=== PATIENT | male | born 1950 | race Caucasian/White ===

== ENCOUNTER → 2017-06-13 | Outpatient (CLI) | payer MEDICARE, BC, OTHER ==
[~2017-06-13] VITALS: Ht 182.9 cm; Wt 95.3 kg
[~2017-06-13] MED LIST: ASPI81TA85 PO; ATOR80TA59 PO; CALC0.004 TOP; CLOP75TA2 PO; FENO145T PO; FLOM5CAP PO; LIDOCAINE 2% INJ 100 MG/5 ML SDV (FOR ANES.) As Ordered ONE; LISI-538 PO; LOVE1INJ SC; MULTCAP PO; NITR0.4S14 SL; NS 1,000 ML IV ONE; OCUVTAB PO; OMEP40CA2 PO; PROPOFOL 200 MG/20 ML VIAL As Ordered ONE; RAMI10CA PO; TRAZ10TA PO
--- NOTE | 2017-06-13 11:23 | ROOR ---
Patient Name: Paramjit Dominguez Procedure Date: 06/13/2017 11:04 AM Date of : 1950 Age: 66 Room: [facility] Gender: Male Note Status: Finalized Procedure: Upper Endoscopy + Biopsies Indications: Heartburn, Follow-up of Olguin's esophagus Providers: Jose J Ramirez MD Referring MD: RALPH SANTIAGO DO Requestmaryann Provider: Medicines: Monitored Anesthesia Care Complications: No immediate complications. Procedure: Pre-Anesthesia Assessment: - The heart rate, respiratory rate, oxygen saturations, blood pressure, adequacy of pulmonary ventilation, and response to care were monitored throughout the procedure. The Endoscope was introduced through the mouth, and advanced to the second part of duodenum. The upper GI endoscopy was accomplished without difficulty. The patient tolerated the procedure well. Findings: The Z-line was irregular and was found 40 cm from the incisors. Multiple biopsies were obtained with cold forceps for evaluation to rule out Olguin's Esophagus randomly at the gastroesophageal junction. A medium-sized hiatal hernia was present. No other significant abnormalities were identified in a careful examination of the stomach. The exam of the duodenum was otherwise normal. Impression: - Z-line irregular, 40 cm from the incisors. - Medium-sized hiatal hernia. - Multiple biopsies were obtained at the gastroesophageal junction. - The examination was otherwise normal. Recommendation: - Patient has a contact number available for emergencies. The signs and symptoms of potential delayed complications were discussed with the patient. Return to normal activities tomorrow. Written discharge instructions were provided to the patient. - High fiber diet. - Discharge patient to home. - Continue present medications. - Await pathology results. - Telephone GI clinic for pathology results in 1 week. - Return to referring physician. - The findings and recommendations were discussed with the patient's family. Jose J Ramirez MD Jose J Ramirez MD 06/13/2017 11:23:13 AM This report has been signed electronically. Number of Addenda: 0 Note Initiated On: 06/13/2017 11:04 AM Estimated Blood Loss: Estimated blood loss: none.
--- NOTE | 2017-06-13 11:54 | ROOR ---
Patient Name: Paramjit Dominguez Procedure Date: 06/13/2017 11:05 AM Date of : 1950 Age: 66 Room: [facility] Gender: Male Note Status: Finalized Procedure: Total Colonoscopy + Hot Snare Polypectomy + Carbon Spot Marking. Indications: High risk colon cancer surveillance: Personal history of colonic polyps, Last colonoscopy: 2011 Providers: Jose J Ramirez MD Referring MD: RALPH SANTIAGO DO Requesting Provider: Medicines: Monitored Anesthesia Care Complications: No immediate complications. Procedure: Pre-Anesthesia Assessment: - The heart rate, respiratory rate, oxygen saturations, blood pressure, adequacy of pulmonary ventilation, and response to care were monitored throughout the procedure. The Colonoscope was introduced through the anus and advanced to the cecum, identified by appendiceal orifice and ileocecal valve. The colonoscopy was performed without difficulty. The patient tolerated the procedure well. The quality of the bowel preparation was excellent. Findings: The perianal and digital rectal examinations were normal. Non-bleeding internal hemorrhoids were found during retroflexion. The hemorrhoids were small and Grade I (internal hemorrhoids that do not prolapse). A large polyp was found at 20 cm proximal to the anus. The polyp was sessile. The polyp was removed with a hot snare. Polyp resection was incomplete. The resected tissue was retrieved. Area was successfully injected with Spot (carbon black) for tattooing. The exam was otherwise without abnormality on direct and retroflexion views. Impression: - Non-bleeding internal hemorrhoids. - One large polyp at 20 cm proximal to the anus, removed with a hot snare. Incomplete resection. Resected tissue retrieved. Injected. - The examination was otherwise normal on direct and retroflexion views. - The exam was otherwise normal to the cecum. Recommendation: - Patient has a contact number available for emergencies. The signs and symptoms of potential delayed complications were discussed with the patient. Return to normal activities tomorrow. Written discharge instructions were provided to the patient. - Resume previous diet. - Discharge patient to home. - Continue present medications. - Await pathology results. - Telephone GI clinic for pathology results in 1 week. - Refer to a surgeon. - The findings and recommendations were discussed with the patient's family. Jose J Ramirez MD Jose J Ramirez MD 06/13/2017 11:54:10 AM This report has been signed electronically. Number of Addenda: 0 Note Initiated On: 06/13/2017 11:05 AM Estimated Blood Loss: Estimated blood loss: none.
[2017-06-13 12:25] VITALS: BP 175/73
== END | disposition home or self-care (01) ==
LOC: M OPP 09:42
PROVIDERS: ATTEND Internal Medicine Gastroenterology
DX: Z12.11 Encounter for screening for malignant neoplasm of colon (principal); D12.5 Benign neoplasm of sigmoid colon; K64.0 First degree hemorrhoids; Z86.010 Personal history of colon polyps; R12 Heartburn; K22.8 Other specified diseases of esophagus; K44.9 Diaphragmatic hernia without obstruction or gangrene; K22.70 Barrett's esophagus without dysplasia; K21.9 Gastro-esophageal reflux disease without esophagitis; R13.10 Dysphagia, unspecified; I25.10 Atherosclerotic heart disease of native coronary artery without angina pectoris; I10 Essential (primary) hypertension; E78.5 Hyperlipidemia, unspecified; Z95.5 Presence of coronary angioplasty implant and graft; M10.9 Gout, unspecified; I86.8 Varicose veins of other specified sites; H54.41 Blindness, right eye, normal vision left eye; Z87.891 Personal history of nicotine dependence; L40.9 Psoriasis, unspecified; Z79.82 Long term (current) use of aspirin; Z79.899 Other long term (current) drug therapy

== ENCOUNTER 2017-07-12 11:24 | Inpatient (IN) | payer MEDICARE, BC, OTHER ==
--- NOTE | 2017-07-11 19:33 | HPE ---
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 HISTORY OF PRESENT ILLNESS: The patient is a 66-year-old man who has a history of gastroesophageal reflux disease and Olguin's esophagus. He had undergone a previous Halo procedure to eradicate his Olguin's esophagus. He had also undergone a colonoscopy in 2011 which revealed a polyp. He was referred back to Dr. Ramirez for repeat EGD and Halo procedure as well as a repeat colonoscopy. He underwent his procedures on 06/13/2017. At the EGD he was noted to have an irregular Z-line 40 cm from the incisors with a medium sized hiatal hernia. Multiple biopsies were obtained to evaluate for possible Olguin's changes. His examination was otherwise without significant abnormality. His colonoscopy identified a polypoid lesion at approximately 20 cm proximal to the anus. This was described as a large polyp that was sessile. This was partially resected with a hot snare and the area was marked with carbon spot marker. His pathology report revealed that the esophageal biopsies showed intestinal metaplasia consistent with Olguin's esophagus. His colon polyp revealed multiple fragments of tubulovillous adenoma with two foci of high-grade dysplasia. The colorectal polyp was not felt to be endoscopically resectable and he was referred for surgery. He was seen on 06/15/2017, and scheduled for a laparoscopic rectosigmoid resection. He is being admitted on the morning of 07/12/2017, to proceed with this surgery. ALLERGIES: The patient has no reported drug allergies. He does have some environmental allergies. MEDICATIONS: Include: - a multivitamin tablet daily - Protonix 40 mg by mouth - aspirin 81 mg by mouth daily - ramipril 5 mg by mouth daily at bedtime - Tricor 145 mg by mouth once daily - atorvastatin 80 mg by mouth daily MEDICAL HISTORY: Significant for hypertension and hypercholesterolemia. He has a history of some psoriasis. He has had esophageal reflux with Olguin's esophagus changes. He has a history of coronary artery disease and underwent coronary artery stenting in March 2016 with two stents placed. He has remained asymptomatic from the point of view of his cardiac disease since then. SURGICAL HISTORY: He has undergone right cataract extraction. He has had varicose veins addressed in his left lower extremity in 2009. He underwent a Halo treatment for Olguin's esophagus in July 2015. His coronary stents were done in March 2016. FAMILY HISTORY: There are apparently no strongly heritable medical conditions within the family. SOCIAL HISTORY: The patient is . 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 He is a former smoker who quit years ago. He denies excessive alcohol use. REVIEW OF SYSTEMS: Reveals no history of chest pain or palpitations. He has no shortness of breath , cough or wheezing. He denies any history of DVT or pulmonary embolus. He denies any history of dysuria or hematuria. He has had no melena, hematochezia, diarrhea, constipation, hepatitis, pancreatitis or jaundice. He denies any significant bone or joint issues. He denies stroke or TIA. PHYSICAL EXAMINATION: Reveals a pleasant man in no obvious discomfort. He is alert, oriented and cooperative. Sclerae are anicteric. Mucous membranes are moist. Neck is supple without mass. He has no cervical bruit. Heart exam shows a regular rate and rhythm. The lungs are clear to auscultation bilaterally. The abdomen is flat, soft and nontender with no appreciable mass. There is no lower extremity edema. He has palpable radial and pedal pulses bilaterally. IMPRESSION: 1. Tubulovillous adenoma with high-grade dysplasia at 20 cm proximal to the anal verge. 2. Coronary artery disease status post stenting in March 2016. 3. Hypertension. 4. Hypercholesterolemia. 5. Psoriasis. 6. History of gastroesophageal reflux with Olguin's esophagus. PLAN: The patient is being admitted on the morning of 07/12/2017, to undergo a laparoscopic rectosigmoid resection. He was instructed to perform a mechanical and antibiotic bowel preparation on 07/11/2017. This was to be done with SUPREP , neomycin, and Flagyl. He will receive a dose of Entereg and a dose of Invanz preoperatively. The plan is to proceed with a laparoscopic approach to his bowel resection. The patient was counseled for the surgery. He was counseled regarding the risks which include but are not limited to bleeding, infection, scarring, adverse drug reaction, need for further surgery, injury of internal organ, an anastomotic leak, and hernia. He did have an opportunity to ask questions and these were answered to the best of my ability. He was referred to his primary physician Dr. Cecil Alvarado for preoperative medical evaluation and this was performed on 07/01/2017. Dr. Alvarado felt that his risk from the surgery was low and he was felt to be appropriately optimized for surgery. [facility]PSON HOSPITALViridiana
[~2017-07-12] VITALS: Ht 182.9 cm; Wt 102.7 kg
[2017-07-12] MEDS: LR 1,000 ML IV SCH
[~2017-07-12 11:24] MED LIST changes: -FLOM5CAP PO; -LIDOCAINE 2% INJ 100 MG/5 ML SDV (FOR ANES.) As Ordered ONE; -LOVE1INJ SC; -NS 1,000 ML IV ONE; -PROPOFOL 200 MG/20 ML VIAL As Ordered ONE; -TRAZ10TA PO
[2017-07-12] MEDS ORDERED: LR 1,000 ML IV ONE (12:00)
[2017-07-12] MEDS ORDERED: ALVIMOPAN 12 MG CAPSULE (ENTEREG) PO ONE (12:00)
[2017-07-12] MEDS ORDERED: LR 1,000 ML IV SCH ×2 (12:00→22:15)
[2017-07-12] MEDS ORDERED: ERTAPENEM SODIUM 1 GM in NS MINI-BAG PLUS 50 ML IV ONE (12:00)
[2017-07-12] MEDS ORDERED: LIDOCAINE 2% INJ 100 MG/5 ML SDV (FOR ANES.) As Ordered ONE (13:10)
[2017-07-12] MEDS ORDERED: MIDAZOLAM INJ 2 MG/2 ML VIAL (J2250) As Ordered ONE (13:10)
[2017-07-12] MEDS ORDERED: ROCURONIUM BROMIDE 50 MG/5 ML VIAL/SYRINGE As Ordered ONE ×3 (13:10→19:24)
[2017-07-12] MEDS ORDERED: fentaNYL 250 MCG/5 ML INJECTION (J3010) As Ordered ONE (13:10)
[2017-07-12] MEDS ORDERED: PROPOFOL 200 MG/20 ML VIAL As Ordered ONE ×2 (13:10→13:29)
[2017-07-12] MEDS ORDERED: ASPIRIN 81 MG CHEW TABLET As Ordered ONE (13:42)
[2017-07-12] MEDS ORDERED: ASPIRIN 81 MG CHEW TABLET PO ONE (14:00)
[2017-07-12] MEDS ORDERED: BUPIVACAINE HCL 0.25% 30 ML VIAL As Ordered ONE (14:09)
[2017-07-12] MEDS ORDERED: HYDROmorphone HCL 2 MG/ML 1ML VIAL (J1170) As Ordered ONE (16:15)
[2017-07-12] MEDS ORDERED: ONDANSETRON 4MG/2ML VIAL (J2405) As Ordered ONE (20:16)
[2017-07-12] MEDS ORDERED: NEOSTIGMINE 1MG/ML 5 ML SYRINGE (J2710) As Ordered ONE (20:17)
[2017-07-12] MEDS ORDERED: GLYCOPYRROLATE INJ 0.2 MG/ML 2 ML VIAL As Ordered ONE (20:17)
[2017-07-12] MEDS ORDERED: KETOROLAC 60 MG/2 ML VIAL (J1885) As Ordered ONE (21:36)
[2017-07-12] MEDS ORDERED: fentaNYL 100 MCG/2 ML INJECTION (J3010) As Ordered ONE (21:46)
[2017-07-12] MEDS ORDERED: ONDANSETRON 4MG/2ML VIAL (J2405) IV PRN ×2 (22:00→22:15)
[2017-07-12] MEDS: ACETAMINOPHEN TAB 650MG DOSE (2X325MG) PO SCH (22:00)
[2017-07-12] MEDS ORDERED: METOCLOPRAMIDE INJ 10MG/2ML VIAL (J2765) IV PRN (22:00)
[2017-07-12] MEDS ORDERED: PERCOCET 5MG/325MG TAB PO PRN (22:15)
[2017-07-12] MEDS ORDERED: fentaNYL 100 MCG/2 ML INJECTION (J3010) IV PRN (22:15)
[2017-07-12] MEDS ORDERED: HYDROmorphone HCL 1 MG/ML SYRINGE (J1170) IV PRN (22:15)
[2017-07-12 22:50] VITALS: BP 114/67
[2017-07-12 23:20] VITALS: BP 139/63
[2017-07-13] VITALS (16 sets, daily range): BP systolic 115–159; BP diastolic 55–88
[2017-07-13] MEDS: KETOROLAC 30 MG/ML VIAL (J1885) IV SCH ×4 (04:05→20:44)
[2017-07-13] MEDS: ACETAMINOPHEN TAB 650MG DOSE (2X325MG) PO SCH ×4 (04:06→20:44)
[2017-07-13 05:30] LABS: BASO % 0.1 % (0.0-1.0); EOS % 0.1 % (0.0-3.0); LARGE UNSTAINED CELL # 0.1 K/mm3 (0.0-0.4); LARGE UNSTAINED CELL % 0.7 % (0.0-4.0); LYMPH # 0.5 K/mm3 (1.5-4.5); LYMPH % 6.9 % (24.0-44.0); MEAN CORPUSCULAR HEMOGLOBIN 34.7 pg (27.0-33.0); MEAN CORPUSCULAR HGB CONC 33.9 g/dl (32.0-36.5); MEAN CORPUSCULAR VOLUME 102.5 fl (80.0-96.0); MONO # 0.3 K/mm3 (0.0-0.8); MONO % 4.3 % (0.0-5.0); NEUTROPHILS # 6.5 K/mm3 (1.8-7.7); NEUTROPHILS % 87.9 % (36.0-66.0); PLATELET COUNT, AUTOMATED 167 k/mm3 (150-450); RED CELL DISTRIBUTION WIDTH 13.8 % (11.5-14.5); WHITE BLOOD COUNT 7.4 K/mm3 (4.0-10.0)
[2017-07-13 05:41] LABS: CALCIUM LEVEL 7.8 MG/DL (8.8-10.2); CREATININE FOR GFR 1.29 MG/DL (0.70-1.30); POTASSIUM SERUM 4.6 MEQ/L (3.5-5.1)
[2017-07-13] MEDS: LR 1,000 ML IV SCH ×2 (06:56→13:22)
[2017-07-13] MEDS: ALVIMOPAN 12 MG CAPSULE (ENTEREG) PO SCH ×2 (08:27→20:44)
[2017-07-13] MEDS ORDERED: PANTOPRAZOLE 40MG INJ (PROTONIX) (C9113) IV SCH (09:00)
[2017-07-13] MEDS ORDERED: ENOXAPARIN 40 MG/0.4 ML SYRINGE (J1650) SC SCH (09:00)
[2017-07-13 15:51] LABS: MEAN CORPUSCULAR HEMOGLOBIN 34.4 pg (27.0-33.0); MEAN CORPUSCULAR VOLUME 104.3 fl (80.0-96.0); RED CELL DISTRIBUTION WIDTH 14.3 % (11.5-14.5); WHITE BLOOD COUNT 8.4 K/mm3 (4.0-10.0)
[2017-07-14] VITALS (7 sets, daily range): BP systolic 128–154; BP diastolic 64–99
[2017-07-14] MEDS: MORPHINE 2 MG/ML 1ML SYRINGE IV PRN (03:33)
[2017-07-14] MEDS: ACETAMINOPHEN TAB 650MG DOSE (2X325MG) PO SCH ×4 (03:35→21:55)
[2017-07-14] MEDS: KETOROLAC 30 MG/ML VIAL (J1885) IV SCH (04:05)
[2017-07-14 05:32] LABS: MEAN CORPUSCULAR HEMOGLOBIN 33.5 pg (27.0-33.0); MEAN CORPUSCULAR HGB CONC 34.7 g/dl (32.0-36.5); RED CELL DISTRIBUTION WIDTH 15.7 % (11.5-14.5); WHITE BLOOD COUNT 10.1 K/mm3 (4.0-10.0)
[2017-07-14 05:39] LABS: MEAN CORPUSCULAR VOLUME 96.6 fl (80.0-96.0)
[2017-07-14 05:50] LABS: CALCIUM LEVEL 8.5 MG/DL (8.8-10.2); CREATININE FOR GFR 2.63 MG/DL (0.70-1.30); GLOMERULAR FILTRATION RATE 25.9 (>49); POTASSIUM SERUM 4.1 MEQ/L (3.5-5.1)
[2017-07-14] MEDS: NORCO, ANEXSIA 5/325MG TABLET (HYDROcodone/ACETAMINOPHEN) PO PRN ×2 (06:13→11:18)
[2017-07-14] MEDS: LR 1,000 ML IV SCH ×8 (08:00→23:44)
[2017-07-14] MEDS: PANTOPRAZOLE 40MG TAB (PROTONIX) PO SCH (10:13)
[2017-07-14] MEDS: ASPIRIN 81 MG ENTERIC TAB PO SCH (10:13)
[2017-07-14] MEDS: ALVIMOPAN 12 MG CAPSULE (ENTEREG) PO SCH ×2 (10:13→21:55)
[2017-07-14 16:46] LABS: MEAN CORPUSCULAR HEMOGLOBIN 33.8 pg (27.0-33.0); MEAN CORPUSCULAR HGB CONC 34.9 g/dl (32.0-36.5); MEAN CORPUSCULAR VOLUME 96.8 fl (80.0-96.0); RED CELL DISTRIBUTION WIDTH 15.7 % (11.5-14.5)
[2017-07-14 17:02] LABS: CALCIUM LEVEL 8.6 MG/DL (8.8-10.2); CREATININE FOR GFR 2.45 MG/DL (0.70-1.30); GLOMERULAR FILTRATION RATE 28.1 (>49); POTASSIUM SERUM 4.6 MEQ/L (3.5-5.1)
[2017-07-14] MEDS ORDERED: LR 1,000 ML IV ONE (17:15)
[2017-07-14] MEDS: RAMIPRIL 5 MG CAP PO SCH (21:55)
[2017-07-15] MEDS: ACETAMINOPHEN TAB 650MG DOSE (2X325MG) PO SCH ×4 (04:00→20:07)
[2017-07-15 04:58] VITALS: BP 133/70
[2017-07-15 05:43] LABS: BASO % 0.1 % (0.0-1.0); EOS # 0.1 K/mm3 (0.0-0.50); LARGE UNSTAINED CELL # 0.1 K/mm3 (0.0-0.4); LARGE UNSTAINED CELL % 0.8 % (0.0-4.0); LYMPH # 0.6 K/mm3 (1.5-4.5); LYMPH % 6.7 % (24.0-44.0); MEAN CORPUSCULAR HEMOGLOBIN 33.7 pg (27.0-33.0); MEAN CORPUSCULAR HGB CONC 34.6 g/dl (32.0-36.5); MEAN CORPUSCULAR VOLUME 97.2 fl (80.0-96.0); MONO # 0.4 K/mm3 (0.0-0.8); MONO % 4.2 % (0.0-5.0); NEUTROPHILS # 7.3 K/mm3 (1.8-7.7); NEUTROPHILS % 87.2 % (36.0-66.0); PLATELET COUNT, AUTOMATED 160 k/mm3 (150-450); RED CELL DISTRIBUTION WIDTH 15.4 % (11.5-14.5); WHITE BLOOD COUNT 8.3 K/mm3 (4.0-10.0)
[2017-07-15 06:11] LABS: ALBUMIN 2.7 GM/DL (3.2-5.2); ALBUMIN/GLOBULIN RATIO 0.84 (1.00-1.93); BILIRUBIN,TOTAL 0.8 MG/DL (0.2-1.0); CALCIUM LEVEL 8.3 MG/DL (8.8-10.2); CREATININE FOR GFR 1.76 MG/DL (0.70-1.30); GLOMERULAR FILTRATION RATE 41.2 (>49); POTASSIUM SERUM 4.5 MEQ/L (3.5-5.1); TOTAL PROTEIN 5.9 GM/DL (6.4-8.2)
[2017-07-15] MEDS: LR 1,000 ML IV SCH ×2 (06:35→16:10)
[2017-07-15 07:20] VITALS: BP 148/84
[2017-07-15] MEDS ORDERED: PIPERACILLIN/TAZOBACTAM SOD 3.375 GM in D5W MINI-BAG PLUS 50 ML IV SCH (10:00)
[2017-07-15] MEDS: MORPHINE 2 MG/ML 1ML SYRINGE IV PRN ×6 (10:07→22:24)
--- NOTE | 2017-07-15 10:56 | REP ---
CT ABDOMEN AND PELVIS WITHOUT IV OR ORAL CONTRAST: HISTORY: Evaluate for an anastomotic leak 3 days postop rectal resection. Tubular villous adenoma of the rectosigmoid colon. CT FINDINGS: Preliminary frontal and lateral digital parts counterperson views show an ileus pattern in the bowel gas with diffuse gas and fluid distension of small and large bowel loops as well as the stomach. There is a [id number] amount of free intraperitoneal air visible on the cross-table lateral projection and there is subcutaneous emphysema along both flanks. Axial CT images show plate-like atelectasis in the lower lobes of the lungs bilaterally and a small sliver of pleural fluid on each side. A nasogastric tube is seen terminating high in the gastric fundus. The stomach is mildly dilated with air and a small quantity of fluid. The small intestine is dilated and filled with fluid and some air from the descending duodenum distally. There is air and fluid and mild gaseous distension throughout the right and left colon to the level of the sigmoid colon. CT images confirm the presence of a large amount of free intraperitoneal air. Abdominal wall subcutaneous emphysema is present as well. A Vargas catheter is noted in place. A low anterior anastomosis is seen. There is a collection of presacral fluid consistent with ascites measuring 6.7 x 2.7 cm. This is superior and posterior to the anastomoses. There is some mild pericolic gutter fluid on the left. No other significant abdominal fluid collection seen. IMPRESSION: Ileus pattern in the bowel gas with moderate fluid and gas distension of the stomach, entire small bowel, and colon proximal to the sigmoid segment. The low anterior resection is seen. There is a small quantity of fluid, 6.7 cm, in the presacral space posteriorly adjacent to this. A small quantity of left pericolic gutter fluid is seen. No other significant fluid collection is seen. A moderate amount of free peritoneal air is seen and there is moderate subcutaneous emphysema in the abdominal wall bilaterally. The NG tube terminates high in the gastric fundus. Signed by Sánchez Torres MD 07/15/2017 11:51 A
[2017-07-15 12:00] VITALS: BP 138/64
[2017-07-15] MEDS: ALVIMOPAN 12 MG CAPSULE (ENTEREG) PO SCH ×2 (12:18→19:47)
[2017-07-15] MEDS: PANTOPRAZOLE 40MG TAB (PROTONIX) PO SCH (12:18)
[2017-07-15] MEDS: ASPIRIN 81 MG ENTERIC TAB PO SCH (12:20)
[2017-07-15 16:00] VITALS: BP 132/60
[2017-07-15] MEDS: RAMIPRIL 5 MG CAP PO SCH (19:47)
[2017-07-15] MEDS: NORCO, ANEXSIA 5/325MG TABLET (HYDROcodone/ACETAMINOPHEN) PO PRN (19:50)
[2017-07-15 20:00] VITALS: BP 157/84
[2017-07-15 23:59] VITALS: BP 138/74
[2017-07-16] MEDS: MORPHINE 2 MG/ML 1ML SYRINGE IV PRN ×5 (01:59→15:25)
[2017-07-16] MEDS: LR 1,000 ML IV SCH ×3 (03:19→16:40)
[2017-07-16] MEDS: ACETAMINOPHEN TAB 650MG DOSE (2X325MG) PO SCH ×4 (03:20→21:02)
[2017-07-16 04:00] VITALS: BP 129/80
[2017-07-16 05:54] LABS: CALCIUM LEVEL 8.6 MG/DL (8.8-10.2); CREATININE FOR GFR 1.33 MG/DL (0.70-1.30); GLOMERULAR FILTRATION RATE 56.9 (>49); POTASSIUM SERUM 4.3 MEQ/L (3.5-5.1)
[2017-07-16 06:20] LABS: ADD MANUAL DIFFER YES; MEAN CORPUSCULAR HEMOGLOBIN 33.3 pg (27.0-33.0); MEAN CORPUSCULAR HGB CONC 33.9 g/dl (32.0-36.5); MEAN CORPUSCULAR VOLUME 98.4 fl (80.0-96.0); PLATELET COUNT, AUTOMATED 194 k/mm3 (150-450); RED CELL DISTRIBUTION WIDTH 15.2 % (11.5-14.5); WHITE BLOOD COUNT 4.6 K/mm3 (4.0-10.0)
[2017-07-16 06:53] LABS: BANDS 11 % (< 11)
[2017-07-16 06:55] LABS: DOHLE BODIES 1+
[2017-07-16 06:56] LABS: ANISOCYTOSIS 1+; NUCLEATED RED BLOOD CELL 1 % (0-0)
[2017-07-16 07:20] VITALS: BP 131/76
[2017-07-16] MEDS: ASPIRIN 81 MG ENTERIC TAB PO SCH (09:27)
[2017-07-16] MEDS: PANTOPRAZOLE 40MG TAB (PROTONIX) PO SCH (09:28)
[2017-07-16] MEDS: ALVIMOPAN 12 MG CAPSULE (ENTEREG) PO SCH ×2 (09:28→21:02)
[2017-07-16 12:00] VITALS: BP 128/70
[2017-07-16 16:00] VITALS: BP 130/76
[2017-07-16 17:09] LABS: ADD MANUAL DIFFER YES; MEAN CORPUSCULAR HEMOGLOBIN 33.6 pg (27.0-33.0); MEAN CORPUSCULAR VOLUME 98.9 fl (80.0-96.0); PLATELET COUNT, AUTOMATED 258 k/mm3 (150-450); RED CELL DISTRIBUTION WIDTH 14.6 % (11.5-14.5)
[2017-07-16 17:32] LABS: BANDS 6 % (< 11)
[2017-07-16 17:33] LABS: ANISOCYTOSIS 1+; TOXIC GRANULATION 1+
[2017-07-16 17:35] LABS: TOXIC VACUOLATION 1+
[2017-07-16 17:48] LABS: MAGNESIUM LEVEL 2.1 MG/DL (1.8-2.4)
[2017-07-16 20:15] VITALS: BP 151/70
[2017-07-16] MEDS: RAMIPRIL 5 MG CAP PO SCH (21:03)
[2017-07-16] MEDS: PIPERACILLIN/TAZOBACTAM SOD 3.375 GM in D5W MINI-BAG PLUS 50 ML IV SCH (22:42)
[2017-07-17 02:20] VITALS: BP 143/71
[2017-07-17] MEDS: ACETAMINOPHEN TAB 650MG DOSE (2X325MG) PO SCH ×4 (03:47→21:21)
[2017-07-17] MEDS: PIPERACILLIN/TAZOBACTAM SOD 3.375 GM in D5W MINI-BAG PLUS 50 ML IV SCH ×4 (05:16→22:58)
[2017-07-17 05:33] VITALS: BP 136/75
[2017-07-17 06:32] LABS: ADD MANUAL DIFFER YES; MEAN CORPUSCULAR HEMOGLOBIN 33.6 pg (27.0-33.0); MEAN CORPUSCULAR HGB CONC 33.8 g/dl (32.0-36.5); MEAN CORPUSCULAR VOLUME 99.5 fl (80.0-96.0); PLATELET COUNT, AUTOMATED 234 k/mm3 (150-450); RED CELL DISTRIBUTION WIDTH 14.9 % (11.5-14.5); WHITE BLOOD COUNT 5.5 K/mm3 (4.0-10.0)
[2017-07-17 06:50] LABS: ALBUMIN 2.1 GM/DL (3.2-5.2); ALBUMIN/GLOBULIN RATIO 0.51 (1.00-1.93); ALKALINE PHOSPHATASE 51 U/L (45-117); ALT/SGPT 14 U/L (12-78); ANION GAP 10 MEQ/L (8-16); AST/SGOT 22 U/L (15-37); BLOOD UREA NITROGEN 25 MG/DL (7-18); CALCIUM LEVEL 8.6 MG/DL (8.8-10.2); CARBON DIOXIDE LEVEL 27 MEQ/L (21-32); CHLORIDE LEVEL 106 MEQ/L (98-107); CREATININE FOR GFR 1.18 MG/DL (0.70-1.30); GLOMERULAR FILTRATION RATE > 60.0 (>49); GLUCOSE, FASTING 110 MG/DL (80-110); POTASSIUM SERUM 3.8 MEQ/L (3.5-5.1); SODIUM LEVEL 143 MEQ/L (136-145); TOTAL PROTEIN 6.2 GM/DL (6.4-8.2)
[2017-07-17 07:17] LABS: ANISOCYTOSIS 1+; BANDS 3 % (< 11)
[2017-07-17 07:20] LABS: TOXIC GRANULATION 1+
--- NOTE | 2017-07-17 08:33 | REP ---
ABDOMEN, FLAT AND UPRIGHT; PA CHEST, FOUR VIEWS: HISTORY: Ileus status post postop. Air is present in small and large intestine. There are multiple dilated loops of intestine. Multiple air fluid levels are present. Pneumoperitoneum is present. An NG tube is present in the stomach. Linear density is present in the left lower lobe consistent with atelectasis. IMPRESSION: Findings consistent with postoperative ileus. Repeat examination is recommended for further evaluation. Signed by Cecil Rojo MD 07/17/2017 08:39 A
[2017-07-17] MEDS: ALVIMOPAN 12 MG CAPSULE (ENTEREG) PO SCH ×2 (09:36→21:21)
[2017-07-17] MEDS: LR 1,000 ML IV SCH ×2 (09:37→13:33)
[2017-07-17] MEDS: PANTOPRAZOLE 40MG TAB (PROTONIX) PO SCH (09:37)
[2017-07-17] MEDS: ASPIRIN 81 MG ENTERIC TAB PO SCH (09:37)
[2017-07-17] MEDS: NORCO, ANEXSIA 5/325MG TABLET (HYDROcodone/ACETAMINOPHEN) PO PRN ×2 (09:38→21:22)
[2017-07-17 10:00] VITALS: BP 135/80
[2017-07-17] MEDS: MORPHINE 2 MG/ML 1ML SYRINGE IV PRN (12:57)
[2017-07-17 14:00] VITALS: BP 145/90
[2017-07-17 18:00] VITALS: BP 148/82
[2017-07-17] MEDS: RAMIPRIL 5 MG CAP PO SCH (21:22)
[2017-07-17 22:00] VITALS: BP 155/72
[2017-07-18 02:00] VITALS: BP 150/80
[2017-07-18] MEDS: LR 1,000 ML IV SCH ×2 (02:34→16:43)
[2017-07-18] MEDS: PIPERACILLIN/TAZOBACTAM SOD 3.375 GM in D5W MINI-BAG PLUS 50 ML IV SCH ×4 (04:40→23:03)
[2017-07-18] MEDS: ACETAMINOPHEN TAB 650MG DOSE (2X325MG) PO SCH ×4 (04:40→23:02)
[2017-07-18 06:11] LABS: ADD MANUAL DIFFER YES; MEAN CORPUSCULAR HEMOGLOBIN 32.6 pg (27.0-33.0); MEAN CORPUSCULAR HGB CONC 33.5 g/dl (32.0-36.5); MEAN CORPUSCULAR VOLUME 97.2 fl (80.0-96.0); PLATELET COUNT, AUTOMATED 305 k/mm3 (150-450); WHITE BLOOD COUNT 7.7 K/mm3 (4.0-10.0)
[2017-07-18 06:29] LABS: ALBUMIN 2.1 GM/DL (3.2-5.2); ALKALINE PHOSPHATASE 71 U/L (45-117); ALT/SGPT 16 U/L (12-78); ANION GAP 11 MEQ/L (8-16); AST/SGOT 25 U/L (15-37); BILIRUBIN,TOTAL 1.8 MG/DL (0.2-1.0); BLOOD UREA NITROGEN 20 MG/DL (7-18); CALCIUM LEVEL 8.3 MG/DL (8.8-10.2); CARBON DIOXIDE LEVEL 24 MEQ/L (21-32); CHLORIDE LEVEL 107 MEQ/L (98-107); CREATININE FOR GFR 0.98 MG/DL (0.70-1.30); GLOMERULAR FILTRATION RATE > 60.0 (>49); GLUCOSE, FASTING 100 MG/DL (80-110); POTASSIUM SERUM 3.5 MEQ/L (3.5-5.1); SODIUM LEVEL 142 MEQ/L (136-145); TOTAL PROTEIN 6.3 GM/DL (6.4-8.2)
[2017-07-18 06:43] LABS: BANDS 1 % (< 11); BASOPHILS 1 % (0-4); EOSINOPHILS 4 % (0-5)
[2017-07-18 06:45] LABS: DOHLE BODIES 1+; TOXIC GRANULATION 1+
[2017-07-18 06:46] LABS: TOXIC VACUOLATION 1+
[2017-07-18] MEDS: PANTOPRAZOLE 40MG TAB (PROTONIX) PO SCH (09:25)
[2017-07-18] MEDS: ASPIRIN 81 MG ENTERIC TAB PO SCH (09:25)
[2017-07-18] MEDS: ALVIMOPAN 12 MG CAPSULE (ENTEREG) PO SCH ×2 (09:25→20:20)
[2017-07-18 10:00] VITALS: BP 132/78
--- NOTE | 2017-07-18 10:23 | REP ---
CT ABDOMEN PELVIS WITHOUT IV OR ORAL CONTRAST: HISTORY: Follow up ileus versus an anastomotic leak. Comparison CT study July 15, 2017. The extra abdominal soft tissue emphysema along the flanks is again seen quite similar to the prior study perhaps somewhat more extensive today. There is a small to moderate amount of free intraperitoneal air which is decreased in quantity since the July 15, 2017 study. A Vargas catheter is noted, however the urinary bladder is distended and dilated. There is persistent moderate dilation of proximal small bowel loops with multiple air-fluid levels. There is air and fluid and mild dilation of the right colon. Mild gaseous distension is seen in the transverse colon. Splenic flexure and descending colon are largely empty. The low anterior resection anastomosis is again seen. The fluid collection posterior and superior to it in the presacral soft tissue persists unchanged approximately 6.1 cm. No new fluid collection is seen. The NG tube tip is just inside the gastric fundus. IMPRESSION: 1. Small to moderate amount of free intraperitoneal air decreased in quantity from the July 15, 2017 study. Slight increase in the extra-abdominal soft tissue emphysema. 2. Persistent dilation of the small bowel and proximal colon to the splenic flexure. No obstructive lesion seen. 3. 6 cm fluid collection posterosuperior to the low anterior anastomosis again seen unchanged. No new fluid collection seen. 4. New dilation of the urinary bladder despite the presence of a Vargas catheter. Signed by Sánchez Torres MD 07/18/2017 02:45 P
[2017-07-18] MEDS ORDERED: KETOROLAC 30 MG/ML VIAL (J1885) IV PRN (13:00)
[2017-07-18] MEDS ORDERED: LACTATED RINGER'S 1000 ML IV ONE (13:00)
[2017-07-18] MEDS: ENOXAPARIN 40 MG/0.4 ML SYRINGE (J1650) SC SCH (13:54)
[2017-07-18 14:00] VITALS: BP 185/91
[2017-07-18] MEDS: METOCLOPRAMIDE INJ 10MG/2ML VIAL (J2765) IV SCH ×2 (16:42→23:02)
[2017-07-18 18:00] VITALS: BP 165/84
[2017-07-18] MEDS: HumaLOG INSULIN (NovoLOG) PER UNIT SC SCH (18:00)
[2017-07-18] MEDS ORDERED: FAT EMULSION IV 20% 500 ML IV SCH (18:00)
[2017-07-18] MEDS ORDERED: MULTIVITAMIN -ADULT INJECTION 10 ML, CR/CU/SE/MN/ZN INJ 1 ML in AMINO AC/ELECTROLYTE/DE... IV SCH (18:00)
--- NOTE | 2017-07-18 18:57 | REP ---
Procedure: PICC line insertion with Elliot-Kaitlin The procedure was performed under the direct supervision of Dr. Torres. The risks and benefits of the procedure were explained to the patient and informed consent was obtained. The right basilic vein was localized using ultrasound guidance. The skin was prepped and draped in a sterile fashion. 2% lidocaine was used as a local anesthetic. Using ultrasound guidance the basilic vein was cannulated and a 0.018 guidewire was inserted and advanced to the SVC using fluoroscopic guidance. The needle was removed and a 5.5 Mauritian dilator and peel-away sheath was inserted over the guide wire. A 5.5 Mauritian dual lumen catheter was cut to length of 39 cm. The dilator was removed and the catheter was inserted over the guide wire with the tip ending in the SVC. The peel-away sheath was removed and the catheter was flushed with heparinized saline as per Hospital protocol. The catheter was affixed to the skin and a sterile dressing was applied. The the patient tolerated the procedure well and there were no immediate complications. 0.2 minutes of fluoro time was utilized for this procedure. Reviewed by DEBBIE Brannon 07/18/2017 05:18 PSigned by Sánchez Torres MD 07/18/2017 06:49 P
--- NOTE | 2017-07-18 19:54 | LET ---
DATE: 07/18/2017 The patient is now 6 days postop from a laparoscopic low-low anterior resection with coloproctostomy. He has remained generally stable over the last 24 hours. He has been quite distended with a firm, distended abdomen for several days. He has an NG tube in place that was adjusted further last evening. I was contacted by nursing earlier in the day that he was leaking urine around his Vargas catheter and following his CT scan, which confirmed a distended bladder. An order was given to change his Vargas and he now has much improved drainage. The patient reports that he remains quite distended, though he is perhaps a little less uncomfortable today. He still has had no flatus by his report and denies any bowel function for several days. He has been up to ambulate several times. His reports that when he tried lying on his left side yesterday it was quite painful though he could lie on his right side okay. Vital signs show him to be afebrile for the last 24 hours. His pulse ranges between 78 and 93. His blood pressure is generally good. His oxygen saturation on room air has been ranging from 91-94%. Intake and output from the showed 2055 in with 2500 out. He is taking some ice chips and this may skew his gastric drainage somewhat. He did have 1275 mL of urine recorded for the . Physical examination shows a pleasant man lying quietly in the hospital bed. His nasogastric tube is draining some faintly greenish watery fluid. He appears adequately hydrated. Heart exam shows a regular rhythm. The lungs are clear bilaterally. The abdomen is still quite protuberant and distended. He does have some bowel sounds auscultable. There is some tympany to percussion, though I think his abdomen is slightly less firm today. He has less tenderness across the lower abdomen today. Laboratory studies include a white count of 7.7 with a differential count showing 73% neutrophils, 1 band, 9 lymphocytes and 10 monocytes. This is quite similar to what it has been the last few days. His hemoglobin is 9 with a hematocrit of 27 following transfusion of 1 unit of packed cells yesterday. Chemistry profile shows normal electrolytes with a BUN of 20, creatinine 0.98 and his glucose is 100. His total bilirubin is 1.8, though his transaminases an alkaline phosphatase are normal. His C-reactive protein today was 23, which is down slightly from the when it was nearly 30. His total protein is 6.3 with an albumin of 2.1. Because of his persistent abdominal distension with a concern that he may have had an anastomotic leak, he underwent repeat CT scanning this morning. This shows persistent air-filled small and large bowel extending to the area of the splenic flexure. There is some free air still anteriorly high in the abdomen, which is less than as noted on the study from 07/15. The bladder was noted at that time to be quite distended despite the presence of a Vargas catheter within. There is a small soft tissue density which may represent fluid posterior to the sigmoid colon just above the anastomosis, but this is unchanged from 07/15. There are no air bubbles evident down in the pelvis. There is no increase in free fluid. There is no sign of abdominal wall hernia. IMPRESSION: Persistent postoperative ileus, now day 6 postop from his low anterior resection with coloproctostomy. Pleasantly on his current CT scan he shows no strong evidence for an anastomotic leak. His white blood cell count remains normal and though he has had a few immature forms on recent labs, these are not as prominent now. His abdomen may be slightly less distended today and he has less discomfort. It may be that some of his lower abdominal discomfort was from a poorly functioning bladder drainage catheter. PLAN: We will continue his nasogastric tube for now. I have encouraged him to walk frequently during the day and to continue trying to lie on his right side and left side intermittently during the day. It is time to start him on some intravenous nutrition so I advised him that I will be requesting a PICC line from radiology and will start TPN today if the PICC line can be accomplished. He will receive a small bolus of Ringer's lactate in the interim. His total bilirubin is slightly elevated, but he did receive a third unit of packed cells yesterday and some of this may represent breakdown from his transfused blood. He is also on Zosyn for empiric antibiotic coverage. We will recheck his labs in the morning. ROMARIO
[2017-07-18] MEDS: RAMIPRIL 5 MG CAP PO SCH (20:20)
[2017-07-18] MEDS: SODIUM CHLORIDE 0.9% INJ 10 ML SYR IV SCH (20:21)
[2017-07-18 22:00] VITALS: BP 155/82
[2017-07-19] VITALS (7 sets, daily range): BP systolic 124–155; BP diastolic 65–80; O2SAT 96
[2017-07-19] MEDS: HumaLOG INSULIN (NovoLOG) PER UNIT SC SCH ×4 (00:06→17:49)
[2017-07-19] MEDS: LR 1,000 ML IV SCH (01:15)
[2017-07-19] MEDS: PIPERACILLIN/TAZOBACTAM SOD 3.375 GM in D5W MINI-BAG PLUS 50 ML IV SCH ×4 (05:09→23:08)
[2017-07-19] MEDS: ACETAMINOPHEN TAB 650MG DOSE (2X325MG) PO SCH ×4 (05:10→20:53)
[2017-07-19] MEDS: METOCLOPRAMIDE INJ 10MG/2ML VIAL (J2765) IV SCH ×4 (05:10→20:59)
[2017-07-19 05:42] LABS: BASO % 0.2 % (0.0-1.0); EOS # 0.4 K/mm3 (0.0-0.50); EOS % 4.4 % (0.0-3.0); LARGE UNSTAINED CELL # 0.1 K/mm3 (0.0-0.4); LARGE UNSTAINED CELL % 1.1 % (0.0-4.0); LYMPH # 0.8 K/mm3 (1.5-4.5); LYMPH % 8.5 % (24.0-44.0); MEAN CORPUSCULAR HEMOGLOBIN 33.2 pg (27.0-33.0); MEAN CORPUSCULAR HGB CONC 34.1 g/dl (32.0-36.5); MEAN CORPUSCULAR VOLUME 97.3 fl (80.0-96.0); MONO # 0.6 K/mm3 (0.0-0.8); MONO % 5.9 % (0.0-5.0); NEUTROPHILS # 7.4 K/mm3 (1.8-7.7); NEUTROPHILS % 79.9 % (36.0-66.0); PLATELET COUNT, AUTOMATED 351 k/mm3 (150-450); RED CELL DISTRIBUTION WIDTH 14.9 % (11.5-14.5); WHITE BLOOD COUNT 9.3 K/mm3 (4.0-10.0)
[2017-07-19] MEDS: SODIUM CHLORIDE 0.9% INJ 10 ML SYR IV SCH ×2 (05:58→17:25)
[2017-07-19 05:59] LABS: ALBUMIN 1.9 GM/DL (3.2-5.2); ALBUMIN/GLOBULIN RATIO 0.61 (1.00-1.93); ALKALINE PHOSPHATASE 124 U/L (45-117); ALT/SGPT 22 U/L (12-78); ANION GAP 8 MEQ/L (8-16); AST/SGOT 33 U/L (15-37); BILIRUBIN,TOTAL 1.5 MG/DL (0.2-1.0); BLOOD UREA NITROGEN 16 MG/DL (7-18); CALCIUM LEVEL 8.1 MG/DL (8.8-10.2); CARBON DIOXIDE LEVEL 29 MEQ/L (21-32); CHLORIDE LEVEL 105 MEQ/L (98-107); CREATININE FOR GFR 0.87 MG/DL (0.70-1.30); GLOMERULAR FILTRATION RATE > 60.0 (>49); GLUCOSE, FASTING 124 MG/DL (80-110); POTASSIUM SERUM 3.2 MEQ/L (3.5-5.1); SODIUM LEVEL 142 MEQ/L (136-145)
[2017-07-19] MEDS: ALVIMOPAN 12 MG CAPSULE (ENTEREG) PO SCH ×2 (08:31→20:59)
[2017-07-19] MEDS: PANTOPRAZOLE 40MG INJ (PROTONIX) (C9113) IV SCH (08:31)
[2017-07-19] MEDS: ASPIRIN 81 MG ENTERIC TAB PO SCH (08:31)
[2017-07-19] MEDS: ENOXAPARIN 40 MG/0.4 ML SYRINGE (J1650) SC SCH (12:05)
--- NOTE | 2017-07-19 15:59 | IPN ---
DATE: 07/19/2017 The patient reports that he has not noticed any major changes since yesterday. He does report that he felt earlier like he might be going to pass some gas but he did not. He has had no bowel movements. The NG tube remains in place as does his Vargas catheter. He is not having any significant pain. He has taken only some Tylenol today for discomfort. He remains on the total parenteral nutrition (TPN) which was started yesterday. The oxygen mask which was ordered for yesterday seems not to have been acted on yet. His complains today that he has some swelling in his lower legs, ankles and feet. He has been up to ambulate four or five times already today. Vital signs show that he has been afebrile. His pulse is in the low 70s to low to mid 80s. His blood pressure is good and his room air oxygen saturation is excellent. His intake and output shows that on the he had 1585 recorded in with 2520 recorded out. He is receiving the TPN at 65 mL per hour with 20 mL of Intralipids per hour as well. Physical exam reveals a pleasant man who does not appear to be in any significant discomfort. He is alert and oriented. Heart exam shows a regular rhythm. The lungs are clear. His abdomen remains somewhat distended but today his bowel sounds appear somewhat more active. I believe the abdomen is a little softer and less firm. Examination of the lower extremities shows that he does have some pitting edema in his lower legs. He is not wearing any thromboembolic deterrent stockings (TEDS) or sequentials at this time. LABORATORY STUDIES: He had a CBC with diff this morning that showed a white count of 9.3 with hemoglobin of 9 and a hematocrit of 26%. Platelet count is 351,000 and his differential shows 80% neutrophils, 8% lymphocytes, 6% monocytes and 4% eosinophils. Chemistry profile shows a sodium of 142, potassium 3.2, chloride 105, CO2 of 29, BUN of 16, creatinine 0.87 and a glucose of 124. His total bilirubin is 1.5 which is slightly down from yesterday when it was 1.8. His total protein is 5.0 with an albumin of 1.9. IMPRESSION: Overall patient remains stable. He has still not had any return of bowel function though I think that his abdomen is a little softer and less distended today with more active bowel sounds. He has been up to ambulate four or five times today. He is tolerating the TPN well. He remains on the Zosyn empirically for concerns about what may have been a small leak though this is looking I think less likely. His potassium is slightly decreased and he does have some lower extremity edema. PLAN: The patient will receive some IV potassium chloride runs and we will increase the potassium in his total parenteral nutrition which will be continued. His NG tube will be continued. I have encouraged him to be up ambulatory. We will initiate the oxygen mask which was started or supposed to be started yesterday. I will give him a small dose of Lasix to diuresis some of his edema. I should think we would be able to remove his Vargas catheter tomorrow if all goes well. MTDD
[2017-07-19] MEDS ORDERED: FUROSEMIDE 20 MG/2 ML VIAL (J1940) IV ONE (16:00)
[2017-07-19] MEDS: KCL 10MEQ IN 100ML SWI (KRUN) 10 MEQ in APPROPRIATE DILUENT 1 EA IV SCH ×8 (16:06→23:08)
[2017-07-19] MEDS ORDERED: DEX IV SCH (18:00)
[2017-07-19] MEDS ORDERED: FAT EMULSION IV 20% 500 ML IV SCH (18:00)
[2017-07-19] MEDS ORDERED: CALC IV SCH (18:00)
[2017-07-19] MEDS ORDERED: AMINO AC IV SCH (18:00)
[2017-07-19] MEDS ORDERED: ELECTROLYTE IV SCH (18:00)
[2017-07-19] MEDS ORDERED: POTASSIUM CHLORIDE IV SCH (18:00)
[2017-07-19] MEDS: RAMIPRIL 5 MG CAP PO SCH (20:59)
[2017-07-20] VITALS (7 sets, daily range): BP systolic 118–155; BP diastolic 69–81
[2017-07-20] MEDS: HumaLOG INSULIN (NovoLOG) PER UNIT SC SCH ×4 (00:26→18:25)
[2017-07-20] MEDS: ACETAMINOPHEN TAB 650MG DOSE (2X325MG) PO SCH (03:36)
[2017-07-20] MEDS: METOCLOPRAMIDE INJ 10MG/2ML VIAL (J2765) IV SCH ×4 (03:36→21:01)
[2017-07-20] MEDS: PIPERACILLIN/TAZOBACTAM SOD 3.375 GM in D5W MINI-BAG PLUS 50 ML IV SCH ×4 (05:12→23:35)
[2017-07-20] MEDS: SODIUM CHLORIDE 0.9% INJ 10 ML SYR IV SCH ×2 (05:13→17:00)
[2017-07-20 05:45] LABS: BASO % 0.2 % (0.0-1.0); EOS # 0.5 K/mm3 (0.0-0.50); EOS % 3.5 % (0.0-3.0); LARGE UNSTAINED CELL # 0.2 K/mm3 (0.0-0.4); LARGE UNSTAINED CELL % 1.6 % (0.0-4.0); LYMPH # 1.4 K/mm3 (1.5-4.5); LYMPH % 8.7 % (24.0-44.0); MEAN CORPUSCULAR HEMOGLOBIN 32.8 pg (27.0-33.0); MEAN CORPUSCULAR HGB CONC 33.7 g/dl (32.0-36.5); MEAN CORPUSCULAR VOLUME 97.3 fl (80.0-96.0); MONO # 0.7 K/mm3 (0.0-0.8); MONO % 5.3 % (0.0-5.0); NEUTROPHILS # 10.9 K/mm3 (1.8-7.7); NEUTROPHILS % 80.8 % (36.0-66.0); PLATELET COUNT, AUTOMATED 416 k/mm3 (150-450); RED CELL DISTRIBUTION WIDTH 15.1 % (11.5-14.5); WHITE BLOOD COUNT 13.5 K/mm3 (4.0-10.0)
[2017-07-20 05:49] LABS: ALBUMIN/GLOBULIN RATIO 0.65 (1.00-1.93); ALKALINE PHOSPHATASE 120 U/L (45-117); ALT/SGPT 23 U/L (12-78); ANION GAP 7 MEQ/L (8-16); AST/SGOT 29 U/L (15-37); BILIRUBIN,TOTAL 1.3 MG/DL (0.2-1.0); BLOOD UREA NITROGEN 13 MG/DL (7-18); CALCIUM LEVEL 7.7 MG/DL (8.8-10.2); CARBON DIOXIDE LEVEL 29 MEQ/L (21-32); CHLORIDE LEVEL 105 MEQ/L (98-107); CREATININE FOR GFR 0.79 MG/DL (0.70-1.30); GLOMERULAR FILTRATION RATE > 60.0 (>49); GLUCOSE, FASTING 126 MG/DL (80-110); POTASSIUM SERUM 3.1 MEQ/L (3.5-5.1); SODIUM LEVEL 141 MEQ/L (136-145); TOTAL PROTEIN 5.1 GM/DL (6.4-8.2)
[2017-07-20] MEDS: KCL 10MEQ IN 100ML SWI (KRUN) 10 MEQ in APPROPRIATE DILUENT 1 EA IV SCH ×8 (07:02→14:49)
[2017-07-20] MEDS: PANTOPRAZOLE 40MG INJ (PROTONIX) (C9113) IV SCH (08:21)
[2017-07-20] MEDS: ASPIRIN 81 MG ENTERIC TAB PO SCH (08:21)
--- NOTE | 2017-07-20 09:04 | REP ---
PORTABLE CHEST X-RAY: Semi-erect AP view. HISTORY: Evaluate for atelectasis or pneumonia. FINDINGS: A right-sided PICC line is inserted with its tip in the expected location of the superior vena cava. An NG tube is visible in the upper mediastinum but I cannot determine its terminus location. The upper abdomen and lower mediastinum are less well penetrated today. There is coarse bibasilar plate-like atelectasis above the diaphragms on both sides. This is unchanged on the left but new on the right. There is a moderate amount of free intraperitoneal air under the leaves of the diaphragm. This is somewhat decreased from July 16, 2017. IMPRESSION: New discoid atelectasis right lower lobe. Moderate amount of pneumoperitoneum persist slightly decreased. Discoid atelectasis again seen in the left base. Signed by Sánchez Torres MD 07/20/2017 01:40 P
--- NOTE | 2017-07-20 09:18 | IPN ---
DATE: 07/20/2017 The patient is now 8 days postop from his laparoscopic low anterior resection. He reports that he has had several small bowel movements and has passed some flatus on several occasions since yesterday. He still is quite bloated and the NG tube remains in place, but seems to have slipped back to about 50 cm at his nose and I suspect this is nonfunctional. He is not reporting any pain this morning. Vital signs show an even temperature course and he has been afebrile. Pulse has ranged from 72-85 and his blood pressure is good. His room air oxygen sats range from 92 to 96. He had tried the oxygen mask for a brief period last night, but could not sleep with it and so has not used it since. His intake and output yesterday was 2915 in with 1530 out, 1250 of that was urine, and he had received one small dose of Lasix in the afternoon. His NG output recorded is only 280 yesterday and there is a minimal amount in the canister this morning. The patient is alert, oriented and appears fairly comfortable. Sclerae are anicteric. His mucous membranes are moist. Heart exam shows a regular rate and rhythm. The lungs show good breath sounds bilaterally. The abdomen remains quite distended and is fairly firm and actually seems somewhat firmer than it did yesterday despite his report of passage of flatus. He does have some bowel sounds present, but has also tympany to percussion across the upper abdomen. His incisions all appear clean and seem to be healing well. On his lower extremities, he is wearing his thromboembolic deterrent (MI) stockings this morning, though he still has some pitting edema of his lower legs bilaterally. LABORATORY STUDIES: This morning, he had a CBC with a diff that showed a white count of 13.5 with a hemoglobin of 9, hematocrit of 26 and platelet count of 416,000. Differential showed 81% neutrophils, 9 lymphocytes, 5 monocytes and 4 eosinophils. Chemistry profile showed a sodium of 141, potassium 3.1, chloride 105, CO2 of 29, BUN of 13, creatinine of 0.8 and a glucose of 126. The total bilirubin continues to fall and is 1.3 this morning. His total protein is up a hair at 5.1 and the albumin is also slightly increased at 2.0. A chest x-ray was done which shows some atelectasis or infiltrate at the right base. He has a small amount of free air noted beneath both sides of the diaphragm. There is a little atelectasis in the left base as well, though it is less pronounced than on the right. I cannot definitely identify the tip of the NG tube. IMPRESSION: Persistent marked ileus now 8 days postop from his laparoscopic low anterior resection. His white blood cell count is up a hair this morning, but the significance of this is unclear. He remains on Zosyn for antibiotic coverage empirically. His urine output is adequate. He does report passage of some flatus, but the abdomen remains distended and firm. PLAN: We will continue with our current care. Because his potassium is slightly low, I will increase the dose of potassium in his TPN today again and give him several potassium IV boluses as well. He remains encouraged to be up and about and to continue his trips to the bathroom to see if he can pass more gas. We will recheck his electrolytes and CBC tomorrow morning. ROMARIO
[2017-07-20] MEDS: ENOXAPARIN 40 MG/0.4 ML SYRINGE (J1650) SC SCH (13:46)
[2017-07-20] MEDS ORDERED: FAT EMULSION IV 20% 500 ML IV SCH (18:00)
[2017-07-20] MEDS ORDERED: [UNRECOGNIZED DRUG - MIXTURE] IV SCH ×4 (18:00)
[2017-07-20] MEDS: RAMIPRIL 5 MG CAP PO SCH (21:00)
[2017-07-20] MEDS: NORCO, ANEXSIA 5/325MG TABLET (HYDROcodone/ACETAMINOPHEN) PO PRN (21:00)
[2017-07-20] MEDS: SODIUM CHLORIDE 0.9% INJ 10 ML SYR IV PRN (21:00)
--- NOTE | 2017-07-20 21:49 | IPN ---
DATE: 07/20/2017 Mr. Dominguez does not seem to have had a major change during the course of the day. He does report having passed small amounts of liquid loose stool on three occasions, though he has not passed significant gas per rectum. The nurse appears to have advanced his nasogastric (NG) tube slightly. He remains afebrile with a pulse in the low to mid 80s, and his oxygen saturations are fine. His urine output today has been 900, and he remains on his total parenteral nutrition. Examination shows that he does have active bowel sounds, though he does have some tinkly sounds, and his abdomen remains quite protuberant. The abdomen is perhaps a hair softer this evening than it was this morning, and he has no significant tenderness on palpation. IMPRESSION: Persistent postoperative ileus. PLAN: We will remove his Vargas catheter in the morning of July 21. I will continue his NG tube for now. I will recheck his complete blood count (CBC) with differential, a basic metabolic panel (BMP), and a magnesium level in the morning of July 21. His white count was up a hair this morning, and we will need to see if there is any trend in that regard. The chest x-ray this morning had shown some atelectasis in the right lower lobe. We will continue with supportive care while we await the resolution of his significant ileus. ROMARIO
[2017-07-21] MEDS: HumaLOG INSULIN (NovoLOG) PER UNIT SC SCH ×5 (00:44→23:42)
[2017-07-21] MEDS: METOCLOPRAMIDE INJ 10MG/2ML VIAL (J2765) IV SCH ×4 (04:18→21:40)
[2017-07-21] MEDS: PIPERACILLIN/TAZOBACTAM SOD 3.375 GM in D5W MINI-BAG PLUS 50 ML IV SCH ×4 (04:19→23:36)
[2017-07-21] MEDS: SODIUM CHLORIDE 0.9% INJ 10 ML SYR IV SCH ×2 (05:42→18:00)
[2017-07-21 06:00] VITALS: BP 133/69
[2017-07-21 06:32] LABS: ANION GAP 12 MEQ/L (8-16); BLOOD UREA NITROGEN 11 MG/DL (7-18); CALCIUM LEVEL 7.9 MG/DL (8.8-10.2); CARBON DIOXIDE LEVEL 25 MEQ/L (21-32); CHLORIDE LEVEL 105 MEQ/L (98-107); CREATININE FOR GFR 0.75 MG/DL (0.70-1.30); GLOMERULAR FILTRATION RATE > 60.0 (>49); GLUCOSE, FASTING 120 MG/DL (80-110); POTASSIUM SERUM 3.5 MEQ/L (3.5-5.1); SODIUM LEVEL 142 MEQ/L (136-145)
[2017-07-21 06:36] LABS: BASO # 0.1 K/mm3 (0.0-0.2); BASO % 0.6 % (0.0-1.0); EOS # 0.4 K/mm3 (0.0-0.50); EOS % 2.9 % (0.0-3.0); LARGE UNSTAINED CELL # 0.2 K/mm3 (0.0-0.4); LARGE UNSTAINED CELL % 1.5 % (0.0-4.0); LYMPH # 1.5 K/mm3 (1.5-4.5); LYMPH % 8.1 % (24.0-44.0); MEAN CORPUSCULAR HEMOGLOBIN 31.8 pg (27.0-33.0); MEAN CORPUSCULAR HGB CONC 32.9 g/dl (32.0-36.5); MEAN CORPUSCULAR VOLUME 96.6 fl (80.0-96.0); MONO # 0.8 K/mm3 (0.0-0.8); NEUTROPHILS # 12.7 K/mm3 (1.8-7.7); NEUTROPHILS % 81.8 % (36.0-66.0); PLATELET COUNT, AUTOMATED 436 k/mm3 (150-450); WHITE BLOOD COUNT 15.4 K/mm3 (4.0-10.0)
[2017-07-21] MEDS: PANTOPRAZOLE 40MG INJ (PROTONIX) (C9113) IV SCH (09:40)
[2017-07-21] MEDS: ASPIRIN 81 MG ENTERIC TAB PO SCH (09:40)
[2017-07-21 10:00] VITALS: BP 146/76
[2017-07-21] MEDS ORDERED: MIRALAX *UNIT DOSE* 17GM PACKET PO ONE (10:45)
[2017-07-21] MEDS: ENOXAPARIN 40 MG/0.4 ML SYRINGE (J1650) SC SCH (12:46)
[2017-07-21 14:00] VITALS: BP 146/76
[2017-07-21 18:00] VITALS: BP 120/68
[2017-07-21] MEDS ORDERED: POTASSIUM CHLORIDE IV SCH (18:00)
[2017-07-21] MEDS ORDERED: ELECTROLYTE IV SCH (18:00)
[2017-07-21] MEDS ORDERED: AMINO AC IV SCH (18:00)
[2017-07-21] MEDS ORDERED: CALC IV SCH (18:00)
[2017-07-21] MEDS ORDERED: FAT EMULSION IV 20% 500 ML IV SCH (18:00)
[2017-07-21] MEDS ORDERED: DEX IV SCH (18:00)
[2017-07-21] MEDS: SODIUM CHLORIDE 0.9% INJ 10 ML SYR IV PRN (19:50)
[2017-07-21] MEDS ORDERED: BISACODYL 5 MG TAB PO ONE (20:45)
[2017-07-21] MEDS: RAMIPRIL 5 MG CAP PO SCH (21:40)
[2017-07-21] MEDS: NORCO, ANEXSIA 5/325MG TABLET (HYDROcodone/ACETAMINOPHEN) PO PRN (21:41)
[2017-07-21 22:00] VITALS: BP 135/74
[2017-07-22] MEDS: SODIUM CHLORIDE 0.9% INJ 10 ML SYR IV PRN ×2 (00:56→20:37)
[2017-07-22 02:00] VITALS: BP 137/74
[2017-07-22] MEDS: PIPERACILLIN/TAZOBACTAM SOD 3.375 GM in D5W MINI-BAG PLUS 50 ML IV SCH ×2 (04:52→11:26)
[2017-07-22] MEDS: METOCLOPRAMIDE INJ 10MG/2ML VIAL (J2765) IV SCH ×4 (04:52→20:36)
[2017-07-22 05:39] LABS: BASO # 0.1 K/mm3 (0.0-0.2); BASO % 0.7 % (0.0-1.0); EOS # 0.4 K/mm3 (0.0-0.50); EOS % 2.1 % (0.0-3.0); LARGE UNSTAINED CELL # 0.3 K/mm3 (0.0-0.4); LARGE UNSTAINED CELL % 2.1 % (0.0-4.0); LYMPH # 1.3 K/mm3 (1.5-4.5); MEAN CORPUSCULAR HEMOGLOBIN 32.3 pg (27.0-33.0); MEAN CORPUSCULAR HGB CONC 33.4 g/dl (32.0-36.5); MEAN CORPUSCULAR VOLUME 96.8 fl (80.0-96.0); MONO # 0.8 K/mm3 (0.0-0.8); MONO % 4.8 % (0.0-5.0); NEUTROPHILS # 13.3 K/mm3 (1.8-7.7); NEUTROPHILS % 82.3 % (36.0-66.0); PLATELET COUNT, AUTOMATED 553 k/mm3 (150-450); RED CELL DISTRIBUTION WIDTH 14.6 % (11.5-14.5); WHITE BLOOD COUNT 16.2 K/mm3 (4.0-10.0)
[2017-07-22 05:49] LABS: ALBUMIN 1.8 GM/DL (3.2-5.2); ALBUMIN/GLOBULIN RATIO 0.44 (1.00-1.93); ALKALINE PHOSPHATASE 134 U/L (45-117); ALT/SGPT 25 U/L (12-78); ANION GAP 10 MEQ/L (8-16); AST/SGOT 29 U/L (15-37); BLOOD UREA NITROGEN 11 MG/DL (7-18); CALCIUM LEVEL 8.5 MG/DL (8.8-10.2); CARBON DIOXIDE LEVEL 25 MEQ/L (21-32); CHLORIDE LEVEL 104 MEQ/L (98-107); CREATININE FOR GFR 0.79 MG/DL (0.70-1.30); GLOMERULAR FILTRATION RATE > 60.0 (>49); GLUCOSE, FASTING 119 MG/DL (80-110); POTASSIUM SERUM 3.5 MEQ/L (3.5-5.1); SODIUM LEVEL 139 MEQ/L (136-145); TOTAL PROTEIN 5.9 GM/DL (6.4-8.2)
[2017-07-22 06:00] VITALS: BP 149/70
[2017-07-22] MEDS: SODIUM CHLORIDE 0.9% INJ 10 ML SYR IV SCH ×2 (06:15→16:41)
[2017-07-22] MEDS: HumaLOG INSULIN (NovoLOG) PER UNIT SC SCH ×3 (06:21→18:00)
[2017-07-22] MEDS: ASPIRIN 81 MG ENTERIC TAB PO SCH (09:32)
[2017-07-22] MEDS: PANTOPRAZOLE 40MG INJ (PROTONIX) (C9113) IV SCH (09:32)
[2017-07-22] MEDS: ENOXAPARIN 40 MG/0.4 ML SYRINGE (J1650) SC SCH (12:41)
[2017-07-22] MEDS ORDERED: BISACODYL 5 MG TAB PO ONE (13:45)
[2017-07-22 14:00] VITALS: BP 160/95
--- NOTE | 2017-07-22 16:08 | REP ---
Clinical: Lower extremity pain and swelling . Technique: De La Torre scale and color Doppler evaluation using linear high frequency transducer. Findings: Ultrasound examination of the right and left lower extremity deep venous structures from the common femoral vein to the popliteal vein demonstrates diffuse subcutaneous edema with normal compressibility, flow and wave patterns in response to respiration and augmentation. There is no evidence for deep venous thrombosis. Impression: No evidence for deep venous thrombosis. Signed by Omega Contreras MD 07/22/2017 04:00 P
[2017-07-22] MEDS ORDERED: GASTROGRAFIN SOLUTION 30ML PO ONE (16:45)
[2017-07-22] MEDS ORDERED: ERTAPENEM SODIUM 1 GM in NS MINI-BAG PLUS 50 ML IV SCH (17:00)
[2017-07-22] MEDS ORDERED: ISOVUE-370 76% 100ML VIAL (Q9967) As Ordered ONE ×2 (17:09→17:28)
[2017-07-22] MEDS ORDERED: GASTROGRAFIN SOLUTION 30ML (Q9963) PO ONE (17:15)
[2017-07-22 17:56] LABS: T UPTAKE 36 % (33-40); THYROXINE (T4) 13.8 UG/DL (4.5-12.0)
[2017-07-22] MEDS ORDERED: [UNRECOGNIZED DRUG - MIXTURE] IV SCH ×4 (18:00)
[2017-07-22] MEDS ORDERED: FAT EMULSION IV 20% 500 ML IV SCH (18:00)
--- NOTE | 2017-07-22 18:24 | REP ---
Clinical: Chest pain. History of pneumoperitoneum. Technique: PA and lateral. Comparison: 07/20/2017. Findings: Pneumoperitoneum is again appreciated. Mediastinum and cardiac silhouette are stable. PICC line identified with tip in the right atrium. Lung ramirez demonstrate chronic changes previously noted elements of left mid lung atelectasis/ right lower lobe consolidation are improved with only trace bibasilar atelectasis now identified. Lateral view cannot exclude small pleural reaction/effusion. No pneumothorax. Skeletal structures intact. Impression: 1. Improved aeration to the bilateral lung ramirez as compared to 07/20/2017. Minimal residual bibasilar atelectasis suggested. 2. Continued pneumoperitoneum. Signed by Omega Contreras MD 07/22/2017 06:16 P
[2017-07-22] MEDS: MEROPENEM INJ 1 GM in D5W MINI-BAG PLUS 100 ML IV SCH (18:44)
--- NOTE | 2017-07-22 18:57 | REP ---
Clinical: Follow up scrotal mass. Technique: Real time gore scale and color Doppler evaluation using linear high frequency transducer. Comparison: 12/06/2016. Findings: In comparison with prior examination, the right testicle now demonstrates multiple hypodense lesions measuring up to 13 x 8 x 13 mm and 12 x 5 x 9 mm along with diffuse microlithiasis. Incidental right epididymal head cyst measures 4.6 mm. The left testicle appears relatively normal and without mass lesion and only few scattered calcifications. Small bilateral hydroceles noted. Incidental left epididymal head cysts measure up to 2 mm. Vascularity to the bilateral testicles is appreciated without evidence for torsion. Right testicle measures 3.4 x 2.1 x 3.2 cm. Left testicle measures 4.8 x 2.3 x 3.3 cm. Impression: 1. While the prior examination demonstrated a single 6 mm hypoechoic lesion, current examination now demonstrates multiple heterogeneous hypoechoic lesions in the right testicle measuring up to 13 x 8 x 13 mm along with diffuse microlithiasis. 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 2. Further less significant findings as described above. Signed by Omega Contreras MD 07/22/2017 06:49 P
[2017-07-22] MEDS: RAMIPRIL 5 MG CAP PO SCH (20:36)
[2017-07-22 22:00] VITALS: BP 145/75
[2017-07-23] MEDS: MEROPENEM INJ 1 GM in D5W MINI-BAG PLUS 100 ML IV SCH ×3 (01:21→17:37)
[2017-07-23 02:00] VITALS: BP 160/77
[2017-07-23] MEDS: SODIUM CHLORIDE 0.9% INJ 10 ML SYR IV PRN (02:17)
[2017-07-23] MEDS: NORCO, ANEXSIA 5/325MG TABLET (HYDROcodone/ACETAMINOPHEN) PO PRN ×2 (02:17→21:45)
[2017-07-23] MEDS: METOCLOPRAMIDE INJ 10MG/2ML VIAL (J2765) IV SCH ×4 (05:53→21:44)
[2017-07-23] MEDS: SODIUM CHLORIDE 0.9% INJ 10 ML SYR IV SCH ×2 (05:54→16:11)
[2017-07-23] MEDS: HumaLOG INSULIN (NovoLOG) PER UNIT SC SCH ×4 (05:54→23:50)
[2017-07-23 06:00] VITALS: BP 138/77
[2017-07-23 06:23] LABS: MEAN CORPUSCULAR HEMOGLOBIN 33.2 pg (27.0-33.0); MEAN CORPUSCULAR HGB CONC 34.1 g/dl (32.0-36.5); MEAN CORPUSCULAR VOLUME 97.3 fl (80.0-96.0); RED CELL DISTRIBUTION WIDTH 14.6 % (11.5-14.5); WHITE BLOOD COUNT 16.1 K/mm3 (4.0-10.0)
[2017-07-23 07:00] LABS: ALBUMIN 1.8 GM/DL (3.2-5.2); ALKALINE PHOSPHATASE 132 U/L (45-117); ALT/SGPT 24 U/L (12-78); ANION GAP 10 MEQ/L (8-16); AST/SGOT 22 U/L (15-37); BLOOD UREA NITROGEN 10 MG/DL (7-18); CALCIUM LEVEL 7.9 MG/DL (8.8-10.2); CARBON DIOXIDE LEVEL 25 MEQ/L (21-32); CHLORIDE LEVEL 105 MEQ/L (98-107); CREATININE FOR GFR 0.72 MG/DL (0.70-1.30); GLOMERULAR FILTRATION RATE > 60.0 (>49); GLUCOSE, FASTING 97 MG/DL (80-110); POTASSIUM SERUM 4.1 MEQ/L (3.5-5.1); SODIUM LEVEL 140 MEQ/L (136-145); TOTAL PROTEIN 5.4 GM/DL (6.4-8.2)
--- NOTE | 2017-07-23 07:03 | CR ---
DATE OF CONSULTATION: 07/22/[address] SCANLON REASON FOR CONSULTATION: Lower extremity edema, leukocytosis. PRIMARY CARE PROVIDER: Dr. Alvarado SENIOR PATROL AGENT: Dr. Cormier RATE EXAMINER: Dr. 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 He was initially admitted to the surgical team under Dr. Scanlon status post resection of rectosigmoid colectomy with primary anastomosis. Following surgery, the patient developed an ileus. Furthermore, the hospital course was further complicated with acute renal failure. The patient was started on TPN with improvement of kidney function over the past three to four days, but furthermore the patient developed bilateral lower extremity swelling and leukocytosis. He was placed on antibiotics. Previous CT scan did not show anything significant. The patient reported abdominal surgical pain, otherwise denies any other complaints. He is not tolerating oral. He has a NG tube to suction. He denies any fevers, chills, coughing. He had a urinary catheter before, currently does not have a catheter. Denies any urinary complaints. The patient denies any chest pain, pressure or discomfort. Denies history of congestive heart failure. ALLERGIES: No known drug allergies. PAST MEDICAL HISTORY: 1. Hypertension. 2. Dyslipidemia. 3. Psoriasis. 4. GERD with Olguin's esophagus. 5. History of coronary arterial disease with stents in 2015. PAST SURGICAL HISTORY: 1. Right cataract extraction. 2. Varicose veins left lower extremity 2009. 3. Olguin's esophagus treatment in July 2015. 4. Coronary arterial disease with stents in March 2016. 5. In June 2017 during this admission with rectosigmoid colectomy. FAMILY HISTORY: Negative for any inheritable disease conditions. 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 Former smoking. Quit many years ago. Denies excessive alcohol use. REVIEW OF SYSTEMS: Report of abdominal pain. Lower extremity swelling. NG tube for nausea and vomiting. All other review of systems are negative. HOME MEDICATIONS: - aspirin 81 mg by mouth daily - Lipitor 80 mg by mouth daily - Plavix 75 mg by mouth daily - fenofibrate 145 mg by mouth daily - multivitamin one capsule by mouth daily - nitroglycerin sublingual 0.4 mg as needed - omeprazole 40 mg by mouth twice a day - ramipril 10 mg by mouth at bedtime PHYSICAL EXAMINATION: Temperature 98, pulse 85, respirations 20, blood pressure 145/75, pulse oximetry 97% on room air. GENERAL: The patient alert and oriented times three in no acute distress. HEENT: Normocephalic, atraumatic. PULMONARY: Bilateral clear to auscultation. CARDIAC: Regular rate and rhythm. No murmurs detected. ABDOMEN: Firm. Minimal tenderness. No rebound. No guarding. Hypoactive bowel sounds. EXTREMITIES: Bilateral 1+ lower extremity edema. NEUROLOGIC: No focal deficit. LABORATORIES: WBC 16.2, hemoglobin/hematocrit 8.7/26.2, platelets 553. Chemistries: Sodium 139, potassium 3.5, chloride 104, bicarbonate 25, BUN 11, creatinine 0.79. Cardiac enzymes negative times one. BNP negative. ASSESSMENT AND PLAN: This is a 66-year-old male patient with underlying medical history of hypertension, GERD with Olguin's esophagus, psoriasis, dyslipidemia, coronary arterial disease with stent placement admitted under the surgical service for high grade dysplasia of tubulovillous adenoma of rectosigmoid status post rectosigmoid colectomy. Medicine consulted for leukocytosis as well as bilateral lower extremity swelling. PROBLEMS: 1. Leukocytosis, unknown etiology. The patient currently on meropenem. CT of the abdomen, blood cultures, urinalysis (UA), urine culture, chest x-ray, followup C-reactive protein. Will consider infectious disease consultation if patient does not have any improvement. The patient currently on meropenem. 2. Lower extremity swelling bilateral. No history of CHF. Cardiac enzymes, BNP appreciated. EKGs. Echocardiogram. Ultrasound Doppler negative for deep vein thrombosis. Will check prealbumin. The patient currently is being provided with TPN. 3. Ileus post surgery. Management as per surgery. Patient currently is on TPN with NG tube. CT of abdomen appreciated. Further management per surgery. Diet as per surgery. Patient currently nothing by mouth. 4. Testicular lesions. Consider consulting urology in the morning. Possible contributing to lower extremity swelling. Will need further workup. 5. Coronary arterial disease. Continue aspirin. OWEN. Monitor blood pressure. 6. Hypertension. Continue ramipril. Monitor blood pressure. 7. Dyslipidemia. Will hold off oral medications for the time being given patient is n.p.o. 8. GERD with Olguin's esophagus. Continue proton pump inhibitor (PPI). 9. Acute kidney injury (GLENN), resolved. 10. Deep vein thrombosis (DVT) prophylaxis. Lovenox subcutaneous. DISPOSITION: Pending further workup. Echo. Will consider urology consultation. Followup cultures.
[2017-07-23] MEDS: ASPIRIN 81 MG ENTERIC TAB PO SCH (09:13)
[2017-07-23] MEDS: PANTOPRAZOLE 40MG INJ (PROTONIX) (C9113) IV SCH (09:13)
--- NOTE | 2017-07-23 09:59 | ECGEPIP ---
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
[2017-07-23] MEDS: ENOXAPARIN 40 MG/0.4 ML SYRINGE (J1650) SC SCH (12:25)
[2017-07-23 14:00] VITALS: BP 164/79
[2017-07-23 18:00] VITALS: BP 156/77
--- NOTE | 2017-07-23 18:25 | IPN ---
DATE: 07/23/2017 SUBJECTIVE: The patient is seen and examined in the room today. The patient has still experienced significant abdominal distention, almost no meaningful bowel movements. The patient did produce some minimal toothpaste like bowel material in the last 24 hours. Denies any fever or chills. Denied any difficulty breathing. Denies any cough or chest pain. OBJECTIVE: VITAL SIGNS: Temperature 98.5, pulse 83, respirations 19, blood pressure 138/77 , pulse oximetry 95% on room air. GENERAL : Mild to moderate distress secondary to persistent abdominal distention. HEENT: Nasogastric tube in place. Normocephalic, atraumatic. Extraocular motors are grossly intact. CARDIOVASCULAR: S1, S2. Regular rate. LUNGS: Clear to auscultation bilaterally. ABDOMEN: Very distended. Hypoactive bowel sounds. No rebound. EXTREMITIES: Mild bilateral lower extremity edema. LABORATORY DATA: WBC is 16.1, hemoglobin 8.6, hematocrit is 25.3, platelet count is 550. Sodium is 140, potassium 4.1, chloride 105, carbon dioxide 25, BUN 10, creatinine 0.72, GFR greater than 60, fasting glucose is 97, calcium is 7.9, magnesium 2.0, total bilirubin is 1.0, AST 22, ALT is 24, alkaline phosphatase is 132, C-reactive protein is 11.8, total protein 5.4, albumin 1.8, prealbumin 11.4. ASSESSMENT AND PLAN: 1. Leukocytosis with elevated C-reactive protein. Since 07/20/2017, the patient has continued to have escalation of the WBC. C-reactive protein for more than two days shows that the patient has C-reactive protein of 11.8. Blood cultures obtained and pending. Urine culture order is pending. Chest x-ray was performed , which does not show any significant findings suggestive of elevated infection/inflammatory markers. CT of the abdomen and pelvis was performed and showed the patient does have significant dilatation of the bowel loops. At this moment, the patient is started on empiric antibiotics with meropenem. At this moment, the patient's vitals are stable. 2. Bilateral lower extremity swelling. Ultrasound Doppler was performed and showed negative for deep vein thrombosis (DVT). Cardiac echogram was ordered and we will follow with the results. The patient has normal BNP. 3. Abnormal finding on CT for right testicular lesions. CT report suggested there is concern for ruling out testicular carcinoma. Urologist, Dr. Jacobs, has been consulted. We appreciate his feedback. 4. Ileus. The patient is currently on TPA with nasogastric tube. Still no meaningful bowel movements. We will defer the postoperative care to the surgical team. 5. History of coronary artery disease. On aspirin and ramipril 5 mg by mouth at night. 6. History of hypertension. The patient is on ramipril. Blood pressure is in the satisfactory range. 7. Dyslipidemia. 8. Gastroesophageal reflux disease (GERD) with Olguin's esophagus. The patient is on IV Protonix. 9. Deep vein thrombosis (DVT) prophylaxis per primary surgical team. MTDD
[2017-07-23] MEDS ORDERED: AMINO AC/ELECTROLYTE/DEX/CALC 2,000 ML IV ONE (20:09)
[2017-07-23] MEDS ORDERED: FAT EMULSION IV 20% 500 ML IV ONE (20:09)
[2017-07-23] MEDS: RAMIPRIL 5 MG CAP PO SCH (21:45)
[2017-07-23 22:00] VITALS: BP 153/77
[2017-07-24 02:00] VITALS: BP 140/75
[2017-07-24] MEDS: METOCLOPRAMIDE INJ 10MG/2ML VIAL (J2765) IV SCH ×4 (03:13→21:44)
[2017-07-24] MEDS: MEROPENEM INJ 1 GM in D5W MINI-BAG PLUS 100 ML IV SCH ×3 (03:13→18:26)
[2017-07-24] MEDS: SODIUM CHLORIDE 0.9% INJ 10 ML SYR IV PRN (03:14)
[2017-07-24] MEDS: HumaLOG INSULIN (NovoLOG) PER UNIT SC SCH ×4 (05:31→18:23)
[2017-07-24] MEDS: SODIUM CHLORIDE 0.9% INJ 10 ML SYR IV SCH ×2 (05:31→09:23)
[2017-07-24 06:00] VITALS: BP 159/77
[2017-07-24 06:41] LABS: MEAN CORPUSCULAR HEMOGLOBIN 32.5 pg (27.0-33.0); MEAN CORPUSCULAR HGB CONC 33.5 g/dl (32.0-36.5); MEAN CORPUSCULAR VOLUME 96.9 fl (80.0-96.0); RED CELL DISTRIBUTION WIDTH 14.5 % (11.5-14.5)
[2017-07-24 07:10] LABS: ALBUMIN 1.8 GM/DL (3.2-5.2); ALBUMIN/GLOBULIN RATIO 0.51 (1.00-1.93); ALKALINE PHOSPHATASE 132 U/L (45-117); ALT/SGPT 28 U/L (12-78); ANION GAP 9 MEQ/L (8-16); AST/SGOT 27 U/L (15-37); BILIRUBIN,TOTAL 0.9 MG/DL (0.2-1.0); BLOOD UREA NITROGEN 9 MG/DL (7-18); CALCIUM LEVEL 7.9 MG/DL (8.8-10.2); CARBON DIOXIDE LEVEL 25 MEQ/L (21-32); CHLORIDE LEVEL 105 MEQ/L (98-107); CREATININE FOR GFR 0.65 MG/DL (0.70-1.30); FREE T4 1.48 NG/DL (0.76-1.46); GLOMERULAR FILTRATION RATE > 60.0 (>49); GLUCOSE, FASTING 114 MG/DL (80-110); MAGNESIUM LEVEL 2.1 MG/DL (1.8-2.4); POTASSIUM SERUM 4.2 MEQ/L (3.5-5.1); SODIUM LEVEL 139 MEQ/L (136-145); TOTAL PROTEIN 5.3 GM/DL (6.4-8.2)
[2017-07-24] MEDS ORDERED: HumaLOG INSULIN (NovoLOG) PER UNIT SC SCH (07:30)
--- NOTE | 2017-07-24 07:50 | RO ---
DATE OF PROCEDURE: 07/12/2017 PREOPERATIVE DIAGNOSIS: High-grade dysplasia of rectal polyp. POSTOPERATIVE DIAGNOSIS: High-grade dysplasia of rectal polyp. PROCEDURE PERFORMED: Laparoscopic low anterior rectal resection with anastomosis, flexible sigmoidoscopy, and lysis of adhesions. SURGEON: Dr. Ambrosoi Stroud SUPERVISOR [employer] PAPER COATING: Dr. Stauffer ANESTHESIA: General. INDICATIONS FOR PROCEDURE: The patient is a 66-year-old man who had undergone colonoscopy for a history of colonic polyps with his most recent prior scope in 2011. He was found to have a sessile polyp at approximately 20 cm from the anal verge. Biopsies revealed adenomatous polyp with foci of high-grade dysplasia. He was referred to md and is now for a laparoscopic rectosigmoid or low anterior resection. OPERATIVE PROCEDURE: The patient had performed a full mechanical and antibiotic bowel preparation at home utilizing Suprep, neomycin, and Flagyl. He was placed supine on the operating table. He was placed under general endotracheal anesthesia. A Vargas catheter was inserted by the nurse. He was moved into a low lithotomy position using padding to prevent movement on the OR table. TEDS and sequentials were utilized. A digital rectal examination was performed which revealed no palpable lesion. The anus was gently dilated to two to three fingerbreadths to allow placement of an EEA stapler for the anastomosis. The patient's abdomen and perineum were prepped and draped in a sterile fashion. 0.25% Marcaine was infiltrated at each of the trocar sites prior to insertion. A short infraumbilical midline incision was made and deepened through the fascia and peritoneum into the peritoneum. A Quan cannula was placed and the abdomen was insufflated with carbon dioxide gas. The patient was tilted to a Trendelenburg position and the laparoscope was inserted. Initial examination showed a few adhesions in the upper abdomen. He had a redundant sigmoid colon which was somewhat filled still with air. There were no acute inflammatory changes identified in the abdomen. A 5 mm trocar was placed in the right midabdomen about at the level of the umbilicus and a 12 mm trocar was placed in the right lower quadrant. Graspers were inserted. The sigmoid colon was carefully inspected looking for a carbon spot nayan. The support representative had indicated that the spot of the lesion at about 20 cm had been marked. Inspection of the entire sigmoid colon which was somewhat redundant showed no evident carbon spot nayan. There was no evidence of any marker material within the pelvis. The rectum was carefully inspected and again there was no definite nayan identified. At this point, I elected to proceed with sigmoidoscopy to identify the position of the lesion. Therefore, while Dr. Stauffer monitored the abdomen, I moved to the perineum. A bowel clamp was placed across the sigmoid. I inserted a flexible sigmoidoscope into the rectum and advanced this. The site of the lesion was identified at what I would estimate was about 17 cm perhaps above the anal verge. It was possible to see the light of the scope through the anterior wall of the rectum slightly above the peritoneal reflection anteriorly down in the pelvis. This area was noted and marked on the outer aspect of the rectum. I then deflated this portion of the colon. I changed gown and gloves and returned to the abdomen. The sigmoid colon was mobilized laterally by dividing the lateral peritoneal reflection. The dissection was carried up lateral to the descending colon to free the descending colon, but with his redundant sigmoid it did not appear necessary to mobilize the splenic flexure. After the descending colon was freed, dissection proceeded distally. The area of the inferior mesenteric artery was identified. The mesentery was opened and the vessel was dissected free and then divided using the harmonic. Initially, hemostasis was excellent, but it was then noted that he had development of bleeding from the proximal end of the artery which had retracted slightly into the retroperitoneal tissues. It took several minutes to control this with loss of perhaps 200 mL of blood before control was complete. The pelvis was then irrigated to remove the shed blood and dissection proceeded. Dissection proceeded distally dividing the mesentery of the distal sigmoid and then entering the appropriate tissue plane for a total mesorectal excision. The peritoneum was scored down the right and left sides of the rectum. The rectosigmoid was retracted anteriorly. An additional trocar was placed in the left side of the abdomen to assist. The retro rectal tissues were opened through the appropriate tissue plane using the harmonic scalpel and blunt dissection. Dissection proceeded down both sides of the rectum. Distally, the dissection continued with opening of the peritoneal reflection anteriorly and continuing the dissection low into the pelvis as a low anterior resection. The patient's pelvis was quite narrow which made the dissection more difficult. Once an appropriate level had been reached, the mesorectum was divided circumferentially using the harmonic scalpel to expose the rectal wall in anticipation of transection. I attempted to place an echelon stapler through the low right lower quadrant port, but I could not achieve an acceptable approach to the rectum within his narrow pelvis. I elected to place an additional port anteriorly in the suprapubic position. A 12 mm port was placed. This allowed insertion of the echelon stapler. The stapler was positioned from anterior to posterior across the rectum. Several loads of the stapler were required to completely transect the rectum. Inspection in the pelvis revealed excellent hemostasis and the area was irrigated. A point was selected for transection at the distal sigmoid and this was also performed intra-abdominally with the echelon stapler and the mesentery in this area was divided with the harmonic. At this point, the abdomen was deflated and the Quan cannula was removed. An incision was made extending inferiorly from the umbilicus an additional 4-5 cm and a Mobius retractor was inserted. The specimen was delivered through the retractor. I opened the specimen off the field. The patient was found to have a flat, slightly irregular polyp approximately 1-1/2-2 cm in diameter about 3-4 cm in the distal margin of resection. There was no ulceration and no induration in this area to suggest definite residual cancer. The specimen was sent in formalin for pathology. I changed gloves and returned to the operative field. The end of the sigmoid was delivered through the retractor. The sigmoid colon remained quite redundant, but it appeared that the distal portion of the bowel was supported only by collaterals with the feeding vessel quite proximal from the end of the bowel. As there was more colon than necessary, I elected to resect additional colon to bring the anastomosis closer to the feeding vessel. Therefore, an additional 20-30 cm of the sigmoid was excised. The bowel was divided with the stapler and the mesentery which was quite thin at that point was divided with the harmonic. The staple line was cut off the end of the colon. There was some fibrofatty tissue at the end of the colon which was removed. A pursestring suture of #2-0 Prolene was placed and the anvil of 33 mm EEA stapler was inserted and the pursestring was tied down. The colon was irrigated and then reduced into the abdomen. The surgical team at this point changed gown and gloves. The Mobius retractor was removed and we moved to the closing set of instruments. The peritoneum was closed with a running suture of Vicryl at the midline and the fascia was closed with interrupted simple sutures of #1 Vicryl. The abdomen was reinflated. The anvil was grasped with the anvil grasper clamp. I moved to the perineum and inserted the 33 mm stapler into the anus and advanced this to the end of the rectal stump which was quite short. The post of the stapler was advanced adjacent to the staple line and the anvil was attached and the stapler was then closed and fired. The stapler was inspected and there were two intact doughnuts of tissue present. Dr. Stauffer applied a bowel clamp to the sigmoid colon and I again moved to the perineum and inserted the flexible sigmoidoscope. I noted some blood within the lumen. The area of the anastomosis was identified. Initially, there was a small bleeding point identified at the posterior aspect of the anastomosis. The area was irrigated and inspected. The tissues above and below the anastomosis appeared viable. Air was insufflated and no leak was seen on inspection in the pelvis. With monitoring for several minutes, the bleeding appeared to have slowed and stopped. Some clot was removed from the distal rectum. The anastomosis appeared to be located quite low at perhaps 5-7 cm above the anal verge. The final inspection showed that the bleeding appeared to have stopped. The scope was removed. I changed gown and gloves and moved back to the abdomen. The pelvis was inspected and the anastomosis appeared intact. There was no bleeding within the pelvis. Irrigation was removed as thoroughly as possible. There did not appear to be any tension on the anastomosis. The patient was returned to a flat position. The abdomen was deflated and the trocars were all removed. The skin incisions were all closed with buried Vicryl sutures and Steri-Strips. The patient tolerated the procedure well without apparent complication. He was awakened in the operating room, extubated and moved to the recovery room in stable condition. ROMARIO
[2017-07-24] MEDS: PANTOPRAZOLE 40MG INJ (PROTONIX) (C9113) IV SCH (09:22)
[2017-07-24] MEDS: ASPIRIN 81 MG ENTERIC TAB PO SCH (09:23)
[2017-07-24] MEDS: NORCO, ANEXSIA 5/325MG TABLET (HYDROcodone/ACETAMINOPHEN) PO PRN ×2 (09:27→16:03)
[2017-07-24 10:00] VITALS: BP 141/72
--- NOTE | 2017-07-24 12:24 | SMCUROLCON ---
Urology Consultation General Date of Consultation 07/24/17 Reason For Consultation This patient is admitted for High Grade Dysplasia Colon Polyp. 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 History of Present Illness The patient is a [66]-year-old [male] with a past medical history for [colonic resection . No voiding sxs. No n,v, Ongoing abdominal distension . Passed gas this AM . No hx other than nocturia x 1. No scrotal pain . No testicular discomfort. No hx of trauma. No prior scrotal surgery Past Medical History Medical History See chart. All reviewed. Surgical Hstory Colon Resection 08.13 Social History * Smoker: non-smoker Medications Current Medications Current Medications Acetaminophen (Tylenol Tab) 650 mg Q6H PO Last administered on 07/20/17 03:36 ; Start 07/12/17 at 22:00; Stop 07/20/17 at 06:47; Status DC Acetaminophen/ Hydrocodone Bitart ([place], Anexsia 5/325) 1 tab Q4HP PRN PO MODERATE PAIN (PS 5-7) Last administered on 07/24/17 09:27; Start 07/12/17 at 22 :00; Stop 07/31/17 at 21:59 Alvimopan (Entereg) 12 mg BID PO Last administered on 07/19/17 20:59; Start at 09:00; Stop 07/20/17 at 06:47; Status DC Amino Ac/Electrol/ Dextrose/Calcium 2,000 ml @ 70 mls/hr ONCE@1800 IV ; Start 07/24/17 at 18:00; Stop 07/25/17 at 17:59 Aspirin (Ecotrin) 81 mg DAILY PO Last administered on 07/24/17 09:23; Start at 09:00; Stop 08/13/17 at 08:59 Enoxaparin Sodium (Lovenox) 40 mg DAILY SC ; Start 07/13/17 at 09:00; Stop 07/13 at 09:00; Status DC Enoxaparin Sodium (Lovenox) 40 mg DAILY@1300 SC Last administered on 07/23/17 12:25; Start 07/18/17 at 13:00; Stop 07/27/17 at 12:59 Ertapenem 1 gm/ Sodium Chloride 50 ml @ 100 mls/hr Q24H IV ; Start 07/22/17 at 17:00; Stop 07/22/17 at 17:00; Status DC Fat Emulsion Intravenous 500 ml @ 20 mls/hr ONCE@1800 IV Last administered on 07/18/17 20:22; Start 07/18/17 at 18:00; Stop 07/19/17 at 17:59; Status DC Fat Emulsion Intravenous 500 ml @ 20 mls/hr ONCE@1800 IV Last administered on 07/19/17 18:54; Start 07/19/17 at 18:00; Stop 07/20/17 at 17:59; Status DC Fat Emulsion Intravenous 500 ml @ 20 mls/hr ONCE@1800 IV Last administered on 07/20/17 18:17; Start 07/20/17 at 18:00; Stop 07/21/17 at 19:03; Status DC Fat Emulsion Intravenous 500 ml @ 20 mls/hr ONCE@1800 IV ; Start 07/21/17 at 18 :00; Stop 07/22/17 at 17:59; Status DC Fat Emulsion Intravenous 500 ml @ 20 mls/hr ONCE@1800 IV Last administered on 07/22/17 18:00; Start 07/22/17 at 18:00; Stop 07/23/17 at 17:59; Status DC Fat Emulsion Intravenous 500 ml @ 20 mls/hr ONCE@1800 IV ; Start 07/24/17 at 18: 00; Stop 07/25/17 at 17:59 Fentanyl Citrate (Sublimaze) 25 mcg Q5MP PRN IV MODERATE PAIN (PS 4-7); Start 07/12/17 at 22:15; Stop 07/12/17 at 23:20; Status DC Heparin Sodium (Heparin (Flush)) 200 units ASDIRECTED PRN IV SEE LABEL COMMENTS Last administered on 07/24/17 03:13; Start 07/18/17 at 16:45; Stop at 16:44 Heparin Sodium (Heparin (Flush)) 200 units PICC IV Last administered on 09:23; Start 07/18/17 at 18:00; Stop 08/17/17 at 17:59 Hydromorphone HCl (Dilaudid) 0.4 mg Q5MP PRN IV MODERATE/SEVERE PAIN (PS 7-10) ; Start 07/12/17 at 22:15; Stop 07/12/17 at 23:20; Status DC Insulin Human Lispro (HumaLOG INSULIN) See Protocol Table Q6H SC Last administered on 07/19/17 12:06; Start 07/18/17 at 18:00; Stop 07/19/17 at 12:01 ; Status DC Insulin Human Lispro (HumaLOG INSULIN) See Protocol Table Q6H SC Last administered on 07/20/17 12:30; Start 07/19/17 at 18:00; Stop 07/20/17 at 12:01 ; Status DC Insulin Human Lispro (HumaLOG INSULIN) See Protocol Table Q6H SC Last administered on 07/21/17 11:35; Start 07/20/17 at 18:00; Stop 07/21/17 at 15:00 ; Status DC Insulin Human Lispro (HumaLOG INSULIN) See Protocol Table Q6H SC Last administered on 07/22/17 12:43; Start 07/21/17 at 18:00; Stop 07/22/17 at 15:00; Status DC Insulin Human Lispro (HumaLOG INSULIN) See Protocol Table Q6H SC Last administered on 07/23/17 12:26; Start 07/22/17 at 18:00; Stop 07/23/17 at 12:01; Status DC Insulin Human Lispro (HumaLOG INSULIN) See Protocol Table Q6H SC Last administered on 07/24/17 05:31; Start 07/24/17 at 00:00; Stop 07/24/17 at 18:01 Insulin Human Lispro (HumaLOG INSULIN) See Protocol Table Q6H SC ; Start at 18:00; Stop 07/25/17 at 12:01 Insulin Human Lispro (HumaLOG INSULIN) see protocol table AC SC ; Start 07/24/17 at 07:30; Stop 07/24/17 at 07:30; Status DC Ketorolac Tromethamine (ToRADol) 15 mg Q6H PRN IV PAIN; Start 07/18/17 at 13:00 ; Stop 07/23/17 at 12:59; Status DC Ketorolac Tromethamine (ToRADol) 30 mg Q6H IV Last administered on 07/14/17 04 :05; Start 07/13/17 at 04:00; Stop 07/14/17 at 07:31; Status DC Lactated Ringer's 1,000 ml @ 25 mls/hr Q24H IV Last administered on 07/19/17 01:15; Start 07/12/17 at 21:53; Stop 07/19/17 at 15:48; Status DC Lactated Ringer's 1,000 ml @ 100 mls/hr Q10H IV ; Start 07/12/17 at 22:15; Stop 07/12/17 at 23:20; Status DC Lactated Ringer's 1,000 ml @ 200 mls/hr Q5H IV ; Start 07/12/17 at 12:00; Stop 07/12/17 at 22:14; Status DC Lactated Ringer's 1,000 ml @ 500 mls/hr Q2H IV Last administered on 07/14/17 08:00; Start 07/14/17 at 07:45; Stop 07/14/17 at 10:44; Status DC Meropenem 1 gm/ Dextrose 100 ml @ 200 mls/hr Q8H IV Last administered on 09:24; Start 07/22/17 at 18:00; Stop 07/29/17 at 17:59 Metoclopramide HCl (REGLAN INJection) 10 mg Q6H IV Last administered on 09:23; Start 07/18/17 at 16:00; Stop 08/11/17 at 21:59 Metoclopramide HCl (REGLAN INJection) 10 mg Q6HP PRN IV NAUSEA OR VOMITING Last administered on 07/16/17 01:59; Start 07/12/17 at 22:00; Stop 07/18/17 at 16:00; Status DC Morphine Sulfate (Morphine Sulfate Inj) 2 mg Q1HP PRN IV SEVERE PAIN (PS 8-10) Last administered on 07/17/17 12:57; Start 07/12/17 at 22:00; Stop 07/19/17 at 15:48; Status DC Multivitamins 10 ml/Chromium/ Copper/Manganese/ Seleni/Zn 1 ml/ Amino Ac/ Electrol/ Dextrose/Calcium 2,011 ml @ 65 mls/hr ONCE@1800 IV Last administered on 07/18/17 20:22; Start 07/18/17 at 18:00; Stop 07/19/17 at 17:59 ; Status DC Multivitamins 10 ml/Chromium/ Copper/Manganese/ Seleni/Zn 1 ml/ Potassium Chloride 48 meq/ Amino Ac/Electrol/ Dextrose/Calcium 2,035 ml @ 70 mls/hr ONCE@ 1800 IV Last administered on 07/22/17 18:43; Start 07/22/17 at 18:00; Stop at 17:59; Status DC Multivitamins 10 ml/Chromium/ Copper/Manganese/ Seleni/Zn 1 ml/ Potassium Chloride 71.4 meq/ Amino Ac/Electrol/ Dextrose/Calcium 2,046.7 ml @ 70 mls/hr ONCE@1800 IV Last administered on 07/20/17 18:18; Start 07/20/17 at 18:00; Stop 07/21/17 at 19:03; Status DC Ondansetron HCl (ZOFRAN INJection) 4 mg Q4HP PRN IV NAUSEA OR VOMITING; Start 07/12/17 at 22:15; Stop 07/12/17 at 23:20; Status DC Ondansetron HCl (ZOFRAN INJection) 4 mg Q6HP PRN IV NAUSEA OR VOMITING Last administered on 07/16/17 01:59; Start 07/12/17 at 22:00; Stop 07/19/17 at 15:48 ; Status DC Oxycodone/ Acetaminophen (Percocet 5mg/ 325mg Tablet) 1 tab ASDIRECTED PRN PO MILD/MODERATE PAIN (PS 1-7); Start 07/12/17 at 22:15; Stop 07/12/17 at 23:20; Status DC Pantoprazole Sodium (Protonix) 40 mg DAILY IV Last administered on 07/13/17 08 :27; Start 07/13/17 at 09:00; Stop 07/13/17 at 15:08; Status DC Pantoprazole Sodium (Protonix) 40 mg DAILY IV Last administered on 07/24/17 09: 22; Start 07/19/17 at 09:00; Stop 08/18/17 at 08:59 Pantoprazole Sodium (Protonix) 40 mg DAILY PO Last administered on 07/18/17 09 :25; Start 07/14/17 at 09:00; Stop 07/18/17 at 13:10; Status DC Piperacillin Sod/ Tazobactam Sod 3.375 gm/Dextrose 50 ml @ 50 mls/hr Q6H IV Last administered on 07/15/17 10:09; Start 07/15/17 at 10:00; Stop 07/15/17 at 13:15; Status DC Piperacillin Sod/ Tazobactam Sod 3.375 gm/Dextrose 50 ml @ 50 mls/hr Q6H IV Last administered on 07/22/17 11:26; Start 07/16/17 at 23:00; Stop 07/22/17 at 13 :30; Status DC Potassium Chloride 10 meq/ IV Miscellaneous Supplies 100 ml @ 100 mls/hr Q2H IV Last administered on 07/19/17 23:08; Start 07/19/17 at 16:00; Stop at 22:59; Status DC Potassium Chloride 10 meq/ IV Miscellaneous Supplies 100 ml @ 100 mls/hr Q2H IV Last administered on 07/20/17 14:49; Start 07/20/17 at 07:00; Stop at 14:59; Status DC Potassium Chloride 51 meq/ Amino Ac/Electrol/ Dextrose/Calcium 2,025.5 ml @ 65 mls/hr ONCE@1800 IV Last administered on 07/19/17 18:54; Start 07/19/17 at 18: 00; Stop 07/20/17 at 17:59; Status DC Potassium Chloride 71.4 meq/ Amino Ac/Electrol/ Dextrose/Calcium 2,035.7 ml @ 70 mls/hr ONCE@1800 IV ; Start 07/21/17 at 18:00; Stop 07/22/17 at 17:59; Status DC Ramipril (Altace) 5 mg QHS PO Last administered on 07/23/17 21:45; Start at 21:00; Stop 08/13/17 at 20:59 Sodium Chloride (Saline Lock Flush) 10 ML PICC IV Last administered on 09:23; Start 07/18/17 at 18:00; Stop 08/17/17 at 17:59 Sodium Chloride (Saline Lock Flush) 10ML ASDIRECTED PRN IV SEE LABEL COMMENTS Last administered on 07/24/17 03:14; Start 07/18/17 at 16:45; Stop 08/17/17 at 16:44 Allergies Allergies: Coded Allergies: No Known Drug Allergy (Unverified Allergy, Unknown, NONE, 07/12/17) Review of Systems General: Denies: ROS Unobtainable, Chills, Night Sweats, Fatigue, Malaise, Normal Appetite, Other Symptoms Constitutional: Denies: Fever, Chills, Sweats, Weakness, Malaise, Other Eyes: Denies: Pain, Vision change, Conjunctivae inflammation, Eyelid inflammation, Redness, Other Skin: Denies: Rash, Lesions, Jaundice, Bruising, Itching, Dry, Breakdown, Nail Changes, Other Pulmonary: Denies: Dyspnea, Cough, Pleuritic Chest Pain, Other Symptoms Cardiovascular: Denies Chest Pain, Denies Palpitations, Denies Orthopnea, Denies Paroxysmal Noc. Dyspnea, Denies Edema, Denies Lt Headedness, Denies Other Symptoms Gastrointestinal: Reports: Other Symptoms (distension; NG in place) Genitourinary: Denies: Dysuria, Frequency, Incontinence, Hematuria, Retention, Other Symptoms Hematologic: Denies: Bruising, Bleeding Excessively, Petecchia, Purpura, Enlarged Lymph Nodes, Other Hematologic Physical Examination General Exam: Cooperative ENT EXAM: No: Atraumatic, Mucous membr. moist/pink, Pharynx Normal, Tongue Midline, Pharyngeal Edema, Nares Patent, Tympanic Membranes Normal, Ext Auditory Canal Nml, Pinna Normal, Other ENT Abdomen Exam: Normal Bowel Sounds, BS Hyperactive, BS Hypoactive, Soft, Tenderness, Hepatospenomegaly, Mass, Hernia, Other (distended; wounds clean and dry) Male Exam: Normal Genital Exam (No testicular lesions; circumcsiced; small right hydrocele), Normal Sphincter Tone Skin Exam: No: Nl turgor and temperature, Rash, Breakdown, Lesion, Pruritus, Other skin issue Neuro Exam: No: Normal Gait, Normal Speech, Strength at 5/5 X4 ext, Normal Tone , Sensation Intact, Cranial Nerves 3-12 NL, Reflexes 2+, Other Vital Signs/I&O Vital Signs Date Time Temp Pulse Resp B/P (MAP) Pulse Ox O2 Delivery O2 Flow Rate FiO2 07/24/17 10:00 98.2 80 18 141/72 (95) 96 Room Air 07/19/17 16:04 10.0 50 I&O- Last 24 Hours up to 6 AM 07/24/17 06:00 Intake Total 1080 ml Output Total 1990 ml Balance -910 ml Laboratory Data 24H Labs Laboratory Tests 2 07/24/17 06:30: Anion Gap 9, Glomerular Filtration Rate > 60.0, Blood Urea Nitrogen 9, Creatinine 0.65L, Sodium Level 139, Potassium Level 4.2, Chloride Level 105, Carbon Dioxide Level 25, Calcium Level 7.9L, Aspartate Amino Transf (AST/SGOT) 27, Alanine Aminotransferase (ALT/SGPT) 28, Alkaline Phosphatase 132H, Total Bilirubin 0.9, Total Protein 5.3L, Albumin 1.8L, Magnesium Level 2.1, Albumin/ Globulin Ratio 0.51L, Thyroid Stimulating Hormone (TSH) 3.050, Free Thyroxine 1.48H CBC/BMP Laboratory Tests 07/24/17 06:30 Red Blood Count 2.50 L, Mean Corpuscular Volume 96.9 H, Mean Corpuscular Hemoglobin 32.5, Mean Corpuscular Hemoglobin Concent 33.5, Red Cell Distribution Width 14.5, Calcium Level 7.9 L, Aspartate Amino Transf (AST/SGOT) 27, Alanine Aminotransferase (ALT/SGPT) 28, Alkaline Phosphatase 132 H, Total Bilirubin 0.9, Total Protein 5.3 L, Albumin 1.8 L Microbiology Microbiology 07/22/17 Blood Culture - Preliminary, Resulted No growth after 24 hours . All specim... 07/22/17 Blood Culture - Preliminary, Resulted No growth after 24 hours . All specim... 07/22/17 Urine Culture - Final, Complete Assessment Cr scans x 2 reviewed. There is no evidence of any scrotal l pathology on CT. Exam is normal with exception of small right hydrocele. Discsccsion with radiologist senior occupational therapist (Cindy) and I quetioned the lack of finding on the CT and the report that was generated. He states that there was an addendum to SYNAPSE which stated that the report was an error and there were no scrotal findings. Reivewed with the patient . No need for any additional f/u Plan No Pathology ; No f/u Time Spent on Consult: Time Spent / Consult (Minutes): 40 ADENIKE SYED MD Jul 24, 2017 12:24
[2017-07-24] MEDS: ENOXAPARIN 40 MG/0.4 ML SYRINGE (J1650) SC SCH (13:13)
[2017-07-24 14:00] VITALS: BP 148/78
--- NOTE | 2017-07-24 14:02 | IPN ---
DATE: 07/24/2017 SUBJECTIVE: The patient is seen and examined in the room today. The patient still complains about significant abdominal distention. The patient did have a pasty like stool production, but the amount was very minimal. The patient passed gas when tried to change position by rolling on his bed. He is still nothing by mouth and patient is chewing gum during the encounter. OBJECTIVE: VITAL SIGNS: Temperature 98, pulse 82, respirations 19, blood pressure 159/77, pulse oximetry 96% in room air. GENERAL : No signs of acute distress. Alert and oriented times three. HEENT: Normocephalic, atraumatic. Extraocular motors are grossly intact. CARDIOVASCULAR: Positive S1 and S2, regular rate. LUNGS: Clear to auscultation bilaterally. ABDOMEN: Still very distended. Bowel sounds present. No rebound. EXTREMITIES: Positive pitting edema bilaterally, especially above the compression stocking. LABORATORY DATA: WBC is 15, hemoglobin 8.1, hematocrit is 24.2, platelet count is 587. Sodium is 139, potassium 4.2, chloride 105, carbon dioxide 25, BUN 9, creatinine 0.65, GFR greater than 60, fasting glucose is 114, calcium is 7.9, magnesium 2.1, total bilirubin is 0.9, AST 27, ALT 28, alkaline phosphatase is 132, total protein 5.3, albumin 1.8. Free T4 is 1.48. ASSESSMENT AND PLAN: 1. Leukocytosis with elevated C-reactive protein. Since 07/20/2017, the patient has continued to have escalation of the WBC. We will try to rule out possible infectious cause for the patient's current presentation. Blood cultures remained negative after 24 hours. Urine culture order is negative. Patient does not have any findings on the chest x-ray, except pneumoperitoneum. Empirically, patient is on meropenem. 2. Bilateral lower extremity swelling. Doppler was performed and showed no deep vein thrombosis (DVT). Patient had a normal BNP. Followup with echo report. 3. Abnormal finding on CT for right testicular lesions. Urology was consulted, however there was found to be a mistake in the radiology report. The patient does not have any suspicion for testicular carcinoma. Appreciate urology's assistance. 4. Ileus. Currently on TPN with nasogastric tube. Still no meaningful bowel movements. Continue to monitor. I will defer the postoperative care to the surgical team. 5. History of coronary artery disease. On aspirin and ramipril. 6. History of hypertension. Patient is on ramipril. Blood pressure is in the satisfactory range. 7. Dyslipidemia. 8. Gastroesophageal reflux disease (GERD) with Olguin's esophagus. On IV Protonix. 9. Deep vein thrombosis (DVT) prophylaxis. Patient is on compression device. Will refer the anticoagulation to the primary surgical team.
[2017-07-24 18:00] VITALS: BP 140/70
[2017-07-24] MEDS ORDERED: FAT EMULSION IV 20% 500 ML IV SCH (18:00)
[2017-07-24] MEDS ORDERED: AMINO AC/ELECTROLYTE/DEX/CALC 2,000 ML IV SCH (18:00)
[2017-07-24] MEDS: RAMIPRIL 5 MG CAP PO SCH (21:44)
[2017-07-24 22:00] VITALS: BP 136/73
[2017-07-25] MEDS: MEROPENEM INJ 1 GM in D5W MINI-BAG PLUS 100 ML IV SCH ×3 (01:08→17:33)
[2017-07-25] MEDS: HumaLOG INSULIN (NovoLOG) PER UNIT SC SCH ×5 (01:08→23:55)
[2017-07-25] MEDS: SODIUM CHLORIDE 0.9% INJ 10 ML SYR IV PRN ×2 (01:09→21:06)
[2017-07-25] MEDS: NORCO, ANEXSIA 5/325MG TABLET (HYDROcodone/ACETAMINOPHEN) PO PRN (01:15)
[2017-07-25 02:00] VITALS: BP 155/73
[2017-07-25] MEDS: METOCLOPRAMIDE INJ 10MG/2ML VIAL (J2765) IV SCH ×4 (05:17→21:05)
[2017-07-25] MEDS: SODIUM CHLORIDE 0.9% INJ 10 ML SYR IV SCH ×2 (05:17→17:33)
[2017-07-25 06:00] VITALS: BP 142/75
[2017-07-25 06:11] LABS: MEAN CORPUSCULAR HEMOGLOBIN 31.8 pg (27.0-33.0); MEAN CORPUSCULAR VOLUME 96.3 fl (80.0-96.0); RED CELL DISTRIBUTION WIDTH 14.8 % (11.5-14.5); WHITE BLOOD COUNT 15.4 K/mm3 (4.0-10.0)
[2017-07-25 06:40] LABS: ALBUMIN/GLOBULIN RATIO 0.54 (1.00-1.93); ALKALINE PHOSPHATASE 163 U/L (45-117); ALT/SGPT 50 U/L (12-78); ANION GAP 9 MEQ/L (8-16); AST/SGOT 49 U/L (15-37); BILIRUBIN,TOTAL 0.8 MG/DL (0.2-1.0); BLOOD UREA NITROGEN 10 MG/DL (7-18); CALCIUM LEVEL 8.7 MG/DL (8.8-10.2); CARBON DIOXIDE LEVEL 27 MEQ/L (21-32); CHLORIDE LEVEL 102 MEQ/L (98-107); CREATININE FOR GFR 0.71 MG/DL (0.70-1.30); GLOMERULAR FILTRATION RATE > 60.0 (>49); GLUCOSE, FASTING 98 MG/DL (80-110); MAGNESIUM LEVEL 2.4 MG/DL (1.8-2.4); POTASSIUM SERUM 4.3 MEQ/L (3.5-5.1); SODIUM LEVEL 138 MEQ/L (136-145); TOTAL PROTEIN 5.7 GM/DL (6.4-8.2)
--- NOTE | 2017-07-25 07:15 | ECHO ---
DATE OF PROCEDURE: 07/23/2017 INDICATION: HEIGHT: 72 inches. WEIGHT: 241 pounds. BODY SURFACE AREA: 2.31 meters squared. INDICATION: Dependent edema. History of coronary artery disease (CAD). MEASUREMENTS: 2D Measurements: RV - 4.0 cm LV - 4.2 cm Septum - 1.2 cm Posterior wall - 1.1 cm Aortic root - 3.7 cm LA - 4.3 cm LVEF - 75% Doppler Measurements: AV - 1.7 meters per second LVOT - 1.6 meters per second MV-E - 130, A - 120, E/A ratio 1.1 Early mitral deceleration time 209 milliseconds E prime - 8.3, A prime 13, E/E prime ratio 16.5 PV - 1.0 meters per second Pulmonary artery acceleration time - 116 milliseconds PASP - 27 mmHg COMMENTS: Normal sinus rhythm without intraventricular conduction disturbance. Technically a difficult study in light of the patient's body habitus but diagnostically useful information was still obtained. Mildly dilated left atrium but normal left ventricular size. Right heart chamber sizes appear to be normal. LV wall thickness was upper limits of normal to borderline increased. On real-time imaging from the parasternal and apical projections wall motion was symmetrical and hyperkinetic. Normal-appearing mitral valvular apparatus and leaflet excursion with no posterior systolic buckling. Three equal size aortic cusps of normal thickness and cusp separation. Normal aortic root size. No apparent intracardiac mass or pericardial effusion. Color flow Doppler study taken from the parasternal and apical projection showed very mild mitral, trace tricuspid but no aortic insufficiency. Guided continuous wave Doppler of his aortic valve showed a normal peak systolic velocity against LV outflow tract obstruction. Pulsed and continuous wave Doppler of his LV inflow tract taken from the apical four-chamber projection showed normal diastolic filling velocities against mitral stenosis. Current filling pattern appeared to be normal but early mitral deceleration time was slightly prolonged. A degree of LV diastolic dysfunction was also suggested by tissue Doppler of his mitral annulus with current estimated mean left atrial pressure upper limits of normal to slightly increased. Pulsed and continuous wave Doppler of his pulmonary trunk showed a normal peak systolic velocity against RV outflow tract obstruction. His pulmonary artery acceleration time was normal against an elevated pulmonary vascular resistance. We attempted to further estimate his right ventricular systolic pressure using guided continuous wave Doppler of his tricuspid valve but could not get a clear spectral envelope. Unfortunately we could not visualize his inferior vena cava in light of his body habitus, to further estimate his central venous pressure. CONCLUSIONS: Technically difficult study in light of the patient's body habitus. Borderline left ventricular hypertrophy with hyperkinetic wall motion. Mild left atrial enlargement with Doppler sign of an impairment of LV diastolic relaxation but no more than borderline increased estimated mean left atrial pressure. Normal right heart chamber sizes and wall motion with available Doppler findings against pulmonary hypertension. Could not visualize his inferior vena cava to further estimate his central venous pressure.
[2017-07-25] MEDS: ASPIRIN 81 MG ENTERIC TAB PO SCH (09:35)
[2017-07-25] MEDS: PANTOPRAZOLE 40MG INJ (PROTONIX) (C9113) IV SCH (09:35)
[2017-07-25 10:00] VITALS: BP 163/81
[2017-07-25] MEDS ORDERED: HumaLOG INSULIN (NovoLOG) PER UNIT SC SCH ×2 (12:00→21:00)
[2017-07-25] MEDS: ENOXAPARIN 40 MG/0.4 ML SYRINGE (J1650) SC SCH (12:08)
[2017-07-25] MEDS ORDERED: DEXTROSE 50% 50 ML SYRINGE IV PRN (13:00)
[2017-07-25] MEDS ORDERED: GLUCOSE 4 GM CHEW TABLET PO PRN (13:00)
[2017-07-25] MEDS ORDERED: GLUCAGON FOR INJ 1 MG VIAL (J1610) SC PRN (13:00)
[2017-07-25 14:00] VITALS: BP 165/77
--- NOTE | 2017-07-25 14:07 | IPN ---
DATE: 07/25/2017 SUBJECTIVE: The patient was seen and examined in the room today. The patient continued to have significant abdominal distention. This morning, the patient had a bowel movement and the quality and the color of the stool are examined. There is a very small amount of pasty-like stool in the commode. It is not formed, and the patient has been having those types of bowel movements in the last few days. The patient has been walking around the hallway without issue. The patient was advanced on a liquid diet since yesterday. No complaints. OBJECTIVE: VITAL SIGNS: Temperature is 98.7, pulse is 82, respirations 18, blood pressure 142/75, pulse oximetry is 95% in room air. GENERAL: No sign of acute distress. Alert and oriented times three. HEENT: Normocephalic, atraumatic. Extraocular motor grossly intact. CARDIOVASCULAR: Positive S1, S2, regular rate. LUNGS: Clear to auscultation bilaterally. ABDOMEN: Still very distended. Bowel sounds present. No rebound, no guarding. EXTREMITIES: Positive pitting edema bilaterally. No sign of cyanosis. LABORATORY DATA: WBC is 15.4, hemoglobin 8, hematocrit 24.4, platelet count is 613. Sodium is 138, potassium 4.3, chloride is 102, carbon dioxide 27, BUN 10, creatinine 0.71, GFR greater than 60, fasting glucose 98, calcium is 8.7, magnesium 2.4, total bilirubin is 0.8, AST 49, ALT 50, alkaline phosphatase is 163. C-reactive protein is 9.98, total protein 5.7, albumin 2. ASSESSMENT AND PLAN: 1. Leukocytosis with elevated C-reactive protein. Since 07/20/2017, the patient started to continue to have escalation of WBC. Blood culture was obtained and it was negative after 48 hours, still waiting for the official report. Urine culture is negative. Chest x-ray shows no significant abnormalities. The patient continues to have abdominal distention. Empirically, the patient was started on meropenem. 2. Bilateral lower extremity swelling. Lower extremity Doppler was performed showing no deep vein thrombosis (DVT). Echocardiogram was performed. The result shows it was a technically difficult study due to patient's body habitus. At this moment, the patient does not show respiratory distress. No sign of lung crackles. Encouraged ambulation and leg elevation. The patient's BNP was normal. 3. History of hyperglycemia. While the patient is in the hospital, the patient does have elevated glucose level and the patient does not have a diagnosis of diabetes. Previously, the patient had insulin every 6 hours coverage while patient is nothing by mouth. The patient's who chart in [facility] reviewed; I did not find any history of diabetes. Follow with A1c. Continue to monitor. For now, we will hold insulin coverage until confirmation for the diabetes. 4. Ileus. The patient has been nothing by mouth with nasogastric (NG) tube. Will defer postoperative care to the primary surgical team. The patient was advanced to a liquid diet by the surgical team yesterday, tolerated it well without any gastrointestinal (GI) complaints. 5. History of coronary artery disease, on aspirin and ramipril. 6. History of hypertension, on ramipril. Blood pressure is in the satisfactory range. 7. Gastroesophageal reflux disease with Olguin's esophagus. On IV Protonix. 8. History of psoriasis. 9. History of dyslipidemia. Previously the patient has been nothing by mouth with NG tube in place. Now, the patient is able to tolerate intake. Will restart patient's atorvastatin. 10. History of coronary artery disease with a stent in March 2016. At this moment, aspirin and Plavix have been on hold. Will defer anticoagulation to the surgical team. 11. Deep vein thrombosis (DVT) prophylaxis. On Lovenox. MTDD
[2017-07-25] MEDS: ATORVASTATIN 20 MG TAB PO SCH (14:22)
[2017-07-25 18:00] VITALS: BP 163/75
[2017-07-25] MEDS ORDERED: AMINO AC/ELECTROLYTE/DEX/CALC 2,000 ML IV SCH (18:00)
[2017-07-25] MEDS ORDERED: FAT EMULSION IV 20% 500 ML IV SCH (18:00)
[2017-07-25] MEDS: RAMIPRIL 5 MG CAP PO SCH (21:05)
[2017-07-25 22:00] VITALS: BP 147/73
[2017-07-26 02:00] VITALS: BP 134/77
[2017-07-26] MEDS: MEROPENEM INJ 1 GM in D5W MINI-BAG PLUS 100 ML IV SCH ×3 (02:26→18:34)
[2017-07-26] MEDS: METOCLOPRAMIDE INJ 10MG/2ML VIAL (J2765) IV SCH ×4 (03:17→21:16)
[2017-07-26] MEDS: SODIUM CHLORIDE 0.9% INJ 10 ML SYR IV PRN ×3 (03:17→21:19)
[2017-07-26 05:12] LABS: MEAN CORPUSCULAR HEMOGLOBIN 31.8 pg (27.0-33.0); MEAN CORPUSCULAR HGB CONC 33.2 g/dl (32.0-36.5); MEAN CORPUSCULAR VOLUME 95.7 fl (80.0-96.0); RED CELL DISTRIBUTION WIDTH 14.7 % (11.5-14.5); WHITE BLOOD COUNT 15.6 K/mm3 (4.0-10.0)
[2017-07-26 05:34] LABS: ALBUMIN/GLOBULIN RATIO 0.43 (1.00-1.93); ALKALINE PHOSPHATASE 142 U/L (45-117); ALT/SGPT 40 U/L (12-78); ANION GAP 8 MEQ/L (8-16); AST/SGOT 30 U/L (15-37); BILIRUBIN,TOTAL 0.7 MG/DL (0.2-1.0); BLOOD UREA NITROGEN 11 MG/DL (7-18); CALCIUM LEVEL 8.4 MG/DL (8.8-10.2); CARBON DIOXIDE LEVEL 26 MEQ/L (21-32); CHLORIDE LEVEL 104 MEQ/L (98-107); CREATININE FOR GFR 0.67 MG/DL (0.70-1.30); GLOMERULAR FILTRATION RATE > 60.0 (>49); GLUCOSE, FASTING 120 MG/DL (80-110); MAGNESIUM LEVEL 2.1 MG/DL (1.8-2.4); POTASSIUM SERUM 4.1 MEQ/L (3.5-5.1); SODIUM LEVEL 138 MEQ/L (136-145); TOTAL PROTEIN 6.7 GM/DL (6.4-8.2)
[2017-07-26] MEDS: HumaLOG INSULIN (NovoLOG) PER UNIT SC SCH ×3 (05:43→18:33)
[2017-07-26] MEDS: SODIUM CHLORIDE 0.9% INJ 10 ML SYR IV SCH ×2 (05:43→18:34)
[2017-07-26 06:00] VITALS: BP 131/75
[2017-07-26 09:20] VITALS: BP 167/88
[2017-07-26] MEDS: ASPIRIN 81 MG ENTERIC TAB PO SCH (10:17)
[2017-07-26] MEDS: ATORVASTATIN 20 MG TAB PO SCH (10:17)
[2017-07-26] MEDS: PANTOPRAZOLE 40MG INJ (PROTONIX) (C9113) IV SCH (10:17)
[2017-07-26] MEDS: FUROSEMIDE 40 MG TAB PO SCH (10:57)
[2017-07-26] MEDS: ACETAMINOPHEN TAB 650MG DOSE (2X325MG) PO PRN ×2 (10:58→21:18)
[2017-07-26] MEDS: ENOXAPARIN 40 MG/0.4 ML SYRINGE (J1650) SC SCH (12:13)
[2017-07-26 14:00] VITALS: BP 133/81
--- NOTE | 2017-07-26 15:08 | IPNPDOC ---
Subjective Date Seen The patient was seen on 07/26/17. 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 Seen and examined at bedside. Belly still distended. Reports last BM was yesterday and was green, michi-like stool. No acute complaints. No reported events overnight. General: Reports: Normal Appetite, Denies: Chills Constitutional: Denies: Chills, Fever ENT: Denies: Dysphagia Pulmonary: Denies: Dyspnea, Cough Cardiovascular: Reports: Edema (lower extremities b/l), Denies: Chest Pain, Palpitations, Lt Headedness Gastrointestinal: Denies: Nausea, Vomiting, Abdominal Pain, Diarrhea, Constipation, Melena, Hematochezia Genitourinary: Denies: Hematuria Neurological: Denies: Weakness, Numbness Psych: Reports: Mood Normal Objective Physical Examination General Exam: Positive: Alert, Cooperative, No Acute Distress Eye Exam: Positive: Conjunctiva & lids normal ENT Exam: Positive: Atraumatic, Mucous membr. moist/pink Neck Exam: Positive: Supple Chest Exam: Positive: Clear to auscultation Heart Exam: Positive: Rate Normal, Regular Rhythm Abdomen Exam: Positive: Normal bowel sounds, Other (round, distended. No rebound or guarding), Negative: Tenderness Extremity Exam: Positive: Edema (1+ bilaterally), Negative: Swelling Skin Exam: Positive: Nl turgor and temperature Psych Exam: Positive: Oriented x 3 Assessment /Plan Assessment Leukocytosis -elevated CRP trending downwards -stable WBC at same level as yesterday. Blood and urine cultures negative -CXR-no acute concerns -Abdominal distension still present. Continue empiric coverage with Meropenem Thrombocytosis ------ Ileus -PENDING: X-ray of abdomen -Will defer postoperative care to surgical team -NG Tube discontinued by Surgery yesterday 07/25 -Diet advanced to full liquid by Surgery today 07/26 Anemia -stable from yesterday. Monitor and transfuse as needed Bilateral LE 1+ edema -Lasix 40mg PO started by Surgery today -Previous LE Doppler was negative for DVT. Patient resting comfortably, no signs of respiratory distress. No abnormal lung sounds on PE -continue ambulation and leg elevation Hyperglycemia -No documented hx of Diabetes diagnosis. A1c normal at 5.9. Monitor -ISS CAD w/ stents in March 2016 -aspirin and ramipril. Plavix on hold -will defer anticoagulation to the surgical team HTN -controlled on Ramipril GERD with Olguin's esophagus -IV Protonix Dyslipidemia -Atorvastatin DVT prophylaxis -Lovenox Plan/VTE VTE Prophylaxis Ordered?: Yes Plan/Urinary Catheter Reason for insertion/continuin: Perioperative VS, I&O, 24H, Fishbone Vital Signs/I&O Vital Signs Date Time Temp Pulse Resp B/P (MAP) Pulse Ox O2 Delivery O2 Flow Rate FiO2 07/26/17 09:20 98.2 88 16 167/88 (114) 96 Room Air I&O- Last 24 Hours up to 6 AM 07/26/17 05:59 Intake Total 2270 ml Output Total 2525 ml Balance -255 ml Laboratory Data 24H LABS Laboratory Tests 2 07/26/17 05:02: Anion Gap 8, Glomerular Filtration Rate > 60.0, Blood Urea Nitrogen 11, Creatinine 0.67L, Sodium Level 138, Potassium Level 4.1, Chloride Level 104, Carbon Dioxide Level 26, Calcium Level 8.4L, Aspartate Amino Transf (AST/SGOT) 30, Alanine Aminotransferase (ALT/SGPT) 40, Alkaline Phosphatase 142H, Total Bilirubin 0.7, Total Protein 6.7, Albumin 2.0L, Magnesium Level 2.1, Albumin/ Globulin Ratio 0.43L CBC/BMP Laboratory Tests 07/26/17 05:02 Red Blood Count 2.54 L, Mean Corpuscular Volume 95.7, Mean Corpuscular Hemoglobin 31.8, Mean Corpuscular Hemoglobin Concent 33.2, Red Cell Distribution Width 14.7 H, Calcium Level 8.4 L, Aspartate Amino Transf (AST/SGOT ) 30, Alanine Aminotransferase (ALT/SGPT) 40, Alkaline Phosphatase 142 H, Total Bilirubin 0.7, Total Protein 6.7, Albumin 2.0 L Microbiology Microbiology 07/22/17 Blood Culture - Final, Complete 07/22/17 Blood Culture - Final, Complete 07/22/17 Urine Culture - Final, Complete GME ATTESTATION GME ATTESTATION My preceptor for this patient encounter was physically present in the building during the encounter and was fully available. As needed, all aspects of the patient interview, examination, medical decision making process, and medical care plan development were reviewed and approved by the preceptor. Preceptor is aware and concurs with the plan as stated in the body of this note and will attest to such by his/her cosignature. ARIADNA ENRIQUEZ DO Jul 26, 2017 15:08
--- NOTE | 2017-07-26 16:32 | REP ---
Clinical: Abdominal pain. Technique: Axial contrast enhanced images from the lung bases to the pubic symphysis using 100 mL Isovue 370 intravenous contrast material with coronal and sagittal re-formations. Comparison: 07/18/2017 FINDINGS: The lung bases demonstrate moderate bibasilar atelectasis and small pleural effusions, which are improved when compared to the prior examination. Visualized portions of the heart and pericardium are grossly normal. A moderate amount of subcutaneous emphysema is appreciated throughout the left anterolateral abdominal wall extending to the level of the pelvis and groin, which may be slightly improved when compared to the prior examination. There is continued evidence for pneumoperitoneum along with small amount of ascites and possible loculated collection in the posterior rectal fossa, which measures roughly 7.1 x 4.1 x 6.8 cm and is similar to the prior examination. There is continued evidence for small bowel obstruction with dilated fluid/air filled loops of small bowel throughout the abdomen and pelvis with collapsed small bowel in the region of the right lower quadrant. The cecum appears moderately distended although the remainder of the colon to the level of the rectosigmoid where prior resection and anastomosis is appreciated appears relatively normal in caliber. Liver, spleen, pancreas, bilateral adrenal glands and kidneys appear normal. Cholelithiasis in collapsed gallbladder noted without evidence for acute cholecystitis. A nasogastric tube is identified extending into the stomach. Pelvis demonstrates relatively normal bladder and prostate/seminal vesicles. Moderate atherosclerotic changes of the vasculature noted without aortic aneurysm or dissection. Mildly prominent left inguinal lymph nodes measure up to approximately 2.4 cm in diameter. The above-mentioned subcutaneous emphysema is identified extending into the groin and possibly with into the upper scrotum. The surrounding musculoskeletal structures demonstrate age-related degenerative changes without focal osseous abnormality. IMPRESSION: 1. Continued evidence for small bowel obstruction with pneumoperitoneum and free fluid including possible loculated fluid collection in the posterior rectal fossa. These findings are relatively stable compared to 07/18/2017. 2. Moderate subcutaneous emphysema throughout the abdominopelvic subcutaneous tissues extending into the groin and possibly upper scrotum, appears slightly improved when compared to 07/18/2017. 3. Left inguinal lymph nodes measuring up to 2.4 cm are nonspecific. 4. Lung bases demonstrate bibasilar atelectasis and small pleural effusions, which are improved compared to the prior examination. Unreviewed MTDD
[2017-07-26 18:00] VITALS: BP 147/82
[2017-07-26] MEDS ORDERED: FAT EMULSION IV 20% 500 ML IV SCH (18:00)
[2017-07-26] MEDS ORDERED: AMINO AC/ELECTROLYTE/DEX/CALC 2,000 ML IV SCH (18:00)
[2017-07-26] MEDS: RAMIPRIL 5 MG CAP PO SCH (21:18)
[2017-07-26 22:00] VITALS: BP 143/78
[2017-07-27] MEDS ORDERED: diphenhydrAMINE 25 MG CAP PO ONE (00:15)
[2017-07-27] MEDS: HumaLOG INSULIN (NovoLOG) PER UNIT SC SCH ×4 (00:18→18:36)
[2017-07-27] MEDS: ACETAMINOPHEN TAB 650MG DOSE (2X325MG) PO PRN (01:32)
[2017-07-27 02:00] VITALS: BP 148/75
[2017-07-27] MEDS: MEROPENEM INJ 1 GM in D5W MINI-BAG PLUS 100 ML IV SCH ×3 (02:13→21:07)
[2017-07-27] MEDS: METOCLOPRAMIDE INJ 10MG/2ML VIAL (J2765) IV SCH ×4 (03:01→21:05)
[2017-07-27] MEDS: SODIUM CHLORIDE 0.9% INJ 10 ML SYR IV PRN ×2 (03:01→15:35)
[2017-07-27] MEDS: SODIUM CHLORIDE 0.9% INJ 10 ML SYR IV SCH ×2 (05:22→18:35)
[2017-07-27 05:26] LABS: BASO % 0.4 % (0.0-1.0); EOS # 0.6 K/mm3 (0.0-0.50); EOS % 3.9 % (0.0-3.0); LARGE UNSTAINED CELL # 0.4 K/mm3 (0.0-0.4); LARGE UNSTAINED CELL % 2.4 % (0.0-4.0); LYMPH # 1.8 K/mm3 (1.5-4.5); LYMPH % 12.4 % (24.0-44.0); MEAN CORPUSCULAR HEMOGLOBIN 32.1 pg (27.0-33.0); MEAN CORPUSCULAR HGB CONC 33.5 g/dl (32.0-36.5); MEAN CORPUSCULAR VOLUME 95.6 fl (80.0-96.0); MONO % 6.8 % (0.0-5.0); NEUTROPHILS % 74.2 % (36.0-66.0); PLATELET COUNT, AUTOMATED 753 k/mm3 (150-450); RED CELL DISTRIBUTION WIDTH 14.4 % (11.5-14.5); WHITE BLOOD COUNT 14.8 K/mm3 (4.0-10.0)
[2017-07-27 06:00] VITALS: BP 150/76
--- NOTE | 2017-07-27 07:19 | REP ---
Clinical: Postoperative ileus. Technique: Upright view of the chest with supine and upright views of the abdomen and pelvis. Findings: Upright view of the chest demonstrates right-sided PICC line with tip in the SVC along with bibasilar atelectasis (left greater than right). Free air below the diaphragm consistent with history of recent surgery, but requires correlation. Diffusely dilated small and large bowel with multiple small bowel air-fluid levels are identified. Differential diagnosis includes postoperative ileus as well as small bowel obstruction. Correlation is required. Impression: Small bowel obstruction versus ileus. Small amount of free air possibly related to recent surgery. Signed by Omega Contreras MD 07/26/2017 08:47 A
[2017-07-27 08:00] VITALS: BP 131/74
[2017-07-27] MEDS: ASPIRIN 81 MG ENTERIC TAB PO SCH (09:39)
[2017-07-27] MEDS: ATORVASTATIN 20 MG TAB PO SCH (09:39)
[2017-07-27] MEDS: PANTOPRAZOLE 40MG INJ (PROTONIX) (C9113) IV SCH (09:39)
[2017-07-27] MEDS: FUROSEMIDE 40 MG TAB PO SCH (09:39)
[2017-07-27 12:00] VITALS: BP 143/73
[2017-07-27] MEDS: ENOXAPARIN 40 MG/0.4 ML SYRINGE (J1650) SC SCH (12:24)
[2017-07-27 16:00] VITALS: BP 140/80
[2017-07-27] MEDS ORDERED: MULTIVITAMIN -ADULT INJECTION 10 ML, CR/CU/SE/MN/ZN INJ 1 ML in AMINO AC/ELECTROLYTE/DE... IV SCH (18:00)
[2017-07-27] MEDS ORDERED: FAT EMULSION IV 20% 500 ML IV SCH (18:00)
[2017-07-27] MEDS ORDERED: FUROSEMIDE 40 MG/4 ML VIAL (J1940) IV ONE (20:00)
--- NOTE | 2017-07-27 20:57 | IPNPDOC ---
Subjective Date Seen The patient was seen on 07/27/17. Subjective Chief Complaint/HPI The patient was seen today in his room sitting upright in a chair. He states he didn't sleep well last night due to pain on the dorsum of his right foot and the constant urge to defecate, but Benadryl helped. He states he had 8 bowel movements yesterday, of loose, bright green quality and admits to a non- productive cough and a loss of appetite although he was able to eat breakfast this morning. He was able to pass flatus. He denies headache, nausea, vomiting , chest pain, and shortness of breath. He states he hasn't noticed a change in his lower extremity edema and says he wasn't able to walk around much yesterday due to the constant urge to use the bathroom. General: Denies: Normal Appetite Constitutional: Denies: Chills, Fever ENT: Denies: Head Aches Pulmonary: Reports: Cough (dry, non-productive), Denies: Dyspnea Cardiovascular: Denies: Chest Pain Gastrointestinal: Reports: Other Symptoms (constant urge to defecate, but can be controlled), Denies: Nausea, Vomiting Psych: Reports: Mood Normal Objective Physical Examination General Exam: Positive: Alert, Cooperative, No Acute Distress Eye Exam: Positive: Conjunctiva & lids normal ENT Exam: Positive: Atraumatic, Mucous membr. moist/pink Neck Exam: Positive: Supple Chest Exam: Positive: Clear to auscultation, Negative: Rales, Rhonchi, Wheezing Heart Exam: Positive: Rate Normal, Regular Rhythm Abdomen Exam: Positive: Normal bowel sounds, Other (round, distended. No rebound or guarding. Tympanic percussion in upper quadrants), Negative: Tenderness Extremity Exam: Positive: Edema (1+ bilaterally), Negative: Swelling Skin Exam: Positive: Nl turgor and temperature, Lesion (surgical incisions were dry and clean, no redness/swelling/wheeping ) Psych Exam: Positive: Oriented x 3 Assessment /Plan Assessment Leukocytosis - the patient has had consistently elevated white counts, however in general these appear to be trending downwards. Will continue to monitor and appreciate surgery's recommendations. Patient has no fever/chills, a clear CXR , and no growth on blood or urine culture. Alk Phos and CRP trending downwards. Continue Meropenem. Abdominal x-ray 07/27 showed: "small bowel obstruction versus ileus. Small amount of free air possibly related to recent surgery." Will defer to surgery for possible intra-abdominal source for white count, for possible ex- lap or drain. Bilateral LE 1+ edema - previous imagine negative for DVT. Still no improvement into tonight, dosing adjustment may be warranted. Encourage ambulation, patient stated he was not able to ambulate as much yesterday afternoon due to the urge to have a bowel movement. Thrombocytosis - the patient's platelet counts have been trending upwards. Will continue to monitor. Ileus - will continue to follow surgery's recommendations. Patient is able to pass gas and is having frequent, loose bowel movements. Anemia - H&H increasing. Transfused 2U PRBCs today per Surgery. Monitor H&H GERD - continue home Protonix HTN - patient's BUN and Cr are not elevated, continue home Ramipril Hypercholesterolemia - continue home statin CAD with stent placement in 2016 - continue home Aspirin. Anticoagulation is being managed by surgical team. DVT prophylaxis - Lovenox Plan/VTE VTE Prophylaxis Ordered?: Yes Plan/Urinary Catheter Reason for insertion/continuin: Perioperative VS, I&O, 24H, Fishbone Vital Signs/I&O Vital Signs Date Time Temp Pulse Resp B/P (MAP) Pulse Ox O2 Delivery O2 Flow Rate FiO2 07/27/17 06:00 96.9 81 16 150/76 (100) 98 Room Air I&O- Last 24 Hours up to 6 AM 07/27/17 06:00 Intake Total 3510 ml Output Total 3185 ml Balance 325 ml Laboratory Data 24H LABS Laboratory Tests 2 07/26/17 11:34: Bedside Glucose (Misc Panel) 126H 07/26/17 17:59: Bedside Glucose (Misc Panel) 117H 07/27/17 00:07: Bedside Glucose (Misc Panel) 126H 07/27/17 05:15: White Blood Count 14.8H, Red Blood Count 2.64L, Hemoglobin 8.5L, Hematocrit 25.2L, Mean Corpuscular Volume 95.6, Mean Corpuscular Hemoglobin 32.1, Mean Corpuscular Hemoglobin Concent 33.5, Red Cell Distribution Width 14.4, Platelet Count 753H, Neutrophils (%) (Auto) 74.2H, Lymphocytes (%) (Auto) 12.4L, Monocytes (%) (Auto) 6.8H, Eosinophils (%) (Auto) 3.9H, Basophils (%) (Auto) 0.4 , Neutrophils # (Auto) 11.0H, Lymphocytes # (Auto) 1.8, Monocytes # (Auto) 1.0H , Eosinophils # (Auto) 0.6H, Basophils # (Auto) 0.0, Large Unclassified Cells % 2.4, Large Unclassified Cells # 0.4 07/27/17 05:17: Bedside Glucose (Misc Panel) 107 CBC/BMP Laboratory Tests 07/27/17 05:15 Red Blood Count 2.64 L, Mean Corpuscular Volume 95.6, Mean Corpuscular Hemoglobin 32.1, Mean Corpuscular Hemoglobin Concent 33.5, Red Cell Distribution Width 14.4, Neutrophils (%) (Auto) 74.2 H, Lymphocytes (%) (Auto) 12.4 L, Monocytes (%) (Auto) 6.8 H, Eosinophils (%) (Auto) 3.9 H, Basophils (%) (Auto) 0.4, Neutrophils # (Auto) 11.0 H, Lymphocytes # (Auto) 1.8, Monocytes # ( Auto) 1.0 H, Eosinophils # (Auto) 0.6 H, Basophils # (Auto) 0.0 Microbiology Microbiology 07/22/17 Blood Culture - Final, Complete 07/22/17 Blood Culture - Final, Complete 07/22/17 Urine Culture - Final, Complete GME ATTESTATION GME ATTESTATION My preceptor for this patient encounter was physically present in the building during the encounter and was fully available. As needed, all aspects of the patient interview, examination, medical decision making process, and medical care plan development were reviewed and approved by the preceptor. Preceptor is aware and concurs with the plan as stated in the body of this note and will attest to such by his/her cosignature. Attending Note Attending Note I have independently interviewed and examined the patient at the bedside and have discussed the management plan with my Dr. Guerra, my 1st year resident physician. ARIADNA GUERRA DO Jul 27, 2017 08:35 FABY BILLY MD Jul 28, 2017 13:27
[2017-07-27] MEDS: RAMIPRIL 5 MG CAP PO SCH (21:07)
[2017-07-27 22:00] VITALS: BP 149/68
[2017-07-28] VITALS (8 sets, daily range): BP systolic 135–152; BP diastolic 68–81
[2017-07-28] MEDS: HumaLOG INSULIN (NovoLOG) PER UNIT SC SCH ×2 (00:46→06:06)
[2017-07-28] MEDS: MEROPENEM INJ 1 GM in D5W MINI-BAG PLUS 100 ML IV SCH ×3 (02:32→17:59)
[2017-07-28] MEDS: SODIUM CHLORIDE 0.9% INJ 10 ML SYR IV PRN (03:19)
[2017-07-28] MEDS: METOCLOPRAMIDE INJ 10MG/2ML VIAL (J2765) IV SCH (04:54)
[2017-07-28] MEDS: SODIUM CHLORIDE 0.9% INJ 10 ML SYR IV SCH ×2 (05:04→17:59)
[2017-07-28 05:13] LABS: MEAN CORPUSCULAR HGB CONC 32.6 g/dl (32.0-36.5); WHITE BLOOD COUNT 13.4 K/mm3 (4.0-10.0)
--- NOTE | 2017-07-28 05:25 | IPN ---
DATE: 07/27/2017 SUBJECTIVE: The patient is now 15 days postoperative from his laparoscopic low anterior resection with an anastomosis. His significant ileus persists. He remains quite distended and tympanitic. He has been having some small loose liquid bowel movements which are green in color. These have been unpredictable and he has limited his ambulation because of the frequency of these. He has passed some flatus but not much. He appears somewhat weak and his remains anxious. OBJECTIVE: Vital signs show that his temperature is afebrile for the last 24 hours. His pulses in the low to mid 80s with a respiratory rate is 16-20 and a blood pressure that is tending to average about 140 systolic. Room air O2 saturations are fine. His intake and output from 07/26 shows 1500 mL of oral intake with 2430 intravenous (IV) and a urine output of 2235, and recorded stool output of approximately 800. His weight, however, is recorded as the same as yesterday at 104.6 kg. PHYSICAL EXAMINATION: The patient is alert, though he appears somewhat pale. Skin is warm and dry. Heart exam shows a regular rate and rhythm. The lungs are clear. The abdomen is markedly protuberant. It is moderately firm in consistency. He does have some tinkley bowel sounds present and there is tympany to percussion. There is mild, fairly diffuse tenderness to palpation but no suggestion of peritonitis. Lower extremities reveal pitting edema of the lower legs bilaterally. He is wearing thromboembolism deterrent (MI) hose. LABORATORY FINDINGS: He had a CBC showing a white count of 14.8 with a differential showing 74% neutrophils, 12% lymphocytes and 7% monocytes. Hemoglobin is 8.5 with a hematocrit of 25% and a platelet count of 753,000. Chemistry profile was not repeated today. His fingerstick blood sugars have ranged from 107-126. IMPRESSION Persistent ileus/obstruction, now 15 days postoperative from his laparoscopic low anterior resection. PLAN: I have reviewed the patient's three CT scans done postoperatively. The most recent study in particular, which was done with some contrast, suggests the possibility of a short narrowed segment of terminal ileum just medial to the ascending colon. There are no signs of abscess and his free air noted previously has nearly completely resolved. The entire small bowel is dilated and filled with fluid and air. I suspect, given the prolonged nature of his abdominal distension, that there is an obstruction point within the small bowel distally. A simple postoperative ileus I would certainly have expected to have resolved by now. I have recommended that we now plan on proceeding with an exploratory laparotomy. I have recommended that we spend the next day or two trying to optimize his medical condition for surgery and then proceed with a laparotomy and exploration on about Sunday 07/29. The patient and his had an opportunity to ask questions. They wish to proceed. We will proceed with transfusion of two units of packed red blood cells. I will hold his aspirin starting today. His Lovenox will be held appropriately prior to the surgery. ROMARIO
[2017-07-28 05:48] LABS: ALBUMIN 2.2 GM/DL (3.2-5.2); ALBUMIN/GLOBULIN RATIO 0.54 (1.00-1.93); ALKALINE PHOSPHATASE 175 U/L (45-117); ALT/SGPT 44 U/L (12-78); ANION GAP 11 MEQ/L (8-16); AST/SGOT 36 U/L (15-37); BILIRUBIN,TOTAL 0.7 MG/DL (0.2-1.0); BLOOD UREA NITROGEN 12 MG/DL (7-18); CALCIUM LEVEL 8.5 MG/DL (8.8-10.2); CARBON DIOXIDE LEVEL 26 MEQ/L (21-32); CHLORIDE LEVEL 103 MEQ/L (98-107); CREATININE FOR GFR 0.68 MG/DL (0.70-1.30); GLOMERULAR FILTRATION RATE > 60.0 (>49); GLUCOSE, FASTING 103 MG/DL (80-110); POTASSIUM SERUM 4.3 MEQ/L (3.5-5.1); SODIUM LEVEL 140 MEQ/L (136-145); TOTAL PROTEIN 6.3 GM/DL (6.4-8.2)
[2017-07-28] MEDS: ATORVASTATIN 20 MG TAB PO SCH (09:48)
[2017-07-28] MEDS: PANTOPRAZOLE 40MG INJ (PROTONIX) (C9113) IV SCH (09:49)
[2017-07-28] MEDS: FUROSEMIDE 40 MG TAB PO SCH (09:49)
--- NOTE | 2017-07-28 17:56 | IPNPDOC ---
Subjective Date Seen The patient was seen on 07/28/17. 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 Patient appears resting comfortably in bed. He states that he was able to sleep a little bit last night, an improvement from the previous night. He states that the right dorsal foot pain that contributed to his lack of sleep the previous night did not keep him awake last night. Patient is scheduled for an explorative laparotomy tomorrow with Dr. Stroud and was made NPO as of yesterday. Patient states he was able to walk around last night with his . He is still experiencing frequency and urgency of bowel movements and they are of the same consistency as before, michi-like pieces , but BMs have decreased to about 2/day. He reports no events or new signs/ symptoms since his transfusion yesterday. Constitutional: Denies: Chills, Fever ENT: Denies: Head Aches, Dysphagia Pulmonary: Reports: Cough (dry mild cough, unchanged from yesterday), Denies: Dyspnea Cardiovascular: Denies: Chest Pain, Lt Headedness Gastrointestinal: Reports: Diarrhea (frequent, loose, green bowel movements ), Denies: Nausea, Vomiting, Abdominal Pain, Melena, Hematochezia Genitourinary: Denies: Dysuria, Hematuria Neurological: Denies: Incoordination Psych: Reports: Mood Normal Objective Physical Examination General Exam: Positive: Alert, Cooperative, No Acute Distress Eye Exam: Positive: Conjunctiva & lids normal ENT Exam: Positive: Atraumatic, Mucous membr. moist/pink Neck Exam: Positive: Supple Chest Exam: Positive: Clear to auscultation, Negative: Rales, Rhonchi, Wheezing Heart Exam: Positive: Rate Normal, Regular Rhythm, Normal S1, Normal S2 Abdomen Exam: Positive: Normal bowel sounds, Other (round, distended. No rebound or guarding. Tympanic percussion in upper quadrants) Extremity Exam: Positive: Edema (mild in bilateral feet. Improving), Negative: Swelling Skin Exam: Positive: Nl turgor and temperature Psych Exam: Positive: Mental status NL, Mood NL, Oriented x 3 Assessment /Plan Assessment Leukocytosis - the patient has had consistently elevated white counts, but it is continuing to trend downwards. Will continue to monitor.. Patient continues to be afebrile and asymptomatic, has previous clear CXRs, and no growth on blood or urine culture. Alk Phos and CRP still elevated, but stable. Continue Meropenem. Abdominal x-ray 07/26 showed: "small bowel obstruction versus ileus. Small amount of free air possibly related to recent surgery." Will defer to surgery for possible intra-abdominal source for white count and it appears a possible ex-lap is being considered for later this week. We will medically optimize patient for surgery. Bilateral LE 1+ edema - previous imaging negative for DVT. Lasix 40mg PO daily started on 07/26 by Surgery. Still no improvement from yesterday. Encourage ambulation, patient stated he was able to go for a couple walks with his last night. Thrombocytosis - the patient's platelet counts had been gradually trending upwards, but decreasing as of today. Will continue to monitor. Ileus - Patient is able to pass gas and is having frequent, loose bowel movements. Patient is scheduled for exploratory laparotomy tomorrow with Dr. Stroud under suspicion of distal small bowel obstruction according to previous CT's. Will continue to work with surgery and follow their instruction. Anemia - H&H increasing from yesterday after 2U were transfused 07/27 per Surgery. Monitor H&H. Pt asymptomatic. May need to transfuse again if H&H drop. GERD - continue home Protonix HTN - patient's BUN and Cr are not elevated, continue home Ramipril Hypercholesterolemia - continue home statin CAD with stent placement in 2016 - Anticoagulation is being managed by surgical team. Aspirin discontinued today by Surgery for ex-lap later this week. DVT prophylaxis - Lovenox discontinued today by Surgery for possible ex-lap later this week. SCD/TEDs in place Plan/VTE VTE Prophylaxis Ordered?: Yes Plan/Urinary Catheter Reason for insertion/continuin: Perioperative Disposition Patient appeared comfortable and eager to find a solution to his continuing GI problems. VS, I&O, 24H, Fishbone Vital Signs/I&O Vital Signs Date Time Temp Pulse Resp B/P (MAP) Pulse Ox O2 Delivery O2 Flow Rate FiO2 07/28/17 06:00 97.8 97 18 136/79 (98) 94 Room Air I&O- Last 24 Hours up to 6 AM 07/28/17 05:59 Intake Total 2180 ml Output Total 3875 ml Balance -1695 ml Laboratory Data 24H LABS Laboratory Tests 2 07/27/17 11:48: Bedside Glucose (Misc Panel) 117H 07/27/17 17:16: Bedside Glucose (Misc Panel) 101 07/27/17 23:49: Bedside Glucose (Misc Panel) 111 07/28/17 05:05: Anion Gap 11, Glomerular Filtration Rate > 60.0, Blood Urea Nitrogen 12, Creatinine 0.68L, Sodium Level 140, Potassium Level 4.3, Chloride Level 103, Carbon Dioxide Level 26, Calcium Level 8.5L, Aspartate Amino Transf (AST/SGOT) 36, Alanine Aminotransferase (ALT/SGPT) 44, Alkaline Phosphatase 175H, Total Bilirubin 0.7, Total Protein 6.3L, Albumin 2.2L, Magnesium Level 2.0, Albumin/ Globulin Ratio 0.54L CBC/BMP Laboratory Tests 07/28/17 05:05 Red Blood Count 3.01 L, Mean Corpuscular Volume 95.0, Mean Corpuscular Hemoglobin 31.0, Mean Corpuscular Hemoglobin Concent 32.6, Red Cell Distribution Width 15.0 H, Calcium Level 8.5 L, Aspartate Amino Transf (AST/SGOT ) 36, Alanine Aminotransferase (ALT/SGPT) 44, Alkaline Phosphatase 175 H, Total Bilirubin 0.7, Total Protein 6.3 L, Albumin 2.2 L Microbiology Microbiology 07/22/17 Blood Culture - Final, Complete 07/22/17 Blood Culture - Final, Complete 07/22/17 Urine Culture - Final, Complete GME ATTESTATION GME ATTESTATION My preceptor for this patient encounter was physically present in the building during the encounter and was fully available. As needed, all aspects of the patient interview, examination, medical decision making process, and medical care plan development were reviewed and approved by the preceptor. Preceptor is aware and concurs with the plan as stated in the body of this note and will attest to such by his/her cosignature. Attending Note Attending Note I have independently interviewed and examined this patient at the bedside, and discussed the management plan with my Resident Physician, Dr. Guerra, as documented above. ARIADNA GUERRA DO Jul 28, 2017 10:40 FABY BILLY MD Jul 29, 2017 08:36
[2017-07-28] MEDS ORDERED: FAT EMULSION IV 20% 500 ML IV SCH (18:00)
[2017-07-28] MEDS ORDERED: AMINO AC/ELECTROLYTE/DEX/CALC 2,000 ML IV SCH (18:00)
[2017-07-28] MEDS: RAMIPRIL 5 MG CAP PO SCH (20:27)
[2017-07-29] MEDS ORDERED: diphenhydrAMINE 25 MG CAP PO ONE (01:30)
[2017-07-29] MEDS: MEROPENEM INJ 1 GM in D5W MINI-BAG PLUS 100 ML IV SCH ×3 (01:35→16:44)
[2017-07-29 02:00] VITALS: BP 143/76
[2017-07-29] MEDS: SODIUM CHLORIDE 0.9% INJ 10 ML SYR IV SCH ×2 (05:39→18:00)
[2017-07-29 06:00] VITALS: BP 141/88
[2017-07-29 06:06] LABS: BASO % 0.4 % (0.0-1.0); EOS # 0.6 K/mm3 (0.0-0.50); EOS % 4.8 % (0.0-3.0); LARGE UNSTAINED CELL # 0.2 K/mm3 (0.0-0.4); LARGE UNSTAINED CELL % 1.9 % (0.0-4.0); LYMPH # 1.5 K/mm3 (1.5-4.5); LYMPH % 12.8 % (24.0-44.0); MEAN CORPUSCULAR HEMOGLOBIN 31.9 pg (27.0-33.0); MEAN CORPUSCULAR HGB CONC 33.9 g/dl (32.0-36.5); MEAN CORPUSCULAR VOLUME 94.3 fl (80.0-96.0); MONO % 8.2 % (0.0-5.0); NEUTROPHILS # 8.6 K/mm3 (1.8-7.7); NEUTROPHILS % 71.9 % (36.0-66.0); PLATELET COUNT, AUTOMATED 706 k/mm3 (150-450); RED CELL DISTRIBUTION WIDTH 14.4 % (11.5-14.5)
[2017-07-29 06:24] LABS: ALBUMIN 2.2 GM/DL (3.2-5.2); ALBUMIN/GLOBULIN RATIO 0.52 (1.00-1.93); ALKALINE PHOSPHATASE 177 U/L (45-117); ALT/SGPT 37 U/L (12-78); ANION GAP 10 MEQ/L (8-16); AST/SGOT 27 U/L (15-37); BILIRUBIN,TOTAL 0.6 MG/DL (0.2-1.0); BLOOD UREA NITROGEN 14 MG/DL (7-18); CALCIUM LEVEL 8.9 MG/DL (8.8-10.2); CARBON DIOXIDE LEVEL 27 MEQ/L (21-32); CHLORIDE LEVEL 102 MEQ/L (98-107); CREATININE FOR GFR 0.61 MG/DL (0.70-1.30); GLOMERULAR FILTRATION RATE > 60.0 (>49); GLUCOSE, FASTING 108 MG/DL (80-110); MAGNESIUM LEVEL 2.2 MG/DL (1.8-2.4); POTASSIUM SERUM 4.3 MEQ/L (3.5-5.1); SODIUM LEVEL 139 MEQ/L (136-145); TOTAL PROTEIN 6.4 GM/DL (6.4-8.2)
[2017-07-29 10:00] VITALS: BP 146/80
[2017-07-29] MEDS: FUROSEMIDE 40 MG TAB PO SCH (10:04)
[2017-07-29] MEDS: ATORVASTATIN 20 MG TAB PO SCH (10:04)
[2017-07-29] MEDS: PANTOPRAZOLE 40MG INJ (PROTONIX) (C9113) IV SCH (10:05)
--- NOTE | 2017-07-29 11:11 | IPN ---
DATE: 07/28/2017 SUBJECTIVE: The patient is now 16 days postoperative from his laparoscopic low anterior resection. He has had no major changes in the last 24 hours. He did receive two units of packed red blood cells and had one dose of Lasix immediately after the first dose was completed. He reports no significant pain. He remains quite distended. Vital signs show him to be afebrile. His pulse is in the low to mid 80s. Blood pressure is good and his room air pulse oximetry is in the low to mid 90s. His intake and output from the 07/27 shows intake of 2700 and output of 3875. He continues to have small liquid or pasty stools. He is not passing any significant amount of gas. OBJECTIVE: Physical exam shows a pleasant man who I think appears somewhat older than his stated age. His sclerae are anicteric. Heart exam shows a regular rate and rhythm. The lungs are clear. The abdomen remains quite distended and firm. There is tympany to percussion across the upper abdomen. He does have some tinkly sounds and some borborygmi at times. Extremities show perhaps slightly less edema. LABORATORY DATA: Laboratory studies today show white count of 13,000 with a hemoglobin of nine, hematocrit of 29 and a platelet count of 674,000. Chemistries showed normal electrolytes with BUN of 12, creatinine 0.68. His liver function tests are normal with the exception of an alkaline phosphatase slightly elevated at 175. Total protein is 6.3 with an albumin of 2.2. IMPRESSION: 1. Persistent postoperative obstructions/ileus. 2. No evidence of significant infection at this time while meropenem is being continued empirically. PLAN: I have come to be convinced that the patient must have an underlying intestinal obstruction to account for his persistent severe abdominal distension with some small bowel movements but no significant passage of flatus. I believe on his most recent CT scan there is what appears to be a short segment of the terminal ileum that is narrow. The patient is scheduled for exploratory laparotomy on July 29. The patient and his were counseled regarding the plan for surgery. I advised them that I would consider at the same time lower endoscopy if I felt this would be beneficial and also might consider placement of a gastrostomy tube for intestinal decompression postoperatively to avoid the need for a nasogastric (NG) tube. I advised them that these options would depend on findings. I do anticipate that we will need to make a large midline incision to adequately explore the abdomen given his degree of bowel distension. I will continue his meropenem for now, but depending on findings, may stop this postoperatively. His Lovenox has been held, as has his aspirin. I think he would be a good candidate for an epidural catheter and we will alert anesthesia of this in the morning. They were counseled for the surgery and desire to proceed. ROMARIO
[2017-07-29] MEDS ORDERED: fentaNYL 100 MCG/2 ML INJECTION (J3010) As Ordered ONE (13:57)
[2017-07-29] MEDS ORDERED: MIDAZOLAM INJ 2 MG/2 ML VIAL (J2250) As Ordered ONE ×2 (13:57→16:33)
[2017-07-29 14:00] VITALS: BP 168/77
[2017-07-29] MEDS ORDERED: fentaNYL 100 MCG/2 ML INJECTION (J3010) IV ONE (15:00)
[2017-07-29] MEDS ORDERED: MIDAZOLAM INJ 2 MG/2 ML VIAL (J2250) IV ONE (15:00)
--- NOTE | 2017-07-29 16:30 | IPNPDOC ---
Subjective Date Seen The patient was seen on 07/29/17. 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 The patient was seen sitting comfortably in a chair. Patient admits he had trouble sleeping last night secondary to anxiety from his procedure today. He received Benadryl overnight, which did not help much. His lower extremity edema looks improved today and his right dorsal foot pain is better as well. His abdominal pain is still unchanged. His stool frequency has decreased to about 2-3/day and he describes the consistency as oatmeal like; color is pale/pedro. No reported events overnight. General: Denies: Normal Appetite (patient has no appetite despite his NPO diet) Constitutional: Denies: Chills, Fever Eyes: Denies: Pain ENT: Denies: Head Aches, Ear Pain Skin: Reports: Rash (on dorsal surface of right foot), Lesions (on dorsal surface of right foot ) Pulmonary: Denies: Dyspnea, Cough (dry cough is resolving ) Cardiovascular: Denies: Chest Pain, Lt Headedness Gastrointestinal: Reports: Abdominal Pain (unchanged from previous reports ), Denies: Diarrhea Genitourinary: Denies: Dysuria, Frequency Psych: Reports: Anxiety (anxious about procedure today) Objective Physical Examination General Exam: Positive: Alert, Cooperative, No Acute Distress Eye Exam: Positive: Conjunctiva & lids normal ENT Exam: Positive: Atraumatic, Mucous membr. moist/pink Neck Exam: Positive: Supple, Negative: JVD, Lymphadenopathy Chest Exam: Positive: Clear to auscultation, Negative: Rales, Rhonchi, Wheezing Heart Exam: Positive: Rate Normal, Regular Rhythm, Normal S1, Normal S2, Negative: Gallops, Murmurs, Rubs Abdomen Exam: Positive: BS Hyperactive, Other (round, distended, tense. No rebound or guarding. Tympanic percussion in upper quadrants) Extremity Exam: Positive: Edema (mild in bilateral feet. Improving), Normal pulses, Negative: Swelling Skin Exam: Positive: Nl turgor and temperature, Negative: Rash (no erythema on dorsal surface of right foot ), Lesion (no lesion/tenderness to palpation on dorsal surface of right foot ) Psych Exam: Positive: Mental status NL, Anxiety (visibly worreid about procedure today ), Oriented x 3 Assessment /Plan Assessment Leukocytosis - the patient has had consistently elevated white counts, but it is still trending down today. Will continue to monitor. Patient continues to be afebrile and asymptomatic, has previous clear CXRs, and no growth on blood or urine culture. Alk Phos and CRP elevated, but stable. Continue Meropenem. Abdominal x-ray 07/26 showed: "small bowel obstruction versus ileus. Small amount of free air possibly related to recent surgery." Will defer to surgery for possible intra-abdominal source for white count. Pt is scheduled for ex-lap later today. We will medically optimize patient for surgery. Bilateral LE 1+ edema - previous imaging negative for DVT. Lasix 40mg PO daily started on 07/26 by Surgery. Still edematous but definite improvement from yesterday. Patient stated he was able to walk around more yesterday. Keep encouraging ambulation. Thrombocytosis - the patient's platelet counts were again elevated this morning after downtrending yesterday. Will continue to monitor. Ileus - Patient is able to pass gas and is having frequent, loose bowel movements. Patient is scheduled for exploratory laparotomy today at 3:[address] Stroud under suspicion of distal small bowel obstruction according to previous CT's. Will continue to work with surgery and appreciate their input. Anemia - H&H increasing since 2U were transfused 07/27 per Surgery. Monitor H&H. Pt asymptomatic. May need to transfuse again if H&H drop. GERD - continue home Protonix HTN - patient's BUN and Cr are not elevated, continue home Ramipril Hypercholesterolemia - continue home statin CAD with stent placement in 2016 - Anticoagulation is being managed by surgical team. Aspirin discontinued 07/27 by Surgery for ex-lap today. DVT prophylaxis - Lovenox discontinued 07/27 by Surgery for ex-lap today. SCD/ TEDs in place. Plan/VTE VTE Prophylaxis Ordered?: Yes Plan/Urinary Catheter Reason for insertion/continuin: Perioperative VS, I&O, 24H, Fishbone Vital Signs/I&O Vital Signs Date Time Temp Pulse Resp B/P (MAP) Pulse Ox O2 Delivery O2 Flow Rate FiO2 07/29/17 06:00 97.8 80 18 141/88 (105) 95 Room Air I&O- Last 24 Hours up to 6 AM 07/29/17 06:00 Intake Total 3235 ml Output Total 3725 ml Balance -490 ml Laboratory Data 24H LABS Laboratory Tests 2 07/28/17 12:03: Bedside Glucose (Misc Panel) 119H 07/29/17 05:44: White Blood Count 12.0H, Red Blood Count 3.02L, Hemoglobin 9.7L, Hematocrit 28.5L, Mean Corpuscular Volume 94.3, Mean Corpuscular Hemoglobin 31.9, Mean Corpuscular Hemoglobin Concent 33.9, Red Cell Distribution Width 14.4, Platelet Count 706H, Neutrophils (%) (Auto) 71.9H, Lymphocytes (%) (Auto) 12.8L, Monocytes (%) (Auto) 8.2H, Eosinophils (%) (Auto) 4.8H, Basophils (%) (Auto) 0.4 , Neutrophils # (Auto) 8.6H, Lymphocytes # (Auto) 1.5, Monocytes # (Auto) 1.0H, Eosinophils # (Auto) 0.6H, Basophils # (Auto) 0.0, Large Unclassified Cells % 1.9, Large Unclassified Cells # 0.2, Anion Gap 10, Glomerular Filtration Rate > 60.0, Blood Urea Nitrogen 14, Creatinine 0.61L, Sodium Level 139, Potassium Level 4.3, Chloride Level 102, Carbon Dioxide Level 27, Calcium Level 8.9, Aspartate Amino Transf (AST/SGOT) 27, Alanine Aminotransferase (ALT/SGPT) 37, Alkaline Phosphatase 177H, Total Bilirubin 0.6, Total Protein 6.4, Albumin 2.2L , Magnesium Level 2.2, Albumin/Globulin Ratio 0.52L CBC/BMP Laboratory Tests 07/29/17 05:44 Red Blood Count 3.02 L, Mean Corpuscular Volume 94.3, Mean Corpuscular Hemoglobin 31.9, Mean Corpuscular Hemoglobin Concent 33.9, Red Cell Distribution Width 14.4, Neutrophils (%) (Auto) 71.9 H, Lymphocytes (%) (Auto) 12.8 L, Monocytes (%) (Auto) 8.2 H, Eosinophils (%) (Auto) 4.8 H, Basophils (%) (Auto) 0.4, Neutrophils # (Auto) 8.6 H, Lymphocytes # (Auto) 1.5, Monocytes # ( Auto) 1.0 H, Eosinophils # (Auto) 0.6 H, Basophils # (Auto) 0.0, Calcium Level 8.9, Aspartate Amino Transf (AST/SGOT) 27, Alanine Aminotransferase (ALT/SGPT) 37, Alkaline Phosphatase 177 H, Total Bilirubin 0.6, Total Protein 6.4, Albumin 2.2 L Microbiology Microbiology 07/22/17 Blood Culture - Final, Complete 07/22/17 Blood Culture - Final, Complete 07/22/17 Urine Culture - Final, Complete GME ATTESTATION GME ATTESTATION My preceptor for this patient encounter was physically present in the building during the encounter and was fully available. As needed, all aspects of the patient interview, examination, medical decision making process, and medical care plan development were reviewed and approved by the preceptor. Preceptor is aware and concurs with the plan as stated in the body of this note and will attest to such by his/her cosignature. Attending Note Attending Note I have independently interviewed and examined this patient at the bedside, and discussed the manaqement plan with my Resident, Dr. Guerra. Monitor urine output with possible abdominal compartment syndrome, ivfluids and intubation if needed if respiratory distress occur. Exploratory laparotomy planned for AM, and continue with gram neg and anaerobic antibiotic coverage. ARIADNA GUERRA DO Jul 29, 2017 07:47 FABY BILLY MD Jul 30, 2017 08:34
[2017-07-29] MEDS ORDERED: PROPOFOL 200 MG/20 ML VIAL As Ordered ONE (16:33)
[2017-07-29] MEDS ORDERED: fentaNYL 250 MCG/5 ML INJECTION (J3010) As Ordered ONE (16:33)
[2017-07-29] MEDS ORDERED: BUPIVACAINE/EPIN 0.25% 30 ML VIAL As Ordered ONE (16:33)
[2017-07-29] MEDS ORDERED: LIDOCAINE 2% INJ 100 MG/5 ML SDV (FOR ANES.) As Ordered ONE (16:34)
[2017-07-29] MEDS ORDERED: ROCURONIUM BROMIDE 50 MG/5 ML VIAL/SYRINGE As Ordered ONE ×3 (16:34→19:45)
[2017-07-29] MEDS ORDERED: METOCLOPRAMIDE INJ 10MG/2ML VIAL (J2765) As Ordered ONE (16:34)
[2017-07-29] MEDS ORDERED: ONDANSETRON 4MG/2ML VIAL (J2405) As Ordered ONE (16:34)
[2017-07-29] MEDS ORDERED: NEOSTIGMINE 1MG/ML 5 ML SYRINGE (J2710) As Ordered ONE (16:34)
[2017-07-29] MEDS ORDERED: GLYCOPYRROLATE INJ 0.2 MG/ML 2 ML VIAL As Ordered ONE (16:34)
[2017-07-29] MEDS ORDERED: DESFLURANE 240 ML INHALANT As Ordered ONE (16:53)
[2017-07-29] MEDS: HumaLOG INSULIN (NovoLOG) PER UNIT SC SCH (18:00)
[2017-07-29] MEDS ORDERED: AMINO AC/ELECTROLYTE/DEX/CALC 2,000 ML IV SCH (18:00)
[2017-07-29] MEDS ORDERED: FAT EMULSION IV 20% 500 ML IV SCH (18:00)
[2017-07-29] MEDS ORDERED: PHENYLEPHRINE INJ 10MG/ML VIAL (J2370) As Ordered ONE ×2 (18:57→21:37)
[2017-07-29] MEDS ORDERED: FLUCONAZOLE 400 MG in APPROPRIATE DILUENT 1 EA IV ONE (19:30)
[2017-07-29] MEDS ORDERED: FENTANYL 2MCG/ML BUPIVACAINE 0.0625% NACL 250ML IV BAG As Ordered ONE (20:23)
[2017-07-29] MEDS ORDERED: VECURONIUM BROMIDE 10 MG VIAL As Ordered ONE (21:02)
[2017-07-29] MEDS ORDERED: PROPOFOL 1,000 MG/100 ML VIAL As Ordered ONE (22:20)
[2017-07-29 22:40] VITALS: O2SAT 99
[2017-07-29] MEDS ORDERED: ONDANSETRON 4MG/2ML VIAL (J2405) IV PRN (23:00)
[2017-07-29] MEDS ORDERED: MORPHINE 2 MG/ML 1ML SYRINGE IV PRN (23:00)
[2017-07-29] MEDS ORDERED: fentaNYL 100 MCG/2 ML INJECTION (J3010) IV PRN (23:00)
[2017-07-29] MEDS ORDERED: LR 1,000 ML IV SCH (23:00)
[2017-07-29] MEDS ORDERED: PROPOFOL 1,000 MG in APPROPRIATE DILUENT 1 EA IV SCH (23:30)
[2017-07-29] MEDS ORDERED: ACETAMINOPHEN 325 MG/10.15 ML UDC GT PRN (23:30)
[2017-07-29 23:56] LABS: ABG BASE EXCESS -4.2 (-2.0-2.0); ABG DEVICE MECHAN. VENT; ABG HCO3 21.4 MEQ/L (22.0-26.0); ABG PARTIAL PRESSURE CO2 41.3 mmHg (35.0-45.0); ABG PARTIAL PRESSURE O2 99.2 mmHg (75.0-100.0); ABG TOTAL CO2 22.7 MEQ/L (23.0-31.0); ABG pH (ARTERIAL) 7.333 UNITS (7.350-7.450)
[2017-07-30] VITALS (29 sets, daily range): BP systolic 26–339; BP diastolic 44–339; O2SAT 96–97
[2017-07-30] MEDS: MIDAZOLAM INJ 2 MG/2 ML VIAL (J2250) IV PRN ×13 (00:01→23:28)
[2017-07-30 00:03] LABS: ADD MANUAL DIFFER YES; DIFF SLIDE NUMBER 340; MEAN CORPUSCULAR VOLUME 96.9 fl (80.0-96.0); RED CELL DISTRIBUTION WIDTH 14.6 % (11.5-14.5); WHITE BLOOD COUNT 18.2 K/mm3 (4.0-10.0)
[2017-07-30 00:05] LABS: PLATELET COUNT, AUTOMATED 828 k/mm3 (150-450)
[2017-07-30] MEDS ORDERED: METOCLOPRAMIDE INJ 10MG/2ML VIAL (J2765) IV PRN (00:18)
[2017-07-30] MEDS: FENTANYL/BUPIVACAINE/NACL BAG 250 ML EPIDURAL SCH (00:18)
[2017-07-30] MEDS ORDERED: WALLBOXKEY XX PRN (00:18)
[2017-07-30] MEDS ORDERED: NALOXONE INJ 0.4 MG/1 ML VIAL (J2310) IV PRN (00:18)
[2017-07-30] MEDS ORDERED: EPIDURAL/PCA KEYS XX PRN (00:18)
[2017-07-30] MEDS ORDERED: diphenhydrAMINE INJ 50MG/ML VIAL (J1200) IV PRN (00:18)
[2017-07-30] MEDS ORDERED: ONDANSETRON 4MG/2ML VIAL (J2405) IV PRN (00:18)
[2017-07-30 00:33] LABS: ALBUMIN 1.6 GM/DL (3.2-5.2); ALBUMIN/GLOBULIN RATIO 0.52 (1.00-1.93); ALKALINE PHOSPHATASE 130 U/L (45-117); ALT/SGPT 30 U/L (12-78); ANION GAP 6 MEQ/L (8-16); AST/SGOT 31 U/L (15-37); BILIRUBIN,TOTAL 0.7 MG/DL (0.2-1.0); BLOOD UREA NITROGEN 20 MG/DL (7-18); CALCIUM LEVEL 7.7 MG/DL (8.8-10.2); CARBON DIOXIDE LEVEL 26 MEQ/L (21-32); CHLORIDE LEVEL 102 MEQ/L (98-107); CREATININE FOR GFR 1.15 MG/DL (0.70-1.30); GLUCOSE, FASTING 206 MG/DL (80-110); POTASSIUM SERUM 5.1 MEQ/L (3.5-5.1); SODIUM LEVEL 134 MEQ/L (136-145); TOTAL PROTEIN 4.7 GM/DL (6.4-8.2)
[2017-07-30 00:55] LABS: GLOMERULAR FILTRATION RATE > 60.0 (>49)
[2017-07-30 01:01] LABS: BANDS 5 % (< 11); BASOPHILS 1 % (0-4); EOSINOPHILS 1 % (0-5)
[2017-07-30] MEDS ORDERED: LR 1,000 ML IV ONE ×2 (01:30→02:00)
[2017-07-30] MEDS: HumaLOG INSULIN (NovoLOG) PER UNIT SC SCH ×5 (01:40→18:00)
[2017-07-30] MEDS: MEROPENEM INJ 1 GM in D5W MINI-BAG PLUS 100 ML IV SCH ×3 (02:28→17:37)
--- NOTE | 2017-07-30 02:45 | CCN ---
DATE OF SERVICE: 07/29/2017 Start time: 2245 Stop time: 233 I attended Paramjit Dominguez here in the recovery room. I have spoken with Dr. Donato from anesthesia and Dr. Stroud from general surgery. Chart has been reviewed. 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 Over the last several days, he has had an elevated white count and concern over a bowel obstruction. He went to the operating room (OR) today. He was found to have multiple small abscesses. Multiple enterostomies were undertaken. He now has an ileostomy. Plan is to go back to the OR in the morning. They preferred him to remain intubated. Initially at the end of the case he was on low-dose Jabier-Synephrine. That has been able to be weaned. Blood pressure initially 200/100, now 122/82. Heart rate in the 120s with a sinus mechanism. He is sedated on propofol. Chest x-ray shows endotracheal tube in good position. No acute pathology in the chest. The remainder of exam shows him to be sedate. No obvious jugular venous distention (JVD). Trachea is in the midline. Chest shows symmetric expansion, fairly clear anteriorly. There may be some crackles dependently, but no convincing rhonchus or wheeze. No rubs. Cardiac exam is tachycardic, but regular. Peripheral pulses are diminished, but palpable. Trace edema. Abdomen shows dressings and drains in place. Abdomen is quiet. Ileostomy is clearly viable. Extremities without cyanosis, clubbing. Neurologically, he is currently sedate. Repeat blood gas is currently pending. Ventilator manipulations were made by myself. Most pressing problems requiring my presence at the bedside: 1. Respiratory failure. 2. Intra-abdominal abscesses. 3. Status post low anterior resection. 4. History of coronary artery disease with history of [place]. 5. Hypertension. At this point, we will ensure adequate volume resuscitation. Repeat labs are pending. Hemodynamically, he has been weaned off of pressors. We will check some cardiac enzymes and an electrocardiogram. Plan is to go back to the OR in the morning. If no further need for repeat procedures after that is identified, then it is conceivable we may be able to push his wean at that point. We will make that determination as time goes on. We will facilitate transfer to the intensive care unit. I left the bedside at 2332 hours. A total of 46 minutes of critical care delivered at the bedside not including procedures.
[2017-07-30] MEDS: NS 1,000 ML IV SCH ×3 (03:24→06:56)
[2017-07-30] MEDS ORDERED: NOREPINEPHRINE 4 MG/4 ML AMP As Ordered ONE (04:50)
[2017-07-30] MEDS: NOREPINEPHRINE BITARTRATE 8 MG in D5W 500 ML IV SCH ×2 (05:00→14:44)
[2017-07-30] MEDS: SODIUM CHLORIDE 0.9% INJ 10 ML SYR IV SCH ×2 (06:00→18:00)
[2017-07-30 06:07] LABS: ABG BASE EXCESS -8.2 (-2.0-2.0); ABG HCO3 14.4 MEQ/L (22.0-26.0); ABG PARTIAL PRESSURE CO2 21.4 mmHg (35.0-45.0); ABG PARTIAL PRESSURE O2 145.7 mmHg (75.0-100.0); ABG STANDARD HCO3 17.8 MEQ/L (22.0-26.0); ABG TOTAL CO2 15.1 MEQ/L (23.0-31.0); ABG pH (ARTERIAL) 7.447 UNITS (7.350-7.450)
[2017-07-30] MEDS ORDERED: PROPOFOL 1,000 MG/100 ML VIAL As Ordered ONE (06:18)
[2017-07-30 06:31] LABS: ADD MANUAL DIFFER YES; DIFF SLIDE NUMBER 85; MEAN CORPUSCULAR HEMOGLOBIN 31.2 pg (27.0-33.0); MEAN CORPUSCULAR HGB CONC 32.7 g/dl (32.0-36.5); MEAN CORPUSCULAR VOLUME 95.2 fl (80.0-96.0); RED CELL DISTRIBUTION WIDTH 14.6 % (11.5-14.5); WHITE BLOOD COUNT 17.4 K/mm3 (4.0-10.0)
[2017-07-30 06:37] LABS: PLATELET COUNT, AUTOMATED 716 k/mm3 (150-450)
[2017-07-30 06:38] LABS: ALBUMIN 0.8 GM/DL (3.2-5.2); ALBUMIN/GLOBULIN RATIO 0.44 (1.00-1.93); ALKALINE PHOSPHATASE 61 U/L (45-117); ALT/SGPT 17 U/L (12-78); ANION GAP 12 MEQ/L (8-16); AST/SGOT 18 U/L (15-37); BILIRUBIN,TOTAL 0.4 MG/DL (0.2-1.0); BLOOD UREA NITROGEN 18 MG/DL (7-18); CARBON DIOXIDE LEVEL 14 MEQ/L (21-32); CHLORIDE LEVEL 120 MEQ/L (98-107); CREATININE FOR GFR 0.74 MG/DL (0.70-1.30); GLOMERULAR FILTRATION RATE > 60.0 (>49); GLUCOSE, FASTING 156 MG/DL (80-110); POTASSIUM SERUM 3.6 MEQ/L (3.5-5.1); SODIUM LEVEL 146 MEQ/L (136-145); TOTAL PROTEIN 2.6 GM/DL (6.4-8.2)
[2017-07-30] MEDS: PROPOFOL 1,000 MG in APPROPRIATE DILUENT 1 EA IV SCH ×4 (06:56→22:09)
[2017-07-30 07:19] LABS: BANDS 7 % (< 11)
[2017-07-30] MEDS: IPRATROPIUM 0.5MG/ALBUTEROL 2.5MG INH SOL UD 3ML (DUONEB)(J7620) NEB SCH ×5 (08:00→23:44)
[2017-07-30] MEDS ORDERED: CALCIUM GLUCONATE 1,000 MG in D5W MINI-BAG PLUS 100 ML IV ONE (08:00)
--- NOTE | 2017-07-30 08:10 | REP ---
Clinical: Respiratory failure. Comparison: 07/29/2017. Findings: Endotracheal tube is approximately 3 cm above the manjeet. A PICC line with tip in the SVC. Mediastinum and cardiac silhouette are stable. The lung ramirez demonstrate stable chronic appearing changes superimposed basilar atelectasis and layering effusions (right greater than left) cannot be excluded. No pneumothorax. Skeletal structures intact. Impression: 1. Endotracheal tube in satisfactory position. 2. Cannot exclude trace basilar atelectasis and layering effusions. Signed by Omega Contreras MD 07/30/2017 08:01 A
--- NOTE | 2017-07-30 08:12 | CCN ---
DATE: 07/30/2017 START TIME: 649 STOP TIME: 727 I again attended Paramjit Dominguez, now in the intensive care unit. The patient has been examined, his chart was reviewed. All available data has been reviewed. Maximum temperature (T max) overnight 98.1. He did require the addition of vasopressors several hours ago as even with the aggressive volume resuscitation, he remained hypotensive. Heart rate varies from 100 to the low 130s with a sinus mechanism. Respiratory rate 15 to 30. Much more comfortable now with the readdition of propofol, which was interrupted due to his hypotension. Total intake and output for the last 24 hours: 10,605 mL in with 9667 mL out. Currently making anywhere from 10-15 mL of urine per hour. Most recent laboratories show a white blood cell count of 17.4, hemoglobin 11.3, platelet count 716,000. Differential with 84% segmented neutrophils, 7% bands. Chemistries are pending at the time of this dictation. Arterial blood gas done on an assist control of 12, tidal volume of 500, PEEP of 5, FiO2 of 50%, pH 7.447, pCO2 of 21.4 and a pAO2 of 145.7. This was done prior to the readdition of propofol. Chest x-ray shows both hemithoraces to be well aerated. Endotracheal (ET) tube is in good position. No acute abnormalities. On exam, he is ill appearing and sedate. Vital signs as outlined above. Blood pressure currently 122 systolic on 10 mcg of Levophed. Sclera are anicteric. No obvious jugular venous distention (JVD). Trachea is midline. Membranes are moist. Chest shows symmetric expansion, good air entry. There are some rhonchi that do clear. There is some dependent opening crackles. Cardiac exam is tachycardic but regular. Peripheral pulses are diminished but are palpable. Diffuse edema is unchanged. Abdomen shows dressings to be intact. Abdomen is distended. Generally quiet. Extremities are without cyanosis or clubbing. Neurologically, he is sedate. The most pressing problems requiring my presence at the bedside: 1. Respiratory alkalosis. 2. Respiratory failure. 3. Status post low anterior resection, now status post exploratory laparotomy for multiple intraabdominal abscesses. 4. Coronary artery disease by history. At this point, he has shown response in his acid-base status to volume resuscitation. Troponins have been negative and repeat is pending. He is planned for repeat trip to the operating room for further exploration later this morning. We will continue his current level of intravenous (IV) volume resuscitation as well as low dose vasopressors. I am in full agreement with his current antimicrobials. Ulcer and deep vein thrombosis (DVT) prophylaxis are in place. Overall he does remain critically ill. We await the outcome of his repeat operative procedure. I left the bedside at 0728 hours. 38 minutes of critical care time delivered at the bedside, not including procedures. ROMARIO
--- NOTE | 2017-07-30 08:34 | REP ---
Clinical: Postoperative ileus. Technique: Portable supine view of the abdomen. Findings: Visualized bowel gas pattern is nonspecific and demonstrates air-filled loops of small and large bowel. An ostomy is suggested overlying the right iliac bone. No organomegaly. Skeletal structures demonstrate stable degenerative changes. Impression: Cannot exclude postoperative ileus. Signed by Omega Contreras MD 07/30/2017 08:25 A
--- NOTE | 2017-07-30 08:36 | REP ---
Clinical: Postoperative evaluation. Comparison: 07/26/2017. Findings: Endotracheal tube approximately 3 cm above the manjeet. Right PICC line with tip in the SVC. Mediastinum and cardiac silhouette are grossly within normal limits and stable. Lung ramirez are limited due to poor inspiratory effort and trace right lower lobe opacity cannot be excluded. No pneumothorax. Skeletal structures stable. Impression: Cannot exclude subtle trace right lower lobe opacity. Signed by Omega Contreras MD 07/30/2017 08:27 A
[2017-07-30] MEDS: LR 1,000 ML IV SCH ×4 (08:39→20:05)
[2017-07-30] MEDS: PANTOPRAZOLE 40MG INJ (PROTONIX) (C9113) IV SCH (09:33)
[2017-07-30] MEDS ORDERED: KETAMINE HCL 200 MG/20 ML VIAL As Ordered ONE (09:56)
[2017-07-30] MEDS ORDERED: MIDAZOLAM INJ 2 MG/2 ML VIAL (J2250) As Ordered ONE ×2 (09:56)
[2017-07-30] MEDS ORDERED: fentaNYL 100 MCG/2 ML INJECTION (J3010) As Ordered ONE ×2 (09:57→12:09)
[2017-07-30] MEDS ORDERED: ESMOLOL INJ 100MG/10ML VIAL As Ordered ONE (12:09)
[2017-07-30] MEDS ORDERED: ROCURONIUM BROMIDE 50 MG/5 ML VIAL/SYRINGE As Ordered ONE (12:09)
[2017-07-30] MEDS ORDERED: ONDANSETRON 4MG/2ML VIAL (J2405) As Ordered ONE (12:16)
[2017-07-30] MEDS ORDERED: GLUCOSE 4 GM CHEW TABLET PO PRN (13:15)
[2017-07-30] MEDS ORDERED: DEXTROSE 50% 50 ML SYRINGE IV PRN (13:15)
[2017-07-30] MEDS ORDERED: GLUCAGON FOR INJ 1 MG VIAL (J1610) SC PRN (13:15)
[2017-07-30 13:28] LABS: ABG BASE EXCESS -9.6 (-2.0-2.0); ABG HCO3 16.9 MEQ/L (22.0-26.0); ABG PARTIAL PRESSURE CO2 39.4 mmHg (35.0-45.0); ABG PARTIAL PRESSURE O2 91.6 mmHg (75.0-100.0); ABG STANDARD HCO3 16.6 MEQ/L (22.0-26.0); ABG TOTAL CO2 18.1 MEQ/L (23.0-31.0)
--- NOTE | 2017-07-30 13:51 | CCN ---
DATE: 07/30/2017 CRITICAL CARE NOTE I was called to the intensive care unit to evaluate this patient who has been brought back immediately from the operating room following an exploratory laparotomy with lavage and revision of ileostomy. Intraoperatively, he received two liters of crystalloid. His Levophed dose was increased from 15 to 20 mcg per minute in light of hypotension. Urine output was about 300 mL and estimated blood loss was minimal. He did receive paralytics and the effect is still in place. His temperature is 96.1, pulse rate 130, respirations 12 over 12 delivered. Blood pressure 108/77. HEENT: He has a number 8.5 endotracheal tube at 24 cm. Oral mucosa is pink. Jugular veins are flat. Neck is supple. Heart sounds are regular, rapid. No appreciable murmur. Breath sounds: Diffuse rhonchi. Chest is symmetric, moves symmetrically. Abdomen is firm but not tense. There is a G-tube and an ileostomy in place. No bowel sounds. Extremities are cool but pulses are able to be obtained with a Doppler. Lab studies and blood gases are pending. I have reviewed the x-ray from preop. Endotracheal tube is in good position. There are no infiltrates on the x-ray. The primary problem requiring critical attention is acute respiratory failure requiring mechanical ventilation - we will ventilate with assist control using lung protective settings and check an arterial blood gas. Severe sepsis with shock. Will titrate Levophed for a mean arterial blood pressure of 65. The patient appears to be volume sensitive. Lactated Ringer's is running at 200 mL per hour, total parenteral nutrition (TPN) at 100 mL per hour. The patient may require central venous pressure monitoring. Broad-spectrum antibiotics are in place. The patient is on day #8 of meropenem. Abdominal distention. Will check an abdominal perfusion pressure now for reference and every morning. Deep vein thrombosis (DVT) prophylaxis is being addressed with subcutaneous heparin. Glycemic control will be addressed with fingerstick blood sugars every 8 hours and sliding scale. Ulcer prophylaxis is being addressed with Protonix. I have discussed the case with anesthesia and the attending surgeon. The patient's condition is critical. Prognosis is guarded. 78 minutes was spent in the provision of bedside critical care and coordination exclusive of any time performing procedures.
[2017-07-30 14:12] LABS: CREATININE FOR GFR 1.3 MG/DL (0.70-1.30); GLOMERULAR FILTRATION RATE 58.4 (>49)
[2017-07-30 14:31] LABS: POTASSIUM SERUM 5.2 MEQ/L (3.5-5.1)
[2017-07-30 14:32] LABS: CALCIUM LEVEL 7.4 MG/DL (8.8-10.2)
[2017-07-30] MEDS ORDERED: FAT EMULSION IV 20% 500 ML IV SCH (18:00)
[2017-07-30] MEDS ORDERED: AMINO AC/ELECTROLYTE/DEX/CALC 2,000 ML IV SCH (18:00)
[2017-07-30] MEDS ORDERED: HumaLOG INSULIN (NovoLOG) PER UNIT SC SCH (18:00)
[2017-07-30 18:12] LABS: ABG BASE EXCESS -9.2 (-2.0-2.0); ABG HCO3 15.6 MEQ/L (22.0-26.0); ABG PARTIAL PRESSURE O2 123.8 mmHg (75.0-100.0); ABG TOTAL CO2 16.5 MEQ/L (23.0-31.0); ABG pH (ARTERIAL) 7.334 UNITS (7.350-7.450)
[2017-07-30 18:34] LABS: CALCIUM LEVEL 6.9 MG/DL (8.8-10.2); CREATININE FOR GFR 1.35 MG/DL (0.70-1.30); POTASSIUM SERUM 5.1 MEQ/L (3.5-5.1)
[2017-07-30] MEDS: ENOXAPARIN 30 MG/0.3 ML SYR (J1650) SC SCH (20:30)
--- NOTE | 2017-07-30 23:31 | CR ---
DATE OF CONSULTATION: 07/30/2017 REQUESTING PHYSICIAN: Dr. Soraida Fiore. REASON FOR CONSULTATION: Oligoanuric renal failure in the setting of severe sepsis with shock and intra-abdominal compartment syndrome. 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 On 07/12, the patient underwent laparoscopic low-anterior rectal resection with anastomosis and lysis of adhesions. He has had a complicated postoperative course requiring repeat trips to the operating room and remains admitted since the initial procedure, currently critically ill in the intensive care unit. Following his initial surgery, the patient had developed an ileus, which was complicated with acute renal failure, peak creatinine was 2.4. The patient was on total parenteral nutrition (TPN) and his kidney function did improve back to baseline over a matter of days. The patient was improving on the floor. He was ambulating. His diet was being advanced; however, he was also noted to becoming edematous with leukocytosis. He was started on antibiotics. He had deep venous thrombosis (DVT) done negative for thrombosis. He had an echocardiogram done that did not show significant cardiomyopathy. As his renal function improved back to baseline, he was resumed on his home antihypertensive, Ramipril. He was receiving transfusions for his edema. I see he also received some Lasix; he developed persistent postoperative obstructions and ileus and he developed severe abdominal distention with no significant passage of flatus. He was taken to the operating room on 07/29 for exploratory laparotomy. He was found to have multiple small abscesses. Multiple enterostomies were undertaken. The patient did require pressor support towards the ends of the operative case. He was transferred back to the intensive care unit intubated. The patient was hypotensive during the night. He required increased pressor support and received aggressive volume resuscitation. Per nursing report, his abdomen was tense and severely distended. Bladder pressure for intra-abdominal hypertension was not assessed. The patient became oligoanuric overnight. On the morning of 07/30, the patient was taken back to the operating room for the third time on this admission for an exploratory laparotomy with lavage and revision of ileostomy. He continued to be hypotensive requiring 20 mcg of Levophed. A postoperative abdominal perfusion pressure was reported to me to be 26 by the intensive care unit (ICU) nurse. He has a Vargas catheter with some variable urine output, 300 reported intraoperative, followed by 100 mL and now in the last three hours, the patient has been making from 14 to 40 mL an hour of urine. His most recent arterial blood gas (ABG) and chemistry from 6 p.m. tonight show anion gap metabolic acidosis with respiratory alkalosis and fairly stable electrolytes. PAST MEDICAL HISTORY: All history is obtained from chart review. The patient is unable to give history due to clinical condition. 1. Hypertension. 2. Dyslipidemia. 3. Psoriasis. 4. Gastroesophageal reflux disease (GERD) with Olguin's esophagus. 5. History of coronary artery disease with two stents place in March 2016. PAST SURGICAL HISTORY: 1. Right cataract extraction. 2. Varicose veins left lower extremity 2009. 3. Olguin's esophageus treatment in 07/2015. 4. Coronary artery disease with stents in March 2016. 5. Rectosigmoid colectomy 07/12/2017, with two subsequent trips to the operating room (OR) for exploratory laparotomy on 07/29 ad 07/30. FAMILY HISTORY: Negative for any inheritable disease conditions as per chart. SOCIAL HISTORY: The patient is . 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 Denies excessive alcohol use. REVIEW OF SYSTEMS: Unable to obtain secondary to clinical condition. HOME MEDICATIONS: - aspirin 81 mg daily - Lipitor 80 mg daily - Plavix 75 mg daily - fenofibrate 145 mg daily - multivitamin one capsule daily - nitroglycerin sublingual 0.4 mg as needed - omeprazole 40 mg by mouth twice daily - Ramipril 10 mg by mouth at bedtime ALLERGIES: No known drug allergies. PHYSICAL EXAMINATION: VITAL SIGNS: Temperature afebrile over the past 24 hours at least. Pulse tachycardic 110-130s, respiratory rate tachypneic in the 20s, blood pressure on arterial line systolic ranging from 110 to 140s, targeting a mean arterial pressure (MAP) greater than 65, pulse oximetry 95% to 99% on 50% FiO2 on pressure-related volume control (PRVC). VENT SETTINGS: Respiratory rate 20, ventilator tidal volume 450, FiO2 50%, PEEP of five. GENERAL: The patient is intubated and sedated in the intensive care unit. Endotracheal tube is in place. His jugular veins are not distended. CARDIAC: S1, S2. Tachycardic. No appreciable murmur. There is pitting edema present in the extremities. The extremities are cool. RESPIRATORY: Bilateral symmetric coarse air entry. FiO2 50%. ABDOMEN: Grossly distended. There is a midline dressing in place which is not removed but, per nurse, abdomen is closed. There is a gastric (G) tube and ileostomy in place. No deep palpation is performed. Bowel sounds are not present. GENITOURINARY: Vargas catheter is in place with minimal urine output. EXTREMITIES: Notable for edema. Peripheral pulses are palpable. NEUROLOGIC: Sedated. LABORATORY DATA: White count 17, hemoglobin 11.3, platelets 716. Neutrophils 84%, bands 7%. Blood gas: Bicarbonate 17, pH 7.3, pCO2 30, pO2 123. Chemistry: Sodium 136, potassium 5.1, bicarbonate 21, BUN 29, creatinine 1.3, calcium 6.9. Albumin not available with this chemistry for correction. Glucose 165. MICROBIOLOGY: The last set of blood cultures drawn was on 07/22, and was negative. Abdominal wound culture Gram's stain on 07/29, with no organism seen. Cultures are pending of the wound. IMAGING: Chest x-ray today shows endotracheal tube and peripherally inserted central catheter (PICC) line in place and some basilar atelectasis. CURRENT INFUSION: - propofol - Levophed drip running at 10 mcg - lactated Ringer's (LR) running at 200 mL an hour - Clinimix running at 60 mL an hour ASSESSMENT AND PLAN: A 66-year-old male who is now 18 days postoperative from a laparoscopic low anterior resection, whose postoperative course was complicated by persistent postoperative obstructions and ileus, who developed leukocytosis and severe abdominal distention, who underwent exploratory laparotomy on 07/29 and was found to have multiple small abscesses, went into severe septic shock, was vigorously volume resuscitated and started on vasopressor support. His abdomen was closed. He subsequently developed presumed abdominal compartment syndrome. He was taken back to the operating room (OR) this morning for an exploratory laparotomy with lavage and revision of ileostomy, who is critically ill in the intensive care unit. 1. Oligoanuric renal failure in the setting of severe septic shock, hemodynamic instability with two recent trips to the operating room and likely abdominal compartment syndrome. Since coming from the operating room, the patient's urine output has minimally improved. In the past three hours, he has made between 15 and 40 mL of urine an hour. He continues to require Levophed pressor support and is continuing to receive vigorous intravenous (IV) hydration. I expect that the patient may become further volume overloaded and will likely have increasing oxygen requirement on the ventilator. His electrolytes at the moment are fairly stable, including his potassium and bicarbonate. At this moment, there is no urgent indication for continuous renal replacement therapy; however, the patient has a very high likelihood to require continuous renal replacement therapy (CRRT) in the next 24 hours if his urine output does not improve. I will repeat another chemistry overnight. We will check a complete metabolic panel to also assess his liver function tests (LFTs). We will check a complete metabolic panel to also assess his corrected calcium. His medications are reviewed. I do not see any nephrotoxic on board. His last dose of Ramipril was 48 hours prior to this acute event. 2. Severe sepsis with shock. The patient continues to be pressor dependent. His mean arterial pressures (MAPs) have been maintained above 65. He has been vigorously volume resuscitated. His most recent central venous pressure (CVP) was 10. He continues to receive LR at 200 an hour with minimal urine output.Watch for hypervolemia with rising FiO2 requirements on the ventilator. He is currently on meropenem. His white count has been rising. I suggest we repeat blood cultures. The last set was from 07/22. 3. Abdominal distention with reported bladder pressure of 26 after return from the OR. Per RN, the patient is for daily bladder pressure monitoring and I agree with same. 4. Ventilator-dependent respiratory failure. 5. Anion gap metabolic acidosis with respiratory alkalosis. Given the severity of his current conditions, his acid base status is fairly acceptable at the moment. I have discussed the case with Dr. Fiore and Dr. Stroud. The patient's condition is critical. Prognosis is guarded. MTDD
[2017-07-30 23:57] LABS: ADD MANUAL DIFFER YES; DIFF SLIDE NUMBER 163; MEAN CORPUSCULAR HEMOGLOBIN 31.6 pg (27.0-33.0); MEAN CORPUSCULAR HGB CONC 33.8 g/dl (32.0-36.5); MEAN CORPUSCULAR VOLUME 93.5 fl (80.0-96.0); RED CELL DISTRIBUTION WIDTH 14.1 % (11.5-14.5); WHITE BLOOD COUNT 19.4 K/mm3 (4.0-10.0)
[2017-07-31] VITALS (43 sets, daily range): BP systolic 11–132; BP diastolic 47–80; O2SAT 97
[2017-07-31 00:09] LABS: PLATELET COUNT, AUTOMATED 562 k/mm3 (150-450)
[2017-07-31 00:15] LABS: ALBUMIN 1.1 GM/DL (3.2-5.2); ALBUMIN/GLOBULIN RATIO 0.42 (1.00-1.93); BILIRUBIN,TOTAL 0.6 MG/DL (0.2-1.0); CALCIUM LEVEL 7.3 MG/DL (8.8-10.2); CREATININE FOR GFR 1.37 MG/DL (0.70-1.30); POTASSIUM SERUM 4.5 MEQ/L (3.5-5.1); TOTAL PROTEIN 3.7 GM/DL (6.4-8.2)
[2017-07-31] MEDS: HumaLOG INSULIN (NovoLOG) PER UNIT SC SCH ×4 (00:20→17:49)
[2017-07-31] MEDS: PROPOFOL 1,000 MG in APPROPRIATE DILUENT 1 EA IV SCH ×10 (01:11→23:23)
[2017-07-31] MEDS: MEROPENEM INJ 1 GM in D5W MINI-BAG PLUS 100 ML IV SCH ×3 (02:01→17:49)
[2017-07-31] MEDS: MIDAZOLAM INJ 2 MG/2 ML VIAL (J2250) IV PRN ×12 (02:39→23:33)
[2017-07-31] MEDS: FENTANYL/BUPIVACAINE/NACL BAG 250 ML EPIDURAL SCH (03:02)
[2017-07-31] MEDS: NOREPINEPHRINE BITARTRATE 8 MG in D5W 500 ML IV SCH ×2 (04:12→17:50)
[2017-07-31] MEDS: IPRATROPIUM 0.5MG/ALBUTEROL 2.5MG INH SOL UD 3ML (DUONEB)(J7620) NEB SCH ×6 (04:55→23:10)
[2017-07-31 05:10] LABS: ADD MANUAL DIFFER YES; MEAN CORPUSCULAR HEMOGLOBIN 31.2 pg (27.0-33.0); MEAN CORPUSCULAR HGB CONC 32.6 g/dl (32.0-36.5); MEAN CORPUSCULAR VOLUME 95.8 fl (80.0-96.0); PLATELET COUNT, AUTOMATED 537 k/mm3 (150-450); RED CELL DISTRIBUTION WIDTH 14.6 % (11.5-14.5); WHITE BLOOD COUNT 22.4 K/mm3 (4.0-10.0)
[2017-07-31 05:26] LABS: MAGNESIUM LEVEL 1.6 MG/DL (1.8-2.4)
[2017-07-31 05:56] LABS: ABG BASE EXCESS -3.1 (-2.0-2.0); ABG HCO3 21.3 MEQ/L (22.0-26.0); ABG PARTIAL PRESSURE CO2 35.7 mmHg (35.0-45.0); ABG PARTIAL PRESSURE O2 92.7 mmHg (75.0-100.0); ABG STANDARD HCO3 21.9 MEQ/L (22.0-26.0); ABG TOTAL CO2 22.4 MEQ/L (23.0-31.0); ABG pH (ARTERIAL) 7.394 UNITS (7.350-7.450)
[2017-07-31] MEDS: SODIUM CHLORIDE 0.9% INJ 10 ML SYR IV SCH ×2 (06:00→18:00)
[2017-07-31 06:07] LABS: BANDS 2 % (< 11); EOSINOPHILS 1 % (0-5)
[2017-07-31 06:10] LABS: TOXIC GRANULATION 1+
[2017-07-31] MEDS: LR 1,000 ML IV SCH (06:12)
[2017-07-31 06:13] LABS: ALBUMIN 1.2 GM/DL (3.2-5.2); ALKALINE PHOSPHATASE 77 U/L (45-117); BLOOD UREA NITROGEN 30 MG/DL (7-18); CALCIUM LEVEL 7.5 MG/DL (8.8-10.2); CARBON DIOXIDE LEVEL 22 MEQ/L (21-32); CHLORIDE LEVEL 106 MEQ/L (98-107); GLUCOSE, FASTING 167 MG/DL (80-110); POTASSIUM SERUM 4.6 MEQ/L (3.5-5.1); SODIUM LEVEL 139 MEQ/L (136-145)
[2017-07-31 06:19] LABS: PHOSPHORUS LEVEL 4.7 MG/DL (2.5-4.9)
[2017-07-31 06:26] LABS: ALBUMIN/GLOBULIN RATIO 0.46 (1.00-1.93); ALT/SGPT 17 U/L (12-78); AST/SGOT 21 U/L (15-37); BILIRUBIN,TOTAL 0.5 MG/DL (0.2-1.0); CREATININE FOR GFR 1.22 MG/DL (0.70-1.30); GLOMERULAR FILTRATION RATE > 60.0 (>49); TOTAL PROTEIN 3.8 GM/DL (6.4-8.2)
--- NOTE | 2017-07-31 06:51 | RO ---
DATE OF PROCEDURE: 07/29/2017 PREOPERATIVE DIAGNOSIS: Intestinal obstruction. POSTOPERATIVE DIAGNOSIS: Multiple interloop abscesses with extensive adhesions and intestinal obstruction with markedly dilated small bowel. PROCEDURE PERFORMED: Exploratory laparotomy with extensive lysis of adhesions, drainage of multiple interloop abscesses, repair of multiple enterotomies, ileocecal resection, creation of ileostomy, and placement of Arthur gastrostomy tube. SURGEON: Dr. Maximus TURNER ASSISTANT: Dr. Stauffer INDICATIONS FOR THE PROCEDURE: Patient is a 66-year-old man who is approximately 2-1/2 weeks postop from a laparoscopic low anterior resection for an adenomatous polyp with high grade dysplasia. Several days postop he had complained of some increased lower abdominal pain and was noted to have some abdominal distension. His white count briefly farrukh and then fell again to normal. He was empirically started on antibiotics after several days. He developed marked abdominal distension with CT scan showing dilated loops of small bowel all the way to the right colon. There was a minimal collection of fluid posterior to the area of his anastomosis, but no other evidence of abscess. He was continued on antibiotics and observed, but had no improvement in his apparent severe ileus. He was started on total parenteral nutrition (TPN) for nutritional support. He is now for exploratory laparotomy to identify the etiology of his apparent obstruction. OPERATIVE PROCEDURE: The patient was brought to the operating room and placed on the table in a supine position. An epidural catheter had been placed preoperatively in the holding area. The patient was placed under general endotracheal anesthesia. I inserted a Vargas catheter without difficulty. An orogastric tube was inserted by anesthesia and a radial arterial line was also placed by anesthesia. The patient's abdomen was prepped and draped in a sterile fashion. The abdomen was entered through a midline incision beginning in the upper aspect of a short midline incision located below the umbilicus and extending up into the epigastrium. The incision was deepened through the abdominal wall using the cautery and the peritoneum was opened. On opening the peritoneum, patient was found to have matted loops of dilated small bowel with fibrinous exudate and gelatinous debris. There were some small areas where it was possible to break open adhesions bluntly with the fingers, but in many areas the bowel was densely adherent to the abdominal wall or to other adjacent loops of bowel. The bowel was markedly distended throughout. The incision was extended superiorly and inferiorly. An extensive lysis of adhesions was then undertaken. In the course of dissection, the patient was found to have multiple small interloop abscesses consisting of cheesy gobs of light yellow to green material entrapped in dense adhesions between loops of bowel and portions of the omentum. There was extensive inflammatory change throughout the lower half of the abdomen essentially from the transverse colon inferiorly. The bowel was quite fragile given its marked distension. Several enterotomies ensued. The cecum was widely opened in the course of trying to free this from the anterior abdominal wall. Several of the enterotomies served as points of drainage for large quantities of lightly bilious fluid from within the intestine. Several liters, perhaps as much as 5 liters of fluid was drained from the bowel either intentionally by use of a long pool sucker inserted through a controlled enterotomy or by drainage of fluid through enterotomies created in the course of the very difficult dissection. The abdomen was irrigated frequently with warm saline. In the course of dissection, multiple small abscesses were opened. The transverse colon was found to be quite dilated, which appeared to be primarily air but possibly some fluid. The descending colon appeared intact and nondilated. As loops of bowel were elevated from the area of the sacral promontory, it was clear that there was no evident drainage coming from the pelvis. I elected not to dissect further down around the anastomosis. The area above the transverse colon was without significant inflammation. The liver was clear of any inflammatory change and there was no sign of subphrenic or subhepatic abscess. Likewise. the area above the stomach and spleen was clear of any inflammatory changes. As enterotomies occurred, these were each individually sutured with a double layer closure with #3-0 Vicryl. In several areas there were seromuscular tears that were also closed, if deemed necessary, with #3-0 Vicryl. I elected to resect the terminal ileum and cecum due to the extensive nature of the destruction of the cecum. The appendix was identified and was resected with the cecum. I elected not to perform an anastomosis given the extensive inflammatory changes and weakened bowel wall from the dilation. The terminal ileum was brought through an ostomy site created in the right lower quadrant just at to slightly below the level of the umbilicus. I elected not to mature the ostomy at this time. Because of the longstanding dilation of the small bowel and the extensive manipulation required, I anticipated patient would have a postoperative ileus of uncertain duration. I therefore elected to place a gastrostomy tube. The stomach was identified high in the epigastrium. The stomach was grasped with Mcgraws clamps and a Arthur gastrostomy tube was inserted through a small incision in the epigastrium and directed into the stomach through a small gastrotomy through a pursestring suture of #0 Vicryl. The Arthur tube was successfully inserted through the pylorus and into the duodenum by manipulation. The balloon was inflated with 20 mL of water. The pursestring suture was tied down and then used to suture the stomach to the anterior abdominal wall. A second suture of # 0 Vicryl was also placed. The abdomen was then thoroughly irrigated with another 4-5 liters of warm saline to remove as much debris as possible. The enterotomies were inspected. There were several segments of the mid small bowel that were quite inflamed and had been manipulated extensively during the course of the lysis of adhesions. I elected to schedule the patient for a second look laparotomy on 07/30/2017 to reassess the bowel, ensure that all enterotomies had been closed, and to mature his ileostomy. The irrigation was removed from the abdomen as thoroughly as possible. The small bowel was organized in a ladder fashion trying to prevent kinking as much as the anatomy would allow. The midline fascia was closed with running sutures of #0 Prolene. The skin edges were loosely approximated with skin jose. The ileostomy was tacked to the skin edge with several seromuscular sutures of #3-0 Vicryl. An ostomy appliance was applied primarily to catch drainage from the ostomy site. A bulky bandage was applied to the incision. A small drain sponge was placed beneath the flange of the gastrostomy tube. The patient tolerated the procedure acceptably. He had required a small dose of Jabier-Synephrine during the course of the procedure. A decision was made between myself and anesthesia to leave the patient sedated and intubated and transfer him to the recovery room on a ventilator and continue ventilation until after his second look procedure. ROMARIO
[2017-07-31 06:57] LABS: ANION GAP 11 MEQ/L (8-16)
--- NOTE | 2017-07-31 07:13 | RO ---
DATE OF PROCEDURE: 07/30/2017 PREOPERATIVE DIAGNOSIS: Second look laparotomy for extensive adhesiolysis and drainage of multiple abscesses with repair of enterotomies on 07/29/2017. POSTOPERATIVE DIAGNOSIS: Second look laparotomy for extensive adhesiolysis and drainage of multiple abscesses with repair of enterotomies on 07/29/2017. No new enterotomies found and viable bowel. PROCEDURE PERFORMED: Flexible sigmoidoscopic exam, exploratory laparotomy, irrigation and debridement of abdomen, additional oversewing of one enterotomy, closure of abdominal incision, and maturation of ileostomy. SURGEON: Dr. Ambrosio Stroud NAIL GALVANIZER: ANESTHESIA: General. INDICATIONS FOR PROCEDURE: Patient who on 07/29/2017 had undergone exploratory laparotomy for a postoperative bowel obstruction. He was found to have evidence of a previous intestinal leak with multiple scattered interloop abscesses with extensive inflammatory adhesions and obstructions. He had an extensive lysis of adhesions with drainage of all of his abscesses and repair of multiple enterotomies. An ileostomy was created which was not matured and his abdomen was closed temporarily with a running Prolene suture. He is now for washout of the abdomen and inspection of the small bowel to determine if further resection is necessary or repair of any enterotomies is required. His wound will then be closed and his ileostomy matured. He will also have a flexible sigmoidoscopic exam to ensure that his anastomosis remains intact from his previous low anterior resection and to confirm that the descending colon is viable. DESCRIPTION OF PROCEDURE: The patient was brought from the intensive care unit on the ventilator, intubated and on Levophed for blood pressure support. He was placed on the operating table in a low lithotomy position with the lower extremities in padded leg holders. A Vargas catheter was already in place. I proceeded with a flexible sigmoidoscopic exam. The patient had had no bowel preparation and I tried to avoid insufflation of air as much as possible. He had some liquid green stool present. I could irrigate this away in areas adequately to gain an acceptable appreciation of the viability of the colon. The scope was advanced to approximately 50 cm. In areas where the mucosa could be well seen, the mucosa was clearly viable with no evidence of ulceration. The anastomosis was identified at perhaps 10 cm above the anal verge and appeared intact. The scope was withdrawn. The patient's ileostomy appliance was removed, and the abdomen was prepped and draped in a sterile fashion. Surgical jose were removed from his midline incision. The Prolene sutures were cut and removed. The abdomen was opened and by blunt finger and hand dissection, the abdominal wall was elevated off of the underlying loops of inflamed small bowel. Perhaps 500-600 mL or maybe slightly more of fluid were identified in areas of the abdomen and removed. The loops of small bowel were already beginning to stick together and all of these loose attachments were broken open by finger dissection and irrigated. In some areas, there was a small amount of turbid fluid between the loops. This was all irrigated with large volumes of warm saline. In this manner, all of the loops were freed again. The bowel was inspected and all appeared viable. There were no previously unidentified enterotomies found. One of the larger enterotomies that had been repaired was reinforced with several additional simple sutures of #3-0 Vicryl. The upper areas of the abdomen were also irrigated with warm saline and the irrigant was then removed as thoroughly as possible. The irrigation at the conclusion was quite clear. The small bowel was already not amenable to adjustment of position because of some edema and thickening of areas of the bowel. The bowel remained nicely decompressed however following the operation of the previous day. The peritoneum in the lower few inches of the wound was then closed with a running suture of #1 Vicryl. The fascia was closed with interrupted simple sutures of #1 Vicryl. There did not appear to be significant pressure on the bowel with closure of the fascia. The skin incision was closed loosely with skin jose. I then proceeded to mature the ileostomy. The staple line was cut off the end of the ileum and several everting sutures of #3-0 Vicryl were placed. Additional sutures were then placed to suture the end of the bowel to the surrounding skin. An ostomy appliance was placed. The midline incision was dressed with a bulky bandage and a drain sponge was placed beneath the flange of the gastrostomy tube. The patient tolerated the procedure surprisingly well. He remained on his Levophed drip and received additional fluid during the course of the procedure. He was transported directly back to the intensive care unit, sedated and on the ventilator at the conclusion of the procedure. ROMARIO
--- NOTE | 2017-07-31 07:42 | REP ---
Clinical: Respiratory failure. Comparison: 07/30/2017. Findings: Endotracheal tube approximately 3 cm above the manjeet. Right PICC line with tip in the SVC. Mild cardiomegaly cannot be excluded but remains stable. Lung ramirez demonstrate chronic-appearing interstitial changes and further evaluation is limited by portable technique and poor inspiratory effort. Bibasilar atelectasis as well as possible small layering right effusion cannot be excluded. No pneumothorax. Skeletal structures intact. Impression: Limited examination essentially stable. Cannot exclude trace basilar atelectasis or small layering right effusion. Signed by Omega Contreras MD 07/31/2017 07:32 A
[2017-07-31] MEDS: CHLORHEXIDINE ORAL RINSE 0.12%/15ML 120ML BOTTLE MT SCH ×2 (08:07→21:30)
[2017-07-31] MEDS: PANTOPRAZOLE 40MG INJ (PROTONIX) (C9113) IV SCH (08:13)
[2017-07-31] MEDS: MORPHINE 2 MG/ML 1ML SYRINGE IV PRN ×8 (09:38→23:33)
--- NOTE | 2017-07-31 09:49 | CCN ---
DATE: 07/31/2017 Start Time: 0824 hours Stop Time: 0908 hours I again attended Mr. Dominguez here in the intensive care unit. He remains intubated, sedated, mechanically ventilated. We have been able to wean his Levophed somewhat. He remains on additional sedation as well as an epidural for pain control. All available data has been reviewed, and I spoke at length with the daughter and son-in-law who are at the bedside. Maximum temperature (T max) overnight 97.1, blood pressure varies from 90 to 120 systolic, heart rate generally in the 120s with a sinus mechanism. Respiratory rate generally in the 20s without accessory muscle use. Intake and output from midnight to midnight 12,790 mL in with 2617 mL out, from midnight 1662 mL in with 2670 mL out. Most recent available laboratories: White blood cell count 22.4, 86% segmented neutrophils, 2% bands. Hemoglobin 9.8, platelet count 537,000. Sodium 139, potassium 4.6, chloride 106, CO2 22, BUN 30, creatinine 1.22, which is diminished from yesterday, glucose 167, calcium 7.5, albumin 1.2. Phosphorus 4.7 and magnesium 1.6. Arterial blood gas obtained on an assist control rate of 20, tidal volume of 450 , PEEP of 5, FiO2 of 50% is a pH of 7.394, pCO2 of 35.7 and a pO2 of 92.7 with a saturation of 96.7%. Chest x-ray reviewed and compared to prior films. Endotracheal tube in good position. Reasonable inspiratory effort. There is some general increase in interstitial markings consistent with edema. No other new findings identified. On exam, vital signs as outlined above. He is somewhat restless. He does move all extremities. He does not generally follow commands reliably. Sclerae are clear. Trachea is in the midline. Membranes are moist. Lines and tubes in good position and the sites are benign in appearance. Chest shows symmetric expansion, reasonable air entry. There are rare rhonchi that clear with suctioning. There are some dependent crackles. Cardiac exam: Distant, tachycardic but regular. Peripheral pulses are diminished and diffuse edema remains unchanged. Abdomen shows dressings in place. Less distended than yesterday. There may be some faint bowel sounds. Extremities show no cyanosis or clubbing. Again, diffusely edematous. Neurologically, does not reliably follow commands but does move all extremities. The most pressing problems requiring my presence at the bedside: 1. Respiratory failure requiring mechanical ventilatory support. 2. Peritonitis secondary to perforated viscus. 3. Renal failure. 4. Coronary artery disease. 5. Protein calorie malnutrition. 6. Status post low anterior resection. I had a long discussion at the bedside with the patient's daughter and son-in-law. They were updated as to his status. At this point, I am in full agreement with his current antimicrobials. Electrolytes are being repleted via total parenteral nutrition (TPN), managed by primary service with the assistance of nephrology. Ulcer and deep vein thrombosis (DVT) prophylaxis are in place. Ventilator manipulations were made by myself . Hopefully in the next 24-48 hours, we can begin a more active weaning process if he continues to auto diurese. Overall, however, he does remain critically ill. His prognosis does remain guarded. We will continue as outlined above. I left the bedside at 0908 hours. 44 minutes of critical care time devoted at the bedside not including procedures. ROMARIO
[2017-07-31] MEDS ORDERED: MAG SULF 1GM/100ML (MAG RUN) 1 GM in APPROPRIATE DILUENT 1 EA IV ONE (12:00)
--- NOTE | 2017-07-31 14:37 | IPN ---
DATE: 07/31/2017 The patient is now day two postop from his extensive lysis of adhesion and drainage of multiple abscesses and release of small-bowel obstruction and postop day one from his second look laparotomy and maturation of his ileostomy. He has remained quite stable. I turned his epidural down a bit last night when his blood pressure got a little soft and he was awake enough to require adequate propofol sedation. He has apparently turned a corner regarding urine output and has had a significant output in the last hours. Vital signs this morning showed him to be afebrile with a temperature of 96.4. His most recent pulse is 123, respirations 22 and his O2 sat is 96 on 50% oxygen by ventilator. Intake and output per yesterday was 12,790 in with 2679 out. Since yesterday evening at approximately 9:00 p.m. he has been putting out greater than 200 mL of urine per hour on average. PHYSICAL EXAMINATION: The patient is adequately sedated on his propofol drip. His epidural continues to run at about 6 mL. His total parenteral nutrition (TPN) and Intralipid are hanging. His G tube is to suction and is putting out bile. Vargas is draining clear yellow urine. The patient appears sedated. The skin is warm and dry. Heart: Exam shows a regular tachycardia at approximately 120. Lungs show good breath sounds bilaterally. The abdomen is distended. I do not hear any bowel sounds this morning. The abdomen is certainly full but not particularly distended. His ileostomy is pink and edematous with some edema fluid in the bag. LABORATORY STUDIES: WBC 22.4, hemoglobin 10, hematocrit 30 and his platelet count is 537,000. Chemistry profile shows normal electrolytes with a BUN 30, creatinine 1.22 which is down slightly from yesterday evening and a glucose of 167. Calcium is up to 7.5. Lactic acid done early this morning was only 1.8. His total protein is 3.8 today with an albumin of 1.2. Magnesium is 1.6 with a phosphorus 4.7. Blood gas this morning showed a pH of 7.39, CO2 of 36, O2 of 93 with a base excess improved to -3.1. Chest x-ray - Chest x-ray shows good bilateral lung expansion. Volumes are perhaps somewhat decreased overall. The ET tube and PICC line seem to be in good position. IMPRESSION: 1. Abdominal sepsis/bowel obstruction. 2. Atherosclerotic coronary artery disease. 3. Respiratory failure. 4. Malnutrition. PLAN: The patient has no active cardiac issues though he is somewhat tachycardiac at present. His respiratory function is good with improvement in his base excess and he is requiring only 50% oxygen at this time with acceptable vent parameters. His abdominal sepsis would seem to be under adequate control and he remains on meropenem. He has started making urine at an excellent rate and I have stopped his Ringer's lactate. Dr. Melendez and I spoke this morning about management of his discomfort and his agitation and are in agreement that discontinuing his epidural is probably a reasonable course with treatment with IV narcotics as necessary for pain. We believe this would simplify his care somewhat. If we can see some diuresis for a few days, I would anticipate that we would start to think more about weaning the ventilator. His nutritional status is poor currently but he is tolerating his total parenteral nutrition well and this will be continued. I anticipate a prolonged course before he will be able to take an oral diet or G tube feedings and we will need to continue with the TPN. MTDD
--- NOTE | 2017-07-31 16:18 | IPN ---
DATE: 07/31/2017 SUBJECTIVE: The patient is seen this morning in the intensive care unit. He remains intubated, sedated on propofol. He remains pressor dependent. His urine output has improved over the past 12 hours. REVIEW OF SYSTEMS: Unable to obtain secondary to clinical condition. VITAL SIGNS: Afebrile, tachycardic, heart rate 110s to 130s, respiratory rate 18-24, blood pressure 106/57, pulse oximetry 96% on FiO2 50%. PHYSICAL EXAMINATION: GENERAL: Intubated and sedated in the intensive care unit (ICU). HEAD AND NECK: Endotracheal tube in place. Midline trachea. Moist mucous membranes. CHEST: Bilateral symmetric coarse air entry with dependent crackles. CARDIAC: S1, S2, tachycardic. He has 1 to 2+ edema in the lower extremities. ABDOMEN: Midline dressing. Decreased distention as compared to prior. No deep palpation. Ileostomy with clear yellowish fluid in bag. Gastrostomy (G) tube. GENITOURINARY: Vargas catheter with urine. EXTREMITIES: Lower extremities with 1 to 2+ edema. NEUROLOGIC: Sedated. LABORATORY DATA: White count 22, hemoglobin 9.8, platelets 537, bands 2%. Arterial blood gas: PH 7.39, pCO2 35, pO2 92. Sodium 139, potassium 4.6, bicarbonate 22, BUN 30, creatinine 1.2, glucose 167, corrected calcium 7.6, magnesium 1.6, phosphorus 4.7. IMAGING STUDIES: Chest x-ray 07/31/2017 shows increased interstitial markings, endotracheal tube in place. INPATIENT MEDICATIONS: Pressure weaned, Levophed at 10 mcg. He remains on IV Clinimix and propofol infusions and IV fat emulsion. He received a dose of IV magnesium. Continues on meropenem 1 gram IV every eight hours. Remainder of medications unchanged from prior. ASSESSMENT AND PLAN: 1. Resolving acute kidney injury in the setting of severe septic shock, hemodynamic instability with two recent trips to the operating room and abdominal compartment syndrome. Over the past 24 hours, the patient's urine output has increased. He is currently making between 125-250 mL of urine per hour. He remain in net positive fluid balance and he continues to be pressor dependent. His electrolytes are reviewed and fairly acceptable. He continues. Clinimix. His acid base status is also acceptable. We will continue to monitor him for renal recovery. 2. Multiple intraabdominal abscesses, intestinal obstruction, creation of ileostomy, repair of multiple enterotomies, ileocecal resection, placement of gastrostomy (G) tube. The patient's abdominal pressure has improved on examination. He continues on meropenem with pending repeat cultures. He is dependent on total parenteral nutrition (TPN). Plan of care per Dr. Stroud. 3. Ventilator-dependent respiratory failure. The patient remains on FiO2 50% with stable oxygenation. He remains overall in net positive fluid balance, however, has started to diurese. 4. Septic shock. The patient remains pressor dependent. His Levophed which was previously 20-25 mcg has now come down to 10 mcg. Lactic acid this morning was normal at 1.8. He remains on meropenem coverage. His white count is rising, although he remains afebrile.
[2017-07-31] MEDS ORDERED: AMINO AC/ELECTROLYTE/DEX/CALC 2,000 ML IV SCH (18:00)
[2017-07-31] MEDS ORDERED: FAT EMULSION IV 20% 500 ML IV SCH (18:00)
[2017-07-31 19:02] LABS: ALBUMIN 1.1 GM/DL (3.2-5.2); ALBUMIN/GLOBULIN RATIO 0.39 (1.00-1.93); ALKALINE PHOSPHATASE 88 U/L (45-117); ALT/SGPT 16 U/L (12-78); ANION GAP 6 MEQ/L (8-16); AST/SGOT 14 U/L (15-37); BILIRUBIN,TOTAL 0.5 MG/DL (0.2-1.0); BLOOD UREA NITROGEN 23 MG/DL (7-18); CALCIUM LEVEL 7.5 MG/DL (8.8-10.2); CARBON DIOXIDE LEVEL 26 MEQ/L (21-32); CHLORIDE LEVEL 106 MEQ/L (98-107); CHOLESTEROL LEVEL 69 MG/DL (< 200); CREATININE FOR GFR 1.04 MG/DL (0.70-1.30); GLOMERULAR FILTRATION RATE > 60.0 (>49); GLUCOSE, FASTING 186 MG/DL (80-110); MAGNESIUM LEVEL 1.9 MG/DL (1.8-2.4); PHOSPHORUS LEVEL 3.7 MG/DL (2.5-4.9); POTASSIUM SERUM 4.3 MEQ/L (3.5-5.1); SODIUM LEVEL 138 MEQ/L (136-145); TOTAL PROTEIN 3.9 GM/DL (6.4-8.2); TRIGLYCERIDES LEVEL 172 MG/DL (<150)
[2017-07-31] MEDS: ENOXAPARIN 30 MG/0.3 ML SYR (J1650) SC SCH (21:00)
[2017-08-01] VITALS (22 sets, daily range): BP systolic 11–130; BP diastolic 45–60
[2017-08-01] MEDS: HumaLOG INSULIN (NovoLOG) PER UNIT SC SCH ×5 (00:14→23:25)
[2017-08-01] MEDS: MORPHINE 2 MG/ML 1ML SYRINGE IV PRN ×9 (01:49→23:30)
[2017-08-01] MEDS: MEROPENEM INJ 1 GM in D5W MINI-BAG PLUS 100 ML IV SCH ×3 (01:49→18:01)
[2017-08-01] MEDS: MIDAZOLAM INJ 2 MG/2 ML VIAL (J2250) IV PRN ×4 (01:49→23:54)
[2017-08-01] MEDS: PROPOFOL 1,000 MG in APPROPRIATE DILUENT 1 EA IV SCH ×8 (01:50→21:54)
[2017-08-01] MEDS: IPRATROPIUM 0.5MG/ALBUTEROL 2.5MG INH SOL UD 3ML (DUONEB)(J7620) NEB SCH ×6 (04:25→23:24)
[2017-08-01 05:47] LABS: ABG BASE EXCESS 1.4 (-2.0-2.0); ABG HCO3 25.7 MEQ/L (22.0-26.0); ABG PARTIAL PRESSURE CO2 39.1 mmHg (35.0-45.0); ABG PARTIAL PRESSURE O2 145.2 mmHg (75.0-100.0); ABG STANDARD HCO3 25.8 MEQ/L (22.0-26.0); ABG TOTAL CO2 26.9 MEQ/L (23.0-31.0); ABG pH (ARTERIAL) 7.436 UNITS (7.350-7.450)
[2017-08-01 05:55] LABS: BASO % 0.2 % (0.0-1.0); EOS # 0.8 K/mm3 (0.0-0.50); EOS % 4.6 % (0.0-3.0); LARGE UNSTAINED CELL # 0.2 K/mm3 (0.0-0.4); LARGE UNSTAINED CELL % 1.3 % (0.0-4.0); LYMPH # 0.8 K/mm3 (1.5-4.5); LYMPH % 4.8 % (24.0-44.0); MEAN CORPUSCULAR HGB CONC 32.7 g/dl (32.0-36.5); MEAN CORPUSCULAR VOLUME 94.8 fl (80.0-96.0); MONO # 0.6 K/mm3 (0.0-0.8); MONO % 3.4 % (0.0-5.0); NEUTROPHILS # 14.7 K/mm3 (1.8-7.7); NEUTROPHILS % 85.7 % (36.0-66.0); PLATELET COUNT, AUTOMATED 407 k/mm3 (150-450); RED CELL DISTRIBUTION WIDTH 14.4 % (11.5-14.5); WHITE BLOOD COUNT 17.9 K/mm3 (4.0-10.0)
[2017-08-01] MEDS: SODIUM CHLORIDE 0.9% INJ 10 ML SYR IV SCH ×2 (06:00→18:00)
[2017-08-01 06:16] LABS: ALBUMIN 1.1 GM/DL (3.2-5.2); ALBUMIN/GLOBULIN RATIO 0.38 (1.00-1.93); ALKALINE PHOSPHATASE 87 U/L (45-117); ALT/SGPT 14 U/L (12-78); ANION GAP 5 MEQ/L (8-16); AST/SGOT 19 U/L (15-37); BILIRUBIN,TOTAL 0.4 MG/DL (0.2-1.0); BLOOD UREA NITROGEN 19 MG/DL (7-18); CALCIUM LEVEL 7.6 MG/DL (8.8-10.2); CARBON DIOXIDE LEVEL 27 MEQ/L (21-32); CHLORIDE LEVEL 108 MEQ/L (98-107); GLOMERULAR FILTRATION RATE > 60.0 (>49); GLUCOSE, FASTING 127 MG/DL (80-110); POTASSIUM SERUM 4.7 MEQ/L (3.5-5.1); SODIUM LEVEL 140 MEQ/L (136-145)
[2017-08-01] MEDS: NOREPINEPHRINE BITARTRATE 8 MG in D5W 500 ML IV SCH ×2 (07:06→14:41)
[2017-08-01] MEDS ORDERED: CHLORHEXIDINE ORAL RINSE 0.12%/15ML 120ML BOTTLE MT SCH (08:04)
--- NOTE | 2017-08-01 08:12 | REP ---
Portable chest x-ray: Single view. History: Respiratory failure. Comparison chest x-ray July 31, 2017. Findings: EKG monitoring electrodes overlie the chest. An endotracheal tube is seen in good position at the level of the transverse aorta. A right arm PICC line terminates in the expected location of the superior vena cava. There is hazy opacity at the lung bases bilaterally consistent with bilateral pleural effusions. Cardiomegaly is again observed unchanged. Impression: Bilateral pleural effusions. Endotracheal tube in good position. Signed by Sánchez Torres MD 08/01/2017 09:40 A
[2017-08-01] MEDS: PANTOPRAZOLE 40MG INJ (PROTONIX) (C9113) IV SCH (08:37)
[2017-08-01] MEDS: CHLORHEXIDINE ORAL RINSE 0.12%/15ML 120ML BOTTLE MT SCH ×2 (08:38→20:23)
--- NOTE | 2017-08-01 09:28 | CCN ---
DATE: 08/01/2017 START TIME: 0816 hours STOP TIME: 0912 hours I again attended Paramjit Dominguez here in the intensive care unit (ICU). He remains intubated, sedated and mechanically ventilated. I spoke with Dr. Stroud regarding his status as well this morning. All available data has been reviewed. Chest x-ray shows a poor inspiratory effort with some vascular crowding but does suggest some persistent mild interstitial edema but no new findings. Maximum temperature (t-max) overnight 97.9, heart rate 90 to 116 with a sinus mechanism. Blood pressure 90 to 130 systolic and he is on 2.5 mcg of Levophed at the moment. Respiratory rate varies between 17 and 25. Input and output, midnight to midnight, 3890 mL in and 995 mL out. He is doing this without the addition of diuretics. He remains on ulcer and deep vein thrombosis (DVT) prophylaxis. He remains on meropenem. Most recent available laboratories show a white blood cell count of 17.9, hemoglobin 7.9, platelet count 407,000. 85% segmented neutrophils, no bands. Sodium 140, potassium 4.7, chloride 108, CO2 of 27, BUN 19, creatinine 0.9, down from yesterday. Glucose 127, calcium 7.6, albumin 1.1. Arterial blood gas obtained on a PRVC, rate of 20, tidal volume 500, PEEP of 5, FiO2 of 50% has a pH of 7.436, PCO2 of 39.1, PO2 of 145.2, saturation 99.3%. Epidural has been weaned off and pain management via morphine. PHYSICAL EXAMINATION: On examination, he is sedate, but does respond some to voice. He does not completely follow commands. Sclerae clear. Trachea is in the midline. CHEST: Clear anteriorly. Expansion is symmetric. Diminished at very bases. No rhonchus or rubs. CARDIAC EXAM: Generally regular. Peripheral pulses are palpable. 2+ edema is unchanged. ABDOMEN: Mildly distended. Dressings in place. There are active bowel sounds noted today. EXTREMITIES: No cyanosis or clubbing. Edema is as noted above. NEUROLOGIC: Sedate but does move all extremities. The most pressing problem requiring my presence at the bedside is: 1. Hypoxemic respiratory failure requiring mechanical ventilatory support. 2. Sepsis with shock secondary to perforated bowel and peritonitis. 3. Coronary artery disease. 4. Anemia, unspecified. 5. Protein calorie malnutrition. 6. Renal failure, improving. 7. Status post low anterior resection for cancer. At this point, we will lighten his sedation and begin the act of ventilator weaning process. We will recheck his hemoglobin in several hours as I find this somewhat puzzling. Hemodynamically, he does not act as though he has an active bleed and certainly he has diuresed considerably. He is on ulcer and deep vein thrombosis (DVT) prophylaxis and these will continue. Nutritionally, he is on TPN and this is being adjusted and managed through the primary service. I am in full agreement at this point with current antimicrobials. Overall, he does remain critically ill. His prognosis does remain guarded. I left the bedside at 0912 hours. 56 minutes of critical care time was delivered at the bedside, not including procedures.
[2017-08-01 09:40] LABS: ABG BASE EXCESS 1.1 (-2.0-2.0); ABG HCO3 25.5 MEQ/L (22.0-26.0); ABG PARTIAL PRESSURE CO2 39.4 mmHg (35.0-45.0); ABG PARTIAL PRESSURE O2 88.8 mmHg (75.0-100.0); ABG STANDARD HCO3 25.5 MEQ/L (22.0-26.0); ABG TOTAL CO2 26.7 MEQ/L (23.0-31.0); ABG pH (ARTERIAL) 7.429 UNITS (7.350-7.450)
--- NOTE | 2017-08-01 12:29 | IPN ---
DATE: 08/01/2017 Mr. Dominguez is seen this morning in intensive care unit on his bedside. He was seen by nephrology service for acute renal failure related to septic shock. The patient has significant improvement in his kidney function. He underwent multiple procedures and is still intubated and sedated. He remains on low-dose pressors. He is also receiving TPN for nutrition and remains n.p.o.. PHYSICAL EXAMINATION: Temperature 99 degrees Fahrenheit, heart rate 100 per minute and respiratory rate 22 per minute. Blood pressure 97/53 mmHg and oxygen saturation 98% on the ventilator. He is currently on 40% FIO2. Intake and output records from yesterday showed total intake 3892 mL and output 5995 mL. Head is atraumatic. A nasogastric tube is in place. Endotracheal tube is in place. Heart: Sounds are tachycardiac. Lungs: Have slightly diminished breath sounds at the dependent parts. Abdomen with colostomy and surgical dressings. Bowel sounds are not audible. Extremities: Without cyanosis or clubbing. Today's labs show WBC count 17.9, hemoglobin 7.9 and hematocrit 24.0. Sodium 140 and potassium 4.7. BUN 19 and creatinine 0.90. Glucose 127 and calcium 7.6. PROBLEMS: 1. Acute renal failure. The patient had acute renal failure related to septic shock. His kidney function has improved significantly and almost normal now. He has good urine output. At this point, electrolytes are within normal range and he does not have any evidence of metabolic acidosis. 2. Anemia. His anemia has worsened and most likely related to surgical procedures and possible blood loss. I will defer to surgery and critical care about consideration for transfusion. 3. Respiratory failure. The patient remains on the ventilator. At present, his volume status seems to be reasonably well-compensated. 4. Nutrition. The patient is receiving TPN which is being ordered by surgery.
--- NOTE | 2017-08-01 13:56 | IPN ---
DATE: 08/01/2017 The patient remains intubated in the intensive care unit (ICU). His Levophed drip has been weaned significantly. The epidural was stopped. He remains on propofol for sedation and is receiving doses of morphine as needed for discomfort. He remains on his TPN. Vital signs this morning reveal that he has been afebrile for the last 24 hours. Vitals at 12:01 showed temperature of 98.9 , pulse of 112, respiratory rate of 18 and a blood pressure of 116/56 by cuff and 102/46 by align. His pulse oximetry is 97% on the ventilator with 50% O2 and 5 PEEP. Intake and output yesterday, he has 3900 recorded in and 6000 recorded out. There was 300 of gastric drainage and 5700 of urine. He has not had any significant ostomy output yet. He continues with a fairly brisk diuresis without the need for any diuretics. The patient is not responsive to voice or light touch at this time. Skin is warm and dry. Heart exam shows a regular tachycardia. The lungs show good bilateral breath sounds. The abdomen remained mildly distended. He may have a few faint bowel sounds evident today. The abdomen is soft. His midline incision is clean. The ileostomy is edematous and there is a minimal amount of serous fluid in the bag. His Vargas is draining clear urine. LABORATORY FINDINGS: His CBC this morning showed a white count of 17.9, hemoglobin of 8 and a hematocrit of 24. Platelet count is 407,000. Differential count shows 86% neutrophils and 5% lymphocytes. Blood gas shows a pH of 7.43, CO2 of 39 and an O2 of 89 with base excess of 1.1, that is at 0933. Chemistry profile shows sodium 140, potassium 4.7, chloride 108, CO2 of 27, BUN of 19 and a creatinine of 0.9 with a glucose of 127. His calcium is 7.6. Liver function tests are normal and his total protein is up to 4.0 with an albumin of 1.1. Fingerstick blood sugars have ranged from 113-179 over the last day. IMPRESSION: 1. Respiratory failure with acceptable ventilatory parameters. 2. Hypotension on Levophed with reduced requirement for pressors. 3. Excellent urine output with self diuresis. 4. Abdominal sepsis and obstruction, now improving. PLAN: We will continue the patient's TPN. Dr. Melendez and I spoke briefly this morning on rounds and he will start to make adjustments in the vent to move in the direction of preparing for weaning. The patient has currently been tolerating the vent well. We may need to let him wake up a little bit and try to interact more as we work toward some weaning. It is very heartening to see that he is mobilizing third space fluid well and his abdomen is soft and I heard a few bowel sounds today for the first time. He remains on meropenem for antibiotic coverage and I will continue this for now. ROMARIO
[2017-08-01] MEDS ORDERED: FAT EMULSION IV 20% 500 ML IV SCH (18:00)
[2017-08-01] MEDS ORDERED: MULTIVITAMIN -ADULT INJECTION 10 ML, CR/CU/SE/MN/ZN INJ 1 ML in AMINO AC/ELECTROLYTE/DE... IV SCH (18:00)
--- NOTE | 2017-08-01 18:36 | ECGEPIP ---
Stationary ECG Study [facility] Test Date: 2017-07-30 Pat Name: MIRIAM GARCIA Department: Room: [place] [address] Gender: M Oncology Pharmacist: JUAN M : 1950 Requested By: Garcia Melendez Order Number: [id number] Reading MD: Ken Holder Measurements Intervals [place] Rate: 120 P: 57 [place]: 165 QRS: 1 QRSD: 93 T: 66 QT: 307 QTc: 434 Interpretive Statements SINUS TACHYCARDIA WITH OCCASIONAL SUPRAVENTRICULAR PREMATURE COMPLEXES rate increased from tracing done 07-23-17 Electronically Signed On 08-01-2017 18:36:28 EDT by Ken Holder
[2017-08-01] MEDS: ENOXAPARIN 40 MG/0.4 ML SYRINGE (J1650) SC SCH (20:23)
[2017-08-01] MEDS ORDERED: LORazepam 2 MG/ML VIAL (J2060) IV PRN (22:45)
[2017-08-02] VITALS (16 sets, daily range): BP systolic 13–156; BP diastolic 43–70; O2SAT 98
[2017-08-02] MEDS: MEROPENEM INJ 1 GM in D5W MINI-BAG PLUS 100 ML IV SCH ×3 (01:43→18:25)
[2017-08-02] MEDS: MORPHINE 2 MG/ML 1ML SYRINGE IV PRN ×12 (02:06→23:53)
[2017-08-02] MEDS: PROPOFOL 1,000 MG in APPROPRIATE DILUENT 1 EA IV SCH ×5 (02:29→21:13)
[2017-08-02] MEDS: IPRATROPIUM 0.5MG/ALBUTEROL 2.5MG INH SOL UD 3ML (DUONEB)(J7620) NEB SCH ×6 (03:27→23:21)
[2017-08-02 05:32] LABS: BASO % 0.2 % (0.0-1.0); EOS # 1.1 K/mm3 (0.0-0.50); EOS % 6.8 % (0.0-3.0); LARGE UNSTAINED CELL # 0.3 K/mm3 (0.0-0.4); LARGE UNSTAINED CELL % 1.7 % (0.0-4.0); LYMPH # 1.2 K/mm3 (1.5-4.5); LYMPH % 7.4 % (24.0-44.0); MEAN CORPUSCULAR HEMOGLOBIN 31.7 pg (27.0-33.0); MEAN CORPUSCULAR HGB CONC 33.1 g/dl (32.0-36.5); MEAN CORPUSCULAR VOLUME 95.9 fl (80.0-96.0); MONO # 0.8 K/mm3 (0.0-0.8); MONO % 4.5 % (0.0-5.0); NEUTROPHILS # 13.1 K/mm3 (1.8-7.7); NEUTROPHILS % 79.3 % (36.0-66.0); PLATELET COUNT, AUTOMATED 401 k/mm3 (150-450); RED CELL DISTRIBUTION WIDTH 14.7 % (11.5-14.5); WHITE BLOOD COUNT 16.6 K/mm3 (4.0-10.0)
[2017-08-02 05:48] LABS: ALBUMIN 1.1 GM/DL (3.2-5.2); ALBUMIN/GLOBULIN RATIO 0.37 (1.00-1.93); ALKALINE PHOSPHATASE 117 U/L (45-117); ALT/SGPT 16 U/L (12-78); ANION GAP 5 MEQ/L (8-16); AST/SGOT 19 U/L (15-37); BILIRUBIN,TOTAL 0.6 MG/DL (0.2-1.0); BLOOD UREA NITROGEN 17 MG/DL (7-18); CALCIUM LEVEL 7.8 MG/DL (8.8-10.2); CARBON DIOXIDE LEVEL 28 MEQ/L (21-32); CHLORIDE LEVEL 108 MEQ/L (98-107); CREATININE FOR GFR 0.84 MG/DL (0.70-1.30); GLOMERULAR FILTRATION RATE > 60.0 (>49); GLUCOSE, FASTING 121 MG/DL (80-110); POTASSIUM SERUM 4.4 MEQ/L (3.5-5.1); SODIUM LEVEL 141 MEQ/L (136-145); TOTAL PROTEIN 4.1 GM/DL (6.4-8.2)
[2017-08-02 05:50] LABS: ABG BASE EXCESS 2.7 (-2.0-2.0); ABG HCO3 27.6 MEQ/L (22.0-26.0); ABG PARTIAL PRESSURE CO2 44.6 mmHg (35.0-45.0); ABG PARTIAL PRESSURE O2 95.6 mmHg (75.0-100.0); ABG STANDARD HCO3 26.9 MEQ/L (22.0-26.0)
[2017-08-02] MEDS: HumaLOG INSULIN (NovoLOG) PER UNIT SC SCH ×4 (06:03→23:54)
[2017-08-02] MEDS: SODIUM CHLORIDE 0.9% INJ 10 ML SYR IV SCH ×2 (06:04→18:00)
--- NOTE | 2017-08-02 07:44 | REP ---
Clinical: Respiratory failure. Comparison: 07/31/2017. Findings: Endotracheal tube approximately 4 cm above the manjeet. Right PICC line with tip in the SVC. Cardiomegaly along with perihilar and bibasilar opacities are appreciated suggesting elements of pulmonary vascular congestion along with bibasilar atelectasis and pleural effusions. No pneumothorax. Skeletal structures are intact. Impression: 1. Lines and tubes in satisfactory position. 2. Above findings suggest cardiomegaly with pulmonary vascular congestion and bibasilar opacities essentially unchanged. Signed by Omega Contreras MD 08/02/2017 07:35 A
[2017-08-02] MEDS: PANTOPRAZOLE 40MG INJ (PROTONIX) (C9113) IV SCH (08:14)
[2017-08-02] MEDS: CHLORHEXIDINE ORAL RINSE 0.12%/15ML 120ML BOTTLE MT SCH ×2 (08:14→21:13)
--- NOTE | 2017-08-02 08:56 | CCN ---
DATE: 08/02/2017 I again attended Paramjit Dominguez. He remains intubated, sedated, and mechanically ventilated. During sedation vacation this morning, he is awake and does appear to follow commands. Maximum temperature (t-max) overnight 97.1, heart rate generally in the 80s to 90s with a sinus mechanism, blood pressure 91 to 120s and we have been able to wean his Levophed to off. Input and output midnight to midnight: 3686 mL in with 4650 mL out. Since midnight, he is already net negative over 800 mL. Abdominal cultures did grow Enterococcus faecalis. He remains on meropenem. Chest x-ray is reviewed. Lines and tubes in good position. I do believe that there is a little less edema today and there is better aeration at the bases bilaterally. PHYSICAL EXAMINATION: He is ill appearing. Vital signs as outlined above. Lines and tubes in good position and the sites are benign. Sclerae clear. Trachea is in the midline. Membranes are moist. Chest shows globally diminished breath sound intensity but expansion is symmetric. More diminished at the bases and there are some dependent opening crackles but no other focal adventitious breath sounds are identified. Cardiac examination is distant but regular. Peripheral pulses are palpable. Edema persists to about 2+. Abdomen is mildly distended. Dressings intact. I do believe that there are bowel sounds audible. Extremities are without cyanosis or clubbing. Neurologically, he does move all extremities when sedation is lightened. The most pressing problems requiring my presence at the bedside are: 1. Respiratory failure, hypoxemic and requiring mechanical ventilatory support. 2. Intraabdominal sepsis with shock. 3. Renal failure, improving. 4. Peritonitis. 5. Status post low anterior resection for malignancy. 6. Anemia, multifactorial. 7. Protein calorie malnutrition. At this point, we have been able to wean his Levophed. He continues to auto diurese. We will change his ventilator over to a more standard mode in hopes of facilitating the weaning process. We will continue his current antimicrobials. TPN is being written by general surgery. His anemia will be monitored for now. At some point, he may require transfusion but has been holding over the last 48 hours. Overall, he still remains critically ill. His prognosis remains guarded, but we will proceed as outlined above. Further recommendations will be made in the progress record as new information becomes available.
[2017-08-02 10:00] LABS: ABG pH (ARTERIAL) 7.473 UNITS (7.350-7.450)
[2017-08-02 10:01] LABS: ABG BASE EXCESS 1.7 (-2.0-2.0); ABG HCO3 25.2 MEQ/L (22.0-26.0); ABG PARTIAL PRESSURE CO2 35.2 mmHg (35.0-45.0); ABG PARTIAL PRESSURE O2 94.4 mmHg (75.0-100.0); ABG TOTAL CO2 26.3 MEQ/L (23.0-31.0)
--- NOTE | 2017-08-02 12:02 | IPN ---
DATE: 08/02/2017 Mr. Dominguez is seen this morning on his bedside in the intensive care unit. His is present on the bedside. The patient remains sedated; however, he is awake and eyes are open. He is not interactive at this point. On physical examination, temperature 100.2 degrees Fahrenheit, heart rate 96 per minute and respiratory rate 24 per minute. Blood pressure 135/63 mmHg and oxygen saturation 96% on the ventilator with 35% FIO2. Intake and output records from yesterday showed a total intake of 3686 and output 4650 mL. He is currently off pressors and blood pressure is in the 130s. His head is atraumatic. Endotracheal tube and nasogastric tubes are in place. Neck veins are difficult to be assessed. Heart sounds are irregular in rhythm. Lungs with good bilateral air entry. Abdomen is with surgical dressings and colostomy is present. Extremities have no cyanosis or clubbing. Today's labs show WBC count 16.6, hemoglobin 8.1 and hematocrit 24.5. Most recent blood gas showed a pH of 7.47, pCO2 of 35.2, pO2 94.4 and bicarb 26. Chemistry today showed a BUN of 17 and creatinine 0.84. Electrolytes are within normal range. PROBLEMS: 1. Acute kidney injury. The patient had septic shock induced acute renal failure which has now improved. He has good urine output and electrolytes are within normal range. 2. Anemia. His anemia is significant, but stable. I will defer to the surgical service about decision for transfusion. 3. Respiratory failure. This is related to septic shock and intra-abdominal problems. Volume status seems to be reasonably well compensated and the patient is diuresing nicely. From a renal standpoint, the patient is doing very well and kidney function has improved. I am not contributing much to his care. I am signing off the case. Please do not hesitate to call me back should you need any further assistance.
[2017-08-02] MEDS ORDERED: VANCOMYCIN HCL 1,000 MG in D5W 0 ML IV SCH (14:30)
[2017-08-02] MEDS: MIDAZOLAM INJ 2 MG/2 ML VIAL (J2250) IV PRN ×2 (15:08→22:45)
--- NOTE | 2017-08-02 15:38 | PHACANCOPD ---
PHARMACY VANCOMYCIN DOSING Pt Demographics Demographics Patient Age:66 , Weight:111.400 , Gender: male Adjusted Body Weight Date: 08/02/17, Adjusted Body Weight: Kg Events Past 24 Hours Events Past 24 Hours: NO: Dialysis, Diuretic Therapy, Change in CrCl, Fever, Elevation in WBC, Pending Diagnostics, Pending Procedures, Other Vancomycin Vancomycin indication: E.Faecalis in abdomen Vancomycin Target Ranges: 15-20 mcg/ml Vancomycin Load Y/N: Yes Load Dose Date Time Vancomycin Load Dose: 2000mg Date: 08/02 Time: 1600 Vancomycin Dose Date: 08/02/17. Current Vancomycin Dose: [1gm IV q12h@16] Intermittent Dosing?: No Labs Labs Vital Signs Label Value Date Time Patient Temperature 99.3 degrees F 08/02/17 1417 Patient Temperature 99.0 degrees F 08/02/17 1427 Pulse 101 08/02/17 1417 Pulse 100 08/02/17 1427 Item Value Date Time White Blood Count 17.9 K/mm3 H 08/01/17 0524 White Blood Count 16.6 K/mm3 H 08/02/17 0500 Creatinine 0.90 MG/DL 08/01/17 0524 Creatinine 0.84 MG/DL 08/02/17 0459 Micro Microbiology 07/31/17 Blood Culture - Preliminary, Resulted No Growth after 48 hours. All Specime... 07/29/17 Gram Stain - Final, Complete 07/29/17 Wound Culture - Final, Complete Enterococcus Faecalis 07/29/17 Anaerobic Culture - Final, Complete Creatinine Clearance Date:08/02/17. Creatinine Clearance: . Assessment and Plan Maintaining Current Dose?: Yes Reason for dose change: No Dose Change Pharmacist Note Pharmacist Note Date: 08/02/17. Pharmacist note: Patient was started on Vancomycin for E.faecalis for a wound in his abdomen. He was loaded on Vancomycin 2 grams then continued on 1gm q12h. He has no history of MRSA at our facility. The patient is currently intubated and sedated but they are trying to wean him slowly. We will continue to monitor and make adjustments as necessary HALI LEDEZMA PHARMACY Aug 02, 2017 15:38
[2017-08-02] MEDS: VANCOMYCIN HCL 1,000 MG, VIAL MATE ADAPTER 1 EACH in D5W 250 ML IV SCH (15:45)
--- NOTE | 2017-08-02 16:28 | IPNPDOC ---
Text Note Date of Service The patient was seen on 08/02/17. 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 Was admitted to surgical service (Dr. Stroud) for resection of rectosigmoid colon with primary anastomosis. Following surgery patient developed post-operative ileus and then latera developed abscess collections and possible perforation. Was taken back to the OR for exploratory laparotomy on 07/29 and 07/30, removal of abscess collections and washout of abdominal cavity. Patient was found to be hypotensive post-operatively requiring pressor support and was remained intubated. Patient was seen and examined at the bedside. Currently is intubated and sedated. Had a period of sedation vacation this morning and was noted to follow commands. Objective: Vitals (See below) General: Lying in bed, intubated and on light sedation HEENT: NC, AT CVS: RRR, +S1S2 Lungs: Fair air entry b/l, course lung sounds bilaterally Abdomen: Soft, ND, NT, Hypoactive BS, + PEG tube Extremities: - Edema, - Calf tenderness Assessment and plan: Septic shock - likely 2/2 intra-abdominal etiology - likely 2/2 perforation / abscess collection - Leukocytosis improving, no fevers noted - Abdomen culture 07/29: Enterococcus faecalis - Blood Cultures 07/31: Negative - s/p Exploratory laparotomy (07/29 and 07/30) - Off pressor support - c/w Meropenem and Vancomycin (Day #12) Ventilator dependent respiratory failure - likely 2/2 septic shock - Dr. Melendez managing ventilator - c/w weaning trial, possible extubation within 24-48 hours Normocytic anemia - s/p 5 units PRBC - will continue to monitor Hg s/p Thrombocytosis - likely 2/2 reactive etiology s/p Acute renal failure - continues to make urine Hypoproteinemia / Nutritional status - c/w TPN as per surgical team HTN - BP medications on hold (re: Hypotension) DLP - Statin on hold CAD s/p Stent (2015) - ASA on hold GERD / GI prophylaxis - c/w Protonix 40 IV DVT prophylaxis - c/w SCDs VS,Fishbone, I+O VS, Fishbone, I+O Laboratory Tests 08/01/17 17:53 08/02/17 04:59 Calcium Level 7.8 L, Aspartate Amino Transf (AST/SGOT) 19, Alanine Aminotransferase (ALT/SGPT) 16, Alkaline Phosphatase 117, Total Bilirubin 0.6, Total Protein 4.1 L, Albumin 1.1 L 08/02/17 05:00 Red Blood Count 2.56 L, Mean Corpuscular Volume 95.9, Mean Corpuscular Hemoglobin 31.7, Mean Corpuscular Hemoglobin Concent 33.1, Red Cell Distribution Width 14.7 H, Neutrophils (%) (Auto) 79.3 H, Lymphocytes (%) (Auto ) 7.4 L, Monocytes (%) (Auto) 4.5, Eosinophils (%) (Auto) 6.8 H, Basophils (%) ( Auto) 0.2, Neutrophils # (Auto) 13.1 H, Lymphocytes # (Auto) 1.2 L, Monocytes # (Auto) 0.8, Eosinophils # (Auto) 1.1 H, Basophils # (Auto) 0.0 Vital Signs Date Time Temp Pulse Resp B/P (MAP) Pulse Ox O2 Delivery O2 Flow Rate FiO2 08/02/17 16:02 98.7 101 27 149/68 97 Ventilator 35 07/29/17 15:45 3 I&O- Last 24 Hours up to 6 AM 08/02/17 06:00 Intake Total 3056.2 ml Output Total 4650 ml Balance -1593.8 ml DIEGO NGUYEN MD Aug 02, 2017 16:28
[2017-08-02] MEDS ORDERED: VANCOMYCIN HCL 1,000 MG, VIAL MATE ADAPTER 1 EACH in D5W 250 ML IV ONE (17:00)
[2017-08-02] MEDS ORDERED: AMINO AC/ELECTROLYTE/DEX/CALC 2,000 ML IV SCH (18:00)
[2017-08-02] MEDS ORDERED: FAT EMULSION IV 20% 500 ML IV SCH (18:00)
--- NOTE | 2017-08-02 20:53 | IPN ---
DATE: 08/02/2017 Patient is remaining on the ventilator, but has shown significant progress over the last 24 hours. He has been mobilizing fluid with an excellent urine output with no need for diuretics. He has been weaned completely off his Levophed and this was discontinued. His ventilator has been adjusted and he is now on an IMV rate with pressure support with 35% oxygen and is doing very well. His sedation has been decreased and he is responsive to voice. VITAL SIGNS: His highest reported temperature was 100.2 at 10 o'clock in the morning and he has been afebrile since. Pulse is in the 90s, the blood pressure most recently of 157/73 and an oxygen saturation of 98% on the ventilator. Intake and output: yesterday he had 3700 in and 4600 out. He had approximately 100 mL out of his ostomy bag, but this was mostly just serous drainage. His G tube had 800 mL out yesterday. PHYSICAL EXAM: Shows that he does open his eyes, though he is not fully awake. He does nod his head when I spoke to him and he appeared to recognize my voice. Sclerae are anicteric. Mucous membranes are moist. Heart exam shows a regular rate and rhythm. He has clear breath sounds bilaterally. The abdomen is mildly obese. He does have a few bowel sounds present. The abdomen is soft without obvious undue tenderness. His G tube site is clean and the G tube is draining green bile. LABORATORY: Laboratory studies this morning showed a white count of 17,000 with a hemoglobin of 8, hematocrit of 24 and platelet count of 401,000. Differential count shows 79% neutrophils, 7% lymphocytes of 4% monocytes. Blood gas showed pH of 7.47, CO2 of 35, pO2 of 94 with base excess of 1.7. Chemistry profile showed a sodium 141, potassium 4.4, chloride 108, CO2 of 28, BUN 17, creatinine 0.8 and a glucose of 121. Liver function tests are normal. Magnesium is 2.1. Total protein is 4.1 with an albumin of 1.1. Fingerstick blood sugars have been running between 92 and 140. Chest x-ray this morning appears to be slightly less penetrated then prior studies. The radiologist felt there might be some element of pulmonary vascular congestion and he does appear to have at least a small effusion on the left. IMPRESSION: Overall, the patient appears to be making good progress. He has had no cardiac issues noted. His pulse has come down. From a pulmonary standpoint his vent has been weaned slightly and he has been converted to an IMV rate with pressure support. His oxygen percentage has been reduced to 35%. He continues with the G tube to suction, which is draining bile. He has a few bowel sounds identified. I would anticipate he might have a prolonged ileus after surgery but we will have to see how this works out. : His urine output has been brisk and this continues without any additional diuretics. HEME: The patient's blood count remained stable with a hematocrit of 24. This may increase slightly as he mobilizes third space fluid. I would note that his platelet count has actually come down and his white count has fallen significantly as well. NEUROLOGIC: He appears to be alert when his sedation is weaned. INFECTION: Dr. Melendez began vancomycin today after his abdominal fluid culture grew Enterococcus faecalis. This was resistant to penicillins. We have continued his meropenem for now. NUTRITIOUS: The patient remained on his TPN and is tolerating this well and we have seen a slight increase in his total protein. PLAN: The patient will be continued on his current medications. He may well be ready to try weaning the ventilator further. As he is now postop day #3 from his second look laparotomy it may be possible to consider extubation if his respiratory status is adequate. His antibiotics and total nutrition will continue. ROMARIO
[2017-08-02] MEDS: ENOXAPARIN 40 MG/0.4 ML SYRINGE (J1650) SC SCH (21:13)
[2017-08-02] MEDS ORDERED: METOPROLOL 5 MG/5 ML VIAL IV STA (21:55)
[2017-08-03] VITALS (16 sets, daily range): BP systolic 128–175; BP diastolic 57–78; O2SAT 95–99
[2017-08-03] MEDS: MEROPENEM INJ 1 GM in D5W MINI-BAG PLUS 100 ML IV SCH ×3 (01:50→17:35)
[2017-08-03] MEDS: MORPHINE 2 MG/ML 1ML SYRINGE IV PRN ×7 (02:37→16:24)
[2017-08-03] MEDS: IPRATROPIUM 0.5MG/ALBUTEROL 2.5MG INH SOL UD 3ML (DUONEB)(J7620) NEB SCH ×6 (03:38→23:40)
[2017-08-03] MEDS: PROPOFOL 1,000 MG in APPROPRIATE DILUENT 1 EA IV SCH (04:13)
[2017-08-03] MEDS: VANCOMYCIN HCL 1,000 MG, VIAL MATE ADAPTER 1 EACH in D5W 250 ML IV SCH ×2 (04:14→16:16)
[2017-08-03 04:39] LABS: BASO % 0.3 % (0.0-1.0); EOS # 1.1 K/mm3 (0.0-0.50); EOS % 7.5 % (0.0-3.0); LARGE UNSTAINED CELL # 0.2 K/mm3 (0.0-0.4); LARGE UNSTAINED CELL % 1.4 % (0.0-4.0); LYMPH # 1.7 K/mm3 (1.5-4.5); MEAN CORPUSCULAR HEMOGLOBIN 30.9 pg (27.0-33.0); MEAN CORPUSCULAR HGB CONC 32.8 g/dl (32.0-36.5); MEAN CORPUSCULAR VOLUME 94.3 fl (80.0-96.0); MONO # 0.7 K/mm3 (0.0-0.8); NEUTROPHILS # 11.1 K/mm3 (1.8-7.7); NEUTROPHILS % 75.8 % (36.0-66.0); PLATELET COUNT, AUTOMATED 386 k/mm3 (150-450); WHITE BLOOD COUNT 14.6 K/mm3 (4.0-10.0)
[2017-08-03 05:13] LABS: ALBUMIN 1.1 GM/DL (3.2-5.2); ALBUMIN/GLOBULIN RATIO 0.32 (1.00-1.93); ALKALINE PHOSPHATASE 138 U/L (45-117); ALT/SGPT 15 U/L (12-78); ANION GAP 9 MEQ/L (8-16); AST/SGOT 19 U/L (15-37); BILIRUBIN,TOTAL 1.1 MG/DL (0.2-1.0); BLOOD UREA NITROGEN 17 MG/DL (7-18); CALCIUM LEVEL 8.1 MG/DL (8.8-10.2); CARBON DIOXIDE LEVEL 27 MEQ/L (21-32); CHLORIDE LEVEL 107 MEQ/L (98-107); CREATININE FOR GFR 0.73 MG/DL (0.70-1.30); GLOMERULAR FILTRATION RATE > 60.0 (>49); GLUCOSE, FASTING 120 MG/DL (80-110); POTASSIUM SERUM 4.5 MEQ/L (3.5-5.1); SODIUM LEVEL 143 MEQ/L (136-145); TOTAL PROTEIN 4.5 GM/DL (6.4-8.2)
[2017-08-03 05:31] LABS: ABG BASE EXCESS 0.8 (-2.0-2.0); ABG HCO3 23.3 MEQ/L (22.0-26.0); ABG PARTIAL PRESSURE CO2 29.9 mmHg (35.0-45.0); ABG PARTIAL PRESSURE O2 100.1 mmHg (75.0-100.0); ABG STANDARD HCO3 25.2 MEQ/L (22.0-26.0); ABG TOTAL CO2 24.2 MEQ/L (23.0-31.0)
[2017-08-03] MEDS: HumaLOG INSULIN (NovoLOG) PER UNIT SC SCH ×3 (05:51→17:32)
[2017-08-03] MEDS: SODIUM CHLORIDE 0.9% INJ 10 ML SYR IV SCH ×2 (05:51→17:38)
--- NOTE | 2017-08-03 07:59 | REP ---
Clinical: Respiratory failure. Comparison: 08/02/2017 at 07:11 a.m. Findings: Endotracheal tube is approximately 2.5 cm above the manjeet. Right PICC line with tip in the SVC remains stable. Cardiomegaly is again appreciated along with mid to lower lobe opacities suggesting infiltrate/atelectasis and pleural effusions. Impression: Lines and tubes in satisfactory position. Stable cardiomegaly and lower lobe opacities. Signed by Omega Contreras MD 08/03/2017 07:50 A
[2017-08-03] MEDS: PANTOPRAZOLE 40MG INJ (PROTONIX) (C9113) IV SCH (08:07)
[2017-08-03] MEDS: CHLORHEXIDINE ORAL RINSE 0.12%/15ML 120ML BOTTLE MT SCH ×2 (08:09→20:55)
--- NOTE | 2017-08-03 09:58 | CCN ---
DATE OF VISIT: 08/03/2017 I again attended Paramjit Dominguez this morning here in the intensive care unit. He remains intubated, requiring only minimal sedation. I have spoken at length with Dr. Stroud regarding his status as well. T-max overnight 98.9, blood pressure 128 to 170s and he has been off of Levophed for greater than 24 hours. Heart 90 to 100. Respiratory rate 15 and at times with agitation or when moved in bed into the low 30s. Intake and output midnight to midnight 2949 mL in with 4055 mL out. Since midnight, 986 mL in with 1750 mL out. Most recent laboratories show a white blood cell count of 14.6, hemoglobin 8.2, platelet count 386,000, 75% segs, no bands. Sodium 143, potassium of 4.5, chloride of 107, CO2 of 27, BUN 17 and creatinine down to 0.73, glucose 120, calcium 8.1, bilirubin mildly elevated today at 1.1, alkaline phosphatase 138, albumin remains depressed at 1.1. Arterial blood gas done on an SMV of 16, tidal volume 500, PEEP of 5, pressure support of 15, FiO2 of 35%, shows pH of 7.51, pCO2 of 29.9, and a pO2 of 100.1. Chest x-ray shows no significant change. Lines and tubes in good position. Bilateral pleural effusions with some increased vasculature. No new cultures. The Enterococcus Faecalis is resistant to all penicillins and therefore vancomycin has been added. On exam, he is ill appearing, but is awake and does follow commands, although weak. Sclera clear. Trachea is in the midline. Chest fairly clear anteriorly. Diminished with some inspiratory crackles dependently. No other focal adventitious breath sounds are identified. Cardiac exam generally regular. Peripheral pulses diminished but palpable. 2+ edema persists. Abdomen shows his dressings intact. His feeding tube site is benign in appearance and there is bilious drainage through the tube. Extremities are without cyanosis or clubbing. Neurologically as outlined above. IMPRESSION: 1. Respiratory alkalosis. 2. Respiratory failure requiring mechanical ventilatory support. 3. Abdominal sepsis with shock, now off of vasopressors. 4. Peritonitis on meropenem and vancomycin. 5. Renal failure, improved. 6. Protein calorie malnutrition. 7. Status post low anterior resection. At this point, we will push his ventilator wean as tolerated. He is still quite weak. He is tolerating TPN and electrolytes are being managed through the primary service. He may start drips of enteral feeds tomorrow and hopefully this will improve his overall protein calorie status. He is on ulcer and deep vein thrombosis (DVT) prophylaxis. Nebulizer treatments are in place. We will push his wean as tolerated, but I do not expect him to be extubated today. We will proceed as outline above. Overall, he remains critically ill. Further recommendations will made in the progress record if new information becomes available.
--- NOTE | 2017-08-03 10:51 | REP ---
Supine abdomen two views: Comparison is 07/29/2017. Midline longitudinal skin jose are again noted. There appears to be a PEG tube in the abdominal left upper quadrant. This is unchanged. There is an ostomy ring superimposed over the right iliac wing, also unchanged. There is mild gaseous distension of the transverse colon. No other bowel distension is identified on plain films although fluid filled bowel distension would be better visualized by CT. There is a calcification in the pelvis inferiorly on the right, likely a phlebolith. Impression: Mild gaseous distension of the transverse colon. No other gaseous bowel distension. Fluid distension is not visible on plain films. PEG tube and right lower quadrant ostomy are again identified. Signed by Adam Britt MD 08/03/2017 10:42 A
--- NOTE | 2017-08-03 11:22 | IPNPDOC ---
Text Note Date of Service The patient was seen on 08/03/17. 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 Was admitted to surgical service (Dr. Stroud) for resection of rectosigmoid colon with primary anastomosis. Following surgery patient developed post-operative ileus and then latera developed abscess collections and possible perforation. Was taken back to the OR for exploratory laparotomy on 07/29 and 07/30, removal of abscess collections and washout of abdominal cavity. Patient was found to be hypotensive post-operatively requiring pressor support and was remained intubated. Patient was seen and examined at the bedside. Patient is currently off sedation , but remains intubate. He is able to follow commands, but is profoundly weak. Objective: Vitals (See below) General: Lying in bed, intubated, off sedation HEENT: NC, AT CVS: RRR, +S1S2 Lungs: Fair air entry b/l, course lung sounds bilaterally Abdomen: Soft, ND, NT, Hypoactive BS, + PEG tube Extremities: - Edema, - Calf tenderness Assessment and plan: Septic shock - likely 2/2 intra-abdominal etiology - likely 2/2 perforation / abscess collection - Leukocytosis improving, no fevers noted - Abdomen culture 07/29: Enterococcus faecalis - Blood Cultures 07/31: Negative - s/p Exploratory laparotomy (07/29 and 07/30) - Off pressor support - c/w Meropenem and Vancomycin (Day #13) Ventilator dependent respiratory failure - likely 2/2 septic shock - c/w weaning trial, possible extubation within 48 hours - Remains too weak for extubation this morning; will check phosphorous level - off sedation - Dr. Melendez managing ventilator Normocytic anemia - s/p 5 units PRBC - will continue to monitor Hg s/p Thrombocytosis - likely 2/2 reactive etiology s/p Acute renal failure - continues to make urine Hypoproteinemia / Nutritional status - c/w TPN as per surgical team HTN - Was hypertensive this morning - s/p Metoprolol IV - BP medications on hold (re: Hypotension) DLP - Statin on hold CAD s/p Stent (2015) - ASA on hold GERD / GI prophylaxis - c/w Protonix 40 IV DVT prophylaxis - c/w SCDs Disposition: - Awaiting extubation - c/w antibiotics - Will work with physical therapy VS,Corrie, I+O VS, Corrie, I+O Laboratory Tests 08/03/17 04:32 Red Blood Count 2.65 L, Mean Corpuscular Volume 94.3, Mean Corpuscular Hemoglobin 30.9, Mean Corpuscular Hemoglobin Concent 32.8, Red Cell Distribution Width 15.0 H, Neutrophils (%) (Auto) 75.8 H, Lymphocytes (%) (Auto ) 10.0 L, Monocytes (%) (Auto) 5.0, Eosinophils (%) (Auto) 7.5 H, Basophils (%) (Auto) 0.3, Neutrophils # (Auto) 11.1 H, Lymphocytes # (Auto) 1.7, Monocytes # ( Auto) 0.7, Eosinophils # (Auto) 1.1 H, Basophils # (Auto) 0.0, Calcium Level 8.1 L, Aspartate Amino Transf (AST/SGOT) 19, Alanine Aminotransferase (ALT/SGPT ) 15, Alkaline Phosphatase 138 H, Total Bilirubin 1.1 #H, Total Protein 4.5 L, Albumin 1.1 L Vital Signs Date Time Temp Pulse Resp B/P (MAP) Pulse Ox O2 Delivery O2 Flow Rate FiO2 08/03/17 10:00 99.1 95 24 154/72 (99) 97 Ventilator 35 141/63 (89) 07/29/17 15:45 3 I&O- Last 24 Hours up to 6 AM 08/03/17 05:59 Intake Total 2546 ml Output Total 3930 ml Balance -1384 ml DIEGO NGUYEN MD Aug 03, 2017 11:22
[2017-08-03 12:18] LABS: PHOSPHORUS LEVEL 4.1 MG/DL (2.5-4.9)
[2017-08-03] MEDS ORDERED: MULTIVITAMIN -ADULT INJECTION 10 ML, CR/CU/SE/MN/ZN INJ 1 ML in AMINO AC/ELECTROLYTE/DE... IV SCH (18:00)
[2017-08-03] MEDS ORDERED: FAT EMULSION IV 20% 500 ML IV SCH (18:00)
[2017-08-03] MEDS: ENOXAPARIN 40 MG/0.4 ML SYRINGE (J1650) SC SCH (20:55)
[2017-08-04] VITALS (11 sets, daily range): BP systolic 141–171; BP diastolic 60–76; O2SAT 98
[2017-08-04] MEDS: HumaLOG INSULIN (NovoLOG) PER UNIT SC SCH ×5 (00:28→23:51)
[2017-08-04] MEDS: MEROPENEM INJ 1 GM in D5W MINI-BAG PLUS 100 ML IV SCH ×2 (02:47→09:40)
[2017-08-04] MEDS: MORPHINE 2 MG/ML 1ML SYRINGE IV PRN ×3 (03:01→14:58)
[2017-08-04] MEDS: IPRATROPIUM 0.5MG/ALBUTEROL 2.5MG INH SOL UD 3ML (DUONEB)(J7620) NEB SCH ×5 (03:13→20:35)
[2017-08-04] MEDS: VANCOMYCIN HCL 1,000 MG, VIAL MATE ADAPTER 1 EACH in D5W 250 ML IV SCH ×2 (04:06→18:11)
[2017-08-04] MEDS: SODIUM CHLORIDE 0.9% INJ 10 ML SYR IV SCH ×2 (05:47→18:32)
[2017-08-04 06:07] LABS: BASO % 0.2 % (0.0-1.0); EOS # 0.6 K/mm3 (0.0-0.50); EOS % 4.6 % (0.0-3.0); LARGE UNSTAINED CELL # 0.2 K/mm3 (0.0-0.4); LARGE UNSTAINED CELL % 1.7 % (0.0-4.0); LYMPH # 1.1 K/mm3 (1.5-4.5); LYMPH % 7.8 % (24.0-44.0); MEAN CORPUSCULAR HEMOGLOBIN 31.7 pg (27.0-33.0); MEAN CORPUSCULAR HGB CONC 33.9 g/dl (32.0-36.5); MEAN CORPUSCULAR VOLUME 93.5 fl (80.0-96.0); MONO # 0.5 K/mm3 (0.0-0.8); MONO % 3.9 % (0.0-5.0); NEUTROPHILS % 81.7 % (36.0-66.0); PLATELET COUNT, AUTOMATED 378 k/mm3 (150-450); RED CELL DISTRIBUTION WIDTH 14.5 % (11.5-14.5); WHITE BLOOD COUNT 13.4 K/mm3 (4.0-10.0)
[2017-08-04 06:21] LABS: ALBUMIN 1.1 GM/DL (3.2-5.2); ALBUMIN/GLOBULIN RATIO 0.32 (1.00-1.93); ALKALINE PHOSPHATASE 162 U/L (45-117); ALT/SGPT 24 U/L (12-78); ANION GAP 9 MEQ/L (8-16); AST/SGOT 33 U/L (15-37); BILIRUBIN,TOTAL 1.8 MG/DL (0.2-1.0); BLOOD UREA NITROGEN 15 MG/DL (7-18); CALCIUM LEVEL 7.2 MG/DL (8.8-10.2); CARBON DIOXIDE LEVEL 25 MEQ/L (21-32); CHLORIDE LEVEL 106 MEQ/L (98-107); CREATININE FOR GFR 0.62 MG/DL (0.70-1.30); GLOMERULAR FILTRATION RATE > 60.0 (>49); GLUCOSE, FASTING 133 MG/DL (80-110); POTASSIUM SERUM 3.9 MEQ/L (3.5-5.1); SODIUM LEVEL 140 MEQ/L (136-145); TOTAL PROTEIN 4.5 GM/DL (6.4-8.2)
--- NOTE | 2017-08-04 09:11 | REP ---
Clinical: Respiratory failure. Comparison: 08/03/2017. Findings: Endotracheal tube approximately 4 cm above the manjeet. Right PICC line with tip in the SVC remains stable. The cardiac silhouette is within normal limits. Bilateral lower lobe opacities are consistent with moderate pleural effusions and basilar atelectasis. Indistinct pulmonary vasculature suggests interstitial edema. Findings are similar to prior examination allowing for subtle differences in technique. No pneumothorax. Skeletal structures stable. Impression: Interstitial edema along with bibasilar opacities suggesting atelectasis and pleural effusions. Findings suggest CHF/pulmonary vascular congestion and are relatively similar to prior examination. Signed by Omega Contreras MD 08/04/2017 09:02 A
--- NOTE | 2017-08-04 09:30 | IPN ---
DATE OF VISIT: 08/04/2017 I again attended Mr. Dominguez here in the intensive care unit. We have been able to hold his sedation. He is awake, alert and appropriate, and following all commands. Respiratory rate approximately 20 with spontaneous tidal volumes in excess of 600. Maximum temperature (Tmax) overnight 98.3, blood pressure 140-160s without the assistance of vasopressors. Heart 90 to low 100s with a sinus mechanism. Respiratory rate generally in the upper teens to low 20. Intake and output midnight to midnight 3116 mL in with 4285 mL out. Chest x-ray done this morning shows lines and tubes in good position. He still has bilateral pleural effusions since, I believe less of a degree of vascular crowding. Most recent available laboratories show a white blood cell count of 13.4, hemoglobin 8.3, platelet count 378,000, 81% segmented neutrophils, no bands. Sodium 140, potassium 3.9, chloride 106, CO2 25, BUN 15, creatinine 0.62, glucose of 133. Bilirubin mildly elevated from yesterday at 1.8. Albumin remains depressed at 1.1. Arterial blood gas done on an SMV of 6, tidal volume 500, PEEP of 5, pressure support of 15 and FiO2 of 35% has a pH of 7.51, pCO2 of 29.9 and a pO2 of 100.1. No other new culture data available. On exam, he is awake, alert and appropriate, and follow all commands. Sclerae are clear. Trachea is in the midline. Chest shows diminished breath sound intensity at the bases with some faint dependent crackles. There is rare rhonchi that clears with cough and suctioning. No rubs or convincing egophony. Cardiac exam is regular with no gallop. Peripheral pulses are diminished and his 2+ edema is unchanged. Abdomen is much less distended. There are active bowel sounds. Feeding tube and dressings are in place. Extremities are without cyanosis or clubbing. Neurologically nonfocal as outlined above. He is globally weak but does move all extremities well. The most pressing problems requiring my presence at the bedside: 1. Respiratory failure requiring mechanical ventilatory support secondary to abdominal sepsis. 2. Sepsis secondary to perforated bowel. 3. Status post low anterior resection. 4. Protein calorie malnutrition. Recommendations: At this point, he is breathing comfortably and is very appropriate for a trial of extubation. He has had no sedation in 24 hours. His pain control has been adequate. We will assist him with physical therapy as well as lung expansion therapy post extubation. My hopes is that we will do well. He is on ulcerative and deep venous thrombosis (DVT) prophylaxis. These will be continued. We will continue his current antimicrobials in view of the sensitivities of his Enterococcus faecalis that was grown from his abdominal culture. Nutrition is being managed by the primary service, and my understanding is that he is to begin enteral feeds through his feeding tube. We will proceed as outlined above. Further recommendations will made in the progress record as new information becomes available.
[2017-08-04] MEDS: PANTOPRAZOLE 40MG INJ (PROTONIX) (C9113) IV SCH (09:40)
--- NOTE | 2017-08-04 11:24 | IPNPDOC ---
Text Note Date of Service The patient was seen on 08/04/17. 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 Was admitted to surgical service (Dr. Stroud) for resection of rectosigmoid colon with primary anastomosis. Following surgery patient developed post-operative ileus and then latera developed abscess collections and possible perforation. Was taken back to the OR for exploratory laparotomy on 07/29 and 07/30, removal of abscess collections and washout of abdominal cavity. Patient was found to be hypotensive post-operatively requiring pressor support and was remained intubated. Patient was seen and examined at the bedside. Patient remains off of sedation, is able to follow commands. Denies any pain. He will be extubated today. Objective: Vitals (See below) General: Lying in bed, intubated, remains off sedation HEENT: NC, AT CVS: RRR, +S1S2 Lungs: Fair air entry b/l, no appreciable wheezing Abdomen: Soft, ND, NT, Hypoactive BS, + PEG tube, + R colostomy Extremities: - Edema, - Calf tenderness Assessment and plan: s/p Septic shock; Sepsis - likely 2/2 intra-abdominal etiology - likely 2/2 perforation / abscess collection - Leukocytosis continues to decline, no fevers noted - Abdomen culture 07/29: Enterococcus faecalis - Blood Cultures 07/31: Negative - s/p Exploratory laparotomy (07/29 and 07/30) - Off pressor support - c/w Meropenem and Vancomycin (Day #14) Ventilator dependent respiratory failure - likely 2/2 septic shock - Plan for extubation today - Remains off sedation - Dr. Melendez managing ventilator Normocytic anemia - s/p 5 units PRBC - Hg remains stable s/p Thrombocytosis - likely 2/2 reactive etiology s/p Acute renal failure - continues to make urine Hypoproteinemia / Nutritional status - c/w TPN as per surgical team - After extubation; will start feeding trial via G tube as per Surgery HTN - s/p Hypertensive episode - s/p Metoprolol IV - BP medications on hold (re: Hypotension) - Will need to restart Ramipril soon DLP - Statin on hold CAD s/p Stent (2015) - ASA and Plavix on hold GERD / GI prophylaxis - c/w Protonix 40 IV DVT prophylaxis - c/w SCDs Disposition: - Extubation likely today - c/w antibiotics - Start feeding after extubation at the direction of Surgery - Restart oral medications once feeding commences - Will work with physical therapy VS,[employer], I+O VS, [employer], I+O Laboratory Tests 08/04/17 05:45 Red Blood Count 2.63 L, Mean Corpuscular Volume 93.5, Mean Corpuscular Hemoglobin 31.7, Mean Corpuscular Hemoglobin Concent 33.9, Red Cell Distribution Width 14.5, Neutrophils (%) (Auto) 81.7 H, Lymphocytes (%) (Auto) 7.8 L, Monocytes (%) (Auto) 3.9, Eosinophils (%) (Auto) 4.6 H, Basophils (%) ( Auto) 0.2, Neutrophils # (Auto) 11.0 H, Lymphocytes # (Auto) 1.1 L, Monocytes # (Auto) 0.5, Eosinophils # (Auto) 0.6 H, Basophils # (Auto) 0.0, Calcium Level 7.2 L, Aspartate Amino Transf (AST/SGOT) 33, Alanine Aminotransferase (ALT/SGPT ) 24, Alkaline Phosphatase 162 H, Total Bilirubin 1.8 #H, Total Protein 4.5 L, Albumin 1.1 L Vital Signs Date Time Temp Pulse Resp B/P (MAP) Pulse Ox O2 Delivery O2 Flow Rate FiO2 08/04/17 08:35 86 16 95 Aerosol Mask 35 08/04/17 08:00 98.5 165/76 (105) 169/66 (100) 07/29/17 15:45 3 I&O- Last 24 Hours up to 6 AM 08/04/17 06:00 Intake Total 3020 ml Output Total 3490 ml Balance -470 ml DIEGO NGUYEN MD Aug 04, 2017 11:24
--- NOTE | 2017-08-04 12:14 | IPN ---
DATE: 08/03/2017 The patient is now day #5 since his exploratory laparotomy with drainage and debridement of multiple abscesses and extensive lysis of adhesions with a cecal resection and ileostomy. He is day #4 since his second look laparotomy. He has been making good progress. His blood pressure has been stable off pressors and he is making good urine output without the need for diuretics. He is tolerating his total parenteral nutrition well and is on a ventilator with acceptable gases on an IMV setting. Vital signs show that he has been afebrile for the last 24 hours. His most recent vital signs on the morning of 08/03/2017 show a temperature of 97.3 with a pulse of 93, respirations of 26 and a blood pressure of 163/77 by cuff. Pulse oximetry is 98% on the ventilator with 35% oxygen. The patient is more alert today as his sedation has been cut back significantly. As noted, he is off his pressors. He remains on his total parenteral nutrition (TPN) only for fluid. He is currently on meropenem and vancomycin. Physical exam: Patient is opening his eyes, though is not completely alert. Skin is warm and dry. Heart exam shows a regular rate and rhythm. The lungs show good bilateral breath sounds. The abdomen shows a few bowel sounds. His midline incision is clean. The ostomy is edematous but viable. The abdomen is generally soft but mildly distended. Extremities are without significant lower extremity edema. His laboratory studies show a white count of 14.6 with a hemoglobin of 88, hematocrit of 25 and a platelet count of 386,000. His differential count shows 76% neutrophils and 10% lymphocytes. His blood gas was 7.51 with a CO2 of 30, oxygen of 100. His chemistry testing showed normal electrolytes, BUN and creatinine with a glucose of 120. Total bilirubin is 1.1 with otherwise normal liver function tests. Total protein is 4.5 with an albumin of 1.1. Chest x-ray shows some mild opacities in the lower lobes bilaterally. His tubes remained in good position. A KUB was done, which shows a paucity of air within the bowel with the exception of some air in the transverse colon. IMPRESSION: 1. Cardiac: The patient is stable with mild tachycardia at times but his blood pressure is good off pressors. 2. Pulmonary: He is on an IMV with pressure support ventilator with 35% oxygen and excellent blood gases. 3. Gastrointestinal: His gastrostomy (G) tube continues to function well draining bile. His KUB today shows no air in the small bowel. The ileostomy is pink and viable but has no output yet. 4. Genitourinary (): His urine output has been excellent and continues without the need for any diuretics. 5. Hematologic: His white count is coming down. Hematocrit is stable at approximately 25. He had been 25 preoperatively and this has remained stable. It will probably take him some time to rebuild his red count. 6. Neurologic: He is clearly more alert today with his sedation turned down. 7. Infectious: He remains on vancomycin and meropenem. His only growth from his intra-abdominal abscesses was Enterococcus sensitive to vancomycin. 8. Nutritious: Patient is tolerating his total parenteral nutrition well and his total protein has been rising slowly. There has been less movement in his albumin. I will continue his TPN and consider starting some tube feedings through his jejunostomy (J) tube portion of his Arthur tube in the next day or two. PLAN: Patient will remain on the ventilator with weaning per pulmonology. My anticipation would be that in the next day or two we would see an attempt to extubate. I will continue his current antibiotics and his TPN. Once he is extubated, we will need to move toward further rehabilitation efforts. Ultimately, we will need to begin instruction in the ileostomy care. ROMARIO
--- NOTE | 2017-08-04 12:54 | IPN ---
DATE: 08/04/2017 The patient was extubated this morning by Dr. Melendez. His pulse and blood pressure are excellent with excellent urine output. Physical exam, he is awake but not 100% alert. I did inform him of what has befallen him in the last week in broad terms. I indicated that he had had two surgeries and that he had an ileostomy but that he was making excellent progress and doing well overall. His is in attendance and I counseled her likewise. Patient has been afebrile for the last 24 hours. His pulse is in the low 90s. His blood pressure is excellent and does appear to be up somewhat since extubation. His pulse oximetry is excellent on nasal cannula oxygen right at this time. His intake and output yesterday he had 3100 in 4300 out with a urine output of 3 liters and 1200 mL of gastric drainage. Physical exam, patient is alert and responsive. Sclerae are anicteric. Heart exam shows a regular rhythm. He has excellent bilateral breath sounds. Abdominal incision is clean. His ileostomy is viable and edematous with no output in the bag. He does have a few bowel sounds and the abdomen is mildly distended but soft. Lower extremities show no peripheral edema. Laboratory studies this morning his white count 13,000 with a hemoglobin of 8, hematocrit of 24.6 and a platelet count of 378,000. His differential count shows 82% neutrophils and 8% lymphocytes. Chemistry profile shows normal electrolytes with a BUN of 15, creatinine 0.6 and a glucose of 133. Protein is 4.5 with an albumin of 1.1. Chest x-ray shows clear upper lung ramirez with probable small effusions bilaterally. IMPRESSION: 1. Cardiac: The patient is stable from a cardiac standpoint. 2. Pulmonary: He is now off the vent, has excellent respiratory effort and excellent oxygen saturations on nasal cannula oxygen. 3. Gastrointestinal: His gastrostomy (G) tube is working well with significant bilious output. He has had no return of bowel function yet. I think it is time to try giving him a little bit of tube feeding through the feeding port of his Arthur tube. 4. Genitourinary: His urine output has been excellent and this continues, and he is mobilizing all of this third space fluid well. 5. Heme: His hematocrit remains low. It may benefit him to receive a transfusion of packed cells here as we try to get him moving to give him a little extra strength. 6. Neuro: He is alert but is still somewhat fuzzy I think from his week of sedation. 7. Infectious: I will stop his meropenem today and continue the vancomycin given the single culture of Enterococcus. 8. Nutritious: He remains on the total parenteral nutrition (TPN). This will continue. I will start him on a little bit of tube feedings to see if I can stimulate his gastrointestinal (GI) function. PLAN: Dr. Melendez has already submitted a consult for physical therapy (PT) to begin strengthening. We will not yet start ostomy training until the patient is a little more alert and a little stronger. I will start him on 25 mL of half strength Osmolite through the jejunostomy (J) tube portion of his Arthur tube to see if we can stimulate a little intestinal function. The meropenem will be stopped. He will remain in the intensive care unit (ICU) at least for another 24 hours until he has been off the vent for a day. MTDD
[2017-08-04] MEDS ORDERED: AMINO AC/ELECTROLYTE/DEX/CALC 2,000 ML IV SCH (18:00)
[2017-08-04] MEDS ORDERED: FAT EMULSION IV 20% 500 ML IV SCH (18:00)
[2017-08-04] MEDS ORDERED: VANCOMYCIN HCL 500 MG in D5W MINI-BAG PLUS 100 ML IV ONE (19:00)
[2017-08-04] MEDS: ENOXAPARIN 40 MG/0.4 ML SYRINGE (J1650) SC SCH (20:53)
[2017-08-05] VITALS: BP 139/74
[2017-08-05] MEDS: VANCOMYCIN HCL 1,000 MG, VIAL MATE ADAPTER 1 EACH in D5W 250 ML IV SCH ×3 (01:17→17:47)
[2017-08-05] MEDS: IPRATROPIUM 0.5MG/ALBUTEROL 2.5MG INH SOL UD 3ML (DUONEB)(J7620) NEB SCH ×6 (03:40→19:37)
[2017-08-05 04:00] VITALS: BP 149/81
[2017-08-05 05:56] LABS: BASO % 0.3 % (0.0-1.0); EOS # 0.7 K/mm3 (0.0-0.50); EOS % 5.5 % (0.0-3.0); LARGE UNSTAINED CELL # 0.3 K/mm3 (0.0-0.4); LARGE UNSTAINED CELL % 2.5 % (0.0-4.0); LYMPH # 1.3 K/mm3 (1.5-4.5); LYMPH % 10.2 % (24.0-44.0); MEAN CORPUSCULAR HEMOGLOBIN 31.3 pg (27.0-33.0); MEAN CORPUSCULAR HGB CONC 33.6 g/dl (32.0-36.5); MEAN CORPUSCULAR VOLUME 93.1 fl (80.0-96.0); MONO # 0.7 K/mm3 (0.0-0.8); MONO % 5.5 % (0.0-5.0); NEUTROPHILS # 9.7 K/mm3 (1.8-7.7); PLATELET COUNT, AUTOMATED 383 k/mm3 (150-450); RED CELL DISTRIBUTION WIDTH 14.7 % (11.5-14.5); WHITE BLOOD COUNT 12.8 K/mm3 (4.0-10.0)
[2017-08-05] MEDS: SODIUM CHLORIDE 0.9% INJ 10 ML SYR IV SCH ×2 (06:00→17:47)
[2017-08-05 06:15] LABS: ALBUMIN 1.3 GM/DL (3.2-5.2); ALBUMIN/GLOBULIN RATIO 0.27 (1.00-1.93); ALKALINE PHOSPHATASE 237 U/L (45-117); ALT/SGPT 48 U/L (12-78); ANION GAP 10 MEQ/L (8-16); AST/SGOT 57 U/L (15-37); BILIRUBIN,TOTAL 1.8 MG/DL (0.2-1.0); BLOOD UREA NITROGEN 18 MG/DL (7-18); CALCIUM LEVEL 8.7 MG/DL (8.8-10.2); CARBON DIOXIDE LEVEL 24 MEQ/L (21-32); CHLORIDE LEVEL 104 MEQ/L (98-107); CREATININE FOR GFR 0.68 MG/DL (0.70-1.30); GLOMERULAR FILTRATION RATE > 60.0 (>49); GLUCOSE, FASTING 127 MG/DL (80-110); POTASSIUM SERUM 4.2 MEQ/L (3.5-5.1); SODIUM LEVEL 138 MEQ/L (136-145); TOTAL PROTEIN 6.1 GM/DL (6.4-8.2)
[2017-08-05] MEDS: HumaLOG INSULIN (NovoLOG) PER UNIT SC SCH ×4 (06:27→23:57)
[2017-08-05 08:00] VITALS: BP 148/73
--- NOTE | 2017-08-05 09:42 | REP ---
Portable chest, 06:46 a.m., single AP view, the patient semi upright: Comparison is 08/04/2017. The interstitial edema has improved. The bilateral lower lobe opacities have improved. The right upper extremity PICC line is unchanged with the tip in the superior vena cava in satisfactory location. Cardiac size is normal. Signed by Adam Britt MD 08/05/2017 08:31 A
--- NOTE | 2017-08-05 09:43 | IPN ---
DATE: 08/05/2017 The patient is now 24 days postop from his initial laparoscopic low anterior resection. He is 1 week postop from his exploratory lap for obstruction with finding of small abscesses and 6 days postop from his second look laparotomy. He was extubated yesterday and is making good progress. He is alert and largely oriented today, though I did not do a formal mental status exam. He has been tolerating his tube feedings. He is interacting with the nurse and denies any pain. VITAL SIGNS: The patient has been afebrile for the last 24 hours. Temperature this morning is 97 degrees with a pulse of 86, respirations of 16 and a blood pressure of 149/81. He has a room air pulse oximetry of 95%. Intake and output yesterday is recorded as 2900 in and 5000 out, though I suspect that there was a duplication in the gastric drainage output last night, which would change that by a liter less output. He has mobilized as fluid well. PHYSICAL EXAMINATION: Today, the patient is awake and alert. He is able to answer questions appropriately. He was out of bed twice yesterday and is preparing to get out of bed today. Heart exam shows a regular rate and rhythm. The lungs show good breath sounds bilaterally. The abdomen is mildly full but not significantly distended. He has some bowel sounds present. Today there is some light turbid yellow-green fluid from his ileostomy. The ileostomy appears still somewhat edematous. His scrotal edema and lower extremity edema has completely resolved. The Vargas is in place and he is draining light orange urine. Labs today show normal electrolytes with BUN of 18, creatinine 0.68 and glucose of 127. Total bilirubin is 1.8, the same as yesterday. His protein level is up to 6.1 with an albumin of 1.3. CBC shows a white count of 12.8 with a differential showing 76% neutrophils and 10% lymphocytes. Hemoglobin is 9 with a hematocrit of 27 and his platelet count is 383,000. Vancomycin trough level yesterday evening was 10.3, which is appropriate. Fingerstick blood sugars are varying between 130 and 140 over the last 24 hours. There are no new culture results. Chest x-ray shows good clear upper lung field but he still appears to have small effusions bilaterally suggested. IMPRESSION: 1. Cardiac status is stable with no evidence of problem. 2. Respiratory. The patient is doing very well off the ventilator for 24 hours and is on room air with excellent saturations. His lung ramirez are clear though he may have small effusions. 3. Gastrointestinal. He has tolerated low-dose, low concentration tube feedings with half strength Osmolite and is now having a small amount of fluid from his ileostomy, which is very encouraging. 4. Genitourinary. His urine output remains good though has diminished and he seems to have cleared most, if not all of his excess fluid. I am not prepared at this point to remove his Vargas catheter as I think he will be too weak to manage his voiding habits. 5. Hematologic. His blood count has come up about two points as he has diuresed further. I have avoided transfusing him to avoid the potential risks of transfer transfusion and will continue to hold off on any further transfusion. 6. Neurologic. The patient was reportedly little confused last night, which is not surprising and as he gets back to a more normal sleep-wake cycle and has more interaction I anticipate this will clear. 7. Infectious. He remains on vancomycin. His white count has been falling wonderfully with his differential count approaching normalcy. His vancomycin level last evening was good. 8. Nutrition. He remains on TPN and his protein and albumin are slowly rising. He did tolerate a small amount of tube feeding. I will continue this tube feeding today. I am not yet convinced that his bowel is prepared for me to clamped his G tube yet. PLAN: The patient will be continued with beginnings of physical therapy. We will continue his PICC line and his TPN and gradually increase his tube feedings. We can begin to teach ostomy care. He will remain on his Lovenox for deep vein thrombosis (DVT) prophylaxis. The vancomycin will be continued for now. MTDD
[2017-08-05] MEDS: PANTOPRAZOLE 40MG INJ (PROTONIX) (C9113) IV SCH (09:55)
[2017-08-05 12:00] VITALS: BP 136/68
--- NOTE | 2017-08-05 12:35 | IPNPDOC ---
Text Note Date of Service The patient was seen on 08/05/17. 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 Was admitted to surgical service (Dr. Stroud) for resection of rectosigmoid colon with primary anastomosis. Following surgery patient developed post-operative ileus and then latera developed abscess collections and possible perforation. Was taken back to the OR for exploratory laparotomy on 07/29 and 07/30, removal of abscess collections and washout of abdominal cavity. Patient was found to be hypotensive post-operatively requiring pressor support and was remained intubated. Patient was seen and examined at the bedside. He was extubated yesterday afternoon (08/04) and has been doing well since that point. He denies any difficulty with breathing or any abdominal pain. Objective: Vitals (See below) General: Lying in bed, comfortable, awake, alert and oriented x3 HEENT: NC, AT CVS: RRR, +S1S2 Lungs: Fair air entry b/l, no appreciable wheezing / rhonchi Abdomen: Soft, ND, NT, Hypoactive BS, + PEG tube, + R colostomy (output noted) Extremities: - Edema, - Calf tenderness Assessment and plan: s/p Septic shock; Sepsis - likely 2/2 intra-abdominal etiology - likely 2/2 perforation / abscess collection - Leukocytosis continues to decline, no fevers noted - Abdomen culture 07/29: Enterococcus faecalis - Blood Cultures 07/31: Negative - s/p Exploratory laparotomy (07/29 and 07/30) - Off pressor support - c/w Vancomycin (Day #15); s/p Meropenem (14 days) s/p Ventilator dependent respiratory failure - likely 2/2 septic shock - Extubated on 08/04 - Pulmonary signed off Normocytic anemia - s/p 5 units PRBC - Hg remains stable s/p Thrombocytosis - likely 2/2 reactive etiology s/p Acute renal failure - continues to make urine Hypoproteinemia / Nutritional status - c/w TPN as per surgical team - Tube feedings started 08/04 via J tube - Colostomy has appropriate output - Diet as per surgery HTN - BP remains moderately controlled - Will need to restart Ramipril 10 if BP becomes uncontrolled DLP - Atorvastatin 80 on hold CAD s/p Stent (2016) - ASA 81 and Plavix 75 on hold GERD / GI prophylaxis - c/w Protonix 40 IV DVT prophylaxis - c/w SCDs Disposition: - s/p Extubation - Feeding advanced as per Surgery - Will need to restart oral medications once possible - Physical therapy started VS,Fishbone, I+O VS, Fishbone, I+O Laboratory Tests 08/05/17 05:42 Red Blood Count 2.93 L, Mean Corpuscular Volume 93.1, Mean Corpuscular Hemoglobin 31.3, Mean Corpuscular Hemoglobin Concent 33.6, Red Cell Distribution Width 14.7 H, Neutrophils (%) (Auto) 76.0 H, Lymphocytes (%) (Auto ) 10.2 L, Monocytes (%) (Auto) 5.5 H, Eosinophils (%) (Auto) 5.5 H, Basophils (% ) (Auto) 0.3, Neutrophils # (Auto) 9.7 H, Lymphocytes # (Auto) 1.3 L, Monocytes # (Auto) 0.7, Eosinophils # (Auto) 0.7 H, Basophils # (Auto) 0.0, Calcium Level 8.7 #L, Aspartate Amino Transf (AST/SGOT) 57 H, Alanine Aminotransferase (ALT/ SGPT) 48, Alkaline Phosphatase 237 H, Total Bilirubin 1.8 H, Total Protein 6.1 # L, Albumin 1.3 L Vital Signs Date Time Temp Pulse Resp B/P (MAP) Pulse Ox O2 Delivery O2 Flow Rate FiO2 08/05/17 08:00 97.8 95 18 148/73 (98) 95 Room Air 08/04/17 16:00 2.0 08/04/17 08:35 35 I&O- Last 24 Hours up to 6 AM 08/05/17 05:59 Intake Total 2745 ml Output Total 5220 ml Balance -2475 ml DIEGO NGUYEN MD Aug 05, 2017 12:35
[2017-08-05 16:00] VITALS: BP 129/63
[2017-08-05] MEDS: MORPHINE 2 MG/ML 1ML SYRINGE IV PRN ×3 (17:24→23:00)
[2017-08-05] MEDS ORDERED: MULTIVITAMIN -ADULT INJECTION 10 ML, CR/CU/SE/MN/ZN INJ 1 ML in AMINO AC/ELECTROLYTE/DE... IV SCH (18:00)
[2017-08-05] MEDS ORDERED: HumaLOG INSULIN (NovoLOG) PER UNIT SC SCH (18:00)
[2017-08-05] MEDS ORDERED: FAT EMULSION IV 20% 500 ML IV SCH (18:00)
[2017-08-05 20:00] VITALS: BP 129/63
[2017-08-05] MEDS: ENOXAPARIN 40 MG/0.4 ML SYRINGE (J1650) SC SCH (21:25)
[2017-08-06] VITALS: BP 131/64
[2017-08-06] MEDS: VANCOMYCIN HCL 1,000 MG, VIAL MATE ADAPTER 1 EACH in D5W 250 ML IV SCH ×2 (02:02→14:38)
[2017-08-06 04:00] VITALS: BP 137/66
[2017-08-06] MEDS: IPRATROPIUM 0.5MG/ALBUTEROL 2.5MG INH SOL UD 3ML (DUONEB)(J7620) NEB SCH ×6 (04:00→21:05)
[2017-08-06 04:46] LABS: BASO % 0.3 % (0.0-1.0); EOS # 0.8 K/mm3 (0.0-0.50); LARGE UNSTAINED CELL # 0.3 K/mm3 (0.0-0.4); LARGE UNSTAINED CELL % 2.4 % (0.0-4.0); LYMPH # 1.9 K/mm3 (1.5-4.5); LYMPH % 14.2 % (24.0-44.0); MEAN CORPUSCULAR HEMOGLOBIN 30.5 pg (27.0-33.0); MEAN CORPUSCULAR HGB CONC 32.5 g/dl (32.0-36.5); MEAN CORPUSCULAR VOLUME 93.9 fl (80.0-96.0); MONO # 0.8 K/mm3 (0.0-0.8); MONO % 6.7 % (0.0-5.0); NEUTROPHILS % 69.3 % (36.0-66.0); PLATELET COUNT, AUTOMATED 400 k/mm3 (150-450); RED CELL DISTRIBUTION WIDTH 15.1 % (11.5-14.5); WHITE BLOOD COUNT 11.5 K/mm3 (4.0-10.0)
[2017-08-06 05:23] LABS: ALBUMIN 1.5 GM/DL (3.2-5.2); ALBUMIN/GLOBULIN RATIO 0.33 (1.00-1.93); ALKALINE PHOSPHATASE 262 U/L (45-117); ALT/SGPT 79 U/L (12-78); ANION GAP 9 MEQ/L (8-16); AST/SGOT 70 U/L (15-37); BILIRUBIN,TOTAL 1.3 MG/DL (0.2-1.0); BLOOD UREA NITROGEN 21 MG/DL (7-18); CALCIUM LEVEL 8.7 MG/DL (8.8-10.2); CARBON DIOXIDE LEVEL 25 MEQ/L (21-32); CHLORIDE LEVEL 103 MEQ/L (98-107); CREATININE FOR GFR 0.68 MG/DL (0.70-1.30); GLOMERULAR FILTRATION RATE > 60.0 (>49); GLUCOSE, FASTING 122 MG/DL (80-110); POTASSIUM SERUM 3.9 MEQ/L (3.5-5.1); SODIUM LEVEL 137 MEQ/L (136-145); TOTAL PROTEIN 6.1 GM/DL (6.4-8.2)
[2017-08-06] MEDS: HumaLOG INSULIN (NovoLOG) PER UNIT SC SCH ×4 (06:10→23:33)
[2017-08-06] MEDS: SODIUM CHLORIDE 0.9% INJ 10 ML SYR IV SCH ×2 (06:11→18:01)
[2017-08-06 07:58] VITALS: BP 133/68
[2017-08-06] MEDS: PANTOPRAZOLE 40MG INJ (PROTONIX) (C9113) IV SCH (09:48)
--- NOTE | 2017-08-06 11:21 | IPNPDOC ---
Subjective General Date/Time Seen The patient was seen on 08/06/17 at 11:12. Subject Chief Complaint/History Patient seen sitting up on bed, slightly labored breaths when conversing, otherwise appears comfortable. D/W nurse Current Medications Current Medications Current Medications Acetaminophen (Tylenol Suspension) 650 mg Q4HP PRN GT TEMP => 100.5 Last administered on 08/02/17 09:37; Start 07/29/17 at 23:30; Stop 08/28/17 at 23:29 Acetaminophen (Tylenol Tab) 650 mg Q4HP PRN PO MILD PAIN or TEMP > 100.4 Last administered on 07/27/17 01:32; Start 07/26/17 at 10:15; Stop 07/29/17 at 23:50; Status DC Acetaminophen (Tylenol Tab) 650 mg Q6H PO Last administered on 07/20/17 03:36 ; Start 07/12/17 at 22:00; Stop 07/20/17 at 06:47; Status DC Acetaminophen/ Hydrocodone Bitart ([place], [place] 5/325) 1 tab Q4HP PRN PO MODERATE PAIN (PS 5-7) Last administered on 07/25/17 01:15; Start 07/12/17 at 22 :00; Stop 07/26/17 at 10:15; Status DC Albuterol/ Ipratropium (Duoneb (Ipr 0.5mg/Alb 2.5mg)) 3 ml RQ4H NEB Last administered on 08/06/17 07:28; Start 07/30/17 at 08:00; Stop 08/29/17 at 07:59 Alvimopan (Entereg) 12 mg BID PO Last administered on 07/19/17 20:59; Start at 09:00; Stop 07/20/17 at 06:47; Status DC Amino Ac/Electrol/ Dextrose/Calcium 2,000 ml @ 50 mls/hr ONCE@1800 IV Last administered on 07/26/17 18:34; Start 07/26/17 at 18:00; Stop 07/27/17 at 17:59; Status DC Amino Ac/Electrol/ Dextrose/Calcium 2,000 ml @ 60 mls/hr ONCE@1800 IV Last administered on 07/30/17 17:35; Start 07/30/17 at 18:00; Stop 07/31/17 at 17:59; Status DC Amino Ac/Electrol/ Dextrose/Calcium 2,000 ml @ 70 mls/hr ONCE@1800 IV Last administered on 07/31/17 17:51; Start 07/31/17 at 18:00; Stop 08/01/17 at 17:59 ; Status DC Amino Ac/Electrol/ Dextrose/Calcium 2,000 ml @ 70 mls/hr ONCE@1800 IV Last administered on 08/02/17 18:25; Start 08/02/17 at 18:00; Stop 08/03/17 at 17:59 ; Status DC Amino Ac/Electrol/ Dextrose/Calcium 2,000 ml @ 70 mls/hr ONCE@1800 IV Last administered on 08/04/17 18:34; Start 08/04/17 at 18:00; Stop 08/05/17 at 17:59 ; Status DC Amino Ac/Electrol/ Dextrose/Calcium 2,000 ml @ 70 mls/hr ONCE@1800 IV Last administered on 07/24/17 18:25; Start 07/24/17 at 18:00; Stop 07/25/17 at 17:59; Status DC Amino Ac/Electrol/ Dextrose/Calcium 2,000 ml @ 70 mls/hr ONCE@1800 IV Last administered on 07/25/17 17:33; Start 07/25/17 at 18:00; Stop 07/26/17 at 17:59; Status DC Amino Ac/Electrol/ Dextrose/Calcium 2,000 ml @ 70 mls/hr ONCE@1800 IV Last administered on 07/28/17 17:58; Start 07/28/17 at 18:00; Stop 07/29/17 at 17:59; Status DC Amino Ac/Electrol/ Dextrose/Calcium 2,000 ml @ 70 mls/hr ONCE@1800 IV ; Start 07/29/17 at 18:00; Stop 07/30/17 at 17:59; Status DC Aspirin (Ecotrin) 81 mg DAILY PO Last administered on 07/27/17 09:39; Start at 09:00; Stop 07/27/17 at 15:43; Status DC Atorvastatin Calcium (Lipitor) 80 mg DAILY PO Last administered on 07/29/17 10: 04; Start 07/25/17 at 09:00; Stop 07/29/17 at 23:50; Status DC Chlorhexidine Gluconate (Chlorhexidine Gluconate) 15 ml BID MT Last administered on 07/31/17 21:30; Start 07/31/17 at 09:00; Stop 08/01/17 at 08:04 ; Status DC Chlorhexidine Gluconate (Chlorhexidine Gluconate) 15 ml BID MT ; Start 08/01/17 at 08:04; Stop 08/01/17 at 08:04; Status DC Chlorhexidine Gluconate (Chlorhexidine Gluconate) 15 ml BID MT Last administered on 08/03/17 20:55; Start 08/01/17 at 09:00; Stop 08/04/17 at 09:32 ; Status DC Dextrose (Dextrose 50%) 25 ml ASDIRECTED PRN IV SEE LABEL COMMENTS; Start at 13:00; Stop 07/25/17 at 13:03; Status DC Dextrose (Dextrose 50%) 25 ml ASDIRECTED PRN IV SEE LABEL COMMENTS; Start at 13:15; Stop 08/04/17 at 11:54; Status DC Diphenhydramine HCl (Benadryl) 12.5 mg Q4HP PRN IV ITCHING; Start 07/30/17 at 00 :18; Stop 08/01/17 at 00:19; Status DC Enoxaparin Sodium (Lovenox) 30 mg DAILY@2100 SC Last administered on 07/30/17 20:30; Start 07/30/17 at 21:00; Stop 08/01/17 at 00:19; Status DC Enoxaparin Sodium (Lovenox) 40 mg DAILY SC ; Start 07/13/17 at 09:00; Stop 07/13 at 09:00; Status DC Enoxaparin Sodium (Lovenox) 40 mg DAILY@1300 SC Last administered on 07/27/17 12:24; Start 07/18/17 at 13:00; Stop 07/28/17 at 07:53; Status DC Enoxaparin Sodium (Lovenox) 40 mg DAILY@2100 SC Last administered on 08/05/17 21:25; Start 08/01/17 at 21:00; Stop 08/10/17 at 20:59 Ertapenem 1 gm/ Sodium Chloride 50 ml @ 100 mls/hr Q24H IV ; Start 07/22/17 at 17:00; Stop 07/22/17 at 17:00; Status DC Fat Emulsion Intravenous 500 ml @ 20 mls/hr ONCE@1800 IV Last administered on 07/18/17 20:22; Start 07/18/17 at 18:00; Stop 07/19/17 at 17:59; Status DC Fat Emulsion Intravenous 500 ml @ 20 mls/hr ONCE@1800 IV Last administered on 07/19/17 18:54; Start 07/19/17 at 18:00; Stop 07/20/17 at 17:59; Status DC Fat Emulsion Intravenous 500 ml @ 20 mls/hr ONCE@1800 IV Last administered on 07/20/17 18:17; Start 07/20/17 at 18:00; Stop 07/21/17 at 19:03; Status DC Fat Emulsion Intravenous 500 ml @ 20 mls/hr ONCE@1800 IV ; Start 07/21/17 at 18 :00; Stop 07/22/17 at 17:59; Status DC Fat Emulsion Intravenous 500 ml @ 20 mls/hr ONCE@1800 IV Last administered on 07/22/17 18:00; Start 07/22/17 at 18:00; Stop 07/23/17 at 17:59; Status DC Fat Emulsion Intravenous 500 ml @ 20 mls/hr ONCE@1800 IV Last administered on 07/31/17 17:51; Start 07/31/17 at 18:00; Stop 08/01/17 at 17:59; Status DC Fat Emulsion Intravenous 500 ml @ 20 mls/hr ONCE@1800 IV Last administered on 08/01/17 18:02; Start 08/01/17 at 18:00; Stop 08/02/17 at 17:59; Status DC Fat Emulsion Intravenous 500 ml @ 20 mls/hr ONCE@1800 IV Last administered on 08/02/17 18:25; Start 08/02/17 at 18:00; Stop 08/03/17 at 17:59; Status DC Fat Emulsion Intravenous 500 ml @ 20 mls/hr ONCE@1800 IV Last administered on 08/03/17 17:50; Start 08/03/17 at 18:00; Stop 08/04/17 at 17:59; Status DC Fat Emulsion Intravenous 500 ml @ 20 mls/hr ONCE@1800 IV Last administered on 08/04/17 18:34; Start 08/04/17 at 18:00; Stop 08/05/17 at 17:59; Status DC Fat Emulsion Intravenous 500 ml @ 20 mls/hr ONCE@1800 IV Last administered on 08/05/17 17:48; Start 08/05/17 at 18:00; Stop 08/06/17 at 17:59 Fat Emulsion Intravenous 500 ml @ 20 mls/hr ONCE@1800 IV Last administered on 07/24/17 18:26; Start 07/24/17 at 18:00; Stop 07/25/17 at 17:59; Status DC Fat Emulsion Intravenous 500 ml @ 20 mls/hr ONCE@1800 IV Last administered on 07/25/17 17:34; Start 07/25/17 at 18:00; Stop 07/26/17 at 17:59; Status DC Fat Emulsion Intravenous 500 ml @ 20 mls/hr ONCE@1800 IV Last administered on 07/26/17 18:34; Start 07/26/17 at 18:00; Stop 07/27/17 at 17:59; Status DC Fat Emulsion Intravenous 500 ml @ 20 mls/hr ONCE@1800 IV Last administered on 07/27/17 18:35; Start 07/27/17 at 18:00; Stop 07/28/17 at 17:59; Status DC Fat Emulsion Intravenous 500 ml @ 20 mls/hr ONCE@1800 IV Last administered on 07/28/17 17:58; Start 07/28/17 at 18:00; Stop 07/29/17 at 17:59; Status DC Fat Emulsion Intravenous 500 ml @ 20 mls/hr ONCE@1800 IV Last administered on 07/29/17 18:30; Start 07/29/17 at 18:00; Stop 07/30/17 at 17:59; Status DC Fat Emulsion Intravenous 500 ml @ 20 mls/hr ONCE@1800 IV Last administered on 07/30/17 17:35; Start 07/30/17 at 18:00; Stop 07/31/17 at 17:59; Status DC Fentanyl Citrate (Sublimaze) 25 mcg Q5MP PRN IV MODERATE PAIN (PS 4-7); Start 07/12/17 at 22:15; Stop 07/12/17 at 23:20; Status DC Fentanyl Citrate (Sublimaze) 25 mcg Q5MP PRN IV MODERATE PAIN (PS 4-7); Start 07/29/17 at 23:00; Stop 07/29/17 at 23:59; Status DC Fentanyl/ Bupivacaine HCl 250 ml @ 8 mls/hr Q24H EPIDURAL Last administered on 07/31/17 03:02; Start 07/30/17 at 00:18; Stop 08/01/17 at 00:19; Status DC Furosemide (Lasix) 40 mg DAILY PO Last administered on 07/29/17 10:04; Start at 09:00; Stop 07/29/17 at 23:50; Status DC Glucagon (Glucagon) 1 mg ASDIRECTED PRN SC SEE LABEL COMMENTS; Start 07/25/17 at 13:00; Stop 07/25/17 at 13:03; Status DC Glucagon (Glucagon) 1 mg ASDIRECTED PRN SC SEE LABEL COMMENTS; Start 07/30/17 at 13:15; Stop 07/31/17 at 08:44; Status DC Glucose (Glucose) 16 GM ASDIRECTED PRN PO SEE LABEL COMMENTS; Start 07/25/17 at 13:00; Stop 07/25/17 at 13:03; Status DC Glucose (Glucose) 16 GM ASDIRECTED PRN PO SEE LABEL COMMENTS; Start 07/30/17 at 13:15; Stop 07/31/17 at 08:44; Status DC Heparin Sodium (Heparin (Flush)) 200 units ASDIRECTED PRN IV SEE LABEL COMMENTS Last administered on 07/28/17 09:49; Start 07/18/17 at 16:45; Stop at 16:44 Heparin Sodium (Heparin (Flush)) 200 units PICC IV Last administered on 06:11; Start 07/18/17 at 18:00; Stop 08/17/17 at 17:59 Hydromorphone HCl (Dilaudid) 0.4 mg Q5MP PRN IV MODERATE/SEVERE PAIN (PS 7-10) ; Start 07/12/17 at 22:15; Stop 07/12/17 at 23:20; Status DC Insulin Human Lispro (HumaLOG INSULIN) SEE PROTOCOL TABLE AC SC ; Start 07/25/17 at 12:00; Stop 07/25/17 at 13:03; Status DC Insulin Human Lispro (HumaLOG INSULIN) SEE PROTOCOL TABLE Q6H SC Last administered on 08/06/17 06:10; Start 07/30/17 at 12:00; Stop 08/29/17 at 11:59 Insulin Human Lispro (HumaLOG INSULIN) SEE PROTOCOL TABLE QHS SC ; Start at 21:00; Stop 07/25/17 at 21:00; Status DC Insulin Human Lispro (HumaLOG INSULIN) See Protocol Table Q6H SC Last administered on 07/19/17 12:06; Start 07/18/17 at 18:00; Stop 07/19/17 at 12:01 ; Status DC Insulin Human Lispro (HumaLOG INSULIN) See Protocol Table Q6H SC Last administered on 07/20/17 12:30; Start 07/19/17 at 18:00; Stop 07/20/17 at 12:01 ; Status DC Insulin Human Lispro (HumaLOG INSULIN) See Protocol Table Q6H SC Last administered on 07/21/17 11:35; Start 07/20/17 at 18:00; Stop 07/21/17 at 15:00 ; Status DC Insulin Human Lispro (HumaLOG INSULIN) See Protocol Table Q6H SC Last administered on 07/22/17 12:43; Start 07/21/17 at 18:00; Stop 07/22/17 at 15:00; Status DC Insulin Human Lispro (HumaLOG INSULIN) See Protocol Table Q6H SC Last administered on 07/23/17 12:26; Start 07/22/17 at 18:00; Stop 07/23/17 at 12:01; Status DC Insulin Human Lispro (HumaLOG INSULIN) See Protocol Table Q6H SC ; Start at 18:00; Stop 08/06/17 at 15:00; Status Cancel Insulin Human Lispro (HumaLOG INSULIN) See Protocol Table Q6H SC Last administered on 07/24/17 18:23; Start 07/24/17 at 00:00; Stop 07/24/17 at 18:01; Status DC Insulin Human Lispro (HumaLOG INSULIN) See Protocol Table Q6H SC Last administered on 07/25/17 12:08; Start 07/24/17 at 18:00; Stop 07/25/17 at 12:01; Status DC Insulin Human Lispro (HumaLOG INSULIN) See Protocol Table Q6H SC Last administered on 07/26/17 12:15; Start 07/25/17 at 18:00; Stop 07/26/17 at 15:00; Status DC Insulin Human Lispro (HumaLOG INSULIN) See Protocol Table Q6H SC Last administered on 07/27/17 12:24; Start 07/26/17 at 18:00; Stop 07/27/17 at 15:00; Status DC Insulin Human Lispro (HumaLOG INSULIN) See Protocol Table Q6H SC Last administered on 07/28/17 06:06; Start 07/27/17 at 18:00; Stop 07/28/17 at 07:53; Status DC Insulin Human Lispro (HumaLOG INSULIN) See Protocol Table Q6H SC Last administered on 07/30/17 06:08; Start 07/29/17 at 18:00; Stop 07/30/17 at 12:01; Status DC Insulin Human Lispro (HumaLOG INSULIN) See Protocol Table Q6H SC ; Start at 18:00; Stop 07/31/17 at 02:40; Status DC Insulin Human Lispro (HumaLOG INSULIN) see protocol table AC SC ; Start 07/24/17 at 07:30; Stop 07/24/17 at 07:30; Status DC Ketorolac Tromethamine (ToRADol) 15 mg Q6H PRN IV PAIN; Start 07/18/17 at 13:00 ; Stop 07/23/17 at 12:59; Status DC Ketorolac Tromethamine (ToRADol) 30 mg Q6H IV Last administered on 07/14/17 04 :05; Start 07/13/17 at 04:00; Stop 07/14/17 at 07:31; Status DC Lactated Ringer's 1,000 ml @ 25 mls/hr Q24H IV Last administered on 07/19/17 01:15; Start 07/12/17 at 21:53; Stop 07/19/17 at 15:48; Status DC Lactated Ringer's 1,000 ml @ 100 mls/hr Q10H IV ; Start 07/12/17 at 22:15; Stop 07/12/17 at 23:20; Status DC Lactated Ringer's 1,000 ml @ 100 mls/hr Q10H IV ; Start 07/29/17 at 23:00; Stop 07/29/17 at 23:59; Status DC Lactated Ringer's 1,000 ml @ 100 mls/hr Q10H IV Last administered on 06:12; Start 07/30/17 at 08:00; Stop 07/31/17 at 08:44; Status DC Lactated Ringer's 1,000 ml @ 200 mls/hr Q5H IV ; Start 07/12/17 at 12:00; Stop 07/12/17 at 22:14; Status DC Lactated Ringer's 1,000 ml @ 500 mls/hr Q2H IV Last administered on 07/14/17 08:00; Start 07/14/17 at 07:45; Stop 07/14/17 at 10:44; Status DC Lorazepam (Ativan) 1 mg Q6HP PRN IV ANXIETY/AGITATION; Start 08/01/17 at 22:45 ; Stop 08/01/17 at 22:51; Status DC Meropenem 1 gm/ Dextrose 100 ml @ 200 mls/hr Q8H IV Last administered on 09:40; Start 07/22/17 at 18:00; Stop 08/04/17 at 11:42; Status DC Metoclopramide HCl (REGLAN INJection) 10 mg Q6H IV Last administered on 04:54; Start 07/18/17 at 16:00; Stop 07/28/17 at 07:53; Status DC Metoclopramide HCl (REGLAN INJection) 10 mg Q6HP PRN IV NAUSEA OR VOMITING Last administered on 07/16/17 01:59; Start 07/12/17 at 22:00; Stop 07/18/17 at 16:00; Status DC Metoclopramide HCl (REGLAN INJection) 10 mg Q6HP PRN IV NAUSEA; Start 07/30/17 at 00:18; Stop 08/01/17 at 00:19; Status DC Metoprolol Tartrate (Lopressor) 5 mg STAT STAT IV ; Start 08/02/17 at 21:55; Stop 08/02/17 at 21:56; Status Cancel Midazolam HCl (Versed) 1 mg Q5MP PRN IV AGITATION Last administered on 00:08; Start 07/30/17 at 01:30; Stop 07/30/17 at 02:25; Status DC Midazolam HCl (Versed) 2 mg Q30MP PRN IV AGITATION Last administered on 22:45; Start 07/30/17 at 02:30; Stop 08/04/17 at 09:32; Status DC Morphine Sulfate (Morphine Sulfate Inj) 2 mg Q1HP PRN IV SEVERE PAIN (PS 8-10) Last administered on 07/17/17 12:57; Start 07/12/17 at 22:00; Stop 07/19/17 at 15:48; Status DC Morphine Sulfate (Morphine Sulfate Inj) 2 mg Q30MP PRN IV SEVERE PAIN (PS 8-10 ) Last administered on 08/05/17 23:00; Start 07/31/17 at 09:00; Stop 08/07/17 at 08:59 Morphine Sulfate (Morphine Sulfate Inj) 2 mg Q5MP PRN IV MODERATE/SEVERE PAIN ( PS 7-10); Start 07/29/17 at 23:00; Stop 07/29/17 at 23:59; Status DC Multivitamins 10 ml/Chromium/ Copper/Manganese/ Seleni/Zn 1 ml/ Amino Ac/ Electrol/ Dextrose/Calcium 2,011 ml @ 65 mls/hr ONCE@1800 IV Last administered on 07/18/17 20:22; Start 07/18/17 at 18:00; Stop 07/19/17 at 17:59 ; Status DC Multivitamins 10 ml/Chromium/ Copper/Manganese/ Seleni/Zn 1 ml/ Amino Ac/ Electrol/ Dextrose/Calcium 2,011 ml @ 70 mls/hr ONCE@1800 IV Last administered on 08/01/17 18:02; Start 08/01/17 at 18:00; Stop 08/02/17 at 17:59 ; Status DC Multivitamins 10 ml/Chromium/ Copper/Manganese/ Seleni/Zn 1 ml/ Amino Ac/ Electrol/ Dextrose/Calcium 2,011 ml @ 70 mls/hr ONCE@1800 IV Last administered on 08/03/17 17:50; Start 08/03/17 at 18:00; Stop 08/04/17 at 17:59 ; Status DC Multivitamins 10 ml/Chromium/ Copper/Manganese/ Seleni/Zn 1 ml/ Amino Ac/ Electrol/ Dextrose/Calcium 2,011 ml @ 70 mls/hr ONCE@1800 IV Last administered on 08/05/17 17:49; Start 08/05/17 at 18:00; Stop 08/06/17 at 17:59 Multivitamins 10 ml/Chromium/ Copper/Manganese/ Seleni/Zn 1 ml/ Amino Ac/ Electrol/ Dextrose/Calcium 2,011 ml @ 70 mls/hr ONCE@1800 IV Last administered on 07/27/17 18:35; Start 07/27/17 at 18:00; Stop 07/28/17 at 17:59; Status DC Multivitamins 10 ml/Chromium/ Copper/Manganese/ Seleni/Zn 1 ml/ Potassium Chloride 48 meq/ Amino Ac/Electrol/ Dextrose/Calcium 2,035 ml @ 70 mls/hr ONCE@ 1800 IV Last administered on 07/22/17 18:43; Start 07/22/17 at 18:00; Stop at 17:59; Status DC Multivitamins 10 ml/Chromium/ Copper/Manganese/ Seleni/Zn 1 ml/ Potassium Chloride 71.4 meq/ Amino Ac/Electrol/ Dextrose/Calcium 2,046.7 ml @ 70 mls/hr ONCE@1800 IV Last administered on 07/20/17 18:18; Start 07/20/17 at 18:00; Stop 07/21/17 at 19:03; Status DC Naloxone HCl (Narcan) 0.1 mg Q5MP PRN IV SEE LABEL COMMENTS; Start 07/30/17 at 00:18; Stop 08/01/17 at 00:19; Status DC Non-Formulary Medication (Epidural/MIX MAKER Radar Base) 1 each ASDIRECTED PRN XX SEE LABEL COMMENTS; Start 07/30/17 at 00:18; Stop 08/01/17 at 00:19; Status DC Non-Formulary Medication (Radar Base) ASDIRECTED PRN XX SEE LABEL COMMENTS; Start at 00:18; Stop 08/01/17 at 00:19; Status DC Norepinephrine Bitartrate 8 mg/ Dextrose 508 ml @ 7.5 mls/hr Q24H IV Last administered on 08/01/17 14:41; Start 07/30/17 at 05:00; Stop 08/02/17 at 07:50 ; Status DC Ondansetron HCl (ZOFRAN INJection) 4 mg Q4HP PRN IV NAUSEA OR VOMITING; Start 07/12/17 at 22:15; Stop 07/12/17 at 23:20; Status DC Ondansetron HCl (ZOFRAN INJection) 4 mg Q4HP PRN IV NAUSEA OR VOMITING; Start 07/29/17 at 23:00; Stop 07/29/17 at 23:59; Status DC Ondansetron HCl (ZOFRAN INJection) 4 mg Q6HP PRN IV NAUSEA OR VOMITING Last administered on 07/16/17 01:59; Start 07/12/17 at 22:00; Stop 07/19/17 at 15:48 ; Status DC Ondansetron HCl (ZOFRAN INJection) 4 mg Q6HP PRN IV REFRACTORY NAUSEA; Start at 00:18; Stop 08/01/17 at 00:19; Status DC Oxycodone/ Acetaminophen (Percocet 5mg/ 325mg Tablet) 1 tab ASDIRECTED PRN PO MILD/MODERATE PAIN (PS 1-7); Start 07/12/17 at 22:15; Stop 07/12/17 at 23:20; Status DC Pantoprazole Sodium (Protonix) 40 mg DAILY IV Last administered on 07/13/17 08 :27; Start 07/13/17 at 09:00; Stop 07/13/17 at 15:08; Status DC Pantoprazole Sodium (Protonix) 40 mg DAILY IV Last administered on 08/06/17 09 :48; Start 07/19/17 at 09:00; Stop 08/18/17 at 08:59 Pantoprazole Sodium (Protonix) 40 mg DAILY PO Last administered on 07/18/17 09 :25; Start 07/14/17 at 09:00; Stop 07/18/17 at 13:10; Status DC Piperacillin Sod/ Tazobactam Sod 3.375 gm/Dextrose 50 ml @ 50 mls/hr Q6H IV Last administered on 07/15/17 10:09; Start 07/15/17 at 10:00; Stop 07/15/17 at 13:15; Status DC Piperacillin Sod/ Tazobactam Sod 3.375 gm/Dextrose 50 ml @ 50 mls/hr Q6H IV Last administered on 07/22/17 11:26; Start 07/16/17 at 23:00; Stop 07/22/17 at 13 :30; Status DC Potassium Chloride 10 meq/ IV Miscellaneous Supplies 100 ml @ 100 mls/hr Q2H IV Last administered on 07/19/17 23:08; Start 07/19/17 at 16:00; Stop at 22:59; Status DC Potassium Chloride 10 meq/ IV Miscellaneous Supplies 100 ml @ 100 mls/hr Q2H IV Last administered on 07/20/17 14:49; Start 07/20/17 at 07:00; Stop at 14:59; Status DC Potassium Chloride 51 meq/ Amino Ac/Electrol/ Dextrose/Calcium 2,025.5 ml @ 65 mls/hr ONCE@1800 IV Last administered on 07/19/17 18:54; Start 07/19/17 at 18: 00; Stop 07/20/17 at 17:59; Status DC Potassium Chloride 71.4 meq/ Amino Ac/Electrol/ Dextrose/Calcium 2,035.7 ml @ 70 mls/hr ONCE@1800 IV ; Start 07/21/17 at 18:00; Stop 07/22/17 at 17:59; Status DC Propofol 1000 mg/ IV Miscellaneous Supplies 100 ml @ 6.06 mls/hr [id number] IV ; Start 07/29/17 at 23:30; Stop 07/30/17 at 02:34; Status DC Propofol 1000 mg/ IV Miscellaneous Supplies 100 ml @ 6.06 mls/hr [id number] IV Last administered on 08/03/17 04:13; Start 07/30/17 at 06:30; Stop 08/04/17 at 09:32; Status DC Ramipril (Altace) 5 mg QHS PO Last administered on 07/28/17 20:27; Start at 21:00; Stop 07/29/17 at 23:50; Status DC Sodium Chloride 1,000 ml @ 500 mls/hr Q2H IV Last administered on 07/30/17 06: 56; Start 07/30/17 at 02:45; Stop 07/30/17 at 07:59; Status DC Sodium Chloride (Saline Lock Flush) 10 ML PICC IV Last administered on 06:11; Start 07/18/17 at 18:00; Stop 08/17/17 at 17:59 Sodium Chloride (Saline Lock Flush) 10ML ASDIRECTED PRN IV SEE LABEL COMMENTS Last administered on 07/28/17 03:19; Start 07/18/17 at 16:45; Stop 08/17/17 at 16:44 Vancomycin HCl 1000 mg/Dextrose 20 ml @ 20 mls/hr Q12H IV ; Start 08/02/17 at 14 :30; Stop 08/02/17 at 15:05; Status DC Vancomycin HCl 1000 mg/IV Miscellaneous Supplies 1 each/ Dextrose 270 ml @ 270 mls/hr Q12H IV Last administered on 08/04/17 04:06; Start 08/02/17 at 16:00; Stop 08/04/17 at 18:03; Status DC Vancomycin HCl 1000 mg/IV Miscellaneous Supplies 1 each/ Dextrose 270 ml @ 270 mls/hr Q12H IV ; Start 08/06/17 at 14:00; Stop 08/13/17 at 13:59 Vancomycin HCl 1000 mg/IV Miscellaneous Supplies 1 each/ Dextrose 270 ml @ 270 mls/hr Q8H IV Last administered on 08/06/17 02:02; Start 08/04/17 at 18:00; Stop 08/06/17 at 09:43; Status DC Allergies Coded Allergies: No Known Drug Allergy (Unverified Allergy, Unknown, NONE, 07/12/17) Objective Physical Examination Examination GENERAL APPEARANCE:comfortable. SKIN: warm and dry. HEENT: mild pale palpebral conjunctivae. NECK: no JVD. LUNGS: clear, bilaterally, no wheezing. HEART: No chest wall abnormalities. Regular rate and rhythm with no murmurs appreciated. ABDOMEN: Abdomen is slight round, soft, still appears moderately distended, skin and subQ edema on lower pannus. active bowel sounds. Arthur tube with gastric port to suction (still copious drainage) feeding port being used. midline incision clean, dry, intact. EXTREMITIES: no edema. Vital Signs Vital Signs Date Time Temp Pulse Resp B/P (MAP) Pulse Ox O2 Delivery O2 Flow Rate FiO2 08/06/17 08:04 Room Air 08/06/17 07:58 98.1 89 18 133/68 (89) 97 08/05/17 23:10 2.0 08/04/17 08:35 35 I&Os I&O- Last 24 Hours up to 6 AM 08/06/17 06:00 Intake Total 3530 ml Output Total 4625 ml Balance -1095 ml Laboratory Data Labs 24H CBC/BMP Laboratory Tests 08/06/17 04:27 Red Blood Count 2.74 L, Mean Corpuscular Volume 93.9, Mean Corpuscular Hemoglobin 30.5, Mean Corpuscular Hemoglobin Concent 32.5, Red Cell Distribution Width 15.1 H, Neutrophils (%) (Auto) 69.3 H, Lymphocytes (%) (Auto ) 14.2 L, Monocytes (%) (Auto) 6.7 H, Eosinophils (%) (Auto) 7.0 H, Basophils (% ) (Auto) 0.3, Neutrophils # (Auto) 8.0 H, Lymphocytes # (Auto) 1.9, Monocytes # (Auto) 0.8, Eosinophils # (Auto) 0.8 H, Basophils # (Auto) 0.0, Calcium Level 8.7 L, Aspartate Amino Transf (AST/SGOT) 70 H, Alanine Aminotransferase (ALT/ SGPT) 79 H, Alkaline Phosphatase 262 H, Total Bilirubin 1.3 H, Total Protein 6.1 L, Albumin 1.5 L Microbiology Microbiology 07/31/17 Blood Culture - Final, Complete NO GROWTH AFTER 5 DAYS 07/29/17 Gram Stain - Final, Complete 07/29/17 Wound Culture - Final, Complete Enterococcus Faecalis 07/29/17 Anaerobic Culture - Final, Complete Impression POD 7/8 redo exlap with small bowel obstruction, ileostomy, lysis of adhesion, arthur tube d/c yusuf ok to transfer out of ICU to floor will need PT increase tube feeds to 40 /hr. will keep tpn prob until we get to goal of 60-65/ hr. I will hold off on clamping the gastric port for now. Mild cholestasis on lfts from TPN. Plan / VTE VTE Prophylaxis Ordered?: Yes Plan / Urinary Catheter Urinary Catheter: D/C Yusuf Reason for insertion/continuin: Perioperative JENNIFER FERREIRA MD Aug 06, 2017 11:18
--- NOTE | 2017-08-06 13:31 | IPNPDOC ---
Text Note Date of Service The patient was seen on 08/06/17. 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 Was admitted to surgical service (Dr. Stroud) for resection of rectosigmoid colon with primary anastomosis. Following surgery patient developed post-operative ileus and then latera developed abscess collections and possible perforation. Was taken back to the OR for exploratory laparotomy on 07/29 and 07/30, removal of abscess collections and washout of abdominal cavity. Patient was found to be hypotensive post-operatively requiring pressor support and was remained intubated. Patient was extubated 08/04. Patient was seen and examined at the bedside. Denies any difficulty breathing, notes some pain on the right side of his abdomen, more lower than upper. Denies any other complaints. Objective: Vitals (See below) General: Lying in bed, comfortable, awake, alert and oriented x3 HEENT: NC, AT CVS: RRR, +S1S2 Lungs: Fair air entry b/l, no appreciable wheezing / rhonchi Abdomen: Soft, ND, mild tenderness at RLQ, Hypoactive BS, + PEG tube, + R colostomy (output noted) Extremities: - Edema, - Calf tenderness Assessment and plan: s/p Septic shock; Sepsis - likely 2/2 intra-abdominal etiology - likely 2/2 perforation / abscess collection - Leukocytosis continues to decline, no fevers noted - Abdomen culture 07/29: Enterococcus faecalis - Blood Cultures 07/31: Negative - s/p Exploratory laparotomy (07/29 and 07/30) - Off pressor support - c/w Vancomycin (Day #16); s/p Meropenem (14 days) Elevated Liver function test - possibly 2/2 cholestasis, possibly acute cholecystitis - Noted some abdominal discomfort - Tenderness at RLQ / RUQ - Labs with slowly trending AST/ALT increase, possibly 2/2 cholestasis pattern - will get US abdomen to evaluate s/p Ventilator dependent respiratory failure - likely 2/2 septic shock - Extubated on 08/04 - Pulmonary signed off Normocytic anemia - s/p 5 units PRBC - Hg remains stable s/p Thrombocytosis - likely 2/2 reactive etiology s/p Acute renal failure - continues to make urine Hypoproteinemia / Nutritional status - c/w TPN as per surgical team - Tube feedings started 08/04 via J tube - Colostomy has appropriate output - Diet as per surgery HTN - BP remains moderately controlled - Will need to restart Ramipril 10 if BP becomes uncontrolled DLP - Atorvastatin 80 on hold CAD s/p Stent (2016) - ASA 81 and Plavix 75 on hold GERD / GI prophylaxis - c/w Protonix 40 IV DVT prophylaxis - c/w SCDs Disposition: - s/p Extubation - Feeding advanced as per Surgery - Will need to restart oral medications once possible - f/u US abdomen - c/w Physical therapy VS,Fishbone, I+O VS, Fishbone, I+O Laboratory Tests 08/06/17 04:27 Red Blood Count 2.74 L, Mean Corpuscular Volume 93.9, Mean Corpuscular Hemoglobin 30.5, Mean Corpuscular Hemoglobin Concent 32.5, Red Cell Distribution Width 15.1 H, Neutrophils (%) (Auto) 69.3 H, Lymphocytes (%) (Auto ) 14.2 L, Monocytes (%) (Auto) 6.7 H, Eosinophils (%) (Auto) 7.0 H, Basophils (% ) (Auto) 0.3, Neutrophils # (Auto) 8.0 H, Lymphocytes # (Auto) 1.9, Monocytes # (Auto) 0.8, Eosinophils # (Auto) 0.8 H, Basophils # (Auto) 0.0, Calcium Level 8.7 L, Aspartate Amino Transf (AST/SGOT) 70 H, Alanine Aminotransferase (ALT/ SGPT) 79 H, Alkaline Phosphatase 262 H, Total Bilirubin 1.3 H, Total Protein 6.1 L, Albumin 1.5 L Vital Signs Date Time Temp Pulse Resp B/P (MAP) Pulse Ox O2 Delivery O2 Flow Rate FiO2 08/06/17 12:28 Room Air 08/06/17 07:58 98.1 89 18 133/68 (89) 97 08/05/17 23:10 2.0 08/04/17 08:35 35 I&O- Last 24 Hours up to 6 AM 08/06/17 06:00 Intake Total 3530 ml Output Total 4625 ml Balance -1095 ml DIEGO NGUYEN MD Aug 06, 2017 13:31
[2017-08-06 15:05] VITALS: BP 134/73
[2017-08-06 18:00] VITALS: BP 131/74
[2017-08-06] MEDS ORDERED: AMINO AC/ELECTROLYTE/DEX/CALC 2,000 ML IV SCH (18:00)
[2017-08-06] MEDS ORDERED: FAT EMULSION IV 20% 500 ML IV SCH (18:00)
[2017-08-06] MEDS: MORPHINE 2 MG/ML 1ML SYRINGE IV PRN (21:41)
[2017-08-06] MEDS: SODIUM CHLORIDE 0.9% INJ 10 ML SYR IV PRN (21:42)
[2017-08-06] MEDS: ENOXAPARIN 40 MG/0.4 ML SYRINGE (J1650) SC SCH (21:42)
[2017-08-06 22:00] VITALS: BP 129/73
[2017-08-07] VITALS (7 sets, daily range): BP systolic 101–136; BP diastolic 59–76
[2017-08-07] MEDS: VANCOMYCIN HCL 1,000 MG, VIAL MATE ADAPTER 1 EACH in D5W 250 ML IV SCH ×2 (01:58→14:52)
[2017-08-07] MEDS: IPRATROPIUM 0.5MG/ALBUTEROL 2.5MG INH SOL UD 3ML (DUONEB)(J7620) NEB SCH ×5 (04:00→15:03)
[2017-08-07] MEDS: SODIUM CHLORIDE 0.9% INJ 10 ML SYR IV SCH ×2 (05:57→18:23)
[2017-08-07] MEDS: HumaLOG INSULIN (NovoLOG) PER UNIT SC SCH ×4 (05:58→23:50)
[2017-08-07 07:23] LABS: BASO # 0.1 K/mm3 (0.0-0.2); BASO % 0.7 % (0.0-1.0); EOS # 0.8 K/mm3 (0.0-0.50); EOS % 5.4 % (0.0-3.0); LARGE UNSTAINED CELL # 0.3 K/mm3 (0.0-0.4); LARGE UNSTAINED CELL % 2.1 % (0.0-4.0); LYMPH # 2.2 K/mm3 (1.5-4.5); LYMPH % 13.3 % (24.0-44.0); MEAN CORPUSCULAR HEMOGLOBIN 30.8 pg (27.0-33.0); MEAN CORPUSCULAR HGB CONC 32.6 g/dl (32.0-36.5); MEAN CORPUSCULAR VOLUME 94.2 fl (80.0-96.0); MONO # 0.8 K/mm3 (0.0-0.8); MONO % 5.9 % (0.0-5.0); NEUTROPHILS # 10.1 K/mm3 (1.8-7.7); NEUTROPHILS % 72.6 % (36.0-66.0); PLATELET COUNT, AUTOMATED 389 k/mm3 (150-450); RED CELL DISTRIBUTION WIDTH 15.1 % (11.5-14.5); WHITE BLOOD COUNT 13.9 K/mm3 (4.0-10.0)
[2017-08-07 07:47] LABS: ALBUMIN 1.7 GM/DL (3.2-5.2); ALKALINE PHOSPHATASE 274 U/L (45-117); ALT/SGPT 75 U/L (12-78); ANION GAP 12 MEQ/L (8-16); AST/SGOT 52 U/L (15-37); BILIRUBIN,TOTAL 1.2 MG/DL (0.2-1.0); BLOOD UREA NITROGEN 24 MG/DL (7-18); CALCIUM LEVEL 8.4 MG/DL (8.8-10.2); CARBON DIOXIDE LEVEL 22 MEQ/L (21-32); CHLORIDE LEVEL 104 MEQ/L (98-107); CREATININE FOR GFR 0.67 MG/DL (0.70-1.30); GLOMERULAR FILTRATION RATE > 60.0 (>49); GLUCOSE, FASTING 111 MG/DL (80-110); POTASSIUM SERUM 4.2 MEQ/L (3.5-5.1); SODIUM LEVEL 138 MEQ/L (136-145)
--- NOTE | 2017-08-07 09:59 | REP ---
Clinical: Right upper quadrant pain. Technique: Real time gore scale ultrasound examination using curved array transducer. Findings: Evaluation is severely limited due to overlying bandage material. The gallbladder is incompletely evaluated, but demonstrates mild wall thickening without visualization of the suspected gallstones by prior CT. No biliary ductal dilatation is appreciated and the common bile duct measures 6.1 mm diameter. Visualized portions of the liver are relatively normal. A 14 x 8 x 10 mm homogeneously echogenic lesion in the right lobe is compatible with hemangioma by ultrasound characteristics. The right kidney is normal in reniform shape without hydronephrosis and measures 11.8 x 5.5 x 5.0 cm. Small amount of free fluid and small right pleural effusion identified. Impression: 1. Severely limited right upper quadrant abdominal ultrasound due to overlying bandage material. 2. Presumed 14 mm hepatic hemangioma in the right lobe. 3. Gallbladder is incompletely evaluated demonstrating mild wall thickening without evidence for the noted gallstones by CT. No biliary ductal dilatation. 4. Minimal free fluid and small right pleural effusion. Signed by Omega Contreras MD 08/07/2017 09:52 A
[2017-08-07] MEDS: PANTOPRAZOLE 40MG INJ (PROTONIX) (C9113) IV SCH (10:18)
--- NOTE | 2017-08-07 14:04 | PHACANCOPD ---
PHARMACY VANCOMYCIN DOSING Pt Demographics Demographics Patient Age:66 , Weight:110.200 , Gender: male Adjusted Body Weight Date: 08/02/17, Adjusted Body Weight: [90] Kg Events Past 24 Hours Events Past 24 Hours: NO: Dialysis, Diuretic Therapy, Change in CrCl, Fever, Elevation in WBC, Pending Diagnostics, Pending Procedures, Other Vancomycin Vancomycin indication: E.Faecalis in abdomen Vancomycin Target Ranges: 15-20 mcg/ml Vancomycin Load Y/N: Yes Load Dose Date Time Vancomycin Load Dose: 2000mg Date: 08/02 Time: 1600 Vancomycin Dose Date: 08/07/17. Current Vancomycin Dose: [1g IV q12h @14] Date: 08/04/17. Current Vancomycin Dose: [1g IV q8h @02] Date: 08/02/17. Current Vancomycin Dose: [1gm IV q12h@16] Intermittent Dosing?: No Labs Labs Item Value Date Time White Blood Count 12.8 K/mm3 H 08/05/17 0542 White Blood Count 11.5 K/mm3 H 08/06/17 0427 White Blood Count 13.9 K/mm3 H 08/07/17 0700 Creatinine 0.68 MG/DL L 08/05/17 0542 Creatinine 0.68 MG/DL L 08/06/17 0427 Creatinine 0.67 MG/DL L 08/07/17 0700 Vancomycin Level Trough 23.2 UG/ML H 08/06/17 0906 Vancomycin Level Trough 17.8 UG/ML 08/07/17 1307 Vancomycin Level Trough 10.3 UG/ML 08/04/17 1700 Micro Microbiology 07/31/17 Blood Culture - Final, Complete NO GROWTH AFTER 5 DAYS 07/29/17 Gram Stain - Final, Complete 07/29/17 Wound Culture - Final, Complete Enterococcus Faecalis 07/29/17 Anaerobic Culture - Final, Complete Creatinine Clearance Date:08/02/17. Creatinine Clearance: [>100ml/min]. Assessment and Plan Maintaining Current Dose?: Yes Reason for dose change: No Dose Change Pharmacist Note Pharmacist Note Date: 08/07/17. Pharmacist note: pt was re-loaded and changed to 1g IV q8h dosing on 08/04 after a trough of 10.3 mcg/ml. Repeat trough on 08/06 came back high at 23.2 mcg/ml. I reduced his dosing yesterday to 1g IV q12h after holding his dose for 4 hours post trough. Vanco trough this afternoon was 17.8. We will repeat a trough in a couple days to ensure effectiveness. Output has been stable. Today is day #6 of vancomycin therapy, he was previously treated with meropenem x14 days. We will continue to monitor. Date: 08/02/17. Pharmacist note: Patient was started on Vancomycin for E.faecalis for a wound in his abdomen. He was loaded on Vancomycin 2 grams then continued on 1gm q12h. He has no history of MRSA at our facility. The patient is currently intubated and sedated but they are trying to wean him slowly. We will continue to monitor and make adjustments as necessary Lobo Lay Pharm.D. Aug 07, 2017 14:04
--- NOTE | 2017-08-07 14:08 | IPNPDOC ---
Text Note Date of Service The patient was seen on 08/07/17. 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 Was admitted to surgical service (Dr. Stroud) for resection of rectosigmoid colon with primary anastomosis. Following surgery patient developed post-operative ileus and then latera developed abscess collections and possible perforation. Was taken back to the OR for exploratory laparotomy on 07/29 and 07/30, removal of abscess collections and washout of abdominal cavity. Patient was found to be hypotensive post-operatively requiring pressor support and was remained intubated. Patient was extubated 08/04. Patient was seen and examined at the bedside. Denies any abdominal pain this morning. Is outside the ICU today, no new complaints. Objective: Vitals (See below) General: Lying in bed, comfortable, awake, alert and oriented x3 HEENT: NC, AT CVS: RRR, +S1S2 Lungs: Fair air entry b/l, no appreciable wheezing / rhonchi Abdomen: Soft, ND, NT, Hypoactive BS, + PEG tube, + R colostomy (output noted) Extremities: - Edema, - Calf tenderness Assessment and plan: s/p Septic shock; Sepsis - likely 2/2 intra-abdominal etiology - likely 2/2 perforation / abscess collection - Leukocytosis appears to have stabilized, mild spike, no fevers noted - Abdomen culture 07/29: Enterococcus faecalis - Blood Cultures 07/31: Negative - s/p Exploratory laparotomy (07/29 and 07/30) - Off pressor support - c/w Vancomycin (Day #17); s/p Meropenem (14 days) Elevated Liver function test - possibly 2/2 cholestasis, possibly 2/2 passed stone - Noted some abdominal discomfort - Tenderness at RLQ / RUQ - Labs with slowly trending AST/ALT increase, possibly 2/2 cholestasis pattern - US abdomen 08/07: presumed 14mm hepatic hemangioma in R lobe, no gallstones noted (compared to CT which revealed stones), no biliary dilation s/p Ventilator dependent respiratory failure - likely 2/2 septic shock - Extubated on 08/04 - Pulmonary signed off Normocytic anemia - s/p 5 units PRBC - Hg remains stable s/p Thrombocytosis - likely 2/2 reactive etiology s/p Acute renal failure Hypoproteinemia / Nutritional status - s/p TPN as per surgical team - Currently on Tube feedings (Started 08/04) via J tube - Colostomy has appropriate output - Diet advanced as per surgery HTN - BP remains moderately controlled - Will need to restart Ramipril 10 if BP becomes uncontrolled DLP - Atorvastatin 80 on hold CAD s/p Stent (2015) - ASA 81 and Plavix 75 on hold GERD / GI prophylaxis - c/w Protonix 40 IV DVT prophylaxis - c/w SCDs Disposition: - Feeding advanced as per Surgery - Restart oral medications once possible - c/w Physical therapy VS,Fishbone, I+O VS, Fishbone, I+O Laboratory Tests 08/07/17 07:00 Red Blood Count 2.80 L, Mean Corpuscular Volume 94.2, Mean Corpuscular Hemoglobin 30.8, Mean Corpuscular Hemoglobin Concent 32.6, Red Cell Distribution Width 15.1 H, Neutrophils (%) (Auto) 72.6 H, Lymphocytes (%) (Auto ) 13.3 L, Monocytes (%) (Auto) 5.9 H, Eosinophils (%) (Auto) 5.4 H, Basophils (% ) (Auto) 0.7, Neutrophils # (Auto) 10.1 H, Lymphocytes # (Auto) 2.2, Monocytes # (Auto) 0.8, Eosinophils # (Auto) 0.8 H, Basophils # (Auto) 0.1, Calcium Level 8.4 L, Aspartate Amino Transf (AST/SGOT) 52 H, Alanine Aminotransferase (ALT/ SGPT) 75, Alkaline Phosphatase 274 H, Total Bilirubin 1.2 H, Total Protein 6.0 L , Albumin 1.7 L Vital Signs Date Time Temp Pulse Resp B/P (MAP) Pulse Ox O2 Delivery O2 Flow Rate FiO2 08/07/17 10:00 97.1 90 18 129/72 (91) 97 Room Air 08/05/17 23:10 2.0 08/04/17 08:35 35 I&O- Last 24 Hours up to 6 AM 08/07/17 05:59 Intake Total 2765 ml Output Total 3975 ml Balance -1210 ml DIEGO NGUYEN MD Aug 07, 2017 14:08
[2017-08-07] MEDS ORDERED: IPRATROPIUM 0.5MG/ALBUTEROL 2.5MG INH SOL UD 3ML (DUONEB)(J7620) NEB PRN (15:15)
[2017-08-07] MEDS: ENOXAPARIN 40 MG/0.4 ML SYRINGE (J1650) SC SCH (20:37)
[2017-08-08] MEDS: VANCOMYCIN HCL 1,000 MG, VIAL MATE ADAPTER 1 EACH in D5W 250 ML IV SCH ×2 (01:17→14:19)
[2017-08-08 02:00] VITALS: BP 121/61
[2017-08-08] MEDS: SODIUM CHLORIDE 0.9% INJ 10 ML SYR IV SCH (05:37)
[2017-08-08] MEDS: HumaLOG INSULIN (NovoLOG) PER UNIT SC SCH ×3 (05:37→18:00)
[2017-08-08 06:00] VITALS: BP 123/58
[2017-08-08 06:10] LABS: BASO # 0.1 K/mm3 (0.0-0.2); BASO % 0.4 % (0.0-1.0); EOS # 0.6 K/mm3 (0.0-0.50); EOS % 4.4 % (0.0-3.0); LARGE UNSTAINED CELL # 0.5 K/mm3 (0.0-0.4); LARGE UNSTAINED CELL % 3.4 % (0.0-4.0); LYMPH # 2.3 K/mm3 (1.5-4.5); LYMPH % 15.8 % (24.0-44.0); MEAN CORPUSCULAR HGB CONC 33.6 g/dl (32.0-36.5); MEAN CORPUSCULAR VOLUME 92.3 fl (80.0-96.0); MONO # 0.7 K/mm3 (0.0-0.8); MONO % 4.8 % (0.0-5.0); NEUTROPHILS # 10.4 K/mm3 (1.8-7.7); NEUTROPHILS % 71.2 % (36.0-66.0); PLATELET COUNT, AUTOMATED 470 k/mm3 (150-450); RED CELL DISTRIBUTION WIDTH 15.2 % (11.5-14.5); WHITE BLOOD COUNT 14.5 K/mm3 (4.0-10.0)
[2017-08-08 06:21] LABS: ALBUMIN 1.8 GM/DL (3.2-5.2); ALBUMIN/GLOBULIN RATIO 0.33 (1.00-1.93); ALKALINE PHOSPHATASE 294 U/L (45-117); ALT/SGPT 80 U/L (12-78); ANION GAP 11 MEQ/L (8-16); AST/SGOT 53 U/L (15-37); BILIRUBIN,TOTAL 1.1 MG/DL (0.2-1.0); BLOOD UREA NITROGEN 25 MG/DL (7-18); CALCIUM LEVEL 8.9 MG/DL (8.8-10.2); CARBON DIOXIDE LEVEL 21 MEQ/L (21-32); CHLORIDE LEVEL 105 MEQ/L (98-107); CREATININE FOR GFR 0.73 MG/DL (0.70-1.30); GLOMERULAR FILTRATION RATE > 60.0 (>49); GLUCOSE, FASTING 91 MG/DL (80-110); MAGNESIUM LEVEL 2.2 MG/DL (1.8-2.4); POTASSIUM SERUM 4.1 MEQ/L (3.5-5.1); SODIUM LEVEL 137 MEQ/L (136-145); TOTAL PROTEIN 7.2 GM/DL (6.4-8.2)
[2017-08-08] MEDS: PANTOPRAZOLE 40MG INJ (PROTONIX) (C9113) IV SCH (09:50)
[2017-08-08] MEDS: SODIUM CHLORIDE 0.9% INJ 10 ML SYR IV PRN ×3 (09:50→15:38)
[2017-08-08 10:00] VITALS: BP 127/64
--- NOTE | 2017-08-08 11:10 | IPNPDOC ---
Text Note Date of Service The patient was seen on 08/08/17. 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 Was admitted to surgical service (Dr. Stroud) for resection of rectosigmoid colon with primary anastomosis. Following surgery patient developed post-operative ileus and then latera developed abscess collections and possible perforation. Was taken back to the OR for exploratory laparotomy on 07/29 and 07/30, removal of abscess collections and washout of abdominal cavity. Patient was found to be hypotensive post-operatively requiring pressor support and was remained intubated. Patient was extubated 08/04. Patient was seen and examined at the bedside. Patient notes that he has been working with physical therapy. He denies abdominal pain, nausea or vomiting, denies any dysuria. Has good output from his colostomy. He is currently off of TPN Objective: Vitals (See below) General: Lying in bed, comfortable, awake, alert and oriented x3 HEENT: NC, AT CVS: RRR, +S1S2 Lungs: Fair air entry b/l, no appreciable wheezing / rhonchi Abdomen: Soft, ND, NT, + BS, + PEG tube, + R colostomy Extremities: - Edema, - Calf tenderness Assessment and plan: s/p Septic shock; s/p Sepsis - likely 2/2 intra-abdominal etiology - likely 2/2 perforation / abscess collection - Leukocytosis has improved, mild spike, no fevers noted - Abdomen culture 07/29: Enterococcus faecalis - sensitive to Vancomycin - Blood Cultures 07/31: Negative - s/p Exploratory laparotomy (07/29 and 07/30) - Off pressor support - c/w Vancomycin (Day #18); s/p Meropenem (14 days) - consider switching to Levofloxacin Elevation of WBC - Possibly 2/2 UTI - ROS negative; denies any complaints at this time - Will check UA - Currently only on Vancomycin for E. Faecalis in abdomen Elevated Liver function test - possibly 2/2 cholestasis, possibly 2/2 passed stone - Noted some abdominal discomfort initially - Abdominal pain has resolved - no tenderness noted, +BS - Elevated AST/ALT, Bilirubin and Alkaline phosphatase - US abdomen 08/07: presumed 14mm hepatic hemangioma in R lobe, no gallstones noted (compared to CT which revealed stones), no biliary dilation - Will continue to follow liver function s/p Ventilator dependent respiratory failure - likely 2/2 septic shock - Extubated on 08/04 - Pulmonary signed off Normocytic anemia - s/p 5 units PRBC - Hg remains stable Thrombocytosis - likely 2/2 reactive etiology - Will evaluate for new signs of infection / inflammation s/p Acute renal failure Hypoproteinemia / Nutritional status - s/p TPN - c/w J tube feedings (Started 08/04); output from colostomy has improved - Diet advanced as per surgery HTN - BP remains moderately controlled while off medications - Ramipril can be restarted BP becomes uncontrolled DLP - Atorvastatin 80 on hold CAD s/p Stent (2015) - ASA 81 and Plavix 75 on hold GERD / GI prophylaxis - c/w Protonix 40 IV DVT prophylaxis - c/w SCDs Disposition: - Feeding advanced as per Surgery - Restart oral medications once possible - Evaluate for recurrence of infection; f/u UA - c/w Physical therapy VS,Fishbone, I+O VS, Fishbone, I+O Laboratory Tests 08/08/17 05:44 Red Blood Count 2.85 L, Mean Corpuscular Volume 92.3, Mean Corpuscular Hemoglobin 31.0, Mean Corpuscular Hemoglobin Concent 33.6, Red Cell Distribution Width 15.2 H, Neutrophils (%) (Auto) 71.2 H, Lymphocytes (%) (Auto ) 15.8 L, Monocytes (%) (Auto) 4.8, Eosinophils (%) (Auto) 4.4 H, Basophils (%) (Auto) 0.4, Neutrophils # (Auto) 10.4 H, Lymphocytes # (Auto) 2.3, Monocytes # ( Auto) 0.7, Eosinophils # (Auto) 0.6 H, Basophils # (Auto) 0.1, Calcium Level 8.9 , Aspartate Amino Transf (AST/SGOT) 53 H, Alanine Aminotransferase (ALT/SGPT) 80 H, Alkaline Phosphatase 294 H, Total Bilirubin 1.1 H, Total Protein 7.2, Albumin 1.8 L Vital Signs Date Time Temp Pulse Resp B/P (MAP) Pulse Ox O2 Delivery O2 Flow Rate FiO2 08/08/17 06:00 97.8 91 18 123/58 (79) 94 Room Air 08/05/17 23:10 2.0 08/04/17 08:35 35 I&O- Last 24 Hours up to 6 AM 08/08/17 06:00 Intake Total 4100 ml Output Total 5245 ml Balance -1145 ml DIEGO NGUYEN MD Aug 08, 2017 11:10
[2017-08-08] MEDS ORDERED: ACETAMINOPHEN TAB 650MG DOSE (2X325MG) PO PRN (11:15)
[2017-08-08 14:00] VITALS: BP 132/66
[2017-08-08 18:00] VITALS: BP 135/62
[2017-08-08] MEDS: ENOXAPARIN 40 MG/0.4 ML SYRINGE (J1650) SC SCH (20:19)
--- NOTE | 2017-08-08 21:28 | IPN ---
DATE: 08/08/2017 The patient has made excellent progress over the weekend. His Vargas catheter was removed on 08/06/2017 and he has been able to void. He remains only on some vancomycin and some intravenous (IV) Protonix as far as intravenous medications. His G tube was clamped yesterday, and he has tolerated this well with a concomitant increase in his ostomy output. Vital signs show that he has been afebrile for the last 24 hours. His temperature this morning is 98.3, pulse 89, respirations 18, blood pressure 127/64 and a room air saturation in the mid 90s. Intake and output from 08/07/2017 showed 3700 in and 3500 out with 1700 of G tube drainage. PHYSICAL EXAMINATION: The patient is alert and oriented. He is certainly more oriented than he had been when I saw him on . He denies any pain. Skin : Is warm and dry. Sclerae are anicteric. Heart exam shows a regular rate and rhythm. The lungs are clear. The abdomen is slightly protuberant. The G tube is clamped right now, though he is still connected to tube feedings. His midline incision has a dressing in place with several small spots of drainage on it, particularly toward the lower end of the incision. I removed the bandage, and there are several small spots of some drainage between the jose. His ileostomy looks healthy with the ostomy appliance nicely in place and some watery, greenish fluid in the bag. The abdomen is soft. He does have bowel sounds present. Lower extremities are without edema. Laboratory studies this morning show a white count of 14, hemoglobin 9, hematocrit 26 with 470,000 platelets, neutrophils of 71% and lymphocytes 16%. Chemistry profile shows normal electrolytes with a BUN of 25, creatinine 0.7 and a glucose of 91. Total protein is up to 7.2 with an albumin of 1.8. A C-reactive protein is 4.63. He had a vancomycin trough level yesterday afternoon of 17.8. IMPRESSION: 1. Cardiac issues: There are no active cardiac issues at this time. 2. Pulmonary: He is breathing easily on room air with an excellent oxygen saturation. 3. Gastrointestinal: He is tolerating his G tube clamp with increased output from his ileostomy. He has been getting some tube feedings through the feeding port of the Arthur tube. 4. Genitourinary: His urine output has been good with his Vargas catheter now out for 2 days. 5. Hematologic: His hematocrit remains stable, though remaining somewhat low. 6. Neurologic: Patient's head has cleared now several days out from extubation. 7. Infectious: He is finishing a week of vancomycin today. This was for a culture of Enterococcus identified on his abdominal cultures. I think this should be adequate coverage for what he had, given his treatment to date. 8. Nutritious: With the patient now tolerating his G tube clamped, I think it is appropriate to begin a diet. PLAN: The patient will be started on a soft diet. He was encouraged to begin slowly and advance as he can tolerate this. I will stop his vancomycin after this afternoon's dose, and at that point, his peripherally inserted central catheter (PICC) line, which has been in for probably 3 weeks, can be removed. His Protonix will be changed to an oral medication. He has physical therapy orders in place. He does seem already to have regained a little strength. I will have his wound jose removed so that if there is matter that needs to drain, it will drain more freely and I will need to keep a close eye on his midline incision. ROMARIO
[2017-08-08 22:00] VITALS: BP 122/68
[2017-08-09 06:00] VITALS: BP 137/72
[2017-08-09] MEDS: HumaLOG INSULIN (NovoLOG) PER UNIT SC SCH ×2 (06:00)
[2017-08-09 08:09] VITALS: BP 104/55
[2017-08-09] MEDS ORDERED: ASPIRIN 81 MG ENTERIC TAB PO SCH (09:00)
[2017-08-09] MEDS ORDERED: CLOPIDOGREL 75 MG TAB PO SCH (09:00)
[2017-08-09] MEDS ORDERED: PANTOPRAZOLE 40MG TAB (PROTONIX) PO SCH (09:00)
[2017-08-09 09:04] LABS: BASO # 0.1 K/mm3 (0.0-0.2); BASO % 0.5 % (0.0-1.0); EOS # 0.5 K/mm3 (0.0-0.50); LARGE UNSTAINED CELL # 0.4 K/mm3 (0.0-0.4); LARGE UNSTAINED CELL % 3.3 % (0.0-4.0); LYMPH # 2.1 K/mm3 (1.5-4.5); LYMPH % 16.2 % (24.0-44.0); MEAN CORPUSCULAR HEMOGLOBIN 30.7 pg (27.0-33.0); MEAN CORPUSCULAR HGB CONC 33.2 g/dl (32.0-36.5); MEAN CORPUSCULAR VOLUME 92.5 fl (80.0-96.0); MONO # 0.7 K/mm3 (0.0-0.8); MONO % 5.4 % (0.0-5.0); NEUTROPHILS # 9.1 K/mm3 (1.8-7.7); NEUTROPHILS % 70.7 % (36.0-66.0); PLATELET COUNT, AUTOMATED 491 k/mm3 (150-450); RED CELL DISTRIBUTION WIDTH 15.2 % (11.5-14.5); WHITE BLOOD COUNT 12.8 K/mm3 (4.0-10.0)
[2017-08-09 09:18] LABS: ALBUMIN 2.1 GM/DL (3.2-5.2); ALBUMIN/GLOBULIN RATIO 0.41 (1.00-1.93); ALKALINE PHOSPHATASE 273 U/L (45-117); ALT/SGPT 65 U/L (12-78); ANION GAP 12 MEQ/L (8-16); AST/SGOT 34 U/L (15-37); BILIRUBIN,TOTAL 0.9 MG/DL (0.2-1.0); BLOOD UREA NITROGEN 25 MG/DL (7-18); CALCIUM LEVEL 9.3 MG/DL (8.8-10.2); CARBON DIOXIDE LEVEL 22 MEQ/L (21-32); CHLORIDE LEVEL 103 MEQ/L (98-107); CREATININE FOR GFR 0.86 MG/DL (0.70-1.30); GLOMERULAR FILTRATION RATE > 60.0 (>49); GLUCOSE, FASTING 116 MG/DL (80-110); POTASSIUM SERUM 4.3 MEQ/L (3.5-5.1); SODIUM LEVEL 137 MEQ/L (136-145); TOTAL PROTEIN 7.2 GM/DL (6.4-8.2)
[2017-08-09 13:50] VITALS: BP 143/73
--- NOTE | 2017-08-09 17:00 | IPNPDOC ---
Text Note Date of Service The patient was seen on 08/09/17. NOTE Subjective: Patient states he's feeling well. He is passing gas. Tolerating cereal for breakfast. Continues to work with physical therapy. Objective: Vitals: (see below) General: No acute distress, laying comfortably in bed. HEENT: Moist mucous membranes. Neck: No JVD or lymphadenopathy Cardiac: RRR, No murmurs Pulm: Diminished breath sounds at the bases b/l. No wheezing, rhonchi Abd: NT/ND + BS. Incision sites with serous fluid drainage on bandages. No evidence of infection this time. Ext: No edema or cyanosis Labs (see below) Images: Assessment/Plan 1. Status post septic shock secondary to bowel perforation/abdominal abscess- enterococcus from peritoneal culture- status post vancomycin and meropenem. Currently afebrile. Leukocytosis improving. CRP improving. Status post exploratory laparoscopy 07/29, 07/30. Off pressors blood pressure stable. 2. Transaminitis- ? Secondary to recent TPN, cholestasis. Abdominal ultrasound with resumed hepatic hemangioma however no gallstones. Continue to monitor. Was previously on fenofibrate at home. 3. Status post acute respiratory failure requiring mechanical ventilation sick near to septic shock, resolved, extubated 08/04 4. Acute on chronic anemia- status post 5 units PRBC. Hemoglobin stable at this point. No need for transfusion at this time. 5. Status post Acute renal failure, improved 6. Hypertension- blood pressure stable off of OWEN inhibitor. Consider restarting if blood pressure becomes uncontrolled. 7. History of CAD status post 2 PCI in 2016- restart aspirin and Plavix 8. GERD- on PPI DVT prophy: SCDs The patient is planned to go to PMR soon. VS,Fishbone, I+O VS, Fishbone, I+O Laboratory Tests 08/09/17 08:44 Red Blood Count 2.98 L, Mean Corpuscular Volume 92.5, Mean Corpuscular Hemoglobin 30.7, Mean Corpuscular Hemoglobin Concent 33.2, Red Cell Distribution Width 15.2 H, Neutrophils (%) (Auto) 70.7 H, Lymphocytes (%) (Auto ) 16.2 L, Monocytes (%) (Auto) 5.4 H, Eosinophils (%) (Auto) 4.0 H, Basophils (% ) (Auto) 0.5, Neutrophils # (Auto) 9.1 H, Lymphocytes # (Auto) 2.1, Monocytes # (Auto) 0.7, Eosinophils # (Auto) 0.5, Basophils # (Auto) 0.1, Calcium Level 9.3 , Aspartate Amino Transf (AST/SGOT) 34, Alanine Aminotransferase (ALT/SGPT) 65, Alkaline Phosphatase 273 H, Total Bilirubin 0.9, Total Protein 7.2, Albumin 2.1 L Vital Signs Date Time Temp Pulse Resp B/P (MAP) Pulse Ox O2 Delivery O2 Flow Rate FiO2 08/09/17 14:27 Room Air 08/09/17 13:50 97.6 85 18 143/73 (96) 97 08/05/17 23:10 2.0 08/04/17 08:35 35 I&O- Last 24 Hours up to 6 AM 08/09/17 06:00 Intake Total 1450 ml Output Total 3675 ml Balance -2225 ml OPHELIA SHAW MD Aug 09, 2017 17:00
[2017-08-09] MEDS: ENOXAPARIN 40 MG/0.4 ML SYRINGE (J1650) SC SCH (20:17)
--- NOTE | 2017-08-12 12:33 | IPN ---
DATE: 08/12/2017 Patient is up in a chair preparing to shave this morning when I came to see him. I was contacted last evening by the nursing light industrial supervisor that one of the nurses had apparently injected water through the balloon port of his Arthur gastrostomy tube yesterday when it was supposed to go through one of the feeding ports. The nurses had checked the balloon and the suggestion is that the balloon ruptured. The patient did not suffer any harm from this but the G tube is now subject to accidental removal as it is the balloon that keeps it from coming out. The patient reports no significant problems. He does seem somewhat discouraged this morning. Vital signs show he has been afebrile and his temperature this morning is 98.4 with a pulse of 77, respirations of 18 and blood pressure of 144/75. His ostomy continues to drain well. His urine output appears better today although it looks like we may be double recording some of his entries. Physical exam is limited to the abdomen. His ostomy is viable and the edema has largely resolved. The G tube site is clean and the G tube remains in place. His midline incision has now developed some oily drainage from several points in the upper portion of the incision though the incision itself has not any further. LABORATORY DATA White count is 11.1 with a normal differential count. Chemistries show his total protein is 6.9 with an albumin of 2.3. Creatinine is 0.8. IMPRESSION: Patient is making progress. PLAN: We will try to keep the G tube in place for another week or 10 days. I have advised the nursing staff and Dr. Mckay that we should keep this taped to the abdomen. It can still be used for fluid or nutritional instIllation but we must try to be careful that it not be removed. His wound will be treated with his twice daily wound care and I anticipate he will drain some liquefied fatty tissue for some time before this closes up and heals. ROMARIO
--- NOTE | 2017-09-21 18:22 | DSES ---
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 HISTORY OF PRESENT ILLNESS: The patient is a 66-year-old man who had undergone a colonoscopy in 2011 that revealed a polyp. He underwent a repeat colonoscopy on 06/13/2017. His colonoscopy identified a polypoid lesion at approximately 20 cm which was described as a large polyp that was sessile. The lesion was partially resected and marked with carbon spot marker. His pathology revealed tubulovillous adenoma with two foci of high-grade dysplasia. He was referred for resection and was admitted on 07/12/2017 to undergo a laparoscopic rectosigmoid resection. HOSPITAL COURSE: The patient underwent a laparoscopic low anterior rectal resection with anastomosis with flexible sigmoidoscopy and lysis of adhesions on 07/12/2017. He initially did well following his surgery. His pathology revealed residual tubulovillous adenoma 2.5 cm in largest dimension but there was no evidence of cancer and no significant dysplasia was identified. The patient developed some rectal bleeding postoperatively, which continued for the first 1-2 days. His hematocrit did drop with this bleeding and he required blood transfusions. The bleeding subsequently resolved. He began to show signs of return of bowel function, but on about the third day he had some increased lower abdominal pain and some tenderness. This was somewhat worrisome for a possible anastomotic leak. A CT scan was obtained that showed some free gas in the upper abdomen, but not more free air than would be expected on or about postop day #3. He was also noted to have some air in the abdominal wall consistent with some extravasation of intra-abdominal gas. No air bubbles were noted down by his anastomosis. An NG tube which had been placed was readjusted. His abdomen became quite distended consistent with an ileus. By the following day he was noted to have an elevation of his bands on a differential blood count with a slight drop in his white blood cell count total. He was monitored closely. He did have a continuing picture suggestive of an ileus. He was given additional IV fluid. He had had some acute renal failure, which resolved with additional hydration. This was most pronounced on postop day #2 when he had his bleeding. Unfortunately, his abdomen remained quite distended. This was felt to represent a pronounced ileus. He was started on total parenteral nutrition through a PICC line. He remained afebrile. He was treated with Zosyn because of concerns about a possible leak. Repeat imaging did not show any evidence of an abscess. On July 29 because of failure to resolve his ileus he was taken to the operating room where he underwent exploratory laparotomy. He was found to have multiple interloop abscesses with extensive adhesions and intestinal obstruction with markedly dilated small bowel. He underwent a prolonged exploratory laparotomy which took approximately 6 hours. An extensive lysis of adhesions was performed. Multiple interloop abscesses were drained and debrided. Multiple enterotomies were repaired. He underwent an ileocecal resection because of extensive injury to this area and an end-ileostomy was performed. A Arthur gastrostomy tube was inserted. The patient was left intubated and on the ventilator at the conclusion of the procedure. An epidural catheter which had been placed preoperatively was left in place as well. He was brought back to the operating room the following day for a second look laparotomy to look for any evidence of unidentified enterotomies. This was also to ensure that the abscesses had all been drained and perform any further irrigation and debridement as necessary. His ileostomy had also been left unmatured and this was performed as well. At the surgery, he was found to have no new abscesses but one enterotomy received some additional suturing. His abdominal incision was closed and his ileostomy was matured. He was returned to the intensive care unit. He was continued on total parenteral nutrition. The Arthur tube was used for decompression of the bowel. He made slow but steady progress following this. He was continued on intravenous antibiotics. Pulmonary medicine was consulted for assistance in management of his respiratory failure. The patient had some renal failure associated with septic shock and nephrology was also consulted. With hydration and resolution of his shock, his renal function returned nicely. He began to mobilize third space fluid without the need for diuretics. His ventilator was adjusted he never required particularly high levels of oxygen. His blood count remained stable. He did grow some Enterococcus from his abdomen and vancomycin was added to his antibiotic regimen. The patient was allowed to become more alert and his sedation was weaned and his ventilator was also weaned. He continued to make slow but steady progress. He was extubated on the morning of August 04. He was quite weak and physical therapy was consulted. He was started on low-dose tube feedings through his Arthur tube, which he tolerated. He had a gradual return of bowel function. He remained afebrile by the . Renal function had improved to essentially baseline levels. His ileostomy began to function. His diet was gradually advanced as his bowel function returned more fully. He was encouraged to be up out of bed. He tolerated a diet so his appetite was poor at first. His ileostomy functioned and his midline wound healed well. He made good progress and reached a point of stability and was on August 09 discharged from his acute inpatient hospital stay and was readmitted by the acute rehabilitation unit for continuing rehabilitation treatment. FINAL DIAGNOSES. 1. Rectosigmoid tubulovillous adenoma with high-grade dysplasia. 2. Anastomotic leak with element of multiple interloop abscesses. 3. Small intestinal obstruction secondary to abscess. 4. Septic shock secondary to interloop abscesses. 5. Acute kidney injury. 6. Respiratory failure secondary to sepsis. 7. Postoperative rectal bleeding from the anastomosis. 8. Hypertension. 9. Hypercholesterolemia. 10. History of psoriasis. 11. Gastroesophageal reflux with Olguin's esophagus changes. 13. Coronary artery disease, status post coronary stenting in March 2016. PROCEDURES PERFORMED: 1. Laparoscopic low anterior rectal resection with anastomosis, flexible sigmoidoscopy and lysis of adhesions on July 12. 2. On July 29 he underwent exploratory laparotomy with extensive lysis of adhesions, drainage of multiple interloop abscesses, repair of multiple enterotomies, ileocecal resection, creation of an ileostomy, and placement of a Arthur gastrostomy tube. 3. On July 30 he underwent a second look exploratory laparotomy with irrigation and debridement of the abdomen, additional oversewing of one enterotomy, closure of his abdominal incision, maturation of his ileostomy, and flexible sigmoidoscopic exam. 4. He had also undergone placement of a PICC line for TPN. 5. He had placement of an epidural catheter for postoperative pain management on July 29. 6. He underwent transfusion of packed red blood cells. 7. He had mechanical ventilatory support in the intensive care unit. 8. He had multiple days of total parenteral nutrition. DISPOSITION: The patient was discharged on August 09 to be admitted by the inpatient acute rehabilitation unit. At that time his TPN had been discontinued and he was tolerating an oral diet with feedings through his gastrostomy tube as needed. His ileostomy was functioning well and his midline abdominal incision was also healing well. He was to continue his physical therapy and advance his diet as tolerated. He was to avoid any strenuous physical activity. He was off antibiotics at that time. He was to followup in my office after completion of his acute rehabilitation.
== END 2017-08-09 20:49 | DRG 326 ==
LOC: M OR 11:24 → M PED 22:49 → M PCU 07-13 01:32 → M MSPAV 07-16 20:12 → M ICU 07-29 18:27 → M MSPAV 08-06 15:00
PROVIDERS: ADMIT Surgery; ATTEND Surgery
PROC: 0DBN4ZZ Excision of Sigmoid Colon, Percutaneous Endoscopic Approach (ICD-10-PCS; 2017-07-12)
PROC: 0DJD4ZZ Inspection of Lower Intestinal Tract, Percutaneous Endoscopic Approach (ICD-10-PCS; 2017-07-12)
PROC: 30233N1 Transfusion of Nonautologous Red Blood Cells into Peripheral Vein, Percutaneous Approach (ICD-10-PCS; 2017-07-13)
PROC: 02HV33Z Insertion of Infusion Device into Superior Vena Cava, Percutaneous Approach (ICD-10-PCS; 2017-07-18)
PROC: 0DQ80ZZ Repair Small Intestine, Open Approach (ICD-10-PCS; 2017-07-29)
PROC: 0DNW0ZZ Release Peritoneum, Open Approach (ICD-10-PCS; 2017-07-29)
PROC: 0DNE0ZZ Release Large Intestine, Open Approach (ICD-10-PCS; 2017-07-29)
PROC: 0DBH0ZZ Excision of Cecum, Open Approach (ICD-10-PCS; 2017-07-29)
PROC: 0D1H0Z4 Bypass Cecum to Cutaneous, Open Approach (ICD-10-PCS; 2017-07-29)
PROC: 5A1955Z Respiratory Ventilation, Greater than 96 Consecutive Hours (ICD-10-PCS; 2017-07-29)
PROC: 0DH60UZ Insertion of Feeding Device into Stomach, Open Approach (ICD-10-PCS; principal; 2017-07-29 15:15)
PROC: 0WQFXZ2 Repair Abdominal Wall, Stoma, External Approach (ICD-10-PCS; 2017-07-30)
PROC: 0D1H0Z4 Bypass Cecum to Cutaneous, Open Approach (ICD-10-PCS; 2017-07-30)
PROC: 0DQ80ZZ Repair Small Intestine, Open Approach (ICD-10-PCS; 2017-07-30)
PROC: 0DJD8ZZ Inspection of Lower Intestinal Tract, Via Natural or Artificial Opening Endoscopic (ICD-10-PCS; 2017-07-30)
PROC: 0DBB0ZZ Excision of Ileum, Open Approach (ICD-10-PCS; 2017-08-08)
DX: D12.7 Benign neoplasm of rectosigmoid junction (principal); A41.9 Sepsis, unspecified organism; R65.21 Severe sepsis with septic shock; K65.1 Peritoneal abscess; J96.01 Acute respiratory failure with hypoxia; K62.5 Hemorrhage of anus and rectum; D62 Acute posthemorrhagic anemia; N17.9 Acute kidney failure, unspecified; K56.7 Ileus, unspecified; E87.2 Acidosis; E87.3 Alkalosis; K91.61 Intraoperative hemorrhage and hematoma of a digestive system organ or structure complicating a digestive system procedure; K91.89 Other postprocedural complications and disorders of digestive system; K56.5 Intestinal adhesions [bands] with obstruction (postinfection); M79.A3 Nontraumatic compartment syndrome of abdomen; E46 Unspecified protein-calorie malnutrition; I25.10 Atherosclerotic heart disease of native coronary artery without angina pectoris; K21.9 Gastro-esophageal reflux disease without esophagitis; K22.70 Barrett's esophagus without dysplasia; E78.00 Pure hypercholesterolemia, unspecified; I10 Essential (primary) hypertension; Z79.899 Other long term (current) drug therapy; L40.8 Other psoriasis; Z87.891 Personal history of nicotine dependence; E78.5 Hyperlipidemia, unspecified; R73.9 Hyperglycemia, unspecified; M79.7 Fibromyalgia; Z79.82 Long term (current) use of aspirin

== ENCOUNTER 2017-08-09 12:13 | Inpatient (IN) | payer MEDICARE, BC, OTHER ==
[~2017-08-09] VITALS: Ht 182.9 cm; Wt 102.4 kg
[2017-08-09] MEDS ORDERED: ACETAMINOPHEN TAB 650MG DOSE (2X325MG) PO PRN (13:45)
[2017-08-09] MEDS ORDERED: IPRATROPIUM 0.5MG/ALBUTEROL 2.5MG INH SOL UD 3ML (DUONEB)(J7620) NEB PRN (14:00)
--- NOTE | 2017-08-09 15:28 | PMRNOTEPD ---
PMR Note 66-year-old right handed white male status post resection of tubulovillous adenoma complicated by adhesions, abscesses, septic shock with secondary acute respiratory failure requiring mechanical ventilation and gastrostomy tube placement with colostomy placement. Patient with secondary anemia, hypoproteinemia and hypoalbuminemia from the stresses along with decrease balance and endurance and diminished activities of daily living. Patient is need education on management of the G-tube and colostomy site along with patient's overall need for conditioning advancing of his soft diet to allow for appropriate nutrition. I anticipate patient able participate and acute intensive rehabilitation and this will benefit him in returning to home in approximately 7-10 days with his . Admission H&P dictated and is dictation # [id number]. RALPH JIM MD Aug 09, 2017 15:28
--- NOTE | 2017-08-09 16:21 | PMRHPE ---
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 HISTORY OF PRESENT ILLNESS: Patient is a 66-year-old right-handed white male who is and was functioning fairly independently prior to admission of 07/12/2017 for laparoscopic and sigmoidoscopy resection of a tumor mass that, on coloscopy, had shown to have a high-grade tubulovillous adenoma. Patient ended up in a series of surgeries, including the initial one on 07/18/2017, recurrent one on 07/24/2017, and then an additional one on 07/29/2017, related to multiple adhesions and later, also abscesses. Patient developed septic shock and required gastrostomy (G) tube placement as well as a colectomy. Due to the septic shock and severity, patient went into acute respiratory failure and was on ventilator, has since been weaned off of it. He also required vancomycin for treating the enterococcus infection of the abdomen. Patient overall having very limited strength and energy until approximately starting therapy on last and Tuesday, with very little ability and endurance; however, through the weekend, patient regained some strength and performed very well in physical and occupational therapy during the last two days and is supposed to be able to participate and benefit from acute musculoskeletal and rehabilitation-type rehabilitation of his neoplasm treated with resection and multiple complications related to it. Therefore, patient is being admitted to acute rehabilitation unit today, 08/09/2017. PAST MEDICAL HISTORY: Also includes: 1. Coronary artery disease status post stent placement in March 2016. 2. Right cataract excision. 3. Hypertension. 4. Hyperlipidemia. 5. Due to the stress of the tumor and surgeries, patient with anemia and decreased protein and albumin stores with hypoalbuminemia. ALLERGIES: No known drug allergies. MEDICATIONS ON ADMISSION: - Tylenol 650 mg every 6 hours as needed for pain or fever. - DuoNeb 3 mL every 4 hours as needed shortness of breath or wheezing - Lovenox 40 mg daily for deep venous thrombosis (DVT) prophylaxis - omeprazole 40 mg daily by mouth for gastrointestinal (GI) protection Patient previously on atorvastatin for cholesterol management. That is currently being held. FAMILY HISTORY: Negative for any inheritable diseases. 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 REVIEW OF SYSTEMS: Negative except for the noted problems above, with the multiple abdominal surgeries and secondary problems. Patient now tolerating soft food as tube feedings, as well as off vancomycin and other intravenous (IV) medications. PHYSICAL EXAMINATION: Patient is alert and oriented, late middle-aged white male, who is 6 foot tall, weighing approximately 97 kilograms, laying in bed, clutching a folded blanket to his overall abdominal area for anytime he cramps, with mild abdominal distress related to extended abdomen with colostomy in place and gastrostomy (G) tube in place. VITAL SIGNS: Temperature 97.6, blood pressure 143/73, pulse 85, respirations 18 , pulse oximetry 97% on room air. HEENT: Normocephalic, atraumatic, with graying hair. Nontender in the head. Fair to good hearing Pupils equal, round, and reactive to light and accommodation. Approximately 4 mm in diameter. Extraocular muscles intact. Nose is straight. Septum is straight. Nares are patent. Oropharynx without specific lesion. Tongue is midline. Speech is without any dysarthria or any signs or trouble handing his secretions. NECK: Supple, with no lymphadenopathy or masses. Normal thyroid in the midline , of normal texture, and no carotid bruits were appreciated on auscultation. CORONARY: Regular rate and rhythm with normal S1, S2, without S3, S4 murmurs or rubs. Patient with good perfusion bilateral upper and lower extremities with good limb warmth and 2/4 bilateral radial pulses. LUNGS: Clear in all ramirez to auscultation. ABDOMEN: Markedly distended with gas, with marked tympany throughout. He has intact colonoscopy site over on the right upper and intact noninflamed and non-drainage gastrostomy (G) tube site in the left upper quadrant. No lesions in the lower quadrants. EXTREMITIES: Functional range of motion. Good overall strength. Limited endurance. NEUROLOGICAL: Patient is alert and oriented times four. Speech is clear, coherent and appropriate. Affect pleasant, cooperative, with just the slightest anxiousness. Memory appears to be intact. Light touch and vibration intact in bilateral upper and lower extremity. Tone is within normal limits bilateral upper and lower extremities. Deep tendon reflexes show 2/4 bicep, triceps, brachial radialis. 1/4 knee jerks. Trace ankle jerks. On plantar stimulation on the right is equivocal with essentially no movement; on the left, patient has a very distinct upgoing toe for a positive Babinski sign with no history of prior neurologic event. LABORATORY DATA: Patient's hemoglobin and hematocrit (H and H) today is 9.1 and 27.5, which has been stable over the last half-week. White count remains elevated at 12,800, with elevated platelets of 491,000 and elevated neutrophils at 70.7%, with a total count of neutrophil of 9.1000, and normal counts of all other white cells, and elevated RDW of 15.2. Comprehensive metabolic panel from today does show normal electrolytes with a mildly elevated BUN of 25, but normal creatinine of 0.86 and post breakfast mild elevation of glucose at 116. Prior to breakfast yesterday, patient with a normal fasting glucose, however. Multiple prior fasting glucoses have been elevated, though patient has been discontinued from insulin and insulin monitoring, as most of his recent glucose numbers have been between 93 and 115 in the last 2-1/2 days. ASSESSMENT/PLAN: 1. Rehabilitation of abdominal neoplasm, tubulovillous adenoma that is high-grade and its multiple post surgical complications: I feel patient could hopefully has curative resection of tumor, but has had a complicating course and stress from it. He does need to work on gaining nutrition, learning how to manage the colostomy site and gastrostomy (G) tube site, as well as work to advance feedings, but also to regain their balance. Though he has had some good distance ambulation in the last day, he needs to be much more solid on his feet to prevent falls and injury, as well as learn appropriate adaptive transfers and activities of daily living (ADLs). Therefore, I do feel the patient would benefit from acute, intensive rehabilitation with physical and occupational therapy and, due to the multiple medical problems, managing in close observation with rehabilitation nursing, podiatry and medicine consultants. I do feel the patient is likely to complete his training within a reasonable period of time, of 7-10 days, and return home with his . We do need to focus on also teaching the how his system, especially with regards to the now existent colostomy and gastrostomy (G) tube. 2. Anemia: Need to work on patient's diet and improving that, and overall improvement of intake now that he is back on an oral diet. 3. Hypoalbuminemia and hypoproteinemia: Patient now on a mechanical soft diet. Needs to build up tolerance, especially in light of the potential abdominal/ bowel surgery due to him taking oral foods. Along with the colostomy and gastrostomy (G) tube, it is going to require training as well as building up nutrition. We will continue doing daily flushes of the G tube to keep it patent, as patient will require this to heal in, which will require more than a month to complete, before consideration for removal can occur. Patient and his need to be competent in managing this on their own at home. 4. Deep venous thrombosis (DVT) prophylaxis: Will continue Lovenox at this time and hopefully advance hydration and ambulation. I do feel patient is a little bit dehydrated, as noted, with a mild elevation of BUN and hopefully in addressing his nutritional needs, this will correct. POSTADMISSION PHYSICIAN EVALUATION: I feel patient is consistent with the preadmission screening and evaluation and is ready, willing and able to participate in and benefit from this rehabilitation and recover from the tumor and the multiple stresses that have occurred on him with regards to it, including the septic shock and pulmonary, which we will watch, especially in light of patient having stopped the vancomycin today. I do feel patient can participate in the three hours of therapy per day. I do feel he has a good prognosis for returning home with his family and I estimate his length of stay with us from 7-10 days. Time spent on chart review, history and physical and documentation was greater than 70 minutes. INOCENTED
[2017-08-09 20:55] VITALS: BP 155/73
[2017-08-10] MEDS ORDERED: diphenhydrAMINE 50 MG CAP PO ONE (00:30)
[2017-08-10 04:38] VITALS: BP 134/74
[2017-08-10 07:21] LABS: BASO # 0.1 K/mm3 (0.0-0.2); BASO % 0.6 % (0.0-1.0); EOS # 0.4 K/mm3 (0.0-0.50); EOS % 3.6 % (0.0-3.0); LARGE UNSTAINED CELL # 0.5 K/mm3 (0.0-0.4); LARGE UNSTAINED CELL % 3.5 % (0.0-4.0); LYMPH # 2.5 K/mm3 (1.5-4.5); LYMPH % 19.9 % (24.0-44.0); MEAN CORPUSCULAR HEMOGLOBIN 31.6 pg (27.0-33.0); MEAN CORPUSCULAR HGB CONC 34.9 g/dl (32.0-36.5); MEAN CORPUSCULAR VOLUME 90.7 fl (80.0-96.0); MONO # 0.7 K/mm3 (0.0-0.8); MONO % 5.6 % (0.0-5.0); NEUTROPHILS # 8.5 K/mm3 (1.8-7.7); NEUTROPHILS % 66.8 % (36.0-66.0); PLATELET COUNT, AUTOMATED 511 k/mm3 (150-450); RED CELL DISTRIBUTION WIDTH 15.2 % (11.5-14.5); WHITE BLOOD COUNT 12.7 K/mm3 (4.0-10.0)
[2017-08-10 07:40] LABS: ALKALINE PHOSPHATASE 257 U/L (45-117); ALT/SGPT 53 U/L (12-78); ANION GAP 10 MEQ/L (8-16); AST/SGOT 29 U/L (15-37); BILIRUBIN,TOTAL 0.7 MG/DL (0.2-1.0); BLOOD UREA NITROGEN 23 MG/DL (7-18); CALCIUM LEVEL 8.6 MG/DL (8.8-10.2); CARBON DIOXIDE LEVEL 24 MEQ/L (21-32); CHLORIDE LEVEL 104 MEQ/L (98-107); CREATININE FOR GFR 0.76 MG/DL (0.70-1.30); GLOMERULAR FILTRATION RATE > 60.0 (>49); GLUCOSE, FASTING 96 MG/DL (80-110); MAGNESIUM LEVEL 2.1 MG/DL (1.8-2.4); POTASSIUM SERUM 4.1 MEQ/L (3.5-5.1); SODIUM LEVEL 138 MEQ/L (136-145)
[2017-08-10] MEDS: PANTOPRAZOLE 40MG TAB (PROTONIX) PO SCH (08:40)
[2017-08-10] MEDS ORDERED: ENOXAPARIN 40 MG/0.4 ML SYRINGE (J1650) SC SCH (09:00)
[2017-08-10] MEDS ORDERED: traZODone 100 MG TAB PO PRN (09:45)
--- NOTE | 2017-08-10 10:11 | IPNPDOC ---
Supervisor Painting Progress Note DATE OF SERVICE: 08/10/17 DATE OF ADMISSION: Aug 09, 2017 at 21:00 INPATIENT REHABILITATION ADMISSION DAY: #2 SUBJECTIVE: 66-year-old right handed white male status post resection of tubulovillous adenoma complicated by adhesions, abscesses, septic shock with secondary acute respiratory failure requiring mechanical ventilation and gastrostomy tube placement with colostomy placement. Patient with secondary anemia, hypoproteinemia and hypoalbuminemia from the stresses along with decrease balance and endurance and diminished activities of daily living. Patient notes some malaise and fatigue this morning without pain. He does note abdominal bloating without clear cramping. He had trouble with sleep last night and requests a PRN sleep aide. ALLERGIES: See Below MEDICATIONS: Reviewed, see below. OBJECTIVE: VITAL SIGNS: Please see below. PHYSICAL EXAMINATION: GENERAL: Tall well-developed, late middle-age white male laying in bed with distended abdomen in very mild stress who appears to be fatigued. Patient is alert and well oriented and is pleasant. HEENT: Normocephalic/atraumatic. CARDIOVASCULAR: Regular rate and rhythm with normal S1 and S2. 2/4 bilateral radial pulses. LUNGS: All ramirez clear to auscultation. ABDOMEN: Distended and tympanic with normal bowel sounds in all quadrants. NEUROLOGICAL: Patient alert and oriented 4. Speech is clear, coherent and appropriate. Affect is pleasant and cooperative. Memory is intact. Motor with good to full strength but easy fatigue and limited by core muscles related to the abdominal surgeries. SKIN: Ostomy site and G-tube and abdominal incisions doing well. No jaundice noted. LABORATORY DATA: Reviewed. Please see below. MICROBIOLOGY: Please see below. IMAGING: No new imaging. DVT prophylaxis ordered?: Lovenox with MI hose and sequential stockings. ASSESSMENT AND PLAN: 1. Rehabilitation of colon cancer complicated by adhesions, abscesses and ileus : Patient starting program of physical and occupational therapy today to rebuild strength and learn adaptive techniques to work around weakness in the abdominal musculature that stabilizes the trunk from which all movements stems. Overall patient is very motivated though he is feeling some malaise and fatigue this morning. We will complete team of bowels and care plan inside the next day. At this time I'm anticipating patient will require 7-10 days of training for him as as well as conditioning of him to prepare them for return to home. 2. Anemia: H&H are 8.6 and 24.7% today on 06/09/17. This is within lab error of his results during the last week but will need to be observed going forward. His may also be part of his current feeling of malaise and fatigue. However his blood pressure and heart rate have been normal and stable since admission last night. 3. Low protein/albumin: Total protein now back in normal range at 7.0, however albumin is very low at 2.0. I will assess for dietary consult and we will do calorie tracking. TIME SPENT: Chart Review, examination and documentation requires greater than 25 minutes. Allergies Coded Allergies: No Known Drug Allergy (Unverified Allergy, Unknown, NONE, 07/12/17) Vital Signs Vital Signs Date Time Temp Pulse Resp B/P (MAP) Pulse Ox O2 Delivery O2 Flow Rate FiO2 08/10/17 04:38 97.9 78 20 134/74 (94) 98 Room Air Laboratory Data CBC/BMP Laboratory Tests 08/10/17 06:58 Red Blood Count 2.72 L, Mean Corpuscular Volume 90.7, Mean Corpuscular Hemoglobin 31.6, Mean Corpuscular Hemoglobin Concent 34.9, Red Cell Distribution Width 15.2 H, Neutrophils (%) (Auto) 66.8 H, Lymphocytes (%) (Auto ) 19.9 L, Monocytes (%) (Auto) 5.6 H, Eosinophils (%) (Auto) 3.6 H, Basophils (% ) (Auto) 0.6, Neutrophils # (Auto) 8.5 H, Lymphocytes # (Auto) 2.5, Monocytes # (Auto) 0.7, Eosinophils # (Auto) 0.4, Basophils # (Auto) 0.1, Calcium Level 8.6 L, Aspartate Amino Transf (AST/SGOT) 29, Alanine Aminotransferase (ALT/SGPT) 53 , Alkaline Phosphatase 257 H, Total Bilirubin 0.7, Total Protein 7.0, Albumin 2.0 L Labs 24H Laboratory Tests 2 08/10/17 06:58: White Blood Count 12.7H, Red Blood Count 2.72L, Hemoglobin 8.6L, Hematocrit 24.7L, Mean Corpuscular Volume 90.7, Mean Corpuscular Hemoglobin 31.6, Mean Corpuscular Hemoglobin Concent 34.9, Red Cell Distribution Width 15.2H, Platelet Count 511H, Neutrophils (%) (Auto) 66.8H, Lymphocytes (%) (Auto) 19.9L , Monocytes (%) (Auto) 5.6H, Eosinophils (%) (Auto) 3.6H, Basophils (%) (Auto) 0.6, Neutrophils # (Auto) 8.5H, Lymphocytes # (Auto) 2.5, Monocytes # (Auto) 0.7 , Eosinophils # (Auto) 0.4, Basophils # (Auto) 0.1, Large Unclassified Cells % 3.5, Large Unclassified Cells # 0.5H, Anion Gap 10, Glomerular Filtration Rate > 60.0, Blood Urea Nitrogen 23H, Creatinine 0.76, Sodium Level 138, Potassium Level 4.1, Chloride Level 104, Carbon Dioxide Level 24, Calcium Level 8.6L, Aspartate Amino Transf (AST/SGOT) 29, Alanine Aminotransferase (ALT/SGPT) 53, Alkaline Phosphatase 257H, Total Bilirubin 0.7, Total Protein 7.0, Albumin 2.0L , Magnesium Level 2.1, C-Reactive Protein, Quantitative 2.75H, Albumin/Globulin Ratio 0.40L Current Medications Current Medications Current Medications Acetaminophen (Tylenol Tab) 650 mg Q6HP PRN PO PAIN OR FEVER; Start 08/09/17 at 13:45; Stop 09/08/17 at 13:44 Albuterol/ Ipratropium (Duoneb (Ipr 0.5mg/Alb 2.5mg)) 3 ml Q4HP PRN NEB SOB/ WHEEZING; Start 08/09/17 at 14:00; Stop 09/08/17 at 13:59 Enoxaparin Sodium (Lovenox) 40 mg DAILY SC Last administered on 08/10/17 08:40 ; Start 08/10/17 at 09:00; Stop 08/15/17 at 08:59 Pantoprazole Sodium (Protonix) 40 mg DAILY PO Last administered on 08/10/17 08 :40; Start 08/10/17 at 09:00; Stop 09/09/17 at 08:59 Trazodone HCl (Desyrel) 100 mg QHSP PRN PO INSOMNIA; Start 08/10/17 at 09:45; Stop 09/09/17 at 09:44 RALPH JIM MD Aug 10, 2017 10:11
--- NOTE | 2017-08-10 12:19 | CR.PDOC ---
[facility] Consultation Consultation CONSULTATION REPORT FOR: Dr Mckay REASON FOR CONSULTATION: Medical Management DATE OF VISIT: 08/10/17 ATTENDING: Dr. 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 Extubated 08/04/17. Pt is transferred to the care of Dr Woody JOSÉ 08/09/17. Denies any fevers, chills, weakness, fatigue, Headache, Chest Pain, Shortness of breath, cough, palpitations, abdominal pain, N/V/D or changes in bowel or bladder habits. PMHx: 1. Hypertension. 2. Dyslipidemia. 3. Psoriasis. 4. GERD with Olguin's esophagus. 5. History of coronary arterial disease with stents x 2 in 2015. PAST SURGICAL HISTORY: 1. Right cataract extraction. 2. Varicose veins left lower extremity 2009. 3. Olguin's esophagus treatment in July 2015. 4. Coronary arterial disease with stents in March 2016. 5. In June 2017 during this admission with rectosigmoid colectomy. SOCHX: Res[place]: [place] Status: Employment: retired FAMHX: non contributory ROS: As noted in HPI, otherwise 11pt ROS of systems reviewed and unremarkable. PE: GEN: 66yoM, appears stated age. Well-nourished, well developed. No acute distress. Alert and oriented x 3. Pleasant, interactive. HEENT: Normocephalic, atraumatic. Pupils are equal, round, and reactive to light. Extraocular movements are intact. No nystagmus appreciated. Sclera are nonicteric. Conjunctiva without injection. Nose midline. Nasal turbinates without bogginess. EACs both patent BL. TMs both visualized and gore with good cone of light, no bulging or erythema. No facial asymmetry. Moist mucous membranes. Dentition fair. Pharynx pink and moist, no cobblestoning. Neck supple , trachea midline. No lymphadenopathy or thyromegaly appreciated. CHEST: Regular rate and rhythm, +S1, +S2 LUNGS: Clear to auscultation bilaterally. No wheezes, rales, or rhonchi. Breathing appears symmetric and easy. Patient is speaking in full sentences. No accessory muscle use. ABD: Round, soft, non-tender, non-distended. +Bowel sounds present. Bandages intact/Colostomy. EXT: Pulses 2+ bilaterally dorsalis pedis and radial. No lower extremity edema appreciated. SKIN: [place], dry, warm. Capillary refill <2sec. No rashes. NEURO: No focal deficits appreciated. A&P: 66 YO M with h/o a tubulovillous adenoma, whichwas noted to be high- grade, status post rectosigmoid resection and anastomosis as per Dr Stroud, as well as multiple other abdominal surgeries, including colostomy and other colon segment and cecum resections with adhesion lysis and abscess drainage/removal that have been complicated by septic shock, leading to acute respiratory failure and requiring mechanical ventilation. Extubated 08/04/17. Pt is transferred to the care of Dr Woody JOSÉ 08/09/17. 1. S/P Colectomy/Ileostomy as per Dr Stroud. Status post septic shock secondary to bowel perforation/abdominal abscess- Status post exploratory laparoscopy 07/29, 07/30. enterococcus from peritoneal culture- status post vancomycin and meropenem. Currently afebrile. Leukocytosis improving. CRP improving. Dr Stroud consulted to follow pt. PT/OT/ST as per Dr Mckay. DVT prophylaxis as per Dr Mckay. 2. Transaminitis- [place] possible secondary to recent TPN, cholestasis. Labs now WNL. Abdominal ultrasound with hepatic hemangioma however no gallstones. Continue to monitor. Was previously on fenofibrate at home. 3. Status post acute respiratory failure requiring mechanical ventilation sick near to septic shock, resolved, extubated 08/04. 4. Acute on chronic anemia- status post 5 units PRBC. Hemoglobin 8.6. Monitor need for transfusion. 5. Status post Acute renal failure, improved. Monitor. 6. Hypertension- blood pressure stable off of OWEN inhibitor. Consider restarting if blood pressure becomes uncontrolled. Monitor. 7. History of CAD status post 2 PCI in 2016- aspirin and Plavix restarted . 8. GERD- on PPI Thank you for your consultation. We will continue to follow along with you. Vital Signs/I&O Vital Signs Date Time Temp Pulse Resp B/P (MAP) Pulse Ox O2 Delivery O2 Flow Rate FiO2 08/10/17 04:38 97.9 78 20 134/74 (94) 98 Room Air I&O- Last 24 Hours up to 6 AM 08/11/17 06:00 Intake Total 240 ml Balance 240 ml Laboratory Data Labs 24H Laboratory Tests 2 08/10/17 06:58: White Blood Count 12.7H, Red Blood Count 2.72L, Hemoglobin 8.6L, Hematocrit 24.7L, Mean Corpuscular Volume 90.7, Mean Corpuscular Hemoglobin 31.6, Mean Corpuscular Hemoglobin Concent 34.9, Red Cell Distribution Width 15.2H, Platelet Count 511H, Neutrophils (%) (Auto) 66.8H, Lymphocytes (%) (Auto) 19.9L , Monocytes (%) (Auto) 5.6H, Eosinophils (%) (Auto) 3.6H, Basophils (%) (Auto) 0.6, Neutrophils # (Auto) 8.5H, Lymphocytes # (Auto) 2.5, Monocytes # (Auto) 0.7 , Eosinophils # (Auto) 0.4, Basophils # (Auto) 0.1, Large Unclassified Cells % 3.5, Large Unclassified Cells # 0.5H, Anion Gap 10, Glomerular Filtration Rate > 60.0, Blood Urea Nitrogen 23H, Creatinine 0.76, Sodium Level 138, Potassium Level 4.1, Chloride Level 104, Carbon Dioxide Level 24, Calcium Level 8.6L, Aspartate Amino Transf (AST/SGOT) 29, Alanine Aminotransferase (ALT/SGPT) 53, Alkaline Phosphatase 257H, Total Bilirubin 0.7, Total Protein 7.0, Albumin 2.0L , Magnesium Level 2.1, C-Reactive Protein, Quantitative 2.75H, Albumin/Globulin Ratio 0.40L CBC/BMP Laboratory Tests 08/10/17 06:58 Red Blood Count 2.72 L, Mean Corpuscular Volume 90.7, Mean Corpuscular Hemoglobin 31.6, Mean Corpuscular Hemoglobin Concent 34.9, Red Cell Distribution Width 15.2 H, Neutrophils (%) (Auto) 66.8 H, Lymphocytes (%) (Auto ) 19.9 L, Monocytes (%) (Auto) 5.6 H, Eosinophils (%) (Auto) 3.6 H, Basophils (% ) (Auto) 0.6, Neutrophils # (Auto) 8.5 H, Lymphocytes # (Auto) 2.5, Monocytes # (Auto) 0.7, Eosinophils # (Auto) 0.4, Basophils # (Auto) 0.1, Calcium Level 8.6 L, Aspartate Amino Transf (AST/SGOT) 29, Alanine Aminotransferase (ALT/SGPT) 53 , Alkaline Phosphatase 257 H, Total Bilirubin 0.7, Total Protein 7.0, Albumin 2.0 L Allergies Coded Allergies: No Known Drug Allergy (Unverified Allergy, Unknown, NONE, 07/12/17) Home Medications Scheduled (Multivitamins) 1 Cap Cap, 1 CAP PO DAILY, (Reported) Aspirin (Aspir-81) 81 Mg Tab, 81 MG PO DAILY, #30 (Reported) Atorvastatin Calcium (Atorvastatin Calcium) 80 Mg Tab, 80 MG PO DAILY, (Reported ) Clopidogrel Bisulfate (Clopidogrel) 75 Mg Tab, 75 MG PO DAILY, (Reported) Omeprazole (Omeprazole) 40 Mg Cap, 40 MG PO BIDWM, (Reported) Ramipril (Ramipril) 10 Mg Cap, 10 MG PO QHS, (Reported) Kezia Rascon Aug 10, 2017 12:19
[2017-08-10] MEDS: CLOPIDOGREL 75 MG TAB PO SCH (12:51)
[2017-08-10] MEDS: ASPIRIN 81 MG ENTERIC TAB PO SCH (12:51)
[2017-08-10 14:00] VITALS: BP 112/22
[2017-08-10 20:00] VITALS: BP 120/59
[2017-08-11 06:30] VITALS: BP 132/74
[2017-08-11 07:01] LABS: BASO # 0.1 K/mm3 (0.0-0.2); BASO % 0.5 % (0.0-1.0); EOS # 0.4 K/mm3 (0.0-0.50); EOS % 3.7 % (0.0-3.0); LARGE UNSTAINED CELL # 0.4 K/mm3 (0.0-0.4); LARGE UNSTAINED CELL % 3.7 % (0.0-4.0); LYMPH # 2.6 K/mm3 (1.5-4.5); LYMPH % 21.9 % (24.0-44.0); MEAN CORPUSCULAR HEMOGLOBIN 31.1 pg (27.0-33.0); MEAN CORPUSCULAR HGB CONC 33.9 g/dl (32.0-36.5); MEAN CORPUSCULAR VOLUME 91.8 fl (80.0-96.0); MONO # 0.6 K/mm3 (0.0-0.8); MONO % 5.3 % (0.0-5.0); NEUTROPHILS # 7.5 K/mm3 (1.8-7.7); NEUTROPHILS % 64.9 % (36.0-66.0); PLATELET COUNT, AUTOMATED 554 k/mm3 (150-450); RED CELL DISTRIBUTION WIDTH 15.4 % (11.5-14.5); WHITE BLOOD COUNT 11.6 K/mm3 (4.0-10.0)
[2017-08-11 07:08] LABS: ALBUMIN 2.2 GM/DL (3.2-5.2); ALBUMIN/GLOBULIN RATIO 0.49 (1.00-1.93); ALKALINE PHOSPHATASE 269 U/L (45-117); ALT/SGPT 49 U/L (12-78); ANION GAP 10 MEQ/L (8-16); AST/SGOT 23 U/L (15-37); BILIRUBIN,TOTAL 0.7 MG/DL (0.2-1.0); BLOOD UREA NITROGEN 23 MG/DL (7-18); CALCIUM LEVEL 8.8 MG/DL (8.8-10.2); CARBON DIOXIDE LEVEL 23 MEQ/L (21-32); CHLORIDE LEVEL 105 MEQ/L (98-107); CREATININE FOR GFR 0.83 MG/DL (0.70-1.30); GLOMERULAR FILTRATION RATE > 60.0 (>49); GLUCOSE, FASTING 101 MG/DL (80-110); MAGNESIUM LEVEL 2.1 MG/DL (1.8-2.4); POTASSIUM SERUM 4.3 MEQ/L (3.5-5.1); SODIUM LEVEL 138 MEQ/L (136-145); TOTAL PROTEIN 6.7 GM/DL (6.4-8.2)
--- NOTE | 2017-08-11 07:26 | IPN ---
DATE: 08/10/2017 The patient was moved to the acute rehabilitation unit late on the evening of 08/09/2017. Since arrival there, he has remained afebrile. He denies any nausea or vomiting but reports that his appetite remains somewhat depressed. His ileostomy has been functioning. He has not noticed any passage of stool per rectum. VITAL SIGNS: This afternoon show a temperature of 97.9, pulse of 89, respirations of 18 and a blood pressure of 112/22. Room air saturation is 98%. Intake and output shows an acceptable urine output. His oral intake remains somewhat low according to recorded volumes. His ileostomy has good output and the quantity has diminished somewhat. PHYSICAL EXAMINATION: Shows a pleasant man. He appears to have lost weight during his hospital stay and his edema has resolved. Heart exam shows a regular rhythm. The lungs are clear. The abdomen is soft. His G-tube site is clean. The ileostomy is functioning well. His wound has several small open areas which are gently probed with sterile Q-tips today. He appears to have some areas of fat necrosis within the wound with some liquefied fat which expresses through several small openings. There does not appear to be any acute infection. The wound was redressed. Laboratory studies were obtained by the rehabilitation physician. These show a white count of 12.7 and a neutrophil count of 67%. Chemistries reveal a CRP of 2.75 with an albumin still only 2.0. IMPRESSION: The patient is continuing to make progress in recovery from his multiple surgical procedures. He is now on acute rehabilitation and has been connected with OT and PT. He has been able to be out of bed ambulating with minimal assistance. His appetite has not yet improved significantly. His wound has a few small draining areas which appear more consistent with fat necrosis along his midline rather than any sort of infection. PLAN: The patient will be treated with some local wound care with twice daily dressing changes. Within the next week or so I should be able to remove his G-tube as long as he does not need this for any caloric supplementation. His ileostomy appears to be functioning well and he will continue his training in ostomy care. [facility] THOMPSON HOSPITALViridiana
[2017-08-11] MEDS: ASPIRIN 81 MG ENTERIC TAB PO SCH (08:15)
[2017-08-11] MEDS: PANTOPRAZOLE 40MG TAB (PROTONIX) PO SCH (08:15)
[2017-08-11] MEDS: CLOPIDOGREL 75 MG TAB PO SCH (08:15)
[2017-08-11] MEDS ORDERED: traZODone 50 MG TAB PO PRN (10:30)
--- NOTE | 2017-08-11 10:30 | IPNPDOC ---
[facility] Progress Note DATE OF SERVICE: 08/11/17 DATE OF ADMISSION: Aug 09, 2017 at 21:00 INPATIENT REHABILITATION ADMISSION DAY: #3 SUBJECTIVE: 66-year-old right handed white male status post resection of tubulovillous adenoma complicated by adhesions, abscesses, septic shock with secondary acute respiratory failure requiring mechanical ventilation and gastrostomy tube placement with colostomy placement. Patient with secondary anemia, hypoproteinemia and hypoalbuminemia from the stresses along with decrease balance and endurance and diminished activities of daily living. Patient notes some malaise and fatigue this morning without pain. He does note abdominal bloating without clear cramping. He had trouble with sleep last night on 100mg of trazodone. ALLERGIES: See Below MEDICATIONS: Reviewed, see below. OBJECTIVE: VITAL SIGNS: Please see below. PHYSICAL EXAMINATION: GENERAL: Tall well-developed, late middle-age white male laying in bed with distended abdomen in very mild stress who appears to be fatigued. Patient is alert and well oriented and is pleasant. HEENT: Normocephalic/atraumatic. CARDIOVASCULAR: Regular rate and rhythm with normal S1 and S2. 2/4 bilateral radial pulses. LUNGS: All ramirez clear to auscultation. ABDOMEN: Distended but decreasing the last 2 days and tympany in most of abdomen , but now without tympany in the lateral aspects. Normal bowel sounds in all quadrants. NEUROLOGICAL: Patient alert and oriented 4. Speech is clear, coherent and appropriate. Affect is pleasant and cooperative. Memory is intact. Motor with good to full strength but easy fatigue and limited by core muscles related to the abdominal surgeries. SKIN: Ostomy site and G-tube and abdominal incisions doing well. No jaundice noted. LABORATORY DATA: Reviewed. Please see below. MICROBIOLOGY: Please see below. IMAGING: No new imaging. DVT prophylaxis ordered?: Lovenox, ASA, & Plavix with MI hose and sequential stockings. ASSESSMENT AND PLAN: 1. Rehabilitation of colon cancer complicated by adhesions, abscesses and ileus : Patient starting program of physical and occupational therapy today to rebuild strength and learn adaptive techniques to work around weakness in the abdominal musculature that stabilizes the trunk from which all movements stems. Overall patient is very motivated though he is feeling some malaise and fatigue this morning. We will complete team of bowels and care plan inside the next day. At this time I'm anticipating patient will require 7-10 days of training for him as as well as conditioning of him to prepare them for return to home. REHAB. TEAM ROUNDS: Patient has started PT/OT and is working hard. He has some problem though with short term memory as well as sleep and secondary fatigue. I will increase the trazodone to 150 mg PRN at HS tonight to see if this helps these issues. Patient and his are doing well getting involved in the stoma care. He needs to pace it better and is still learning technique. Dr. Stroud will decide on dressings and if any additional care is needed. Patient also will poor fluid intake, so I will increase intake with the G-Tube to 250cc QID. Patient does do well with mobility, but needs to improve safety technique. Estimated Discharge Date is 08/16/17. 2. Anemia: H&H are 9.1 and 27.0% today on 06/10/17, which is improved. Blood pressure and heart rate have been normal and stable since admission last night. 3. Low protein/albumin: Total protein in normal range at 6.8, however albumin is improving but very low at 2.2. I will assess for dietary consult and we will do calorie tracking. TIME SPENT: Chart Review, examination and documentation requires greater than 35 minutes. Allergies Coded Allergies: No Known Drug Allergy (Unverified Allergy, Unknown, NONE, 07/12/17) Vital Signs Vital Signs Date Time Temp Pulse Resp B/P (MAP) Pulse Ox O2 Delivery O2 Flow Rate FiO2 08/11/17 06:30 98.3 84 18 132/74 (93) 100 Room Air Laboratory Data CBC/BMP Laboratory Tests 08/11/17 06:34 Red Blood Count 2.94 L, Mean Corpuscular Volume 91.8, Mean Corpuscular Hemoglobin 31.1, Mean Corpuscular Hemoglobin Concent 33.9, Red Cell Distribution Width 15.4 H, Neutrophils (%) (Auto) 64.9, Lymphocytes (%) (Auto) 21.9 L, Monocytes (%) (Auto) 5.3 H, Eosinophils (%) (Auto) 3.7 H, Basophils (%) (Auto) 0.5, Neutrophils # (Auto) 7.5, Lymphocytes # (Auto) 2.6, Monocytes # ( Auto) 0.6, Eosinophils # (Auto) 0.4, Basophils # (Auto) 0.1, Calcium Level 8.8, Aspartate Amino Transf (AST/SGOT) 23, Alanine Aminotransferase (ALT/SGPT) 49, Alkaline Phosphatase 269 H, Total Bilirubin 0.7, Total Protein 6.7, Albumin 2.2 L Labs 24H Laboratory Tests 2 08/11/17 06:34: White Blood Count 11.6H, Red Blood Count 2.94L, Hemoglobin 9.1L, Hematocrit 27.0L, Mean Corpuscular Volume 91.8, Mean Corpuscular Hemoglobin 31.1, Mean Corpuscular Hemoglobin Concent 33.9, Red Cell Distribution Width 15.4H, Platelet Count 554H, Neutrophils (%) (Auto) 64.9, Lymphocytes (%) (Auto) 21.9L, Monocytes (%) (Auto) 5.3H, Eosinophils (%) (Auto) 3.7H, Basophils (%) (Auto) 0.5 , Neutrophils # (Auto) 7.5, Lymphocytes # (Auto) 2.6, Monocytes # (Auto) 0.6, Eosinophils # (Auto) 0.4, Basophils # (Auto) 0.1, Large Unclassified Cells % 3.7 , Large Unclassified Cells # 0.4, Anion Gap 10, Glomerular Filtration Rate > 60.0, Blood Urea Nitrogen 23H, Creatinine 0.83, Sodium Level 138, Potassium Level 4.3, Chloride Level 105, Carbon Dioxide Level 23, Calcium Level 8.8, Aspartate Amino Transf (AST/SGOT) 23, Alanine Aminotransferase (ALT/SGPT) 49, Alkaline Phosphatase 269H, Total Bilirubin 0.7, Total Protein 6.7, Albumin 2.2L , Magnesium Level 2.1, C-Reactive Protein, Quantitative 2.18H, Albumin/Globulin Ratio 0.49L Current Medications Current Medications Current Medications Acetaminophen (Tylenol Tab) 650 mg Q6HP PRN PO PAIN OR FEVER; Start 08/09/17 at 13:45; Stop 09/08/17 at 13:44 Albuterol/ Ipratropium (Duoneb (Ipr 0.5mg/Alb 2.5mg)) 3 ml Q4HP PRN NEB SOB/ WHEEZING; Start 08/09/17 at 14:00; Stop 09/08/17 at 13:59 Aspirin (Ecotrin) 81 mg DAILY PO Last administered on 08/11/17t 08:15; Start at 09:00; Stop 09/09/17 at 08:59 Clopidogrel Bisulfate (PLAVix) 75 mg DAILY PO Last administered on 08/11/17 08 :15; Start 08/10/17 at 09:00; Stop 09/09/17 at 08:59 Enoxaparin Sodium (Lovenox) 40 mg DAILY SC Last administered on 08/10/17 08:40 ; Start 08/10/17 at 09:00; Stop 08/11/17 at 02:46; Status DC Enoxaparin Sodium (Lovenox) 40 mg DAILY@2000 SC ; Start 08/11/17 at 20:00; Stop 08/16/17 at 19:59 Pantoprazole Sodium (Protonix) 40 mg DAILY PO Last administered on 08/11/17 08 :15; Start 08/10/17 at 09:00; Stop 09/09/17 at 08:59 Trazodone HCl (Desyrel) 100 mg QHSP PRN PO INSOMNIA Last administered on 21:06; Start 08/10/17 at 09:45; Stop 09/09/17 at 09:44 RALPH JIM MD Aug 11, 2017 10:30
[2017-08-11 14:45] VITALS: BP 117/67
--- NOTE | 2017-08-11 18:37 | IPN ---
DATE: 08/11/2017 Mr. Dominguez appears to be doing fairly well overall on the rehab unit. When I saw him today, he was sitting up eating some regular dinner which he appeared to be tolerating pretty well. The nurse reports that he and his had just gone through changing the ostomy appliance and the wound dressing. The patient's is a little squeamish about this kind of thing but managed to participate in the training exercise. His urine output has been somewhat down during the day, and he has been checked several times with ultrasound and found to have a postvoid residual that is elevated. Vital signs: He has been afebrile for the last 24 hours with a pulse in 70s to 80s. His blood pressure is good with an oxygen saturation on room air that is normal. His intake yesterday was 720 in recorded with 1400 of urine output and 950 of stool. PHYSICAL EXAMINATION: He is alert and oriented. He denies any pain. Heart exam shows a regular rhythm and the lungs are clear. His abdominal incision is dressed, but the nurse reports that there are several points of drainage along the wound as would be anticipated. LABORATORY FINDINGS: He had labs again today although I see no reason why. He had a white count of 11.6 with a hemoglobin of 9, hematocrit of 27 and a platelet count of 554,000. Differential count today showed 65% neutrophils, 22% lymphocytes and 5 monocytes. His chemistry profile showed normal electrolytes with a BUN of 23, creatinine 0.8 and a glucose of 101. His total protein is 6.7 with an albumin of 2.2. IMPRESSION: The patient appears to be doing well. He is tolerating a diet better and his strength and spirits seem better. He and his are doing some training on ostomy care. His wound has some drainage, which I believe is primarily fat necrosis of the subcutaneous fat along the wound edges. I anticipate this will ooze for awhile and then seal over and stop. He does have a postvoid residual. I re-questioned him about his voiding habits before admission and he reports no problems. PLAN: The patient will continue with his physical therapy and his rehabilitation. He needs to be capable of managing the ileostomy. I did advise the patient and his that there is an obligatory loss of some fluid, which will likely reduce his urine output and he will need to ensure that he is taking adequate fluids. I do think starting a dose of Flomax at bedtime is a reasonable intervention at this time to see if we can improve his voiding and reduce his postvoid residual. The patient did ask if his ileostomy could be closed at some point, and I advised him that once he has had a chance to regain strength and heal and mature his scar tissue that a takedown of his ileostomy should be possible. I would not recommend anything like this for probably 6 months. I will continue to monitor the patient during his stay on rehab and have him follow up with me in the office afterwards. ROMARIO
[2017-08-11 20:00] VITALS: BP 122/60
[2017-08-11] MEDS: TAMSULOSIN 0.4 MG CAP PO SCH (20:06)
[2017-08-11] MEDS: ENOXAPARIN 40 MG/0.4 ML SYRINGE (J1650) SC SCH (20:06)
[2017-08-12 00:02] VITALS: BP 138/74
[2017-08-12 06:01] VITALS: BP 144/75
[2017-08-12 07:19] LABS: BASO % 0.3 % (0.0-1.0); EOS # 0.5 K/mm3 (0.0-0.50); EOS % 4.2 % (0.0-3.0); LARGE UNSTAINED CELL # 0.4 K/mm3 (0.0-0.4); LYMPH # 2.9 K/mm3 (1.5-4.5); LYMPH % 25.7 % (24.0-44.0); MEAN CORPUSCULAR HEMOGLOBIN 31.6 pg (27.0-33.0); MEAN CORPUSCULAR HGB CONC 34.5 g/dl (32.0-36.5); MEAN CORPUSCULAR VOLUME 91.6 fl (80.0-96.0); MONO # 0.6 K/mm3 (0.0-0.8); MONO % 5.3 % (0.0-5.0); NEUTROPHILS # 6.7 K/mm3 (1.8-7.7); NEUTROPHILS % 60.5 % (36.0-66.0); PLATELET COUNT, AUTOMATED 543 k/mm3 (150-450); RED CELL DISTRIBUTION WIDTH 15.7 % (11.5-14.5); WHITE BLOOD COUNT 11.1 K/mm3 (4.0-10.0)
[2017-08-12 07:31] LABS: ALBUMIN 2.3 GM/DL (3.2-5.2); ALKALINE PHOSPHATASE 257 U/L (45-117); ALT/SGPT 42 U/L (12-78); ANION GAP 10 MEQ/L (8-16); AST/SGOT 20 U/L (15-37); BILIRUBIN,TOTAL 0.6 MG/DL (0.2-1.0); BLOOD UREA NITROGEN 21 MG/DL (7-18); CALCIUM LEVEL 8.4 MG/DL (8.8-10.2); CARBON DIOXIDE LEVEL 23 MEQ/L (21-32); CHLORIDE LEVEL 104 MEQ/L (98-107); CREATININE FOR GFR 0.84 MG/DL (0.70-1.30); GLOMERULAR FILTRATION RATE > 60.0 (>49); GLUCOSE, FASTING 99 MG/DL (80-110); MAGNESIUM LEVEL 2.1 MG/DL (1.8-2.4); POTASSIUM SERUM 4.1 MEQ/L (3.5-5.1); SODIUM LEVEL 137 MEQ/L (136-145); TOTAL PROTEIN 6.9 GM/DL (6.4-8.2)
[2017-08-12] MEDS: ASPIRIN 81 MG ENTERIC TAB PO SCH (07:49)
[2017-08-12] MEDS: PANTOPRAZOLE 40MG TAB (PROTONIX) PO SCH (07:49)
[2017-08-12] MEDS: CLOPIDOGREL 75 MG TAB PO SCH (07:49)
--- NOTE | 2017-08-12 10:13 | IPNPDOC ---
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 Patient with secondary anemia, hypoproteinemia and hypoalbuminemia from the stresses along with decrease balance and endurance and diminished activities of daily living. Patient notes some malaise and fatigue this morning without pain. He does note abdominal bloating without clear cramping. He had trouble with sleep last night on 150mg of trazodone after getting at 9PM. He slept till about 11PM then was awake. ALLERGIES: See Below MEDICATIONS: Reviewed, see below. OBJECTIVE: VITAL SIGNS: Please see below. PHYSICAL EXAMINATION: GENERAL: Tall well-developed, late middle-age white male laying in bed with distended abdomen in very mild stress who appears to be fatigued. Patient is alert and well oriented and is pleasant. HEENT: Normocephalic/atraumatic. CARDIOVASCULAR: Regular rate and rhythm with normal S1 and S2. 2/4 bilateral radial pulses. LUNGS: All ramirez clear to auscultation. ABDOMEN: Less distended and tympany in only about half of the abdomen. Normal bowel sounds in all quadrants. NEUROLOGICAL: Patient alert and oriented 4. Speech is clear, coherent and appropriate. Affect is pleasant and cooperative. Memory is intact. Motor with good to full strength but easy fatigue and limited by core muscles related to the abdominal surgeries. SKIN: Ostomy site and G-tube and abdominal incisions doing well. No jaundice noted. LABORATORY DATA: Reviewed. Please see below. MICROBIOLOGY: Please see below. IMAGING: No new imaging. DVT prophylaxis ordered?: Lovenox, ASA, & Plavix with MI hose and sequential stockings. ASSESSMENT AND PLAN: 1. Rehabilitation of colon cancer complicated by adhesions, abscesses and ileus : Patient starting program of physical and occupational therapy today to rebuild strength and learn adaptive techniques to work around weakness in the abdominal musculature that stabilizes the trunk from which all movements stems. Overall patient is very motivated though he is feeling some malaise and fatigue this morning. We will complete team of bowels and care plan inside the next day. At this time I'm anticipating patient will require 7-10 days of training for him as as well as conditioning of him to prepare them for return to home. Patient also with poor fluid intake, so I had increase intake with the G-Tube to 250cc QID. Last night nursing used the balloon port and ruptured the balloon. The H2O was however still delivered into the stomach. Dr. Stroud is aware and wishes to nurse along the G-Tube for 1 to 1.5 weeks more than the current 2 weeks it has been in. Patient does do well with mobility, but needs to improve safety technique. Estimated Discharge Date is 08/16/17. 2. Anemia: H&H are 8.9 and 25.8% today on 06/11/17, which is stable in general reflecting some increased hydration with BUN now 21 improve from 23. Blood pressure and heart rate have been normal and stable since admission last night. 3. Low protein/albumin: Total protein in normal range at 6.9, however albumin is improving but very low at 2.3 with both showing some improvement. We are doing calorie tracking. Some high calorie/high protein changes made in diet by Arresting Gear Operator. I will still give 250 cc H2O via the G-Tube still, until oral fluids are adequate. 4. Insomnia: I will increase Trazodone to 200 mg PO QHS PRN for sleep. Anxiety may be an element causing early reawakening. TIME SPENT: Chart Review, examination and documentation requires greater than 25 minutes. Allergies Coded Allergies: No Known Drug Allergy (Unverified Allergy, Unknown, NONE, 07/12/17) Vital Signs Vital Signs Date Time Temp Pulse Resp B/P (MAP) Pulse Ox O2 Delivery O2 Flow Rate FiO2 08/12/17 06:01 98.4 77 18 144/75 (98) 97 Room Air Laboratory Data CBC/BMP Laboratory Tests 08/12/17 06:22 Red Blood Count 2.81 L, Mean Corpuscular Volume 91.6, Mean Corpuscular Hemoglobin 31.6, Mean Corpuscular Hemoglobin Concent 34.5, Red Cell Distribution Width 15.7 H, Neutrophils (%) (Auto) 60.5, Lymphocytes (%) (Auto) 25.7, Monocytes (%) (Auto) 5.3 H, Eosinophils (%) (Auto) 4.2 H, Basophils (%) ( Auto) 0.3, Neutrophils # (Auto) 6.7, Lymphocytes # (Auto) 2.9, Monocytes # (Auto ) 0.6, Eosinophils # (Auto) 0.5, Basophils # (Auto) 0.0, Calcium Level 8.4 L, Aspartate Amino Transf (AST/SGOT) 20, Alanine Aminotransferase (ALT/SGPT) 42, Alkaline Phosphatase 257 H, Total Bilirubin 0.6, Total Protein 6.9, Albumin 2.3 L Labs 24H Laboratory Tests 2 08/12/17 06:22: White Blood Count 11.1H, Red Blood Count 2.81L, Hemoglobin 8.9L, Hematocrit 25.8L, Mean Corpuscular Volume 91.6, Mean Corpuscular Hemoglobin 31.6, Mean Corpuscular Hemoglobin Concent 34.5, Red Cell Distribution Width 15.7H, Platelet Count 543H, Neutrophils (%) (Auto) 60.5, Lymphocytes (%) (Auto) 25.7, Monocytes (%) (Auto) 5.3H, Eosinophils (%) (Auto) 4.2H, Basophils (%) (Auto) 0.3 , Neutrophils # (Auto) 6.7, Lymphocytes # (Auto) 2.9, Monocytes # (Auto) 0.6, Eosinophils # (Auto) 0.5, Basophils # (Auto) 0.0, Large Unclassified Cells % 4.0 , Large Unclassified Cells # 0.4, Anion Gap 10, Glomerular Filtration Rate > 60.0, Blood Urea Nitrogen 21H, Creatinine 0.84, Sodium Level 137, Potassium Level 4.1, Chloride Level 104, Carbon Dioxide Level 23, Calcium Level 8.4L, Aspartate Amino Transf (AST/SGOT) 20, Alanine Aminotransferase (ALT/SGPT) 42, Alkaline Phosphatase 257H, Total Bilirubin 0.6, Total Protein 6.9, Albumin 2.3L , Magnesium Level 2.1, C-Reactive Protein, Quantitative 1.70H, Albumin/Globulin Ratio 0.50L Current Medications Current Medications Current Medications Acetaminophen (Tylenol Tab) 650 mg Q6HP PRN PO PAIN OR FEVER Last administered on 08/12/17t 09:37; Start 08/09/17 at 13:45; Stop 09/08/17 at 13:44 Albuterol/ Ipratropium (Duoneb (Ipr 0.5mg/Alb 2.5mg)) 3 ml Q4HP PRN NEB SOB/ WHEEZING; Start 08/09/17 at 14:00; Stop 09/08/17 at 13:59 Aspirin (Ecotrin) 81 mg DAILY PO Last administered on 08/12/17 07:49; Start at 09:00; Stop 09/09/17 at 08:59 Clopidogrel Bisulfate (PLAVix) 75 mg DAILY PO Last administered on 08/12/17 07 :49; Start 08/10/17 at 09:00; Stop 09/09/17 at 08:59 Enoxaparin Sodium (Lovenox) 40 mg DAILY SC Last administered on 08/10/17 08:40 ; Start 08/10/17 at 09:00; Stop 08/11/17 at 02:46; Status DC Enoxaparin Sodium (Lovenox) 40 mg DAILY@2000 SC Last administered on 08/11/17 20:06; Start 08/11/17 at 20:00; Stop 08/18/17 at 23:55 Pantoprazole Sodium (Protonix) 40 mg DAILY PO Last administered on 08/12/17 07 :49; Start 08/10/17 at 09:00; Stop 09/09/17 at 08:59 Tamsulosin HCl (Flomax) 0.4 mg QHS PO Last administered on 08/11/17 20:06; Start 08/11/17 at 21:00; Stop 09/10/17 at 20:59 Trazodone HCl (Desyrel) 100 mg QHSP PRN PO INSOMNIA Last administered on 21:06; Start 08/10/17 at 09:45; Stop 08/11/17 at 10:31; Status DC Trazodone HCl (Desyrel) 150 mg QHSP PRN PO INSOMNIA Last administered on 20:05; Start 08/11/17 at 10:30; Stop 09/10/17 at 10:29 RALPH JIM MD Aug 12, 2017 10:13
[2017-08-12 14:00] VITALS: BP 118/75
[2017-08-12 19:39] VITALS: BP 130/68
[2017-08-12] MEDS: ENOXAPARIN 40 MG/0.4 ML SYRINGE (J1650) SC SCH (20:13)
[2017-08-12] MEDS: TAMSULOSIN 0.4 MG CAP PO SCH (20:13)
[2017-08-12] MEDS: traZODone 100 MG TAB PO PRN (21:43)
[2017-08-13 05:00] VITALS: BP 123/75
[2017-08-13 07:12] LABS: ALBUMIN 2.4 GM/DL (3.2-5.2); ALBUMIN/GLOBULIN RATIO 0.59 (1.00-1.93); ALKALINE PHOSPHATASE 256 U/L (45-117); ALT/SGPT 41 U/L (12-78); ANION GAP 11 MEQ/L (8-16); AST/SGOT 22 U/L (15-37); BILIRUBIN,TOTAL 0.6 MG/DL (0.2-1.0); BLOOD UREA NITROGEN 21 MG/DL (7-18); CALCIUM LEVEL 8.8 MG/DL (8.8-10.2); CARBON DIOXIDE LEVEL 23 MEQ/L (21-32); CHLORIDE LEVEL 105 MEQ/L (98-107); CREATININE FOR GFR 0.87 MG/DL (0.70-1.30); GLOMERULAR FILTRATION RATE > 60.0 (>49); GLUCOSE, FASTING 96 MG/DL (80-110); POTASSIUM SERUM 4.5 MEQ/L (3.5-5.1); SODIUM LEVEL 139 MEQ/L (136-145); TOTAL PROTEIN 6.5 GM/DL (6.4-8.2)
[2017-08-13] MEDS: PANTOPRAZOLE 40MG TAB (PROTONIX) PO SCH (08:06)
[2017-08-13] MEDS: CLOPIDOGREL 75 MG TAB PO SCH (08:06)
[2017-08-13] MEDS: ASPIRIN 81 MG ENTERIC TAB PO SCH (08:06)
[2017-08-13 14:00] VITALS: BP 158/79
[2017-08-13 20:00] VITALS: BP 139/76
[2017-08-13] MEDS: ENOXAPARIN 40 MG/0.4 ML SYRINGE (J1650) SC SCH (20:16)
[2017-08-13] MEDS: TAMSULOSIN 0.4 MG CAP PO SCH (20:16)
[2017-08-13] MEDS: traZODone 100 MG TAB PO PRN (22:38)
[2017-08-14 04:45] VITALS: BP 118/70
[2017-08-14 07:20] LABS: ALBUMIN 2.4 GM/DL (3.2-5.2); ALBUMIN/GLOBULIN RATIO 0.57 (1.00-1.93); ALKALINE PHOSPHATASE 237 U/L (45-117); ALT/SGPT 38 U/L (12-78); ANION GAP 11 MEQ/L (8-16); AST/SGOT 19 U/L (15-37); BILIRUBIN,TOTAL 0.6 MG/DL (0.2-1.0); BLOOD UREA NITROGEN 18 MG/DL (7-18); CALCIUM LEVEL 8.3 MG/DL (8.8-10.2); CARBON DIOXIDE LEVEL 23 MEQ/L (21-32); CHLORIDE LEVEL 104 MEQ/L (98-107); GLOMERULAR FILTRATION RATE > 60.0 (>49); GLUCOSE, FASTING 94 MG/DL (80-110); MAGNESIUM LEVEL 1.9 MG/DL (1.8-2.4); POTASSIUM SERUM 4.4 MEQ/L (3.5-5.1); SODIUM LEVEL 138 MEQ/L (136-145); TOTAL PROTEIN 6.6 GM/DL (6.4-8.2)
[2017-08-14] MEDS: CLOPIDOGREL 75 MG TAB PO SCH (07:44)
[2017-08-14] MEDS: PANTOPRAZOLE 40MG TAB (PROTONIX) PO SCH (07:44)
[2017-08-14] MEDS: ASPIRIN 81 MG ENTERIC TAB PO SCH (07:44)
[2017-08-14 14:00] VITALS: BP 151/78
[2017-08-14] MEDS: ENOXAPARIN 40 MG/0.4 ML SYRINGE (J1650) SC SCH (20:13)
[2017-08-14] MEDS: TAMSULOSIN 0.4 MG CAP PO SCH (20:13)
[2017-08-14] MEDS: traZODone 100 MG TAB PO PRN (20:13)
[2017-08-14 20:36] VITALS: BP 145/77
[2017-08-15 02:00] VITALS: BP 137/76
[2017-08-15 06:00] VITALS: BP 131/68
[2017-08-15 06:47] LABS: MEAN CORPUSCULAR HEMOGLOBIN 31.2 pg (27.0-33.0); MEAN CORPUSCULAR VOLUME 91.9 fl (80.0-96.0); RED CELL DISTRIBUTION WIDTH 15.9 % (11.5-14.5); WHITE BLOOD COUNT 9.4 K/mm3 (4.0-10.0)
[2017-08-15 07:22] LABS: ALBUMIN 2.4 GM/DL (3.2-5.2); ALBUMIN/GLOBULIN RATIO 0.59 (1.00-1.93); ALKALINE PHOSPHATASE 215 U/L (45-117); ALT/SGPT 33 U/L (12-78); ANION GAP 9 MEQ/L (8-16); AST/SGOT 18 U/L (15-37); BILIRUBIN,TOTAL 0.5 MG/DL (0.2-1.0); BLOOD UREA NITROGEN 17 MG/DL (7-18); CALCIUM LEVEL 8.4 MG/DL (8.8-10.2); CARBON DIOXIDE LEVEL 24 MEQ/L (21-32); CHLORIDE LEVEL 103 MEQ/L (98-107); CREATININE FOR GFR 0.92 MG/DL (0.70-1.30); GLOMERULAR FILTRATION RATE > 60.0 (>49); GLUCOSE, FASTING 92 MG/DL (80-110); SODIUM LEVEL 136 MEQ/L (136-145); TOTAL PROTEIN 6.5 GM/DL (6.4-8.2)
[2017-08-15] MEDS: ASPIRIN 81 MG ENTERIC TAB PO SCH (08:20)
[2017-08-15] MEDS: CLOPIDOGREL 75 MG TAB PO SCH (08:20)
[2017-08-15] MEDS: PANTOPRAZOLE 40MG TAB (PROTONIX) PO SCH (08:20)
--- NOTE | 2017-08-15 11:25 | IPNPDOC ---
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 Patient with secondary anemia, hypoproteinemia and hypoalbuminemia from the stresses along with decrease balance and endurance and diminished activities of daily living. Patient notes some malaise and fatigue this morning without pain. ALLERGIES: See Below MEDICATIONS: Reviewed, see below. OBJECTIVE: VITAL SIGNS: Please see below. PHYSICAL EXAMINATION: GENERAL: Tall well-developed, late middle-age white male laying in bed with distended abdomen in very mild stress who appears to be fatigued. Patient is alert and well oriented and is pleasant. HEENT: Normocephalic/atraumatic. CARDIOVASCULAR: Regular rate and rhythm with normal S1 and S2. 2/4 bilateral radial pulses. LUNGS: All ramirez clear to auscultation. ABDOMEN: Less distended with rare tympany in the abdomen. Normal bowel sounds in all quadrants. NEUROLOGICAL: Patient alert and oriented 4. Speech is clear, coherent and appropriate. Affect is pleasant and cooperative. Memory is intact. Motor with good to full strength and less easily fatigued and still somewhat limited by core muscles related to the abdominal surgeries. SKIN: Ostomy site and G-tube and abdominal incisions doing well. No jaundice noted. Skin Turgor is good. LABORATORY DATA: Reviewed. Please see below. MICROBIOLOGY: Please see below. IMAGING: No new imaging. DVT prophylaxis ordered?: Lovenox, ASA, & Plavix with MI hose and sequential stockings. ASSESSMENT AND PLAN: 1. Rehabilitation of colon cancer complicated by adhesions, abscesses and ileus : Patient starting program of physical and occupational therapy today to rebuild strength and learn adaptive techniques to work around weakness in the abdominal musculature that stabilizes the trunk from which all movements stems. Overall patient is very motivated though he is feeling some malaise and fatigue this morning. We will complete team of bowels and care plan inside the next day. At this time I'm anticipating patient will require 7-10 days of training for him as as well as conditioning of him to prepare them for return to home. Dr. Stroud wishes to nurse along the G-Tube for 1 to 1.5 weeks more than the current 2 weeks it has been in. Patient does do well with mobility with walker and less with cane as he needs to improve his safety technique. Estimated Discharge Date is 08/16/17. REHAB. TEAM ROUNDS: Patient is doing very well in physical & occupational therapies and has started improving his nutrition. It will be important for him to consistently take and two quarters of fluid per day and to advance from his current 50 to 75% of meals to regain his nutrition and clear the hypoalbuminemia. Patient will be discharged tomorrow to home with his with follow-up with his PCP within [address] Guerra his surgeon in 7-10 days. Patient will have home care nursing/PT/OT along with toilet seat riser and shower chair prescriptions and prescriptions for his ostomy supplies. 2. Anemia: H&H are 8.8 and 25.8% today on 06/14/17, which is stable in general reflecting some increased hydration with BUN now 17 improved to normal range for the last 2 days. Blood pressure and heart rate have been normal and stable since admission last night. 3. Low protein/albumin: Total protein in normal range at 6.5, however albumin is improving but very low at 2.4 though showing some improvement. We are doing calorie tracking. Patient taking 50% to 75% of his meals and with fluids about 1700 per day. Need to just go with oral fluids post discharge. G-Tube will probably be removed in about a week. 4. Insomnia: I have increased Trazodone to 200 mg PO QHS PRN for sleep. Anxiety may be an element causing early reawakening. TIME SPENT: Chart Review, examination and documentation requires greater than 25 minutes. Allergies Coded Allergies: No Known Drug Allergy (Unverified Allergy, Unknown, NONE, 07/12/17) Vital Signs Vital Signs Date Time Temp Pulse Resp B/P (MAP) Pulse Ox O2 Delivery O2 Flow Rate FiO2 08/15/17 06:00 97.8 74 16 131/68 (89) 97 Room Air Laboratory Data CBC/BMP Laboratory Tests 08/15/17 06:24 Red Blood Count 2.81 L, Mean Corpuscular Volume 91.9, Mean Corpuscular Hemoglobin 31.2, Mean Corpuscular Hemoglobin Concent 34.0, Red Cell Distribution Width 15.9 H, Calcium Level 8.4 L, Aspartate Amino Transf (AST/SGOT ) 18, Alanine Aminotransferase (ALT/SGPT) 33, Alkaline Phosphatase 215 H, Total Bilirubin 0.5, Total Protein 6.5, Albumin 2.4 L Labs 24H Laboratory Tests 2 08/15/17 06:24: Anion Gap 9, Glomerular Filtration Rate > 60.0, Blood Urea Nitrogen 17, Creatinine 0.92, Sodium Level 136, Potassium Level 4.0, Chloride Level 103, Carbon Dioxide Level 24, Calcium Level 8.4L, Aspartate Amino Transf (AST/SGOT) 18, Alanine Aminotransferase (ALT/SGPT) 33, Alkaline Phosphatase 215H, Total Bilirubin 0.5, Total Protein 6.5, Albumin 2.4L, Magnesium Level 2.0, C-Reactive Protein, Quantitative 2.28H, Albumin/Globulin Ratio 0.59L Current Medications Current Medications Current Medications Acetaminophen (Tylenol Tab) 650 mg Q6HP PRN PO PAIN OR FEVER Last administered on 08/12/17 09:37; Start 08/09/17 at 13:45; Stop 09/08/17 at 13:44 Albuterol/ Ipratropium (Duoneb (Ipr 0.5mg/Alb 2.5mg)) 3 ml Q4HP PRN NEB SOB/ WHEEZING; Start 08/09/17 at 14:00; Stop 09/08/17 at 13:59 Aspirin (Ecotrin) 81 mg DAILY PO Last administered on 08/15/17 08:20; Start at 09:00; Stop 09/09/17 at 08:59 Clopidogrel Bisulfate (PLAVix) 75 mg DAILY PO Last administered on 08/15/17 08 :20; Start 08/10/17 at 09:00; Stop 09/09/17 at 08:59 Enoxaparin Sodium (Lovenox) 40 mg DAILY SC Last administered on 08/10/17 08:40 ; Start 08/10/17 at 09:00; Stop 08/11/17 at 02:46; Status DC Enoxaparin Sodium (Lovenox) 40 mg DAILY@2000 SC Last administered on 08/14/17 20:13; Start 08/11/17 at 20:00; Stop 08/18/17 at 23:55 Pantoprazole Sodium (Protonix) 40 mg DAILY PO Last administered on 08/15/17 08 :20; Start 08/10/17 at 09:00; Stop 09/09/17 at 08:59 Tamsulosin HCl (Flomax) 0.4 mg QHS PO Last administered on 08/14/17 20:13; Start 08/11/17 at 21:00; Stop 09/10/17 at 20:59 Trazodone HCl (Desyrel) 100 mg QHSP PRN PO INSOMNIA Last administered on 21:06; Start 08/10/17 at 09:45; Stop 08/11/17 at 10:31; Status DC Trazodone HCl (Desyrel) 150 mg QHSP PRN PO INSOMNIA Last administered on 20:05; Start 08/11/17 at 10:30; Stop 08/12/17 at 10:15; Status DC Trazodone HCl (Desyrel) 200 mg QHSP PRN PO INSOMNIA Last administered on 20:13; Start 08/12/17 at 10:15; Stop 09/11/17 at 10:14 RALPH JIM MD Aug 15, 2017 11:25
--- NOTE | 2017-08-15 11:54 | IPNPDOC ---
Date Seen The patient was seen on 08/15/17. Progress Note HPI: 66 YO M with h/o a tubulovillous adenoma, which was noted to be high- grade, status post rectosigmoid resection and anastomosis as per Dr Stroud, as well as multiple other abdominal surgeries, including colostomy and other colon segment and cecum resections with adhesion lysis and abscess drainage/removal that have been complicated by septic shock, leading to acute respiratory failure and requiring mechanical ventilation. Extubated 08/04/17. Pt is transferred to the care of Dr Woody JOSÉ 08/09/17. Pt states he feels he is doing better. Anxious for d/c tomorrow. Pt states he had some muscular soreness upper chest and shoulders, Pt reports pain with movement. Pt currently working with PT. Denies any fevers, chills, weakness, fatigue, Headache, Chest Pain, Shortness of breath, cough, palpitations, abdominal pain, N/V/D or changes in bowel or bladder habits. PMHx: 1. Hypertension. 2. Dyslipidemia. 3. Psoriasis. 4. GERD with Olguin's esophagus. 5. History of coronary arterial disease with stents x 2 in 2015. PAST SURGICAL HISTORY: 1. Right cataract extraction. 2. Varicose veins left lower extremity 2009. 3. Olguin's esophagus treatment in July 2015. 4. Coronary arterial disease with stents in March 2016. 5. In June 2017 during this admission with rectosigmoid colectomy. PE: GEN: 66yoM, appears stated age. Well-nourished, well developed. No acute distress. Alert and oriented x 3. Pleasant, interactive. HEENT: Normocephalic, atraumatic. Pupils are equal, round, and reactive to light. Extraocular movements are intact. No nystagmus appreciated. Sclera are nonicteric. Conjunctiva without injection. Nose midline. Nasal turbinates without bogginess. EACs both patent BL. TMs both visualized and gore with good cone of light, no bulging or erythema. No facial asymmetry. Moist mucous membranes. Dentition fair. Pharynx pink and moist, no cobblestoning. Neck supple , trachea midline. No lymphadenopathy or thyromegaly appreciated. CHEST: Regular rate and rhythm, +S1, +S2 LUNGS: Clear to auscultation bilaterally. No wheezes, rales, or rhonchi. Breathing appears symmetric and easy. Patient is speaking in full sentences. No accessory muscle use. ABD: Round, soft, non-tender, non-distended. +Bowel sounds present. Bandages intact/Colostomy. EXT: Pulses 2+ bilaterally dorsalis pedis and radial. No lower extremity edema appreciated. SKIN: [place], dry, warm. Capillary refill <2sec. No rashes. NEURO: No focal deficits appreciated. A&P: 66 YO M with h/o a tubulovillous adenoma, whichwas noted to be high- grade, status post rectosigmoid resection and anastomosis as per Dr Stroud, as well as multiple other abdominal surgeries, including colostomy and other colon segment and cecum resections with adhesion lysis and abscess drainage/removal that have been complicated by septic shock, leading to acute respiratory failure and requiring mechanical ventilation. Extubated 08/04/17. Pt is transferred to the care of Dr Woody JOSÉ 08/09/17. 1. S/P Colectomy/Ileostomy as per Dr Stroud. Status post septic shock secondary to bowel perforation/abdominal abscess- Status post exploratory laparoscopy 07/29, 07/30. enterococcus from peritoneal culture- status post vancomycin and meropenem. Currently afebrile. Leukocytosis resolved. CRP trend downward. Dr Stroud consulted, following pt. PT/OT/ST as per Dr Mckay. DVT prophylaxis as per Dr Mckay. 2. Transaminitis- [place] possible secondary to recent TPN, cholestasis. Labs now WNL. Abdominal ultrasound with hepatic hemangioma however no gallstones. Continue to monitor. Was previously on fenofibrate at home. 3. Status post acute respiratory failure requiring mechanical ventilation sick near to septic shock, resolved, extubated 08/04. 4. Acute on chronic anemia- status post 5 units PRBC. Hemoglobin 8.8. Monitor need for transfusion. 5. Status post Acute renal failure, improved. Monitor. 6. Hypertension- blood pressure stable off of OWEN inhibitor. Consider restarting if blood pressure becomes uncontrolled. BP 131/68. Monitor. 7. History of CAD status post 2 PCI in 2016- aspirin and Plavix restarted . 8. GERD- on PPI VS, I&O, 24H, Fishbone Vital Signs/I&O Vital Signs Date Time Temp Pulse Resp B/P (MAP) Pulse Ox O2 Delivery O2 Flow Rate FiO2 08/15/17 06:00 97.8 74 16 131/68 (89) 97 Room Air I&O- Last 24 Hours up to 6 AM 08/16/17 06:00 Intake Total 600 ml Output Total 400 ml Balance 200 ml Laboratory Data 24H LABS Laboratory Tests 2 08/15/17 06:24: Anion Gap 9, Glomerular Filtration Rate > 60.0, Blood Urea Nitrogen 17, Creatinine 0.92, Sodium Level 136, Potassium Level 4.0, Chloride Level 103, Carbon Dioxide Level 24, Calcium Level 8.4L, Aspartate Amino Transf (AST/SGOT) 18, Alanine Aminotransferase (ALT/SGPT) 33, Alkaline Phosphatase 215H, Total Bilirubin 0.5, Total Protein 6.5, Albumin 2.4L, Magnesium Level 2.0, C-Reactive Protein, Quantitative 2.28H, Albumin/Globulin Ratio 0.59L CBC/BMP Laboratory Tests 08/15/17 06:24 Red Blood Count 2.81 L, Mean Corpuscular Volume 91.9, Mean Corpuscular Hemoglobin 31.2, Mean Corpuscular Hemoglobin Concent 34.0, Red Cell Distribution Width 15.9 H, Calcium Level 8.4 L, Aspartate Amino Transf (AST/SGOT ) 18, Alanine Aminotransferase (ALT/SGPT) 33, Alkaline Phosphatase 215 H, Total Bilirubin 0.5, Total Protein 6.5, Albumin 2.4 L Kezia Rascon Aug 15, 2017 11:54
[2017-08-15 14:00] VITALS: BP 137/76
[2017-08-15] MEDS ORDERED: FLOM5CAP PO (14:31)
[2017-08-15] MEDS ORDERED: LOVE1INJ SC (14:31)
[2017-08-15] MEDS ORDERED: TRAZ10TA PO (14:31)
[2017-08-15 20:00] VITALS: BP 133/70
[2017-08-15] MEDS: TAMSULOSIN 0.4 MG CAP PO SCH (20:08)
[2017-08-15] MEDS: ENOXAPARIN 40 MG/0.4 ML SYRINGE (J1650) SC SCH (20:09)
[2017-08-15] MEDS: traZODone 100 MG TAB PO PRN (22:38)
[2017-08-16 06:00] VITALS: BP 133/78
[2017-08-16] MEDS: ASPIRIN 81 MG ENTERIC TAB PO SCH (08:52)
[2017-08-16] MEDS: CLOPIDOGREL 75 MG TAB PO SCH (08:52)
[2017-08-16] MEDS: PANTOPRAZOLE 40MG TAB (PROTONIX) PO SCH (08:52)
--- NOTE | 2017-08-16 09:38 | IPN ---
DATE OF SERVICE: 08/15/2017 The patient is preparing for discharge on 08/16/2017. He reports that he is doing okay with the ileostomy, though there have been some accidents. He does report having had some small amounts of stool per rectum. He is not having any pain and reports that his diet is okay. He is eager to go home. Vital signs show him to be afebrile with a pulse in the 70s, respiratory rate is 16-18, and his blood pressure is fine with a normal room air saturation. His intake and output is recorded as 1140 in yesterday with 275 of urine output recorded plus three additional voids. PHYSICAL EXAMINATION: The patient is alert, oriented, and pleasant. Skin: Is warm and dry. Abdomen is soft and nontender. The ileostomy is functioning well. His midline incision has a dressing that does not appear to have been changed yet today. I pulled this back, and he is still having some drainage of some liquefied fat at several points along the incision, but there is no sign of infection. His laboratories today show a white count of 9000 with a hematocrit of 26, and his chemistries are normal with the exception of a minimally low calcium and an albumin of 2.4. IMPRESSION: The patient has made good progress and is planning discharge for 08/16/2017. PLAN: The patient should followup with me in the office in 10 days or so after discharge, at which point I anticipate we can remove his gastrostomy tube (G-tube) if it is not being used. His wound will likely continue to drain small amounts of liquefied fat until this has drained completely, and it should then seal up and close. If there are any problems regarding the abdominal issues, he should contact my office with any questions. ROMARIO
--- NOTE | 2017-08-17 08:09 | PMRDS ---
DATE OF ADMISSION: 08/09/2017 DATE OF DISCHARGE: DISCHARGE DIAGNOSES: Rehabilitation of colon cancer and secondary weakness from tubulovillous adenoma, high-grade, with multiple abdominal surgeries including rectosigmoid resection and an anastomosis, ileostomy, adhesion lysis, and bowel abscesses and cecum resection, complicated by septic shock with secondary acute respiratory failure that required mechanical ventilation. The patient, who had multiple operating room (OR) procedures, coming in on 07/12/2017, for laparoscopic surgery and sigmoidoscopy resection of the tumor, had additional surgeries on 07/18/2017, 07/24/2017, and 07/29/2017. A gastrostomy (G) tube was placed as well as the above procedures. The patient developed infection and septic shock and respiratory failure and was treated with vancomycin IV for Enterococcus infection of the abdomen. He had notable weakness and was not able to eat initially and had G-tube placement. The patient, however, was started in a program with physical and occupational therapies and on 08/09/2017, was felt to be able to participate in and benefit from acute intensive rehabilitation on the acute rehabilitation unit (ARU) and patient was admitted to the unit. PAST MEDICAL HISTORY: Includes: 1. Coronary artery disease status post stent placement in March of 2016. 2. Right cataract excision. 3. Hypertension. 4. Hyperlipidemia. 5. Anemia. 6. Decreased protein and albumin and, at the time of transfer, hypoalbuminemia. ALLERGIES: No known drug allergies. PROCEDURES PERFORMED ON THIS UNIT: None. MEDICATIONS ON ADMISSION: Tylenol, DuoNeb inhalers, Lovenox for deep venous thrombosis (DVT) prophylaxis, omeprazole. HOSPITAL COURSE: Patient was admitted to the acute rehabilitation unit on 08/09/2017, and started in a program of physical and occupational therapies and was motivated to participate in and definitely showed benefit from that. He had also been previously evaluated by speech and was started in an advancing oral intake program and has transitioned over to by mouth feeds with only flushing of the G-tube. The patient's G-tube was compromised when inadvertently a water flush at 250 mL was placed into the balloon of the G-tube and this broke it. However, the tube has remained in place and patient has continued with flushes of it to supplement his oral fluid intake which has been reduced but is getting better as well. The patient has some problems with sleep and was started on trazodone and has done well since being on 200 mg nightly. In occupational therapy, the patient with modified independence in bed mobility and standby assist in [id number], contact guard in toileting with good balance sitting, good minus static standing, and fair plus standing dynamic, however, has transitioned to modified independent in transfers, activities of daily living (ADLs), and toileting. With physical therapy, the patient progressing from able to ambulate 10 feet with supervision touch assist and very poor endurance to having advanced in standing dynamic balance to good, ambulating in excess of 150 feet repeatedly with modified independence, and able to do 14 stairs with standby assistance. The patient and his had been taught stoma care for his ileostomy and how to burp that, but were unable to learn Lovenox injection and Lovenox is going to be discontinued. Patient is going to be on a get up and walk schedule at home. He is able to ambulate with a cane for moderate distances, but when fatigued he should be using the walker and if he goes out in the community he should use the front wheeled walker as well. DISCHARGE MEDICATIONS: - tamsulosin 4 mg nightly for urinary retention, which has worked well - trazodone 200 mg nightly for insomnia, which has also worked well, that is to be as needed and #20 tablets issued Patient to continue on: - aspirin 81 mg daily - atorvastatin 80 mg daily - Plavix 75 mg daily - multivitamin one daily - omeprazole 40 mg twice a day - ramipril 10 mg nightly COMPLICATIONS: Functionally none, though the G-tube balloon was ruptured inadvertently without harm or difficulty to the patient. DISCHARGE PLAN AND INSTRUCTIONS: Patient to see Dr. Stroud within 7-10 days for followup on his abdomen. Patient to see his primary care provider within 2 weeks. Review of need for any further anticoagulation besides the aspirin and Plavix can be considered at that time, but if patient keeps himself hydrated and is up ambulating, he probably will not need that. Patient to receive home care including physical and occupational therapy as well as nursing. TIME SPENT ON DISCHARGE: Greater than 35 minutes.
--- NOTE | 2017-08-17 15:07 | DS.PDOC ---
[employer] Discharge Note DATE OF ADMISSION: Aug 09, 2017 at 21:00 DATE OF DISCHARGE: Aug 16, 2017 at 11:45 Addenum: At time of discharge to home patient and his declined Lovenox. Medications Medications Current Medications Acetaminophen (Tylenol Tab) 650 mg Q6HP PRN PO PAIN OR FEVER Last administered on 08/12/17 09:37; Start 08/09/17 at 13:45; Stop 08/16/17 at 11:49; Status DC Albuterol/ Ipratropium (Duoneb (Ipr 0.5mg/Alb 2.5mg)) 3 ml Q4HP PRN NEB SOB/ WHEEZING; Start 08/09/17 at 14:00; Stop 08/16/17 at 11:49; Status DC Aspirin (Ecotrin) 81 mg DAILY PO Last administered on 08/16/17 08:52; Start at 09:00; Stop 08/16/17 at 11:49; Status DC Clopidogrel Bisulfate (PLAVix) 75 mg DAILY PO Last administered on 08/16/17 08 :52; Start 08/10/17 at 09:00; Stop 08/16/17 at 11:49; Status DC Enoxaparin Sodium (Lovenox) 40 mg DAILY SC Last administered on 08/10/17 08:40 ; Start 08/10/17 at 09:00; Stop 08/11/17 at 02:46; Status DC Enoxaparin Sodium (Lovenox) 40 mg DAILY@2000 SC Last administered on 08/15/17 20:09; Start 08/11/17 at 20:00; Stop 08/16/17 at 11:49; Status DC Pantoprazole Sodium (Protonix) 40 mg DAILY PO Last administered on 08/16/17 08 :52; Start 08/10/17 at 09:00; Stop 08/16/17 at 11:49; Status DC Tamsulosin HCl (Flomax) 0.4 mg QHS PO Last administered on 08/15/17 20:08; Start 08/11/17 at 21:00; Stop 08/16/17 at 11:49; Status DC Trazodone HCl (Desyrel) 100 mg QHSP PRN PO INSOMNIA Last administered on 21:06; Start 08/10/17 at 09:45; Stop 08/11/17 at 10:31; Status DC Trazodone HCl (Desyrel) 150 mg QHSP PRN PO INSOMNIA Last administered on 20:05; Start 08/11/17 at 10:30; Stop 08/12/17 at 10:15; Status DC Trazodone HCl (Desyrel) 200 mg QHSP PRN PO INSOMNIA Last administered on 22:38; Start 08/12/17 at 10:15; Stop 08/16/17 at 11:49; Status DC Scheduled (Multivitamins) 1 Cap Cap, 1 CAP PO DAILY, (Reported) Aspirin (Aspir-81) 81 Mg Tab, 81 MG PO DAILY, (Reported) Atorvastatin Calcium (Atorvastatin Calcium) 80 Mg Tab, 80 MG PO DAILY, (Reported ) Clopidogrel Bisulfate (Clopidogrel) 75 Mg Tab, 75 MG PO DAILY, (Reported) Omeprazole (Omeprazole) 40 Mg Cap, 40 MG PO BIDWM, (Reported) Ramipril (Ramipril) 10 Mg Cap, 10 MG PO QHS, (Reported) Tamsulosin Hydrochloride (Flomax) 0.4 Mg Cap, 0.4 MG PO QHS Scheduled PRN Trazodone HCl (Trazodone HCl) 100 Mg Tab, 200 MG PO QHSP PRN for INSOMNIA Allergies Coded Allergies: No Known Drug Allergy (Unverified Allergy, Unknown, NONE, 07/12/17) RALPH JIM MD Aug 17, 2017 15:07
== END 2017-08-16 11:45 | disposition home health service (06) | DRG 949 ==
LOC: M PM&R 21:00
PROVIDERS: ADMIT Physical Medicine & Rehabilitation; ATTEND Physical Medicine & Rehabilitation
DX: Z48.3 Aftercare following surgery for neoplasm (principal); C18.9 Malignant neoplasm of colon, unspecified; N17.9 Acute kidney failure, unspecified; R53.1 Weakness; Z98.41 Cataract extraction status, right eye; I25.10 Atherosclerotic heart disease of native coronary artery without angina pectoris; Z95.9 Presence of cardiac and vascular implant and graft, unspecified; I10 Essential (primary) hypertension; E78.5 Hyperlipidemia, unspecified; D64.9 Anemia, unspecified; E88.09 Other disorders of plasma-protein metabolism, not elsewhere classified; Z87.891 Personal history of nicotine dependence; Z93.1 Gastrostomy status; Z93.3 Colostomy status; R26.81 Unsteadiness on feet; E77.8 Other disorders of glycoprotein metabolism; Z79.899 Other long term (current) drug therapy; Z79.82 Long term (current) use of aspirin; K21.9 Gastro-esophageal reflux disease without esophagitis; M79.89 Other specified soft tissue disorders

== ENCOUNTER → 2019-04-19 | Outpatient (REF) | payer MEDICARE, OTHER ==
[~2019-04-19] MED LIST changes: -FENO145T PO; +FENO145T13 PO; +FLOM0.4C39 PO; +LOVE1INJ SC; -RAMI10CA PO; +RAMI1CAP26 PO; +TRAZ10TA PO
[2019-04-19 13:31] LABS: HEMATOCRIT 24.5 % (42.0-52.0); HEMOGLOBIN 7.3 g/dl (13.5-17.5); MEAN CORPUSCULAR HEMOGLOBIN 23.9 pg (27.0-33.0); MEAN CORPUSCULAR HGB CONC 29.8 g/dl (32.0-36.5); MEAN CORPUSCULAR VOLUME 80.3 fl (80.0-96.0); PLATELET COUNT, AUTOMATED 365 10^3/uL (150-450); RED BLOOD COUNT 3.05 10^6/uL (4.30-6.10); WHITE BLOOD COUNT 6.8 10^3/uL (4.0-10.0)
[2019-04-19 13:37] LABS: CALCIUM LEVEL 9.3 MG/DL (8.8-10.2); CHOLESTEROL RISK RATIO 1.833 (<5); CREATININE FOR GFR 1.47 MG/DL (0.70-1.30); GLOMERULAR FILTRATION RATE 50.4 (>42); POTASSIUM SERUM 4.6 MEQ/L (3.5-5.1)
== END ==
LOC: M LABDRAWC 11:39
PROVIDERS: ATTEND Physician Assistant
DX: I25.10 Atherosclerotic heart disease of native coronary artery without angina pectoris (principal)

== ENCOUNTER 2019-05-04 14:25 | Outpatient (CLI) | payer MEDICARE, BC, OTHER ==
[~2019-05-04] VITALS: Ht 175.3 cm; Wt 97.3 kg
[2019-05-04 14:00] VITALS: BP 154/66
[2019-05-04] MEDS ORDERED: NITR0.4S14 SL (15:12)
[2019-05-04] MEDS ORDERED: CALC0.009 TOP (15:14)
[2019-05-04] MEDS ORDERED: TRIC145T22 PO (15:14)
[2019-05-04 20:18] VITALS: BP 148/65
== END 2019-05-04 20:20 | disposition home or self-care (01) ==
LOC: M INFU 14:25
PROVIDERS: ATTEND Family Medicine
DX: D64.9 Anemia, unspecified (principal); I10 Essential (primary) hypertension; M77.9 Enthesopathy, unspecified; R22.31 Localized swelling, mass and lump, right upper limb; E78.2 Mixed hyperlipidemia; Z79.82 Long term (current) use of aspirin; Z79.899 Other long term (current) drug therapy; Z87.891 Personal history of nicotine dependence; Z95.5 Presence of coronary angioplasty implant and graft
CPT/HCPCS: 36415; 36430; 73090; 80048; 83550; 85027; 85046; 86850; 86900; 86901; 86920; G0463; P9016

== ENCOUNTER → 2019-05-08 | Outpatient (REF) | payer MEDICARE, OTHER ==
[~2019-05-08] MED LIST changes: +CALC0.009 TOP; +TRIC145T22 PO
[2019-05-08 11:41] LABS: HEMATOCRIT 30.8 % (42.0-52.0); HEMOGLOBIN 9.3 g/dl (13.5-17.5); MEAN CORPUSCULAR HEMOGLOBIN 24.7 pg (27.0-33.0); MEAN CORPUSCULAR HGB CONC 30.2 g/dl (32.0-36.5); MEAN CORPUSCULAR VOLUME 81.7 fl (80.0-96.0); PLATELET COUNT, AUTOMATED 391 10^3/uL (150-450); RED BLOOD COUNT 3.77 10^6/uL (4.30-6.10); WHITE BLOOD COUNT 7.5 10^3/uL (4.0-10.0)
[2019-05-08 12:41] LABS: ALBUMIN 3.8 GM/DL (3.2-5.2); BILIRUBIN,DIRECT 0.1 MG/DL (0.0-0.2); BILIRUBIN,TOTAL 0.3 MG/DL (0.2-1.0); FOLATE 17.4 NG/ML; TOTAL PROTEIN 7.3 GM/DL (6.4-8.2)
== END ==
LOC: M LABDRAWC 11:24
PROVIDERS: ATTEND Internal Medicine Gastroenterology
DX: D50.9 Iron deficiency anemia, unspecified (principal); Z86.010 Personal history of colon polyps; N18.3 Chronic kidney disease, stage 3 (moderate)

== ENCOUNTER → 2019-05-08 | Outpatient (REF) | payer MEDICARE, OTHER ==
[2019-05-08 11:41] LABS: HEMATOCRIT 30.2 % (42.0-52.0); HEMOGLOBIN 8.9 g/dl (13.5-17.5); MEAN CORPUSCULAR HEMOGLOBIN 23.7 pg (27.0-33.0); MEAN CORPUSCULAR HGB CONC 29.5 g/dl (32.0-36.5); MEAN CORPUSCULAR VOLUME 80.3 fl (80.0-96.0); PLATELET COUNT, AUTOMATED 400 10^3/uL (150-450); RED BLOOD COUNT 3.76 10^6/uL (4.30-6.10); WHITE BLOOD COUNT 7.6 10^3/uL (4.0-10.0)
[2019-05-08 12:41] LABS: CALCIUM LEVEL 9.3 MG/DL (8.8-10.2); CREATININE FOR GFR 1.51 MG/DL (0.70-1.30); GLOMERULAR FILTRATION RATE 48.9 (>42)
== END ==
LOC: M SFHCCLAY 09:25
PROVIDERS: ATTEND Family Medicine
DX: D50.0 Iron deficiency anemia secondary to blood loss (chronic) (principal); N18.3 Chronic kidney disease, stage 3 (moderate)

== ENCOUNTER → 2019-06-05 | Outpatient (REF) | payer MEDICARE, OTHER ==
[2019-06-05 11:53] LABS: HEMATOCRIT 34.1 % (42.0-52.0); HEMOGLOBIN 10.5 g/dl (13.5-17.5); MEAN CORPUSCULAR HEMOGLOBIN 26.4 pg (27.0-33.0); MEAN CORPUSCULAR HGB CONC 30.8 g/dl (32.0-36.5); MEAN CORPUSCULAR VOLUME 85.9 fl (80.0-96.0); RED BLOOD COUNT 3.97 10^6/uL (4.30-6.10); WHITE BLOOD COUNT 6.7 10^3/uL (4.0-10.0)
[2019-06-05 12:12] LABS: PLATELET COUNT, AUTOMATED 233 10^3/uL (150-450)
== END ==
LOC: M LABDRAWC 11:44
PROVIDERS: ATTEND Physician Assistant
DX: D50.9 Iron deficiency anemia, unspecified (principal)

== ENCOUNTER → 2019-09-03 | Outpatient (REF) | payer MEDICARE, OTHER ==
[2019-09-03 12:34] LABS: HEMATOCRIT 40.6 % (42.0-52.0); HEMOGLOBIN 13.1 g/dl (13.5-17.5); MEAN CORPUSCULAR HEMOGLOBIN 31.8 pg (27.0-33.0); MEAN CORPUSCULAR HGB CONC 32.3 g/dl (32.0-36.5); MEAN CORPUSCULAR VOLUME 98.5 fl (80.0-96.0); PLATELET COUNT, AUTOMATED 214 10^3/uL (150-450); RED BLOOD COUNT 4.12 10^6/uL (4.30-6.10); WHITE BLOOD COUNT 6.1 10^3/uL (4.0-10.0)
== END ==
LOC: M LABDRAWC 11:43
PROVIDERS: ATTEND Physician Assistant
DX: D50.9 Iron deficiency anemia, unspecified (principal)

== ENCOUNTER → 2020-05-28 | Outpatient (REF) | payer MEDICARE, OTHER ==
[~2020-05-28] MED LIST changes: -ASPI81TA85 PO; +ASPI81TA86 PO; -FENO145T13 PO; +FENO145T7 PO; -OMEP40CA2 PO; +OMEP40CA97 PO; -TRAZ10TA PO; +TRAZ1TAB12 PO
[2020-05-28 11:25] LABS: HEMATOCRIT 37.9 % (42.0-52.0); HEMOGLOBIN 12.2 g/dl (13.5-17.5); MEAN CORPUSCULAR HEMOGLOBIN 31.8 pg (27.0-33.0); MEAN CORPUSCULAR HGB CONC 32.2 g/dl (32.0-36.5); MEAN CORPUSCULAR VOLUME 98.7 fl (80.0-96.0); PLATELET COUNT, AUTOMATED 205 10^3/uL (150-450); RED BLOOD COUNT 3.84 10^6/uL (4.30-6.10); WHITE BLOOD COUNT 5.5 10^3/uL (4.0-10.0)
[2020-05-28 12:19] LABS: BILIRUBIN,TOTAL 0.5 MG/DL (0.2-1.0); CALCIUM LEVEL 9.3 MG/DL (8.8-10.2); CHOLESTEROL RISK RATIO 2.362 (<5); CREATININE FOR GFR 1.32 MG/DL (0.70-1.30); GLOMERULAR FILTRATION RATE 56.9 (>42); POTASSIUM SERUM 4.2 MEQ/L (3.5-5.1); TOTAL PROTEIN 7.1 GM/DL (6.4-8.2)
== END ==
LOC: M SFHCCLAY 07:43
PROVIDERS: ATTEND Family Medicine
DX: K21.9 Gastro-esophageal reflux disease without esophagitis (principal); N18.3 Chronic kidney disease, stage 3 (moderate); I12.9 Hypertensive chronic kidney disease with stage 1 through stage 4 chronic kidney disease, or unspecified chronic kidney disease; I25.119 Atherosclerotic heart disease of native coronary artery with unspecified angina pectoris; Z93.2 Ileostomy status

== ENCOUNTER → 2020-09-12 | Outpatient (REF) | payer MEDICARE, OTHER ==
[2020-09-12 13:01] LABS: MAGNESIUM LEVEL 2.1 MG/DL (1.8-2.4)
[2020-09-12 13:15] LABS: TOTAL 25(OH) VITAMIN D 44.8 NG/ML (30.0-100.0)
== END ==
LOC: M LABDRAWC 11:28
PROVIDERS: ATTEND Physician Assistant
DX: K22.70 Barrett's esophagus without dysplasia (principal); E55.9 Vitamin D deficiency, unspecified

== ENCOUNTER → 2020-09-12 | Outpatient (REF) | payer MEDICARE, OTHER ==
[2020-09-12 12:36] LABS: HEMATOCRIT 38.9 % (42.0-52.0); HEMOGLOBIN 12.6 g/dl (13.5-17.5); MEAN CORPUSCULAR HEMOGLOBIN 32.3 pg (27.0-33.0); MEAN CORPUSCULAR HGB CONC 32.4 g/dl (32.0-36.5); MEAN CORPUSCULAR VOLUME 99.7 fl (80.0-96.0); PLATELET COUNT, AUTOMATED 232 10^3/uL (150-450); WHITE BLOOD COUNT 6.1 10^3/uL (4.0-10.0)
[2020-09-12 13:08] LABS: ALBUMIN 3.9 GM/DL (3.2-5.2); BILIRUBIN,TOTAL 0.5 MG/DL (0.2-1.0); CALCIUM LEVEL 9.4 MG/DL (8.8-10.2); CHOLESTEROL RISK RATIO 2.04 (<5); CREATININE FOR GFR 1.31 MG/DL (0.70-1.30); GLOMERULAR FILTRATION RATE 57.4 (>42); POTASSIUM SERUM 4.6 MEQ/L (3.5-5.1)
== END ==
LOC: M SFHCCLAY 07:29
PROVIDERS: ATTEND Family Medicine
DX: E78.2 Mixed hyperlipidemia (principal); I10 Essential (primary) hypertension; I25.119 Atherosclerotic heart disease of native coronary artery with unspecified angina pectoris; K22.70 Barrett's esophagus without dysplasia; E55.9 Vitamin D deficiency, unspecified; Z95.5 Presence of coronary angioplasty implant and graft

== ENCOUNTER → 2020-09-23 | Outpatient (REF) | payer MEDICARE, OTHER ==
[2020-09-23 17:17] LABS: FOLATE 17.7 NG/ML (>5.4)
== END ==
LOC: M SFHCCLAY 09:40
PROVIDERS: ATTEND Family Medicine
DX: D53.9 Nutritional anemia, unspecified (principal)

== ENCOUNTER → 2021-04-09 | Outpatient (REF) | payer MEDICARE, OTHER ==
[~2021-04-09] MED LIST changes: -LISI-538 PO; +LISI20TA33 PO
[2021-04-09 12:31] LABS: BASO # 0.1 10^3/uL (0.0-0.2); BASO % 0.8 % (0.0-1.0); EOS # 0.2 10^3/uL (0.0-0.5); EOS % 2.6 % (0.0-3.0); HEMATOCRIT 35.5 % (42.0-52.0); HEMOGLOBIN 11.5 g/dl (13.5-17.5); LYMPH # 2.1 10^3/uL (1.5-5.0); LYMPH % 33.2 % (24.0-44.0); MEAN CORPUSCULAR HEMOGLOBIN 32.8 pg (27.0-33.0); MEAN CORPUSCULAR HGB CONC 32.4 g/dl (32.0-36.5); MEAN CORPUSCULAR VOLUME 101.1 fl (80.0-96.0); MONO # 0.6 10^3/uL (0.0-0.8); MONO % 8.9 % (2.0-8.0); NEUTROPHILS # 3.4 10^3/uL (1.5-8.5); NEUTROPHILS % 54.2 % (36.0-66.0); PLATELET COUNT, AUTOMATED 203 10^3/uL (150-450); RED BLOOD COUNT 3.51 10^6/uL (4.30-6.10); WHITE BLOOD COUNT 6.2 10^3/uL (4.0-10.0)
[2021-04-09 13:19] LABS: BILIRUBIN,TOTAL 0.7 MG/DL (0.2-1.0); CALCIUM LEVEL 9.3 MG/DL (8.8-10.2); CHOLESTEROL RISK RATIO 2.093 (<5); CREATININE FOR GFR 1.31 MG/DL (0.70-1.30); FREE T4 0.96 NG/DL (0.76-1.46); GLOMERULAR FILTRATION RATE 57.3 (>42); POTASSIUM SERUM 4.5 MEQ/L (3.5-5.1); THYROID STIMULATING HORMONE 3.23 uIU/ML (0.358-3.740); TOTAL PROTEIN 6.8 GM/DL (6.4-8.2)
== END ==
LOC: M SFHCCLAY 07:01
PROVIDERS: ATTEND Family Medicine
DX: E78.2 Mixed hyperlipidemia (principal); I10 Essential (primary) hypertension; D50.0 Iron deficiency anemia secondary to blood loss (chronic)

== ENCOUNTER → 2022-04-27 | Outpatient (REF) | payer MEDICARE, OTHER ==
[~2022-04-27] MED LIST changes: +IRON27TA2 PO; +NOXI1TAB PO; +OMEP40CA4 PO; -OMEP40CA97 PO; +VITATAB64 PO
[2022-04-27 11:47] LABS: HEMATOCRIT 41.1 % (42.0-52.0); HEMOGLOBIN 13.2 g/dl (13.5-17.5); MEAN CORPUSCULAR HEMOGLOBIN 32.4 pg (27.0-33.0); MEAN CORPUSCULAR HGB CONC 32.1 g/dl (32.0-36.5); MEAN CORPUSCULAR VOLUME 100.7 fl (80.0-96.0); PLATELET COUNT, AUTOMATED 211 10^3/uL (150-450); RED BLOOD COUNT 4.08 10^6/uL (4.30-6.10); WHITE BLOOD COUNT 7.3 10^3/uL (4.0-10.0)
[2022-04-27 12:31] LABS: BILIRUBIN,TOTAL 0.9 MG/DL (0.2-1.0); CALCIUM LEVEL 9.7 MG/DL (8.8-10.2); CHOLESTEROL RISK RATIO 2.56 (<5); CREATININE FOR GFR 1.41 MG/DL (0.70-1.30); GLOMERULAR FILTRATION RATE 52.5 (>42); POTASSIUM SERUM 4.9 MEQ/L (3.5-5.1); TOTAL PROTEIN 7.2 GM/DL (6.4-8.2)
== END ==
LOC: M SFHCCLAY 07:09
PROVIDERS: ATTEND Family Medicine
DX: I10 Essential (primary) hypertension (principal); E78.2 Mixed hyperlipidemia; K21.9 Gastro-esophageal reflux disease without esophagitis

== ENCOUNTER → 2022-05-31 | Outpatient (REF) | payer MEDICARE, OTHER ==
[2022-05-31 14:50] LABS: CALCIUM LEVEL 9.7 MG/DL (8.8-10.2); CREATININE FOR GFR 1.42 MG/DL (0.70-1.30); POTASSIUM SERUM 4.5 MEQ/L (3.5-5.1)
== END ==
LOC: M SFHCCLAY 06:51
PROVIDERS: ATTEND Family Medicine
DX: I10 Essential (primary) hypertension (principal)

== ENCOUNTER → 2023-08-24 | Outpatient (CLI) | payer MEDICARE, BC, OTHER | LOC: M CARPUL 08:35 | PROVIDERS: ATTEND Internal Medicine Cardiovascular Disease | DX: I10 Essential (primary) hypertension (principal); I25.10 Atherosclerotic heart disease of native coronary artery without angina pectoris; I77.810 Thoracic aortic ectasia ==

== ENCOUNTER → 2024-06-20 | Outpatient (REF) | payer MEDICARE, BC ==
[~2024-06-20] MED LIST changes: +CALC0.0017 TOP; -CALC0.009 TOP; +RAMI10CA64 PO; -RAMI1CAP26 PO
[2024-06-20 12:12] LABS: HEMATOCRIT 37.3 % (42.0-52.0); HEMOGLOBIN 12.3 g/dl (13.5-17.5); MEAN CORPUSCULAR HEMOGLOBIN 32.6 pg (27.0-33.0); MEAN CORPUSCULAR VOLUME 98.9 fl (80.0-96.0); PLATELET COUNT, AUTOMATED 228 10^3/uL (150-450); RED BLOOD COUNT 3.77 10^6/uL (4.30-6.10); WHITE BLOOD COUNT 5.6 10^3/uL (4.0-10.0)
[2024-06-20 12:35] LABS: ALBUMIN 3.9 G/DL (3.2-5.2); BILIRUBIN,TOTAL 0.5 MG/DL (0.3-1.2); CALCIUM LEVEL 9.7 MG/DL (8.3-10.6); CHOLESTEROL RISK RATIO 3.19 (<5); CREATININE FOR GFR 1.27 MG/DL (0.70-1.30); GLOMERULAR FILTRATION RATE 58.9 (>42); HDL CHOLESTEROL 51.4 MG/DL (>40); LDL CHOLESTEROL 75.2 MG/DL (<100); NON-HDL-C 112.6 MG/DL; POTASSIUM SERUM 4.6 MMOL/L (3.5-5.1); TOTAL PROTEIN 6.6 G/DL (5.7-8.2)
== END ==
LOC: M SFHCCLAY 07:32
PROVIDERS: ATTEND Family Medicine
DX: I10 Essential (primary) hypertension (principal); E78.2 Mixed hyperlipidemia; K21.9 Gastro-esophageal reflux disease without esophagitis

== ENCOUNTER → 2024-07-17 | Outpatient (REF) | payer MEDICARE, BC ==
[2024-07-17 13:26] LABS: CALCIUM LEVEL 9.4 MG/DL (8.3-10.6); CREATININE FOR GFR 1.38 MG/DL (0.70-1.30); GLOMERULAR FILTRATION RATE 53.5 (>42); POTASSIUM SERUM 4.4 MMOL/L (3.5-5.1)
== END ==
LOC: M SFHCCLAY 07:03
PROVIDERS: ATTEND Family Medicine
DX: I10 Essential (primary) hypertension (principal)

== ENCOUNTER → 2025-04-09 | Outpatient (REF) | payer MEDICARE, BC ==
[~2025-04-09] MED LIST changes: -FLOM0.4C39 PO; +TAMS-18 PO
[2025-04-09 12:37] LABS: HEMATOCRIT 40.2 % (42.0-52.0); HEMOGLOBIN 12.9 g/dl (13.5-17.5); MEAN CORPUSCULAR HEMOGLOBIN 32.7 pg (27.0-33.0); MEAN CORPUSCULAR HGB CONC 32.1 g/dl (32.0-36.5); MEAN CORPUSCULAR VOLUME 101.8 fl (80.0-96.0); PLATELET COUNT, AUTOMATED 221 10^3/uL (150-450); RED BLOOD COUNT 3.95 10^6/uL (4.30-6.10); WHITE BLOOD COUNT 6.3 10^3/uL (4.0-10.0)
[2025-04-09 13:07] LABS: ALBUMIN 4.2 G/DL (3.2-5.2); BILIRUBIN,TOTAL 0.7 MG/DL (0.3-1.2); CALCIUM LEVEL 9.4 MG/DL (8.3-10.6); CHOLESTEROL RISK RATIO 3.2 (<5); CREATININE FOR GFR 1.28 MG/DL (0.70-1.30); HDL CHOLESTEROL 54.6 MG/DL (>40); NON-HDL-C 120.4 MG/DL; PERCENT SATURATION 29.6 % (19.7-50.0); POTASSIUM SERUM 4.7 MMOL/L (3.5-5.1)
[2025-04-09 13:12] LABS: FERRITIN 518.9 NG/ML (10.5-307.3)
[2025-04-09 13:13] LABS: FOLATE 18.7 NG/ML (>5.4)
[2025-04-09 13:25] LABS: HEMOGLOBIN A1c 5.8 % (4.0-6.0)
== END ==
LOC: M SFHCCLAY 08:05
PROVIDERS: ATTEND Physician Assistant
DX: Z00.00 Encounter for general adult medical examination without abnormal findings (principal); E78.2 Mixed hyperlipidemia; I10 Essential (primary) hypertension; I25.119 Atherosclerotic heart disease of native coronary artery with unspecified angina pectoris; I77.810 Thoracic aortic ectasia; D53.9 Nutritional anemia, unspecified; N18.31 Chronic kidney disease, stage 3a; K22.70 Barrett's esophagus without dysplasia; Z12.5 Encounter for screening for malignant neoplasm of prostate; Z79.899 Other long term (current) drug therapy
CPT/HCPCS: 80053; 80061; 82607; 82728; 82746; 83036; 83550; 85027; G0103